=== PATIENT | male | born 1960 | race Caucasian/White ===

== ENCOUNTER 2024-09-15 10:42 | Outpatient (OUT) | payer OTHER, SELFPAY ==
--- NOTE | 2024-09-15 10:59 | US_ITS ---
The [address] [address] Patient Name: MALCOM COTTO MRN: [id number] date: 1960 Sex: M Assigned Patient Location: [place] Current Patient Location: [place] Accession/Order Number: [id number] Exam Date: 09/15/2024 11:00 Report Date: 09/15/2024 14:06 At the request of: QAMAR LOCKHART Procedure: US scrotum EXAMINATION: US scrotum HISTORY: Testicular Pain N50.819 COMPARISON: No relevant comparison available. TECHNIQUE: High-resolution sonographic imaging of the scrotum and contents was performed. FINDINGS: The right testicle is normal in size, contour and echotexture measuring 3.9 x 2.4 x 3.1 cm. Normal color and Doppler flow The right epididymis is normal No right hydrocele or varicocele The left testicle is normal in size, contour and echotexture measuring 4.5 x 2.0 x 2.7 cm. Normal color and Doppler flow The left epididymis is normal in size. The region of patient's palpable abnormality 0.7 cm area of anechoic echogenicity is noted likely an epididymal cyst No left hydrocele or varicocele US/US scrotum IMPRESSION: 7 mm left epididymal cyst corresponding to the patient's palpable abnormality Electronically authenticated by: KAY JOSEPH Date: 09/15/2024 14:06
== END 2024-09-15 10:43 | disposition home or self-care (01) ==
PROVIDERS: Visit Provider Nurse Practitioner Family
DX: N50.819 Testicular pain, unspecified (principal); N50.3 Cyst of epididymis
CPT/HCPCS: 76870

== ENCOUNTER 2025-03-04 11:57 | Observation (INO) | payer MEDICARE, SELFPAY ==
[2025-03-04] VITALS (13 sets, daily range): BP systolic 123–169; BP diastolic 71–94; PULSE 63–83; TEMP 36.4–36.8; O2SAT 91–99; BMI 31.6; BMI 31.7
--- NOTE | 2025-03-04 12:41 | ECG_ITS ---
[facility] Test Date: 2025-03-04 Pat Name: MALCOM COTTO Department: Room: - Gender: Male Resident Hall Director: : 1960 Requested By: [id number] Order Number: [id number] Reading MD: ULI RIZO M.D. Measurements Intervals [place] Rate: 69 P: 54 NC: 182 QRS: -56 QRSD: 96 T: 42 QT: 378 QTc: 398 Interpretive Statements 1100 Sinus rhythm 7200 Abnormal left axis deviation 8003 Consistent with pulmonary disease 9150 abnormal ECG Compared to ECG 06/11/2022 06:34:16 No significant changes Electronically Signed On 03-05-2025 15:12:20 EDT by ULI RIZO M.D.
[2025-03-04 12:45] LABS: Basophils Percent Auto 0.4 % (0.2-2.0); Eosinophils Percent Auto 3.3 % (0.9-7.0); Hematocrit 47.2 % (42.0-54.0); Hemoglobin 15.7 g/dL (14.0-18.0); Immature Granulocytes Pct Auto 0.2 % (0.0-0.5); Lymphocytes Percent Auto 21.1 % (20.5-60.0); Mean Corpuscular HGB Conc 33.3 g/dL (29.9-35.2); Mean Corpuscular Hemoglobin 30.2 pg (25.9-34.0); Mean Corpuscular Volume 90.8 fL (80.0-94.0); Mean Platelet Volume 10.2 fL (9.5-13.5); Platelet Count 249 10^3/uL (150-450); Red Cell Distribution Width 13.1 % (11.0-15.0); White Blood Count 8.5 10^3/uL (4.0-11.0)
[2025-03-04 12:46] LABS: Eosinophils Absolute Auto 0.3 10^3/uL (0.0-0.7); Immature Granulocytes Abs Auto 0.02 10^3/uL (0.00-0.03); Lymphocytes Absolute Auto 1.8 10^3/uL (1.2-3.8); Monocytes Absolute Auto 0.9 10^3/uL (0.3-0.8); Neutrophils Absolute Auto 5.5 10^3/uL (1.4-6.5)
[2025-03-04 12:56] LABS: INR 1.07; Prothrombin Time 11.3 sec (9.0-11.6)
[2025-03-04 12:58] LABS: Alanine Aminotransferase 29 U/L (16-63); Albumin Globulin Ratio 1.1; Alkaline Phosphatase 80 U/L (46-116); Anion Gap 13.9; Aspartate Amino Transferase 13 U/L (15-37); BUN Creatinine Ratio 18.6; Bilirubin Total 0.4 mg/dL (0.2-1.0); Calcium 8.7 mg/dL (8.5-10.1); Carbon Dioxide 25.1 mmol/L (21.0-32.0); Chloride 103 mmol/L (98-107); Estimated GFR (African America >60 (>=60 mL/min/1.73m^2); Estimated GFR (Non-African Ame >60 (>=60 mL/min/1.73m^2); Globulin 3.5 g/dL; Glucose 156 mg/dL (74-106); Sodium 138 mmol/L (136-145); Total Protein 7.5 g/dL (6.4-8.2); Troponin I High Sensitivity 4.4 pg/mL (4.0-76.1)
--- NOTE | 2025-03-04 13:55 | ED.GENADUL1 ---
HPI HPI - General Adult General Chief complaint: Neuro Symptoms/Deficit Stated complaint: upper extremity pain, light headed Time Seen by Provider: 03/04/25 12:39 Source: patient Mode of arrival: walk-in Limitations: no limitations History of Present Illness HPI narrative: The patient is a 64 years old male with history of hypertension on losartan 50 mg daily, as well as a recent history of TIA almost 3-month ago was coming to the ER with a left-sided facial numbness in addition to left hand pain and weakness that he noticed at 2 AM this morning The patient presented to us more than 9 hours after his last known well The patient has been weakness he walked in here with no difficulty he also denies any difficulty speaking or any blurry vision he also denies any headache The patient mentioned that he woke up with the pain in the left hand and went to see his urologist and that why he is coming back he continued to have pain and apparently also continued to have some dizziness with it Related Data Home Medications ?Medication ?Instructions ?Recorded ?Confirmed amlodipine 10 mg tablet 10 mg PO DAILY 03/04/25 03/04/25 aspirin 81 mg tablet,delayed 81 mg PO DAILY 03/04/25 03/04/25 release (Adult Aspirin Regimen) cholecalciferol (vitamin D3) 50 50 mcg PO DAILY 03/04/25 03/04/25 mcg (2,000 unit) disintegrating tablet empagliflozin 25 mg tablet 25 mg PO DAILY 03/04/25 03/04/25 ezetimibe 10 mg tablet 10 mg PO DAILY 03/04/25 03/04/25 finasteride 5 mg tablet 5 mg PO DAILY 03/04/25 03/04/25 insulin glargine 100 unit/mL (3 16 unit subcut DAILY 03/04/25 03/04/25 mL) subcutaneous pen losartan 50 mg tablet 50 mg PO DAILY 03/04/25 03/04/25 multivitamin (Daily Multi-Vitamin 1 tab PO DAILY 03/04/25 03/04/25 tablet) pioglitazone 30 mg tablet 30 mg PO DAILY 03/04/25 03/04/25 tadalafil 5 mg tablet (Cialis) 5 mg PO DAILY 03/04/25 03/04/25 Allergies Allergy/AdvReac Type Severity Reaction Status Date / Time No Known Drug Allergies Allergy Verified 03/04/25 14:05 Opioid HPI Opioid Management Most Recent Opioid Data: No Data to Display Review of Systems ROS Status of ROS 10 or more systems reviewed and unremarkable except as noted in history and below [facility] Medical History (Updated 03/04/25 @ 14:24 by Khushi Medrano RN) TIA (transient ischemic attack) ?G45.9 - Transient cerebral ischemic attack, unspecified (ICD-10) Hypertension ?I10 - Essential (primary) hypertension (ICD-10) Diabetes ?E11.9 - Type 2 diabetes mellitus without complications (ICD-10) Surgical History (Updated 03/04/25 @ 14:15 by Khushi Medrano RN) History of cholecystectomy ?Z90.49 - Acquired absence of other specified parts of digestive tract (ICD-10) Hx of appendectomy ?Z90.49 - Acquired absence of other specified parts of digestive tract (ICD-10) Social History Little interest or pleasure in doing things: not at all Feeling down, depressed, or hopeless: not at all Exam Narrative Exam Narrative: Nurses notes and vital signs reviewed and patient is not hypoxic. General: Well-appearing and in no apparent distress. Skin: Warm, dry, no pallor noted. No rash. Head: Normocephalic, atraumatic. Neck: Supple, non-tender. Eye: Pupils are equal, round and EOMI. No scleral icterus. Ears, Nose, Mouth, and Throat: TM are clear, no nasal mucosal hypertrophy. Oral mucosa is moist, no posterior oropharynx erythema, uvula is mid-line Cardiovascular: Regular Rate and Rhythm without murmur, gallop or rub. Respiratory: No accessory muscle use or respiratory distress. Lungs are clear to auscultation, no wheezing, rales or rhonchi Chest Wall: no tenderness Back: No midline thoracic or lumbar vertebral tenderness. No CVA tenderness Musculoskeletal: normal ROM, no calf or popliteal tenderness, no lower extremity edema/swelling the patient have tenderness on palpation of the left wrist as well as the left hand there is normal capillary refill, the patient have a good radial pulse bilaterally and GI: Abdomen is soft, non-distended. Normal bowel sounds. No masses appreciated. No tenderness to palpation. No rebound, guarding, or rigidity noted. Neurological: A&O x4. No cranial nerve dysfunction observed. No truncal ataxia. Moves all extremities. Sensation intact. Only the left hand java software is weak due to pain and the patient also mentioned that having numbness and tingling in the left side of the face at the forehead as well as the left cheek and below the eye compared to the right side. No mouth deviation Psychiatric: Cooperative and interactive. Normal mood and affect. Constitutional Vital Signs, click to edit/add: Last Vital Signs Temp 98.3 F 03/04/25 12:17 Pulse 68 03/04/25 13:30 Resp 28 H 03/04/25 14:00 BP 143/85 H 03/04/25 14:00 Pulse Ox 98 03/04/25 12:57 O2 Del Method Room Air 03/04/25 12:17 Course Vital Signs Vital signs: Vital Signs Temperature 98.3 F 03/04/25 12:17 Pulse Rate 81 03/04/25 12:17 Respiratory Rate 18 03/04/25 12:17 Blood Pressure 169/93 H 03/04/25 12:17 Pulse Oximetry 99 03/04/25 12:17 Oxygen Delivery Method Room Air 03/04/25 12:17 Temperature 98.3 F 03/04/25 12:17 Pulse Rate 68 03/04/25 13:30 Respiratory Rate 28 H 03/04/25 14:00 Blood Pressure 143/85 H 03/04/25 14:00 Pulse Oximetry 98 03/04/25 12:57 Oxygen Delivery Method Room Air 03/04/25 12:17 Medical Decision Making [facility] Narrative Medical decision making narrative: The patient EKG in the ER showing heart rate of [address] elevation or depression The patient CT of the head showed no acute pathology His blood pressure was 120 and 130 systolic on arrival The patient CBC and chemistry showed no acute pathology The patient case discussed with teleneurology stroke team and right now the patient is not a candidate for tPA and he will just need to be admitted for further evaluation, his Plavix was stopped 2 weeks after he had a TIA and right now he will be provided with aspirin The patient case discussed with and he agrees with above-mentioned plan Lab Data Labs: Lab Results 03/04/25 Range/Units 12:23 WBC 8.5 (4.0-11.0) 10^3/uL RBC 5.20 (4.70-6.10) 10^6/uL Hgb 15.7 (14.0-18.0) g/dL Hct 47.2 (42.0-54.0) % MCV 90.8 (80.0-94.0) fL MCH 30.2 (25.9-34.0) pg MCHC 33.3 (29.9-35.2) g/dL RDW 13.1 (11.0-15.0) % Plt Count 249 (150-450) 10^3/uL MPV 10.2 (9.5-13.5) fL Neut % (Auto) 65.0 (43.0-75.0) % Lymph % (Auto) 21.1 (20.5-60.0) % Divide % (Auto) 10.0 (1.7-12.0) % Eos % (Auto) 3.3 (0.9-7.0) % Baso % (Auto) 0.4 (0.2-2.0) % Neut # (Auto) 5.5 (1.4-6.5) 10^3/uL Lymph # (Auto) 1.8 (1.2-3.8) 10^3/uL Divide # (Auto) 0.9 H (0.3-0.8) 10^3/uL Eos # (Auto) 0.3 (0.0-0.7) 10^3/uL Baso # (Auto) 0.0 (0.0-0.1) 10^3/uL Abs Immat Gran (auto) 0.02 (0.00-0.03) 10^3/uL Imm/Tot Granulo (auto) 0.2 (0.0-0.5) % PT 11.3 (9.0-11.6) sec INR 1.07 Sodium 138 (136-145) mmol/L Potassium 4.0 (3.5-5.1) mmol/L Chloride 103 (98-107) mmol/L Carbon Dioxide 25.1 (21.0-32.0) mmol/L Anion Gap 13.9 BUN 19.0 H (7.0-18.0) mg/dL Creatinine 1.02 (0.70-1.30) mg/dL Est GFR ( Amer) >60 (>=60 mL/min/1.73m^2) Est GFR (Non-Af Amer) >60 (>=60 mL/min/1.73m^2) BUN/Creatinine Ratio 18.6 Glucose 156 H (74-106) mg/dL Calcium 8.7 (8.5-10.1) mg/dL Total Bilirubin 0.4 (0.2-1.0) mg/dL AST 13 L (15-37) U/L ALT 29 (16-63) U/L Alkaline Phosphatase 80 (46-116) U/L Troponin I High Sens 4.4 (4.0-76.1) pg/mL Total Protein 7.5 (6.4-8.2) g/dL Albumin 4.0 (3.4-5.0) g/dL Globulin 3.5 g/dL Albumin/Globulin Ratio 1.1 Discharge Plan Discharge Chief Complaint: Neuro Symptoms/Deficit Clinical Impression: Left hand weakness, Left facial numbness Patient Disposition: Admitted as Observation Time of Disposition Decision: 14:09
--- NOTE | 2025-03-04 13:58 | PC.NURSE ---
Dr. Harrison speaks with teleneurology via telephone. No stroke cart needed per Dr. Stone.
[2025-03-04] MEDS: KETOROLAC TROMETHAMINE 30 MG/ML VIAL 15 MG IVP (14:01)
--- OUTSIDE RECORDS SUMMARY | 2025-03-04 15:27 | XMS_ITS ---
Author Organization [facility] Care Team Providers Care Intern Retail Name Role Phone TANYA SY Attending Unav CARMINE Pozo Admitting Unavailable CHARLES, NASIMA A Primary Care Unavailable LORENA BRIGGS Attending Unavailable LORENA BRIGGS Referring Unavailable CHARLES, NASIMA A Primary Care Unavailable LORENA BRIGGS Attending Unavailable LORENA BRIGGS Referring Unavailable CHARLES, NASIMA A Primary Care Unavailable CHARLES, NASIMA A Primary Care Unavailable Lue, Mary M. Referring Unavailable Lue, Mary M. Admitting Unavailable Lue, Mary M. Attending Unavailable Lue, Mary M. Attending Unavailable Lue, Mary M. Referring Unavailable Alan DUFF Attending Unavailable Grace Robles Attending Unavailable Lue, Mary M. Referring Unavailable Lue, Mary M. Attending Unavailable Lue, Mary M. Referring Unavailable Antonella Delgadillo Attending Unavailable Antonella Delgadillo Attending Unavailable Lue, Mary M. Referring Unavailable Lue, Mary M. Admitting Unavailable Lue, Mary M. Attending Unavailable Purpose PROBLEMS DATE TYPE CONDITION / CODE ATTENDING STATUS [facility] 03/04/2025 Unknown possible stroke from [facility] / UNK(Unknown) NA Active [facility] 12/10/2024 Unknown Transient cerebr al ischemic attack, unspecified / G45.9(ICD-10) TANYA SY Active [facility] 12/10/2024 Unknown Chest pain, unspecified / R07.9(ICD-10) TANYA SY Active [facility] 12/09/2024 Unknown Chest Pain / FREETEXT(AOF) TANYA SY [facility] 12/09/2024 Unknown Dizziness / FREETEXT(AOF) TANYA SY [facility] PROCEDURES No Procedure Records Found VITAL SIGNS No Vital Signs Records Found RESULTS PATIENT EDUCATION Observed: 03/04/2025 11:19 AM Status: F Source: [facility] REPOSITORY Patient Education Urology Benign Prostatic Hyperplasia Benign prostatic hyperplasia (BPH) is an enlarged prostate gland that is caused by the normal aging process. The prostate may get bigger as a man gets older. The condition is not caused by cancer. The prostate is a walnut-sized gland that is involved in the production of semen. It is located in front of the rectum and below the bladder. The bladder stores urine. The urethra carries stored urine out of the body. An enlarged prostate can press on the urethra. This can make it harder to pass urine. The buildup of urine in the bladder can cause infection. Back pressure and infection may progress to bladder damage and kidney (renal) failure. What are the causes? This condition is part of the normal aging process. However, not all men develop problems from this condition. If the prostate enlarges away from the urethra, urine flow will not be blocked. If it enlarges toward the urethra and compresses it, there will be problems passing urine. What increases the risk? This condition is more likely to develop in men older than 50 years. What are the signs or symptoms? Symptoms of this condition include: ??? Getting up often during the night to urinate. ??? Needing to urinate frequently during the day. ??? Difficulty starting urine flow. ??? Decrease in size and strength of your urine stream. ??? Leaking (dribbling) after urinating. ??? Inability to pass urine. This needs immediate treatment. ??? Inability to completely empty your bladder. ??? Pain when you pass urine. This is more common if there is also an infection. ??? Urinary tract infection (UTI). How is this diagnosed? This condition is diagnosed based on your medical history, a physical exam, and your symptoms. Tests will also be done, such as: ??? A post-void bladder scan. This measures any amount of urine that may remain in your bladder after you finish urinating. ??? A digital rectal exam. In a rectal exam, your health care provider checks your prostate by putting a lubricated, gloved finger into your rectum to feel the back of your prostate gland. This exam detects the size of your gland and any abnormal lumps or growths. ??? An exam of your urine (urinalysis). ??? A prostate specific antigen (PSA) screening. This is a blood test used to screen for prostate cancer. ??? An ultrasound. This test uses sound waves to electronically produce a picture of your prostate gland. Your health care provider may refer you to a specialist in kidney and prostate diseases (urologist). How is this treated? Once symptoms begin, your health care provider will monitor your condition (active surveillance or watchful waiting). Treatment for this condition will depend on the severity of your condition. Treatment may include: ??? Observation and yearly exams. This may be the only treatment needed if your condition and symptoms are mild. ??? Medicines to relieve your symptoms, including: ? Medicines to shrink the prostate. ? Medicines to relax the muscle of the prostate. ??? Surgery in severe cases. Surgery may include: ? Prostatectomy. In this procedure, the prostate tissue is removed completely through an open incision or with a laparoscope or robotics. ? Transurethral resection of the prostate (TURP). In this procedure, a tool is inserted through the opening at the tip of the penis (urethra). It is used to cut away tissue of the inner core of the prostate. The pieces are removed through the same opening of the penis. This removes the blockage. ? Transurethral incision (TUIP). In this procedure, small cuts are made in the prostate. This lessens the prostate's pressure on the urethra. ? Transurethral microwave thermotherapy (TUMT). This procedure uses microwaves to create heat. The heat destroys and removes a small amount of prostate tissue. ? Transurethral needle ablation (TUNA). This procedure uses radio frequencies to destroy and remove a small amount of prostate tissue. ? Interstitial laser coagulation (ILC). This procedure uses a laser to destroy and remove a small amount of prostate tissue. ? Transurethral electrovaporization (TUVP). This procedure uses electrodes to destroy and remove a small amount of prostate tissue. ? Prostatic urethral lift. This procedure inserts an implant to push the lobes of the prostate away from the urethra. Follow these instructions at home: ??? Take baji-fgm-gkrohec and prescription medicines only as told by your health care provider. ??? Monitor your symptoms for any changes. Contact your health care provider with any changes. ??? Avoid drinking large amounts of liquid before going to bed or out in public. ??? Avoid or reduce how much caffeine or alcohol you drink. ??? Give yourself time when you urinate. ??? Keep all follow-up visits. This is important. Contact a health care provider if: ??? You have unexplained back pain. ??? Your symptoms do not get better with treatment. ??? You develop side effects from the medicine you are taking. ??? Your urine becomes very dark or has a bad smell. ??? Your lower abdomen becomes distended and you have trouble passing urine. Get help right away if: ??? You have a fever or chills. ??? You suddenly cannot urinate. ??? You feel light-headed or very dizzy, or you faint. ??? There are large amounts of blood or clots in your urine. ??? Your urinary problems become hard to manage. ??? You develop moderate to severe low back or flank pain. The flank is the side of your body between the ribs and the hip. These symptoms may be an emergency. Get help right away. Call 911. ??? Do not wait to see if the symptoms will go away. ??? Do not drive yourself to the hospital. Summary ??? Benign prostatic hyperplasia (BPH) is an enlarged prostate that is caused by the normal aging process. It is not caused by cancer. ??? An enlarged prostate can press on the urethra. This can make it hard to pass urine. ??? This condition is more likely to develop in men older than 50 years. ??? Get help right away if you suddenly cannot urinate. This information is not intended to replace advice given to you by your health care provider. Make sure you discuss any questions you have with your health care provider. Document Revised: 06/06/2022 Document Reviewed: 06/06/2022 [employer] Patient Education ? 2023 [employer]. UROLOGY OFFICE/CLINIC NOTE Observed: 01/2025 9:59 AM Status: F Source: [facility] REPOSITORY Urology Office/Clinic Note Chief Complaint follow up to urolift HPI Staff 64 yr old male here for 1 mth f/u PO Urolift w/ PVR Previous Dx:OAB, bph with luts, elevated psa, incomplete bladder emptying, ED Continues Cialis 5mg qd, Finasteride 5mg qd PVR today 119ml PSA: 05/23/21 - 5.4 09/22/24 - 8.02 patient denies any dysuria or gross hematuria. States that he has noticed improvement in frequency and urgency since UroLift. History of Present Illness Tests reviewed: reviewed UA, PVR I have reviewed the previous health record information and history for this patient from Dr. Curran I have reviewed and verified the staff HPI to be accurate for this encounter. There have been no associated fever, chills, flank pain, or blood in the urine. Denies any urinary infections since last encounter. Review of Systems PHQ Score Initial Depression Screen Score: 0 SCORE ROS - Provider Constitutional: denies weight loss, denies hot flashes. Eyes: denies eye problems. Gastrointestinal: denies nausea, denies vomiting. Cardiovascular: denies chest pain or angina. Integumentary: no dryness Musculoskeletal: denies musculoskeletal symptoms. ENMT: denies otolaryngeal symptoms. Respiratory: no shortness of breath. Heme/Lymph: denies easy bleeding tendency, denies easy bruising tendency. Psychiatric: no confusion, no anxiety. Genitourinary: See HPI. Physical Exam Vitals & Measurements HR: 80(Peripheral) RR: 16 BP: 139/83 HT: 70 in HT: 178 cm WT: 218.257 lb WT: 99 kg BMI: 31.25 General Appearance: alert, no distress, well nourished, well developed male. Assessment/Plan 64 [facility]u to UroLift. Hx of uncontrolled DM, A1c 7- 8s 1. BPH with urinary obstruction (N40.1: Benign prostatic hyperplasia with lower urinary tract symptoms) Prostate volume 86 g from outside MRI. S/p Cysto 10/26/24 - Obstructed, severe bilobar prostatomegaly, kissing lateral lobes, elevated bladder neck. Mild intravesical protrusion without median lobe sulcus. S/p 10 implant UroLift 01/25/25. 18 Fr Coude bronson catheter was placed due to hematuria, 20 cc in balloon. Saw Antonella 01/27/25 due to catheter issues. Bronson removed 02/01/25. IPSS 10 (31) Pt has noticed improvement in frequency and urgency since UroLift. Pleased with procedure. Still taking Cialis and Finasteride. Advised pt to d/c Cialis and to continue Finasteride. -Stop Cialis, cont Finasteride given large prostate volume. Can restart cialis if urination worsens -DM control, timed voids Follow up in 6 mos or sooner if needed. 2. OAB (overactive bladder) (N32.81: Overactive bladder) See #1. 3. Incomplete bladder emptying (R39.14: Feeling of incomplete bladder emptying) PVR (cc) 09/08/24 - 257 11/18/24 - 219 (voided prior to appt today) 03/04/25 - 119 mL PVR reflective of his prostate obstruction and uncontrolled DM. No recurrent UTIs, prostate infections. 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 Also shares he has burning with urination at times but no pain/pressure in perineum, for years. Now s/p UroLift. Overall has improved since UroLift. -Timed voids, see #1 4. Elevated PSA (R97.20: Elevated prostate specific antigen [PSA]) PSA 05/23/21 - 5.4 06/08/22 - 6.53 12/11/22 - 7.70 03/05/24 - 7.86 04/2024 - 8.3 09/22/24 - 8.02 No known fam hx of pros CA. Mother passed from ovarian CA, also had breast and brain CA. Father had renal CA. S/p TRUS/bx 03/2023 [facility] -negative S/p MRI Fusion TP bx 07/2024 [facility] - negative (PIRADS 3- Left apex posterior peripheral zone). 86 g. Pt previously declined repeat saturation biopsy. -Cont to monitor, PSAFT in 6 months, [facility] 5. ED (erectile dysfunction) (N52.9: Male erectile dysfunction, unspecified) JADON 0 (0) Not sexually active at this time. ED due to DM pt states. -Will address further after UroLift - declines desire for treatment at this time, no improvement with daily cialis Follow-up With When Contact Information Magdy WATSON, Mary Guerra, URL, URO Additional Instructions: 6 mos w/ PSAFT Patient Education Benign Prostatic Hyperplasia I, Arabella Spain, personally scribed for Dr. Curran on 03/04/2025 11:20:00. . Documentation recorded by the scribe, Arabella Spain, accurately reflects the services(s) I performed and decisions made by me. Authenticated by Dr. Curran on 03/04/2025 12:18:36. Problem List/Past Medical History Ongoing Alcohol dependence Benign prostatic hyperplasia without outflow obstruction BPH with urinary obstruction Coronary arteriosclerosis Diabetes mellitus ED (erectile dysfunction) Elevated PSA Elevated PSA measurement Bronson catheter problem Gross hematuria HTN (hypertension) Hyperglycemia due to type 2 diabetes mellitus Hyperlipidemia Incomplete bladder emptying OAB (overactive bladder) Osteoarthritis Prostate specific antigen above reference range Retention of urine Sensorineural hearing loss Straining on urination due to benign prostatic hypertrophy Testicular pain Vitamin D deficiency Historical No qualifying data Procedure/Surgical History Biopsy, prostate; needle or punch, single or multiple, any approach (07/28/2024), Cholecystectomy (04/30/2020), Appendectomy, Colonoscopy. Medications Alive Men's 50+ Complete Multivitamin, 1 tab(s), Oral, Daily amLODIPine 10 mg Tab, 10 mg= 1 tab(s), Oral, Daily aspirin 81 mg Oral EC Tab, 81 mg= 1 tab(s), Oral, Daily cholecalciferol 50 mcg (2000 intl units) oral tablet, disintegrating, 50 mcg= 1 tab(s), Oral, Daily Cialis 5 mg oral tablet, 5 mg= 1 tab(s), Oral, Daily, 3 refills empagliflozin 25 mg oral tablet, 25 mg= 1 tab(s), Oral, qAM ezetimibe 10 mg Tab, 10 mg= 1 tab(s), Oral, Daily finasteride 5 mg Tab, 5 mg= 1 tab(s), Oral, Daily insulin glargine 100 units/mL SubQ Sherrie 10 mL, 16 unit(s), SubCutaneous, Daily losartan 50 mg Tab, 50 mg= 1 tab(s), Oral, Daily pioglitazone 30 mg Tab, 30 mg= 1 tab(s), Oral, Daily traMADOL 50 mg Tab, 50 mg= 1 tab(s), Oral, q8hr, PRN traMADOL 50 mg Tab, 50 mg= 1 tab(s), Oral, q8hr Allergies metFORMIN (Upset stomach) Social History Alcohol Current. Beer. 1-2 times per month., 11/15/2024 Substance Abuse - Denies Substance Abuse, 05/04/2020 Never., 11/15/2024 Tobacco Former smoker, quit more than 30 days ago, quit 2017 Tobacco Use:. Never Smokeless Tobacco Use:. Cigarettes, 03/04/2025 Family History Heart disease: Father. High cholesterol: Father. Hypertension: Father. Primary malignant neoplasm of brain: Mother. Immunizations Vaccine Date Status Comments SARS-CoV-2 (COVID-19) mRNA-1273 vaccine 03/22/2021 Recorded SARS-CoV-2 (COVID-19) mRNA-1273 vaccine 03/02/2021 Recorded 2024-09-08: TPV60 SARS-CoV-2 (COVID-19) mRNA-1273 vaccine 02/02/2021 Recorded 2024-09-08: TPV60 Result Comment: Electronical ly Signed By: Mary Curran MD\.br\Date and Time Signed: 03/04/25 12:18 EDT\.br\Electronically Co-Signed By: Arabella Spain\.br\Date and Time Co-Signed: 03/04/25 11:20 EDT\.br\Electronically Co-Signed By: Arabella Spain\.br\Date and Time Co-Signed: 03/04/25 11:21 EDT AMBULATORY VISIT SUMMARY Observed: 03/04 9:59 AM Status: F Source: [facility] REPOSITORY Ambulatory Visit Summary MALCOM COTTO :1960 Visit Date:03/04/2025 Ambulatory Visit Instructions Your Diagnosis BPH with urinary obstruction OAB (overactive bladder) Incomplete bladder emptying Elevated PSA ED (erectile dysfunction) Your Care Team Attending Physician - Mary Curran MD Primary Care Physician - NASIMA SOTO CNP Referring Physician - Mary Curran MD This Is Your Medications List Contact prescribing physician if questions or concerns amlodipine (amLODIPine 10 mg Tab) aspirin (aspirin 81 mg Oral EC Tab) cholecalciferol (cholecalciferol 50 mcg (2000 intl units) oral tablet, disintegrating) empagliflozin (empagliflozin 25 mg oral tablet) ezetimibe (ezetimibe 10 mg Tab) finasteride (finasteride 5 mg Tab) insulin glargine (insulin glargine 100 units/mL SubQ Sherrie 10 mL) losartan (losartan 50 mg Tab) multivitamin with minerals (Alive Men's 50+ Complete Multivitamin) pioglitazone (pioglitazone 30 mg Tab) tadalafil (Cialis 5 mg oral tablet) tramadol (traMADOL 50 mg Tab) tramadol (traMADOL 50 mg Tab) Procedures Performed Biopsy, prostate; needle or punch, single or multiple, any approach (07/28/2024), Cholecystectomy (04/30/2020), Appendectomy, Colonoscopy. Discharge Vitals Heart Rate (Peripheral) 80 Respiratory Rate 16 Blood Pressure 139/83 Height 178 cm Height 70 in Weight 99 kg Weight 218.257 lb BMI 31.25 What to do next Scheduled Follow-Up Appointments 2024 11:00 AM EDT With: Mary Curran MD Where: [facility] [address], [address] [place] [address]- You Need to Schedule the Following Appointments Follow Up with Mary Curran MD, URL, URO When: Where: Medications What How Much When Why Instructions Unchanged amlodipine (amLODIPine 10 mg Tab) 1 Tablets By Mouth Every day Contact prescribing physician if questions or concerns Unchanged aspirin (aspirin 81 mg Oral EC Tab) 1 Tablets By Mouth Every day Contact prescribing physician if questions or concerns Unchanged cholecalciferol (cholecalciferol 50 mcg (2000 intl units) oral tablet, disintegrating) 1 Tablets By Mouth Every day Contact prescribing physician if questions or concerns Unchanged empagliflozin (empagliflozin 25 mg oral tablet) 1 Tablets By Mouth Once a day (in the morning) Contact prescribing physician if questions or concerns Unchanged ezetimibe (ezetimibe 10 mg Tab) 1 Tablets By Mouth Every day Contact prescribing physician if questions or concerns Unchanged finasteride (finasteride 5 mg Tab) 1 Tablets By Mouth Every day Contact prescribing physician if questions or concerns Unchanged insulin glargine (insulin glargine 100 units/ mL SubQ Sherrie 10 mL) 16 Units Subcutaneous Every day Contact prescribing physician if questions or concerns Unchanged losartan (losartan 50 mg Tab) 1 Tablets By Mouth Every day Contact prescribing physician if questions or concerns Unchanged multivitamin with minerals (Alive Men's 50+ Complete Multivitamin) 1 Tablets By Mouth Every day Contact prescribing physician if questions or concerns Unchanged pioglitazone (pioglitazone 30 mg Tab) 1 Tablets By Mouth Every day Contact prescribing physician if questions or concerns Unchanged tadalafil (Cialis 5 mg oral tablet) 1 Tablets By Mouth Every day BPH with urinary obstruction for BPH Contact prescribing physician if questions or concerns Unchanged tramadol (traMADOL 50 mg Tab) 1 Tablets By Mouth Every 8 hours as needed for as needed for pain Take 1 tablet every 8 hours as needed for severe pain Contact prescribing physician if questions or concerns Unchanged tramadol (traMADOL 50 mg Tab) 1 Tablets By Mouth Every 8 hours Take 1 tablet every 8 hours as needed for severe pain Contact prescribing physician if questions or concerns Allergies metFORMIN (Upset stomach) Problems Ongoing - Any problem that you are currently receiving treatment for. Alcohol dependence Benign prostatic hyperplasia without outflow obstruction BPH with urinary obstruction Coronary arteriosclerosis Diabetes mellitus ED (erectile dysfunction) Elevated PSA Elevated PSA measurement Bronson catheter problem Gross hematuria HTN (hypertension) Hyperglycemia due to type 2 diabetes mellitus Hyperlipidemia Incomplete bladder emptying OAB (overactive bladder) Osteoarthritis Prostate specific antigen above reference range Retention of urine Sensorineural hearing loss Straining on urination due to benign prostatic hypertrophy Testicular pain Vitamin D deficiency Patient Survey You may receive a survey via text or e-mail asking about your office visit. Please share your experience with us by completing your survey. We appreciate your feedback and thank you for choosing us for your care. UROLOGY OFFICE/CLINIC NOTE Observed: 3:48 PM Status: F Source: [facility] REPOSITORY Urology Office/Clinic Note Chief Complaint catheter pain HPI Staff 64yr old pt here for Bronson issues. Had UroLift done Saturday. Noticed urine has gotten much darker and cloudier since having catheter inserted. Pt had small amount of pain initially but it was not really bothersome. Pt began having severe pain today. Pain is better when standing or leaning, but walking and sitting is most painful. Also reports having bright red blood around insertion site when trying to have a BM. History of Present Illness I have reviewed and verified the staff HPI to be accurate for this encounter. Review of Systems PHQ Score Initial Depression Screen Score: 0 SCORE Physical Exam Vitals & Measurements HR: 100(Peripheral) RR: 18 BP: 160/106 HT: 70 in HT: 178 cm WT: 99 kg WT: 218.257 lb BMI: 31.25 General: Well developed, well nourished, in no acute distress. Genitourinary: normal scrotum, normal testes, normal urethra, normal epididymis, normal vas deferens/spermatic cord. Flank Pain: none. Bladder: nonpalpable. Penis: normal shaft, normal glans. Bronson present, dried blood noted around catheter near insertion site Prostate: normal prostate, no hard nodule observed. Assessment/Plan Patient presents today with his for bronson catheter issues 1. Bronson catheter problem (T83.9XXA: Unspecified complication of genitourinary prosthetic device, implant and graft, initial encounter) Patient s/p UroLift done 01/25/25 w/ KML. 10 implants attempted, 10 seated. 18 Fr Coude bronson catheter was placed due to hematuria, 20 cc in balloon. Post-op recommendations were to follow up in 2-3 days once urine is clear for bronson removal/voiding trial. Today, patient presents for bronson catheter complaints. States he initially had pain from Bronson that was not bothersome, but today, pain got much more severe. Pain is worse when walking and sitting, better with standing or leaning. He has been taking Tramadol with little to no relief. States he has been leaking both urine and bright red blood around bronson catheter. Also states urine has become more dark in color. Upon PE, dried blood noted around urethral opening and bronson catheter. Urinary catheter not properly secured and significant catheter tension noted. Bronson bag with dark con-colored urine, draining properly. Bag disconnected from catheter, bladder irrigated with ~300 cc saline until urine clear/very light pink. No clots noted. Bronson bag replaced. Cath secured w/ stat lock. Pt tolerated well. Pain improved. Recommend pt keep bronson in place until hematuria resolves. Patient agreeable. All questions answered. -See above -Avoid tension/tugging of cath. Keep bag below bladder level -Will send refill of Tramadol 50 mg q8h PRN for severe pain and oxybutynin 5 mg PRN for bladder spasms -Nurse visit scheduled 2/3 for bronson removal/voiding trial, as long as urine is clear -Follow up in 1 month with PVR w/ KML 2. Gross hematuria (R31.0: Gross hematuria) -See #1 Orders: oxybutynin, 5 mg = 1 tab(s), Oral, q12hr, PRN for urinary discomfort, Take 1 tab every 12 hours as needed for bladder spasms while catheter in is place, # 8 tab(s), Refills(s) 0, Pharmacy: [id number], 178, cm, 01/27/25 12:08:00 EST, Height/Length Dosing,... tramadol, 50 mg = 1 tab(s), Oral, q8hr, PRN as needed for pain, Take 1 tablet every 8 hours as needed for severe pain, # 5 tab(s), Refills(s) 0, Pharmacy: [id number], 178, cm, 01/27/25 12:08:00 EST, Height/Length Dosing, 99, kg, 01/27/25 12:08:00 EST, W... Follow-up With When Contact Information kml Additional Instructions: Nurse visit for bronson removal on 02/01 F/U as scheduled with KML w/ PVR Patient Education Hematuria, Adult Problem List/Past Medical History Ongoing Alcohol dependence Benign prostatic hyperplasia without outflow obstruction BPH with urinary obstruction Coronary arteriosclerosis Diabetes mellitus ED (erectile dysfunction) Elevated PSA measurement Bronson catheter problem Gross hematuria HTN (hypertension) Hyperglycemia due to type 2 diabetes mellitus Hyperlipidemia Incomplete bladder emptying OAB (overactive bladder) Osteoarthritis Prostate specific antigen above reference range Retention of urine Sensorineural hearing loss Straining on urination due to benign prostatic hypertrophy Testicular pain Vitamin D deficiency Historical No qualifying data Procedure/Surgical History Biopsy, prostate; needle or punch, single or multiple, any approach (07/28/2024), Cholecystectomy (04/30/2020), Appendectomy, Colonoscopy. Medications Alive Men's 50+ Complete Multivitamin, 1 tab(s), Oral, Daily amLODIPine 10 mg Tab, 10 mg= 1 tab(s), Oral, Daily aspirin 81 mg Oral EC Tab, 81 mg= 1 tab(s), Oral, Daily cholecalciferol 50 mcg (2000 intl units) oral tablet, disintegrating, 50 mcg= 1 tab(s), Oral, Daily Cialis 5 mg oral tablet, 5 mg= 1 tab(s), Oral, Daily, 3 refills empagliflozin 25 mg oral tablet, 25 mg= 1 tab(s), Oral, qAM ezetimibe 10 mg Tab, 10 mg= 1 tab(s), Oral, Daily finasteride 5 mg Tab, 5 mg= 1 tab(s), Oral, Daily insulin glargine 100 units/mL SubQ Sherrie 10 mL, 16 unit(s), SubCutaneous, Daily losartan 50 mg Tab, 50 mg= 1 tab(s), Oral, Daily oxybutynin 5 mg Tab, 5 mg= 1 tab(s), Oral, q12hr, PRN pioglitazone 30 mg Tab, 30 mg= 1 tab(s), Oral, Daily traMADOL 50 mg Tab, 50 mg= 1 tab(s), Oral, q8hr, PRN traMADOL 50 mg Tab, 50 mg= 1 tab(s), Oral, q8hr Valium 10 mg Tab, 10 mg= 1 tab(s), Oral, Once Allergies metFORMIN (Upset stomach) Social History Alcohol Current. Beer. 1-2 times per month., 11/15/2024 Substance Abuse - Denies Substance Abuse, 05/04/2020 Never., 11/15/2024 Tobacco Former smoker, quit more than 30 days ago, quit 2017 Tobacco Use:. Never Smokeless Tobacco Use:., 01/27/2025 Family History Heart disease: Father. High cholesterol: Father. Hypertension: Father. Primary malignant neoplasm of brain: Mother. Immunizations Vaccine Date Status Comments SARS-CoV-2 (COVID-19) mRNA-1273 vaccine 03/22/2021 Recorded SARS-CoV-2 (COVID-19) mRNA-1273 vaccine 03/02/2021 Recorded 2024-09-08: TPV60 SARS-CoV-2 (COVID-19) mRNA-1273 vaccine 02/02/2021 Recorded 2024-09-08: TPV60 Result Comment: Electronical ly Signed By: Leona SETH, Antonella\.mamadou\Date and Time Signed: 01/27/25 15:50 EST PATIENT EDUCATION Observed: 01/27/2025 3:46 PM Status: F Source: [facility] REPOSITORY Patient Education Urology Hematuria, Adult Hematuria is blood in the urine. Blood may be visible in the urine, or it may be identified with a test. This condition can be caused by infections of the bladder, urethra, kidney, or prostate. Other possible causes include: ??? Kidney stones. ??? Cancer of the urinary tract. ??? Too much calcium in the urine. ??? Conditions that are passed from parent to child (inherited conditions). ??? Exercise that requires a lot of energy. Infections can usually be treated with medicine, and a kidney stone usually will pass through your urine. If neither of these is the cause of your hematuria, more tests may be needed to identify the cause of your symptoms. It is very important to tell your health care provider about any blood in your urine, even if it is painless or the blood stops without treatment. Blood in the urine, when it happens and then stops and then happens again, can be a symptom of a very serious condition, including cancer. There is no pain in the initial stages of many urinary cancers. Follow these instructions at home: Medicines ??? Take qewy-rdd-rpcepbl and prescription medicines only as told by your health care provider. ??? If you were prescribed an antibiotic medicine, take it as told by your health care provider. Do not stop taking the antibiotic even if you start to feel better. Eating and drinking ??? Drink enough fluid to keep your urine pale yellow. It is recommended that you drink 3?4 quarts (2.8?3.8 L) a day. If you have been diagnosed with an infection, drinking cranberry juice in addition to large amounts of water is recommended. ??? Avoid caffeine, tea, and carbonated beverages. These tend to irritate the bladder. ??? Avoid alcohol because it may irritate the prostate (in males). General instructions ??? If you have been diagnosed with a kidney stone, follow your health care provider's instructions about straining your urine to catch the stone. ??? Empty your bladder often. Avoid holding urine for long periods of time. ??? If you are female: ? After a bowel movement, wipe from front to back and use each piece of toilet paper only once. ? Empty your bladder before and after sex. ??? Pay attention to any changes in your symptoms. Tell your health care provider about any changes or any new symptoms. ??? It is up to you to get the results of any tests. Ask your health care provider, or the department that is doing the test, when your results will be ready. ??? Keep all follow-up visits. This is important. Contact a health care provider if: ??? You develop back pain. ??? You have a fever or chills. ??? You have nausea or vomiting. ??? Your symptoms do not improve after 3 days. ??? Your symptoms get worse. Get help right away if: ??? You develop severe vomiting and are unable to take medicine without vomiting. ??? You develop severe pain in your back or abdomen even though you are taking medicine. ??? You pass a large amount of blood in your urine. ??? You pass blood clots in your urine. ??? You feel very weak or like you might faint. ??? You faint. Summary ??? Hematuria is blood in the urine. It has many possible causes. ??? It is very important that you tell your health care provider about any blood in your urine, even if it is painless or the blood stops without treatment. ??? Take fmhc-nly-uxitqjn and prescription medicines only as told by your health care provider. ??? Drink enough fluid to keep your urine pale yellow. This information is not intended to replace advice given to you by your health care provider. Make sure you discuss any questions you have with your health care provider. Document Revised: 07/19/2021 Document Reviewed: 07/19/2021 [employer] Patient Education ? 2023 [employer] OPERATIVE REPORT Observed: 01/25/2025 10:48 AM Status: F Source: [facility] REPOSITORY Operative Report Patient: MALCOM COTTO Age: 64 years Sex: Male : 1960 Associated Diagnoses: None Author: Mary Curran MD Procedure Operative Information Details: Date/ Time: 01/25/2025 10:48:00. Pre-Op Dx: BPH w/ LUTS - N40.1. Post-Op Dx: Same. Anesthesia Type: Local. Procedure: Cystoscopy with UroLift Prostatic Urethral Lift. Complications: None. Risks/Benefits/Informed Consent: Surgical risks, benefits, details of the procedure have been explained to the patient, Full informed consent has been obtained. Intraoperative Information INDICATIONS: 64-year-old male with benign prostatic hyperplasia and bothersome voiding symptoms including obstruction. Specifically, the patient has an IPSS of 31, post-void residual volume (PVR) of 220 ml, and serum PSA level of 8 ng/ml s/p negative MRI fusion prostate biopsy. MRI confirms an 86 gram prostate volume. Office cystoscopy demonstrates severe bilateral lateral lobe obstruction with elevated bladder neck. His symptoms have failed to improve on medical therapy. After discussion of surgical treatment options, the patient elected a prostatic urethral lift procedure in which permanent transprostatic implants are installed to create a wider channel by which to void. Other surgical alternatives were rejected due to known adverse side effects and anesthesia. PROCEDURE: Patient received local anesthesia: 10 mg diazepam 45 min prior, 33 cc 2% lidocaine gel to urethra; penile clamp installed for 30 min dwell prior to procedure. Additional 11ml lidocaine gel inserted per urethra after clamp removed and patient prepped/draped in the usual sterile fashion. A 20F cystoscope was inserted into the bladder. The cystoscopy bridge was replaced with a UroLift UL-2 delivery device. The first treatment site was the patient's left side approximately 1.5 cm distal to the bladder neck. The distal tip of the delivery device was then angled anterior laterally approximately 10 degrees at this position to compress the lateral lobe. The trigger was pulled, thereby deploying a needle containing the implant through the prostate. The implant was additionally compressed for total 20 degrees, trigger pulled and needle was then retracted, allowing one end of the implant to be delivered to the capsular surface of the prostate. The implant was then tensioned to assure capsular seating and removal of slack monofilament. The device was then angled back toward midline and slowly advanced proximally (typically 3 to 4 mm) until cystoscopic verification of the monofilament being centered in the delivery bay. The urethral end piece was then affixed to the monofilament thereby tailoring the size of the implant. Excess filament was then severed. The delivery device was then re-advanced into the bladder. The same procedure was then repeated on the right side, and two additional implants were delivered just proximal to the verumontanum, again one on right and one on left side of the prostate, following a similar technique. Cystoscopy then revealed a persistent area of obstruction, and 6 more implants were delivered in the proximal and mid prostate. A final cystoscopy was conducted first to inspect the location and state of each implant and second, to confirm the presence of a continuous anterior channel was present through the prostatic urethra with irrigation flow turned off. All instruments were removed. An 18Fr coude bronson catheter was inserted due to hematuria, 20 cc in balloon. The bladder was irrigated until clear. The patient tolerated the procedure well without complication. 10 implants attempted, 10 seated. . Postoperative Information Discharge: The patient tolerated the procedure well and was subsequently discharged home, Follow up in 2-3 days once urine is clear for bronson removal, voiding trial. Follow up in 1 month with P[facility]. Of note, pt had TIA 12/09/24 and was on Plavix x 21 days. Stress test was neg for ischemia. Echo wnl. He was told to wait 6-8 weeks for prostate surgery. Discussed elevated risk of complications including stroke and cardiac events if anesthesia was needed for post op issues. Pt stated his understanding and agreed to proceed. Pt was advised to start ASA 81 mg tomorrow and f/u with PCP regarding neurology and cardiology care.. Result Comment: Electronical ly Signed By: Magdy WATSON, Mary Guerra\.mamadou\Date and Time Signed: 01/25/25 10:53 EST PATIENT EDUCATION Observed: 01/25/2025 10:47 AM Status: C Source: [facility] REPOSITORY Patient Education [facility] [place], [place] Post-Operative Instructions for UroLift After your procedure it is normal to have: Gross Hematuria (blood in the urine) You may even notice blood clots in your urine. A small amount of blood may apppear to be a lot of blood in your urine as it is diluted. Restarting your blood thinner, increased activity and heavy lifting could increase the amount of bleeding. The bleeding may be sporadic (off and on) over the next 2-3 weeks. Ensure you are hydrating to assist in flushing the blood to prevent voiding complications. In the event you are unable to void, please reach out to our office. If the office is closed, you will need to report to the local emergency room. Blood in your semen and stool may be present. The blood in your semen is not harmful to you or your partner. This will resolve with time. Frequency/urgency/burning with urination is very common. This is due to irritation from your procedure. These symptoms do not indicate that your procedure was unsuccessful or that there is an infection. Ensure you are hydrating! You may try AZO over the counter as needed for urinary discomfort. Pain/discomfort are normal as well. There has been a non-narcotic prescription sent to your pharmacy. You may alternate this prescription with over the counter Ibuprofen. Your pain and discomfort should improve within a few days. When do I need to call the office? We ask that you reach out to the office if you experience a temperature of 100.4 ??? F or higher, excessive urinary bleeding, symptoms of infection, inability to urinate or uncontrolled pain. If the office is closed, you may need to present to the local emergency department. Bronson catheter If you have a catheter and will remove it at home, you may do so the next day if urine is clear and no longer red/pink in color. If urine is red, wait until clear to remove the catheter. See attached instructions for removal. Postop UroLift Instructions ??? Complete your antibiotic as instructed. ??? Remain on all your urinary medication until follow up. ??? Take your pain madications and AZO as needed. ??? Resume any blood thinners 48 hour post procedure. ??? Continue to hydrate! ??? Minimize your activity for 72-96 hours post procedure. ??? If you are prescribed Oxybutynin for bladder spasms, you may take this medication every 8 hours as needed. This medication may cause dry mouth/eyes and constipation. Taking an over the counter stool softener and drinking plenty of water will help with side effects. Bronson Catheter Removal Your healthcare provider has instructed you to remove your Bronson catheter. This is a thin, flexible tube that allows urine to drain out of your bladder and into a bag. It is important to properly remove your catheter to prevent infection and other complications. If you have any questions about removing the Bronson catheter, ask your healthcare provider before trying to remove it. Otherwise, follow the instructions on this sheet. Bronson Catheter The Bronson catheter is held in place by a small balloon that is filled with water. To remove the catheter, you must first drain the water from the balloon. This is done using a syringe and the balloon port. This is the opening in the catheter that is not attached to the bag. It allows you to get to the balloon. Instructions for Removing the Catheter Follow the directions closely. Note: If the catheter does not come out with gentle pulling, stop and call your healthcare provider right away. ??? Empty the bag of urine if needed. ??? Wash your hands with soap and warm water. Dry them well. ??? Gather your supplies. This includes a syringe that was given to you by your healthcare provider, a wastebasket, and a towel. ??? Put the syringe into the balloon port on the catheter. The syringe fits tightly into the port with a firm push and twist motion. ??? Wait as the water from the balloon empties into the syringe. Depending on how large the balloon is, you may need to repeat this process several times until all of the water is out of the balloon. ??? Once the balloon is emptied, gently pull out the catheter. ??? Put the used catheter in the wastebasket. Throw away the syringe. ??? Use the towel to wipe up any spilled water or urine if needed. ??? Wash your hands again. When to Call Your Healthcare Provider Call the healthcare provider right away if: ??? You have a fever of 100.4 ???F (38???C) or higher, or as directed by your healthcare provider. ??? You have questions about removing the catheter. ??? The catheter does not come out with gentle pulling. ??? You cannot urinate within 8 hours of removing the catheter. ??? Your belly (abdomen) is painful or bloated ??? You have burning pain with urination that lasts for 24 hours. ??? You see a lot of blood in your urine. Light bleeding for 24 hours is normal. ??? It feels like the bladder is not emptying. OUTPATIENT SURGERY DISCHARGE INSTRUCTION Observed: 01/25/2025 10:47 AM Status: C Source: [facility] REPOSITORY Outpatient Surgery Discharge Instruction [address] [address] Patient Discharge Instructions PERSON INFORMATION Name: MALCOM COTTO Date of : 1960 Current Date: 01/25/2025 10:47:32 PHYSICIANS Admitting Physician: Mary Curran MD Comment: Discharge Diagnosis: BPH with urinary obstruction; Other obstructive and reflux uropathy MALCOM COTTO has been given the following list of follow-up instructions, prescriptions, and patient education materials: IF UNABLE TO CONTACT YOUR PHYSICIAN AND YOU FEEL IT IS AN EMERGENCY, GO TO THE NEAREST EMERGENCY ROOM OR CALL 911 Follow up: With: Address: When: Follow up with PCP regarding referrals for neurology and cardiology per [facility] instructions With: Address: When: Mary Curran [address] [place] [address] [phone] Business (1) Comments: Office to schedule follow up: nursing visit in 2-3 days once urine is clear for bronson removal voiding trial. Follow up with Dr. Curran in 1 month for [facility] Comment: PATIENT EDUCATION INFORMATION Instructions: [facility] [place], [place] Post-Operative Instructions for UroLift After your procedure it is normal to have: Gross Hematuria (blood in the urine) You may even notice blood clots in your urine. A small amount of blood may apppear to be a lot of blood in your urine as it is diluted. Restarting your blood thinner, increased activity and heavy lifting could increase the amount of bleeding. The bleeding may be sporadic (off and on) over the next 2-3 weeks. Ensure you are hydrating to assist in flushing the blood to prevent voiding complications. In the event you are unable to void, please reach out to our office. If the office is closed, you will need to report to the local emergency room. Blood in your semen and stool may be present. The blood in your semen is not harmful to you or your partner. This will resolve with time. Frequency/urgency/burning with urination is very common. This is due to irritation from your procedure. These symptoms do not indicate that your procedure was unsuccessful or that there is an infection. Ensure you are hydrating! You may try AZO over the counter as needed for urinary discomfort. Pain/discomfort are normal as well. There has been a non-narcotic prescription sent to your pharmacy. You may alternate this prescription with over the counter Ibuprofen. Your pain and discomfort should improve within a few days. When do I need to call the office? We ask that you reach out to the office if you experience a temperature of 100.4 ??? F or higher, excessive urinary bleeding, symptoms of infection, inability to urinate or uncontrolled pain. If the office is closed, you may need to present to the local emergency department. Bronson catheter If you have a catheter and will remove it at home, you may do so the next day if urine is clear and no longer red/pink in color. If urine is red, wait until clear to remove the catheter. See attached instructions for removal. Postop UroLift Instructions ??? Complete your antibiotic as instructed. ??? Remain on all your urinary medication until follow up. ??? Take your pain madications and AZO as needed. ??? Resume any blood thinners 48 hour post procedure. ??? Continue to hydrate! ??? Minimize your activity for 72-96 hours post procedure. ??? If you are prescribed Oxybutynin for bladder spasms, you may take this medication every 8 hours as needed. This medication may cause dry mouth/eyes and constipation. Taking an over the counter stool softener and drinking plenty of water will help with side effects. Bronson Catheter Removal Your healthcare provider has instructed you to remove your Bronson catheter. This is a thin, flexible tube that allows urine to drain out of your bladder and into a bag. It is important to properly remove your catheter to prevent infection and other complications. If you have any questions about removing the Bronson catheter, ask your healthcare provider before trying to remove it. Otherwise, follow the instructions on this sheet. Bronson Catheter The Bronson catheter is held in place by a small balloon that is filled with water. To remove the catheter, you must first drain the water from the balloon. This is done using a syringe and the balloon port. This is the opening in the catheter that is not attached to the bag. It allows you to get to the balloon. Instructions for Removing the Catheter Follow the directions closely. Note: If the catheter does not come out with gentle pulling, stop and call your healthcare provider right away. ??? Empty the bag of urine if needed. ??? Wash your hands with soap and warm water. Dry them well. ??? Gather your supplies. This includes a syringe that was given to you by your healthcare provider, a wastebasket, and a towel. ??? Put the syringe into the balloon port on the catheter. The syringe fits tightly into the port with a firm push and twist motion. ??? Wait as the water from the balloon empties into the syringe. Depending on how large the balloon is, you may need to repeat this process several times until all of the water is out of the balloon. ??? Once the balloon is emptied, gently pull out the catheter. ??? Put the used catheter in the wastebasket. Throw away the syringe. ??? Use the towel to wipe up any spilled water or urine if needed. ??? Wash your hands again. When to Call Your Healthcare Provider Call the healthcare provider right away if: ??? You have a fever of 100.4 ???F (38???C) or higher, or as directed by your healthcare provider. ??? You have questions about removing the catheter. ??? The catheter does not come out with gentle pulling. ??? You cannot urinate within 8 hours of removing the catheter. ??? Your belly (abdomen) is painful or bloated ??? You have burning pain with urination that lasts for 24 hours. ??? You see a lot of blood in your urine. Light bleeding for 24 hours is normal. ??? It feels like the bladder is not emptying. IYADIEL ARTHUR F, have received the attached patient education materials/instructions and have verbalized understanding: May we do a follow up call? Yes No I was present when discharge instructions were given Patient Signature Date Clinican/Nurse Signature Date You may receive a survey from Ryan Sanchez asking you to rate your care experience. Your feedback is important and will help us understand what we do well and how we can improve the quality of care we provide to you, your loved ones and our community. It???s an honor to serve you. Thank you for choosing [facility] INPATIENT PATIENT SUMMARY Observed: 01/03 10:47 AM Status: C Source: [facility] REPOSITORY Inpatient Patient Summary [place] [id number] Clinical Summary Person Information Name: MALCOM COTTO Age: 64 Years : 1960 Sex: Male PCP: NASIMA SOTO CNP Marital Status: Race: White Ethnicity: Non- or Language: Citizen Of [place] Visit Id: Visit Reason: BPH WITH URINARY OBSTRUCTION Speciality: Acuity: Enc Type: Outpatient Med Service: Surgery Arrival: 01/25/2025 08:44:02 Discharge: Dispo Type: Address: [address] [place] [phone] Provider Notes: Diagnosis: BPH with urinary obstruction; Other obstructive and reflux uropathy Problems Active Incomplete bladder emptying ED (erectile dysfunction) OAB (overactive bladder) Testicular pain Elevated PSA measurement BPH with urinary obstruction Alcohol dependence Benign prostatic hyperplasia without outflow obstruction Coronary arteriosclerosis Hyperglycemia due to type 2 diabetes mellitus Hyperlipidemia Osteoarthritis Prostate specific antigen above reference range Sensorineural hearing loss Retention of urine Straining on urination due to benign prostatic hypertrophy Vitamin D deficiency Diabetes mellitus HTN (hypertension) Smoking Status: Functional Status: Sensory Deficits: History of Falls: Mobility Assistance Prior to Admission: ADLs: Current Level of Assistance for Self-Care/Mobility: Cognitive Status: Allergies metFORMIN (Upset stomach) Laboratory or Other Results This Visit (last charted value for your 01/25/2025 visit) No Laboratory or Other Results This Visit Measurements: Height: Weight: Blood Pressure: Not Valued / Not Valued BMI: Procedures No Procedures Documented Immunizations No Immunizations Documented This Visit Final Med List: amlodipine (amLODIPine 10 mg Tab) 1 Tablets By Mouth every day. aspirin (aspirin 81 mg Oral EC Tab) 1 Tablets By Mouth every day. cholecalciferol (cholecalciferol 50 mcg (2000 intl units) oral tablet, disintegrating) 1 Tablets By Mouth every day. diazepam (Valium 10 mg Tab) 1 Tablets By Mouth Once. take 30 minutes prior to procedure. Refills: 0. empagliflozin (empagliflozin 25 mg oral tablet) 1 Tablets By Mouth once a day (in the morning). ezetimibe (ezetimibe 10 mg Tab) 1 Tablets By Mouth every day. finasteride (finasteride 5 mg Tab) 1 Tablets By Mouth every day. insulin glargine (insulin glargine 100 units/mL SubQ Sherrie 10 mL) 16 Units Subcutaneous every day. losartan (losartan 50 mg Tab) 1 Tablets By Mouth every day. multivitamin with minerals (Alive Men's 50+ Complete Multivitamin) 1 Tablets By Mouth every day. pioglitazone (pioglitazone 30 mg Tab) 1 Tablets By Mouth every day. tadalafil (Cialis 5 mg oral tablet) 1 Tablets By Mouth every day. for BPH. Refills: 3. tramadol (traMADOL 50 mg Tab) 1 Tablets By Mouth every 8 hours. Take 1 tablet every 8 hours as needed for severe pain. Refills: 0. Care Team Members: Attending Physician: Mary Curran MD Consulting Physician: Referring Physician: Mary Curran MD Follow up: With: Address: When: Follow up with PCP regarding referrals for neurology and cardiology per [facility] instructions With: Address: When: Mary Curran [address] [place], [place] [phone] Business (1) Comments: Office to schedule follow up: nursing visit in 2-3 days once urine is clear for bronson removal voiding trial. Follow up with Dr. Curran in 1 month for PVR Patient Education Information: Lue - Urolift Post-Op Instructions (CUSTOM) MAIN OR INTRAOPERATIVE RECORD Observed: 01/25/2025 10:23 AM Status: F Source: [facility] REPOSITORY Main OR Intraoperative Recor d IntraOp Document Type FTURO Summary Primary Physician: Mary Curran MD Finalized Date/Time: 01/25/25 10:48:08 Pt. Name: YADIEL MALCOM F /Sex: 1960 Male Med Rec #: [id number] Physician: Mary Curran MD Financial #: [id number] Pt. Type: O Room/Bed: / Admit/Disch: 01/25/25 08:44:02 - Institution: Case Times FTURO Entry 1 Patient Times In Room 01/25/25 10:04:00 Out Room 01/25/25 10:48:00 Procedure Times Start 01/25/25 10:23:00 Stop 01/25/25 10:42:00 Anesthesia Times Last Modified By: Neymar Martinez Ii 01/25/25 10:48:05 Case Attendance FTURO Entry 1 Entry 2 Entry 3 Case Attendee Magdy WATSON, Christine Gardner Alfons Ii F Role Performed Surgeon - Primary Scrub - Primary Journeyman Welder - Primary Time In 01/25/25 10:04:00 01/25/25 10:04:00 01/25/25 10:04:00 Time Out 01/25/25 10:48:00 01/25/25 10:48:00 01/25/25 10:48:00 Procedure CYSTOSCOPY LOCAL CYSTOSCOPY LOCAL CYSTOSCOPY LOCAL UROLIFT(.) UROLIFT(.) UROLIFT(.) Comments Last Modified By: Neymar Martinez Ii, Alfons Ii F Letrondo, Alfons Ii F 01/25/25 10:48:06 01/25/25 10:48:06 01/25/25 10:48:06 Surgical Procedures FTURO Entry 1 Procedure Description Procedure CYSTOSCOPY LOCAL UROLIFT Modifiers . Surgeon Description CYSTO UROLIFT Primary Procedure Yes Primary Surgeon Mary Curran MD Start 01/25/25 10:23:00 Stop 01/25/25 10:42:00 Anesthesia Type Local Surgical Service Urology Wound Class 2 - Clean-Contaminated Last Modified By: Neymar Martinez Ii 01/25/25 10:42:15 General Case Data FTURO Pre-Care Text: Classifies surgical wound, implements aseptic technique, initiates traffic control Entry 1 Case Information OR URO 1 FT Case Level None Wound Class 2 - Clean-Contaminated Specialty Urology Preop Diagnosis BPH WITH URINARY Postop Same As Preop Yes OBSTRUCTION Postop Diagnosis BPH WITH URINARY Outcomes Met? Yes OBSTRUCTION Last Modified By: Neymar Martinez Ii 01/25/25 10:10:52 Post-Care Text: The patient is free from signs and symptoms of infection EU IntraOp - FTURO Pre-Care Text: Implements protective measures prior to operative or invasive procedure, confirms identity before the operative or invasive procedure, verifies operative procedure, surgical site, and laterality Entry 1 EU Perioperative Protocols Procedure(s) CYSTOSCOPY LOCAL Patient Identity Birthday, ID Band UROLIFT(.) Verified (select at Check, Patient least 2): Participation Consents / H and P H&P, Surgery/Procedure Operative Site N/A Verified Consent Marking Verified Surgical Site Yes Laterality Verified n/a Verified Procedure Verified Yes Correct Patient Yes Position Verified Availability Equipment, Implant, Time Out Mary Curran MD, Verified (If Medication Participants Christine Palmer, Applicable) Neymar Martinez Ii Time Out Complete 01/25/25 10:11:00 Allergies Reviewed? Yes Allergies Reviewed Self/Patient With Body Position Low Lithotomy Prep Area PENIS Prep Agents Betasept Skin. Condition Intact, [place], Warm, & Description UNCHANGED Dry Additional None Specimens Collected Vitals - EU Blood Pressure 155/79 Pulse 76 bpm Respirations 18 br/min SPO2 I&O - EU Outcomes Met? Yes Last Modified By: Neymar Martinez Ii 01/25/25 10:27:01 Post-Care Text: The patient is free from signs and symptoms of injury caused by extraneous objects Sign Out FTURO Entry 1 Before Patient Leaves OR Nurse verbally Yes Nurse verbally Yes confirms with the confirms with the team the name of team that the procedure(s) instrument, sponge, recorded and needle counts are correct (or N/A) Nurse verbally n/a Nurse verbally Yes confirms with the confirms with the team how the team whether there specimen is labeled are any equipment (including patient problems to be name), if applicable addressed Sign Out Complete 01/25/25 10:41:00 Last Modified By: Neymar Martinez Ii 01/25/25 10:41:49 Case Comments <None> Finalized By: Neymar Martinez Ii Document Signatures Signed By: Neymar Martinez Ii 01/25/25 10:48 MAIN OR PREOPERATIVE RECORD Observed: 9:30 AM Status: C Source: [facility] REPOSITORY Main OR Preoperative Record Holding Area Document Type FTURO Summary Primary Physician: Mary Curran MD Finalized Date/Time: 01/25/25 10:09:44 Pt. Name: MALCOM COTTO Desi KhalilB./Sex: 1960 Male Med Rec #: [id number] Physician: Mary Curran MD Financial #: [id number] Pt. Type: O Room/Bed: / Admit/Disch: 01/25/25 08:44:02 - Institution: Case Times Holding FTURO Pre-Care Text: Verifies consent for planned procedure, identifies individual values and wishes concerning care, includes family members in perioperative teaching Secures patient's records' belongings, and valuables, maintains patient's dignity and privacy, and maintains patient confidentiality Entry 1 In Holding 01/25/25 09:03:00 Outcomes Met? Yes Last Modified By: Ameena Graff LPN 01/25/25 09:03:50 Post-Care Text: The patient participates in decisions affecting his or her perioperative plan of care The patient's right to privacy is maintained Surgery Checklist FTURO Entry 1 Patient Birthday, ID Band Procedure History and Physical, Identification: Check, Patient Verification: Surgical Consent, With Participation Patient NPO after Midnight: n/a Personal Items: Glasses Limitations: up ad jorge Complaints of Pain: No Skin Integrity Intact, [place], Warm, & Dry Vitals - EU Blood Pressure 155/79 Pulse 76 bpm Respirations 18 br/min SPO2 95 % Additional None RN Reviewed Yes Specimens Collected Last Modified By: Neymar Martinez Ii 01/25/25 10:09:42 Finalized By: Neymar Martinez Ii Document Signatures Signed By: Ameena Graff LPN 01/25/25 09:07 Neymar Martinez Ii 01/25/25 10:09 BEDSIDE GLUCOSE LAB Collected: 12/10/2024 7:13 AM Status: COMPLETED Source: [facility] REPOSITORY TYPE CODE TESTS RESULT OUT OF RANGE REFERENCE UNITS LAB BEDG(LOINC) BEDSIDE GLUCOSE LAB 136 High 65-99 mg/dL CBC AND AUTO DIFF Collected: 12/10/2024 6:16 AM Status: COMPLETED Source: [facility] REPOSITORY TYPE CODE TESTS RESULT OUT OF RANGE REFERENCE UNITS LAB WBC(LOINC) WBC COUNT 7.4 4.0-11.0 X10E9/L LAB RBC(LOINC) RBC COUNT 4.78 4.10-5.70 X10E12/L LAB HGB(LOINC) HEMOGLOBIN 14.6 13.0-17.0 g/dL LAB HCT(LOINC) HEMATOCRIT 43.0 39-49 % LAB MCV(LOINC) MCV 90 80-100 fL LAB MCH(LOINC) MCH 30.5 27-34 pg LAB MCHC(LOINC) MCHC 33.9 32-36 g/dL LAB RDW(LOINC) RDW 14.1 11.5-15.0 % LAB PLTC(LOINC) PLATELET COUNT 243 150-450 X10E9 /L LAB MPV(LOINC) MPV 8.2 7-12 fL LAB NEUT(LOINC) % NEUTROPHILS 67.4 % LAB LYMP(LOINC) % LYMPHOCYTES 16.9 % LAB MONO(LOINC) % MONOCYTES 10.8 % LAB EOS(LOINC) % EOSINOPHILS 4.5 % LAB BASO(LOINC) % BASOPHILS 0.4 % LAB ANEUT(LOINC) ABSOLUTE NEUTROPHIL 5.0 1.5-6.6 X10E9/L LAB ALYMP(LOINC) ABSOLUTE LYMPHOCYTE 1.3 1.0-3.5 X10E9/L LAB AMONO(LOINC) ABSOLUTE MONOCYTE 0.8 0-0.9 X10E9/L LAB AEOS(LOINC) ABSOLUTE EOSINOPHIL 0.3 0.0-0.4 X10E9/L LAB ABASO(LOINC) ABSOLUTE BASOPHIL 0.0 0.0-0.2 X10E9/L Performed By: #### CIRO FELTON , 61798-6 #### [facility] ([id number]) [address] [place] [address] COMPREHENSIVE METABOLIC PANEL Collected: 2024 6:16 AM Status: COMPLETED Source: [facility] REPOSITORY TYPE CODE TESTS RESULT OUT OF RANGE REFERENCE UNITS LAB NA(LOINC) SODIUM 135 134-146 mmol/L LAB K(LOINC) POTASSIUM 3.8 3.5-5.0 mmol/L LAB CL(LOINC) CHLORIDE 104 98-109 mmol/L LAB CO2(LOINC) CARBON DIOXIDE 24 22-32 mmol/L LAB AGAP(LOINC) ANION GAP 7 5-15 mmol/L LAB BUN(LOINC) BLOOD UREA NITROGEN 20 5-27 mg/dL LAB CRET(LOINC) CREATININE 0.89 0.70-1.20 mg/dL Result Comment: METHOD TRACE ABLE TO IDMS STANDARD LAB GLU(LOINC) GLUCOSE 139 High 65-99 mg/dL LAB CA(LOINC) CALCIUM 8.4 Low 8.5-10.5 mg/dL LAB TP(LOINC) TOTAL PROTEIN 6.6 6.0-8.0 g/dL LAB ALB(LOINC) ALBUMIN 4.1 3.2-5.3 g/dL LAB ALK(LOINC) ALKALINE PHOSPHATASE 50 39-130 U/L LAB AST(LOINC) AST 20 0-41 U/L LAB ALT1(LOINC) ALT 29 0-40 U/L LAB TBIL(LOINC) BILIRUBIN,TOTAL 0.8 0.3-1.2 mg/d L LAB EGFR(LOINC) eGFR (CKD-EPI) NON-RACE DEPENDENT >90 >59 ml/min/1 .73sq.m Result Comment: Reported eGFR is based on the CKD-EPI 2020 equation that does not use a race coefficient. Performed By: #### CIRO FELTON , 89762-0 #### [facility] ([id number]) [address] [place] [address] MAGNESIUM Collected: 12/10/2024 6:16 AM S tatus: COMPLETED Source: [facility] REPOSITORY TYPE CODE TESTS RESULT OUT OF RANGE REFERENCE UNITS LAB MG(LOINC) MAGNESIUM 2.1 1.8-2.6 mg/dL Performed By: #### CBCA, CMP , 26456-6 #### [facility] ([id number]) [address] [place] [address] BEDSIDE GLUCOSE LAB Collected: 12/09/2024 8:24 PM Status: COMPLETED Source: [facility] TYPE CODE TESTS RESULT OUT OF RANGE REFERENCE UNITS LAB BEDG(LOINC) BEDSIDE GLUCOSE LAB 130 High 65-99 mg/dL MR BRAIN WO CONT Observed: 12/09/2024 3:13 PM Status: COMPLETED Source: [facility] REPOSITORY MR BRAIN WO CONT History: Neuro deficit, acute, stroke suspected Exam/Technique: Multiplanar multisequence images of the brain obtained without IV dye. Comparison: 12/09/[address] Findings: The ventricular system and cortical sulci are appropriate for patient's age group. There is adequate avila-white matter differentiation. There are few subtle areas of increased FLAIR signal at the deep and periventricular white matter possibly due to small vessel disease. There is no localized area of restricted diffusion to support acute or subacute ischemic insult. There is no gross intracranial hemorrhage or gross mass lesion. Corpus callosum, cerebellopontine angle and basal cisterns are grossly unremarkable. IMPRESSION: Unremarkable exam with few scattered white matter signal changes in favor of small vessel disease. Finalized by Clarita Dye MD on 12/09/2024 3:[address] CTA CAROTID Observed: 12/09/2024 10:21 AM Status: COMPLETED Source: [employer] CT CTA CAROTID CLINICAL INFORMATION: Syncope/presyncope, cerebrovascular cause suspected TECHNIQUE: CT angiogram performed following intravenous administration of nonionic intravenous contrast. Coronal and sagittal and 3-D volume rendered maximum intensity projection images generated and reviewed under concurrent physician supervision. Automated exposure control utilized. The [place] Symptomatic Carotid Endarterectomy Trial (NASCET) method for calculating the degree of stenosis was utilized for stenosis measurements. All CT scans at this facility use dose modulation, iterative reconstruction, and/or weight based dosing when appropriate to reduce radiation dose to as low as reasonably achievable. COMPARISON: No relevant prior studies available. FINDINGS: The great vessels are patent at their origins, common carotid arteries are patent throughout their course in the neck, carotid bulbs are patent bilaterally, the internal carotid arteries are patent throughout their course in the neck. The origin of the vertebral arteries are patent bilaterally, the vertebral arteries are patent throughout their course in the neck. No major arterial flow limiting stenosis or occlusion. Lung apices are clear, partially visualized thyroid is within normal limits. Multilevel degenerative changes of the cervical spine. IMPRESSION: * No flow-limiting major arterial stenosis or occlusion within the neck. Finalized by Gabrielle Dumont MD on 12/09/2024 10:[address] CTA HEAD Observed: 12/09/2024 10:21 AM Status: COMPLETED Source: [employer] CT CTA HEAD CT angiogram of the head, 12/09/2024 Clinical History: Syncope Comparison: None Contrast: 100 mL Omnipaque 350 Technique: Multidetector CT angiogram performed through the [place] of [place] using 3D reconstructions and source images displayed on a PACS workstation and reviewed by the radiologist. Automatic exposure control (AEC) was utilized. Arterial blood flow was measured to assist the stroke clinical team in the diagnosis of large vessel occlusion in patients undergoing screening for acute ischemic stroke using Rapid AI software when clinically indicated. Findings: Mild narrowing of the horizontal segment of the right internal carotid artery. Otherwise the internal carotid arteries are patent with no aneurysm, dissection or significant stenosis. There is mild atherosclerotic disease involving the cavernous segments of both internal carotid arteries. The bilateral vertebral arteries and basilar artery are patent with no aneurysm, dissection or significant stenosis. The bilateral anterior cerebral, middle cerebral and posterior cerebral arteries are patent with no aneurysm or significant stenosis. No vascular malformation. Patent dural venous sinuses. IMPRESSION: 1. No acute vascular abnormality. All CT scans at this facility use dose modulation, iterative reconstruction, and/or weight based dosing when appropriate to reduce radiation dose to as low as reasonably achievable. Finalized by Jonah Silva MD on 12/09/2024 10:[address] BRAIN WO CONT Observed: 12/09/2024 10:20 AM Status: COMPLETED Source: [employer] CT BRAIN WO CONT Exam: CT brain without contrast. CLINICAL HISTORY: Headache. Dizziness. TECHNIQUE: CT brain without intravenous contrast. All CT scans at this facility use dose modulation, iterative reconstruction, and/or weight based dosing when appropriate to reduce radiation dose to as low as reasonably achievable COMPARISON: None FINDINGS: No evidence of hemorrhage. No mass or mass effect. No CT evidence of acute ischemia/infarct. The midline structures are intact, no midline shift. The ventricles and basal cisterns are unremarkable. The brainstem and cerebellum are unremarkable. The paranasal sinuses and mastoid air cells are well aerated. No acute osseous abnormality. IMPRESSION: No acute intracranial pathology by CT. Finalized by Miles Toscano MD on 12/09/2024 10:47 AM 1 HOUR TROP I, HIGH SENSITIVITY Collected: 07/2025 9:05 AM Status: COMPLETED Source: [employer] TYPE CODE TESTS RESULT OUT OF RANGE REFERENCE UNITS LAB TNIHS1(LOINC) 1 HOUR TROP I, HIGH SENSITIVITY 4 <21 ng/L Performed By: #### [id number] # ### [facility] ([id number]) [address] [place] [address] XR CHEST 2 VWS Observed: 12/09/2024 8:13 AM Status: COMPLETED Source: [employer] XR CHEST 2 VWS Clinical history:Chest pain. PA and lateral chest:12/09/2024 Comparison:None Findings: 2 views of the chest were obtained. There is no focal pulmonary consolidation. No pneumothorax or pleural effusion is present. Mediastinal contours are within normal limits. IMPRESSION: No acute infiltrate. Finalized by Josh Ewing MD on 12/09/2024 8:19 AM CBC AND AUTO DIFF Collected: 12/09/2024 7:57 AM Status: COMPLETED Source: [facility] REPOSITORY TYPE CODE TESTS RESULT OUT OF RANGE REFERENCE UNITS LAB WBC(LOINC) WBC COUNT 7.7 4.0-11.0 X10E9/L LAB RBC(LOINC) RBC COUNT 4.94 4.10-5.70 X10E12/L LAB HGB(LOINC) HEMOGLOBIN 15.5 13.0-17.0 g/dL LAB HCT(LOINC) HEMATOCRIT 45.2 39-49 % LAB MCV(LOINC) MCV 91 80-100 fL LAB MCH(LOINC) MCH 31.4 27-34 pg LAB MCHC(LOINC) MCHC 34.3 32-36 g/dL LAB RDW(LOINC) RDW 13.8 11.5-15.0 % LAB PLTC(LOINC) PLATELET COUNT 249 150-450 X10E9 /L LAB MPV(LOINC) MPV 7.9 7-12 fL LAB NEUT(LOINC) % NEUTROPHILS 63.6 % LAB LYMP(LOINC) % LYMPHOCYTES 21.9 % LAB MONO(LOINC) % MONOCYTES 9.6 % LAB EOS(LOINC) % EOSINOPHILS 4.5 % LAB BASO(LOINC) % BASOPHILS 0.4 % LAB ANEUT(LOINC) ABSOLUTE NEUTROPHIL 4.9 1.5-6.6 X10E9/L LAB ALYMP(LOINC) ABSOLUTE LYMPHOCYTE 1.7 1.0-3.5 X10E9/L LAB AMONO(LOINC) ABSOLUTE MONOCYTE 0.7 0-0.9 X10E9/L LAB AEOS(LOINC) ABSOLUTE EOSINOPHIL 0.3 0.0-0.4 X10E9/L LAB ABASO(LOINC) ABSOLUTE BASOPHIL 0.0 0.0-0.2 X10E9/L Performed By: #### CBCA, CMP , 63363-2, 91356-1, THYR #### [facility] ([id number]) [address] [place] [address] #### HA1C #### [facility] ([id number]) [address] [place] [address], [address] [place] [address] COMPREHENSIVE METABOLIC PANEL Collected: 2024 7:57 AM Status: COMPLETED Source: [facility] REPOSITORY TYPE CODE TESTS RESULT OUT OF RANGE REFERENCE UNITS LAB NA(LOINC) SODIUM 135 134-146 mmol/L LAB K(LOINC) POTASSIUM 4.2 3.5-5.0 mmol/L LAB CL(LOINC) CHLORIDE 104 98-109 mmol/L LAB CO2(LOINC) CARBON DIOXIDE 24 22-32 mmol/L LAB AGAP(LOINC) ANION GAP 7 5-15 mmol/L LAB BUN(LOINC) BLOOD UREA NITROGEN 23 5-27 mg/dL LAB CRET(LOINC) CREATININE 0.92 0.70-1.20 mg/dL Result Comment: METHOD TRACE ABLE TO IDMS STANDARD LAB GLU(LOINC) GLUCOSE 230 High 65-99 mg/dL LAB CA(LOINC) CALCIUM 9.0 8.5-10.5 mg/dL LAB TP(LOINC) TOTAL PROTEIN 7.2 6.0-8.0 g/dL LAB ALB(LOINC) ALBUMIN 4.3 3.2-5.3 g/dL LAB ALK(LOINC) ALKALINE PHOSPHATASE 71 39-130 U/L LAB AST(LOINC) AST 24 0-41 U/L LAB ALT1(LOINC) ALT 27 0-40 U/L LAB TBIL(LOINC) BILIRUBIN,TOTAL 0.5 0.3-1.2 mg/d L LAB EGFR(LOINC) eGFR (CKD-EPI) NON-RACE DEPENDENT >90 >59 ml/min/1 .73sq.m Result Comment: Reported eGFR is based on the CKD-EPI 2020 equation that does not use a race coefficient. Performed By: #### [facility] , 68452-0, 61846-7, THYR #### [facility] ([id number]) [address] [place] [address] #### HA1C #### [facility] ([id number]) [address] [place] [address], [address] [address] MAGNESIUM Collected: 12/09/2024 7:57 AM S tatus: COMPLETED Source: [facility] REPOSITORY TYPE CODE TESTS RESULT OUT OF RANGE REFERENCE UNITS LAB MG(LOINC) MAGNESIUM 2.1 1.8-2.6 mg/dL Performed By: #### CBCA, CMP , 78917-3, 96284-2, THYR #### [facility] ([id number]) [address] [place] [address] #### HA1C #### [facility] ([id number]) [address] [place] [address], [address] [address] TROPONIN I, HIGH SENSITIVITY Collected: 7:57 AM Status: COMPLETED Source: [facility] REPOSITORY TYPE CODE TESTS RESULT OUT OF RANGE REFERENCE UNITS LAB TNIHS(LOINC) TROPONIN I, HIGH SENSITIVITY 4 <21 ng/L Performed By: #### CBCA, CMP , 99759-6, 45175-5, THYR #### [facility] ([id number]) [address] [place] [address] #### HA1C #### [facility] ([id number]) [address] [place] [address], [address] [place] [address] THYROID PROFILE Collected: 12/09/2024 7:57 AM Status: COMPLETED Source: [facility] REPOSITORY TYPE CODE TESTS RESULT OUT OF RANGE REFERENCE UNITS LAB TSH(LOINC) TSH 2.44 0.49-4.67 uIU/mL LAB FT4(LOINC) FREE T4 0.86 0.61-1.60 ng/dL Performed By: #### CBCA, CMP , 65110-9, 69118-2, THYR #### [facility] ([id number]) [address] [place] [address] #### HA1C #### [facility] ([id number]) [address] [place] [address], [address] [place] [address] HGB A1C (GLYCO-HGB) Collected: 12/09/2024 7:57 AM Status: COMPLETED Source: [facility] REPOSITORY TYPE CODE TESTS RESULT OUT OF RANGE REFERENCE UNITS LAB HBA1C(LOINC) HEMOGLOBIN A1C 8.9 High 4.4-5.6 % Result Comment: NOTE ADA Guidelines Result HgbA1c Normal : less than 5.7 % Prediabetes : 5.7 % to 6.4 % Diabetes : > 6.4 % Use with caution in patients with abnormal hemoglobin variants as the half-life of red blood cells and in vivo glycation rates are affected. LAB EAG(LOINC) AVERAGE GLUCOSE 209 mg/dL Performed By: #### CBCA, CMP , 95763-5, 29537-6, THYR #### [facility] ([id number]) [address] [place] [address] #### HA1C #### [facility] ([id number]) [address], [address] [place] [address] APTT Collected: 12/09/2024 7:57 AM S tatus: COMPLETED Source: [facility] REPOSITORY TYPE CODE TESTS RESULT OUT OF RANGE REFERENCE UNITS LAB PTT(LOINC) APTT 33 26-37 sec Performed By: #### 27457-1 # ### [facility] ([id number]) [address] [place] [address] #### 71356-3, 228-, 2132-08 #### [facility] ([id number]) [address], [address] [place] [address] LIPID PROFILE Collected: 12/09/2024 7:57 AM Status: COMPLETED Source: [facility] REPOSITORY TYPE CODE TESTS RESULT OUT OF RANGE REFERENCE UNITS LAB CHOL(LOINC) CHOLESTEROL 163 150-200 mg/dL LAB TRIG(LOINC) TRIGLYCERIDE 144 27-150 mg/dL LAB HDL(LOINC) HDL CHOLESTEROL 52 >39 mg/dL Result Comment: HDL <40 mg/dL - High Risk HDL > or = 40mg/dL- Desirable HDL >60 mg/dL - Negative Risk LAB VLDL(LOINC) VERY LOW LIPOPROTEIN 29 0-30 mg/dL LAB LDL(LOINC) LDL (CALC) 82 <130 mg/dL Result Comment: LDL <100 mg/dL - Desirable LDL >160 mg/dL - High Risk LAB CHDL(LOINC) CHOLESTEROL:HDL 3.1 1.0-5.0 Performed By: #### 07963-0 # ### [facility] ([id number]) [address] [place] [address] #### 74969-2, 228-8, 2132-08 #### [facility] ([id number]) [address] [place] [address], [address] [address] FOLIC ACID Collected: 12/09/2024 7:57 AM S tatus: COMPLETED Source: [facility] REPOSITORY TYPE CODE TESTS RESULT OUT OF RANGE REFERENCE UNITS LAB FOLI(LOINC) FOLIC ACID >25.0 >5.8 ng/mL Result Comment: NEW REFERENC E RANGE Performed By: #### 33635-6 # ### [facility] ([id number]) [address] [place] [address] #### 70763-9, 2284-8, 2131-9 #### [facility] ([id number]) [address] [place] [address], [address] [address] VITAMIN B12 Collected: 12/09/2024 7:57 AM S tatus: COMPLETED Source: [facility] REPOSITORY TYPE CODE TESTS RESULT OUT OF RANGE REFERENCE UNITS LAB B12(LOINC) VITAMIN B12 400 180-914 pg/mL Performed By: #### 60283-1 # ### [facility] ([id number]) [address] [place] [address] #### 87336-0, 2284-8, 2132-08 #### [facility] ([id number]) [address] [place] [address] AMBULATORY VISIT SUMMARY Observed: 11/18 12:12 PM Status: F Source: [facility] REPOSITORY Ambulatory Visit Summary MALCOM COTTO :1960 Visit Date:11/18/2024 Ambulatory Visit Instructions Your Diagnosis OAB (overactive bladder) BPH with urinary obstruction Feeling of incomplete bladder emptying Elevated PSA measurement ED (erectile dysfunction) Your Care Team Attending Physician - Mary Curran MD Primary Care Physician - NASIMA SOTO CNP Referring Physician - Mary Curran MD This Is Your Medications List ciprofloxacin (Cipro 500 mg Tab) diazepam (Valium 10 mg Tab) finasteride (finasteride 5 mg Tab) tadalafil (Cialis 5 mg oral tablet) tramadol (traMADOL 50 mg Tab) Contact prescribing physician if questions or concerns amlodipine (amLODIPine 10 mg Tab) aspirin (aspirin 81 mg Oral EC Tab) cholecalciferol (cholecalciferol 50 mcg (2000 intl units) oral tablet, disintegrating) empagliflozin (empagliflozin 25 mg oral tablet) ezetimibe (ezetimibe 10 mg Tab) insulin glargine (insulin glargine 100 units/mL SubQ Sherrie 10 mL) losartan (losartan 50 mg Tab) multivitamin with minerals (Alive Men's 50+ Complete Multivitamin) pioglitazone (pioglitazone 30 mg Tab) Procedures Performed Biopsy, prostate; needle or punch, single or multiple, any approach (07/28/2024), Cholecystectomy (04/30/2020), Appendectomy, Colonoscopy. Discharge Vitals Temperature (Oral) 37 ???C Heart Rate (Peripheral) 84 Respiratory Rate 18 Blood Pressure 143/86 Height 178 cm Height 70 in Weight 99 kg Weight 218.257 lb BMI 31.25 What to do next Scheduled Follow-Up Appointments Saturday 10:00 AM EST Where: [facility] Saturday 9:00 AM EST Where: [facility] You Need to Schedule the Following Appointments Follow Up with Magdy WATSON, STEPHANIE Arevalo, URO When: Where: [address] [place] [address]- [phone] Medications What How Much When Why Instructions New ciprofloxacin (Cipro 500 mg Tab) 1 Tablets By Mouth 2 times a day Duration: 3 Days start taking 1 day prior to procedure Pickup at [facility]/pharmacy #[id number] New diazepam (Valium 10 mg Tab) 1 Tablets By Mouth Once take 30 minutes prior to procedure Pickup at [facility]/pharmacy #[id number] New tramadol (traMADOL 50 mg Tab) 1 Tablets By Mouth Every 8 hours Take 1 tablet every 8 hours as needed for severe pain Pickup at [facility]/pharmacy #[id number] Unchanged finasteride (finasteride 5 mg Tab) 1 Tablets By Mouth Every day Unchanged tadalafil (Cialis 5 mg oral tablet) 1 Tablets By Mouth Every day BPH with urinary obstruction for BPH Unchanged amlodipine (amLODIPine 10 mg Tab) 1 Tablets By Mouth Every day Contact prescribing physician if questions or concerns Unchanged aspirin (aspirin 81 mg Oral EC Tab) 1 Tablets By Mouth Every day Contact prescribing physician if questions or concerns Unchanged cholecalciferol (cholecalciferol 50 mcg (2000 intl units) oral tablet, disintegrating) 1 Tablets By Mouth Every day Contact prescribing physician if questions or concerns Unchanged empagliflozin (empagliflozin 25 mg oral tablet) 1 Tablets By Mouth Once a day (in the morning) Contact prescribing physician if questions or concerns Unchanged ezetimibe (ezetimibe 10 mg Tab) 1 Tablets By Mouth Every day Contact prescribing physician if questions or concerns Unchanged insulin glargine (insulin glargine 100 units/ mL SubQ Sherrie 10 mL) 16 Units Subcutaneous Every day Contact prescribing physician if questions or concerns Unchanged losartan (losartan 50 mg Tab) 1 Tablets By Mouth Every day Contact prescribing physician if questions or concerns Unchanged multivitamin with minerals (Alive Men's 50+ Complete Multivitamin) 1 Tablets By Mouth Every day Contact prescribing physician if questions or concerns Unchanged pioglitazone (pioglitazone 30 mg Tab) 1 Tablets By Mouth Every day Contact prescribing physician if questions or concerns Pharmacy Information [facility]/pharmacy #[id number]: [address], [place] [phone] Allergies metFORMIN (Upset stomach) Problems Ongoing - Any problem that you are currently receiving treatment for. Alcohol dependence Benign prostatic hyperplasia without outflow obstruction BPH with urinary obstruction Coronary arteriosclerosis Diabetes mellitus ED (erectile dysfunction) Elevated PSA measurement HTN (hypertension) Hyperglycemia due to type 2 diabetes mellitus Hyperlipidemia Incomplete bladder emptying OAB (overactive bladder) Osteoarthritis Prostate specific antigen above reference range Retention of urine Sensorineural hearing loss Straining on urination due to benign prostatic hypertrophy Testicular pain Vitamin D deficiency Patient Survey You may receive a survey via text or e-mail asking about your office visit. Please share your experience with us by completing your survey. We appreciate your feedback and thank you for choosing us for your care. Education Materials Prostatic Urethral Lift, Care After The following information offers guidance on how to care for yourself after your procedure. Your health care provider may also give you more specific instructions. If you have problems or questions, contact your health care provider. What can I expect after the procedure? After the procedure, it is common to have: ??? Soreness or discomfort in your penis from having the cystoscope inserted during the procedure. ??? Discomfort or burning when urinating. ??? An increased urge to urinate. ??? More frequent urination. ??? Urine that is blood-tinged. These symptoms should go away after a few days. Follow these instructions at home: Activity ??? If you were given a sedative during the procedure, it can affect you for several hours. Do not drive or operate machinery until your health care provider says that it is safe. ??? Avoid sitting for a long time without moving. Get up to take short walks every 1???2 hours. This is important to improve blood flow and breathing. Ask for help if you feel weak or unsteady. ??? You may have to avoid lifting. Ask your health care provider how much you can safely lift. ??? Avoid intense physical activity for as long as told by your health care provider. ??? Return to your normal activities as told by your health care provider. Ask your health care provider what activities are safe for you. Ask when you can return to sexual activity. General instructions ??? Take klnq-wbw-zeysuag and prescription medicines only as told by your health care provider. ??? Ask your health care provider if the medicine prescribed to you: ? Requires you to avoid driving or using machinery. ? Can cause constipation. You may need to take these actions to prevent or treat constipation: ? Drink enough fluid to keep your urine pale yellow. ? Take gtpk-evo-ysncmrp or prescription medicines. ? Eat foods that are high in fiber, such as beans, whole grains, and fresh fruits and vegetables. ? Limit foods that are high in fat and processed sugars, such as fried or sweet foods. ??? Do not use any products that contain nicotine or tobacco. These products include cigarettes, chewing tobacco, and vaping devices, such as e-cigarettes. These can delay healing after the procedure. If you need help quitting, ask your health care provider. ??? Keep all follow-up visits. This is important. Contact a health care provider if: ??? You have chills or a fever. ??? You have pain when passing urine. ??? You have bright red blood or blood clots in your urine. ??? You have difficulty passing urine. ??? You have leaking of urine (incontinence). Get help right away if: ??? You have chest pain or shortness of breath. ??? You have leg pain or swelling. ??? You cannot pass urine. These symptoms may be an emergency. Get help right away. Call 911. ??? Do not wait to see if the symptoms will go away. ??? Do not drive yourself to the hospital. Summary ??? After the procedure, it is common to have discomfort or burning when urinating, an increased urge to urinate, more frequent urination, and urine that is blood- tinged. ??? You may have to avoid lifting. Ask your health care provider how much you can safely lift. ??? Return to your normal activities as told by your health care provider. Ask when you can return to sexual activity. This information is not intended to replace advice given to you by your health care provider. Make sure you discuss any questions you have with your health care provider. Document Revised: 06/15/2022 Document Reviewed: 06/15/2022 [employer] Patient Education ??? 2023 [employer]. Prostatic Urethral Lift Prostatic urethral lift is a surgical procedure to treat symptoms of prostate gland enlargement that occurs with age (benign prostatic hypertrophy, BPH). The urethra passes between the two lobes of the prostate. The urethra is the part of the body that drains urine from the bladder. As the prostate enlarges, it can push on the urethra and cause problems with urinating. This procedure involves placing an implant that holds the prostate away from the urethra. The procedure is done using a thin device called a cystoscope. The device is inserted through the tip of the penis and moved up the urethra to the prostate. This is less invasive than other procedures that require an incision. You may have this procedure if: ??? You have symptoms of BPH. ??? Your prostate is not severely enlarged. ??? Medicines to treat BPH are not working or not tolerated. ??? You want to avoid possible sexual side effects from medicines or other procedures that are used to treat BPH. Tell a health care provider about: ??? Any allergies you have. ??? All medicines you are taking, including vitamins, herbs, eye drops, creams, and pucv-hkb-bnqjvdx medicines. ??? Any problems you or family members have had with anesthetic medicines. ??? Any bleeding problems you have. ??? Any surgeries you have had. ??? Any medical conditions you have. What are the risks? Generally, this is a safe procedure. However, problems may occur, including: ??? Bleeding. ??? Infection. ??? Leaking of urine (incontinence). ??? Allergic reactions to medicines. ??? Return of BPH symptoms after 2 years, requiring more treatment. What happens before the procedure? When to stop eating and drinking Follow instructions from your health care provider about what you may eat and drink before your procedure. These may include: ??? 8 hours before your procedure ? Stop eating most foods. Do not eat meat, fried foods, or fatty foods. ? Eat only light foods, such as toast or crackers. ? All liquids are okay except energy drinks and alcohol. ??? 6 hours before your procedure ? Stop eating. ? Drink only clear liquids, such as water, clear fruit juice, black coffee, plain tea, and sports drinks. ? Do not drink energy drinks or alcohol. ??? 2 hours before your procedure ? Stop drinking all liquids. ? You may be allowed to take medicines with small sips of water. If you do not follow your health care provider's instructions, your procedure may be delayed or canceled. Medicines Ask your health care provider about: ??? Changing or stopping your regular medicines. This is especially important if you are taking diabetes medicines or blood thinners. ??? Taking medicines such as aspirin and ibuprofen. These medicines can thin your blood. Do not take these medicines unless your health care provider tells you to take them. ??? Taking quza-frc-usjllqh medicines, vitamins, herbs, and supplements. Surgery safety Ask your health care provider what steps will be taken to help prevent infection. These steps may include: ??? Removing hair at the surgery site. ??? Washing skin with a germ-killing soap. ??? Taking antibiotic medicine. General instructions ??? Do not use any products that contain nicotine or tobacco for at least 4 weeks before the procedure. These products include cigarettes, chewing tobacco, and vaping devices, such as e-cigarettes. If you need help quitting, ask your health care provider. ??? If you will be going home right after the procedure, plan to have a responsible adult: ? Take you home from the hospital or clinic. You will not be allowed to drive. ? Care for you for the time you are told. What happens during the procedure? An IV may be inserted into one of your veins. ??? You will be given one or more of the following: ? A medicine to help you relax (sedative). ? A medicine that is injected into your urethra to numb the area (local anesthetic). ? A medicine to make you fall asleep (general anesthetic). ??? A cystoscope will be inserted into your penis and moved through your urethra to your prostate. ??? A device will be inserted through the cystoscope and used to press the lobes of your prostate away from your urethra. ??? Implants will be inserted through the device to hold the lobes of your prostate in the widened position. ??? The device and cystoscope will be removed. The procedure may vary among health care providers and hospitals. What happens after the procedure? Your blood pressure, heart rate, breathing rate, and blood oxygen level be monitored until you leave the hospital or clinic. ??? If you were given a sedative during the procedure, it can affect you for several hours. Do not drive or operate machinery until your health care provider says that it is safe. Summary ??? Prostatic urethral lift is a surgical procedure to relieve symptoms of prostate gland enlargement that occurs with age (benign prostatic hypertrophy, BPH). ??? The procedure is performed with a thin device called a cystoscope. This device is inserted through the tip of the penis and moved up the urethra to reach the prostate. This is less invasive than other procedures that require an incision. ??? If you will be going home right after the procedure, plan to have a responsible adult take you home from the hospital or clinic. You will not be allowed to drive. This information is not intended to replace advice given to you by your health care provider. Make sure you discuss any questions you have with your health care provider. Document Revised: 06/15/2022 Document Reviewed: 06/15/2022 [employer] Patient Education ??? 2023 [employer]. UROLOGY OFFICE/CLINIC NOTE Observed: 8:47 AM Status: F Source: [facility] REPOSITORY Urology Office/Clinic Note Chief Complaint 2-3wk f/u HPI Staff 64yr old male pt here for 2-3wk f/u. S/p cysto 10/26/24. IPSS score 26. Pt unable to give urine sample at this time. States he might be able to before leaving office. Records from [place] in pt's chart. Previous Dx: BPH with urinary obstruction, incomplete bladder emptying, elevated PSA, testicular pain *tadalafil 5mg qd, finasteride 5mg, tamsulosin 0.4mg qd PVR 09/08/24 - 257mL 11/18/24 (did not void prior) - 219mL PSA: 05/23/21 - 5.4 09/22/24 - 8.02 Dysuria: states not lately, states since he started new med that was prescribed Incomplete bladder emptying: yes - nothing has changed Frequency: easily 8-9x per day Nocturia: 4-5x per night Stream: if he holds his urine too long, has a difficult time starting stream, usually has a weak stream Post void dripping: sometimes Abdominal pain: he has always had lower abdominal pain, no improvement History of Present Illness Tests reviewed: reviewed operative report, PVR, external PSA I have reviewed the previous health record information and history for this patient from Dr. Curran and Grace Robles NP. I have reviewed and verified the staff HPI to be accurate for this encounter. Review of Systems PHQ Score Initial Depression Screen Score: 0 SCORE ROS - Provider Constitutional: denies weight loss, denies hot flashes. Eyes: denies eye problems. Gastrointestinal: denies nausea, denies vomiting. Cardiovascular: denies chest pain or angina. Integumentary: no dryness Musculoskeletal: denies musculoskeletal symptoms. ENMT: denies otolaryngeal symptoms. Respiratory: no shortness of breath. Heme/Lymph: denies easy bleeding tendency, denies easy bruising tendency. Psychiatric: no confusion, no anxiety. Genitourinary: See HPI. Physical Exam Vitals & Measurements T: 37 ???C(Oral) HR: 84(Peripheral) RR: 18 BP: 143/86 HT: 70 in HT: 178 cm WT: 99 kg WT: 218.257 lb BMI: 31.25 General Appearance: alert, no distress, well nourished, well developed male. Assessment/Plan 64 yo male pt prior [facility] here for f/u to cysto to further discuss HENAO options. Hx of uncontrolled DM, A1c 7-8s 1. OAB (overactive bladder) (N32.81: Overactive bladder) Most bothersome sx. Previously discussed how unable to start medications for this due to elevated PVR and BPH with obstruction. Had no changes with urination status while on maximal medication therapy for BPH per below. Diabetes is worsening the sxs and how these may persist despite outlet procedure. -Address outlet per #2 -Tight diabetes control, timed voids, avoid bladder irritants 2. BPH with urinary obstruction (N40.1: Benign prostatic hyperplasia with lower urinary tract symptoms) IPSS 26 (31). Urinary sxs ongoing x3 yrs. Taking Cialis 5mg qd and Finasteride 5mg qd (within the last year). States [facility] stopped Tamsulosin 0.8mg qd. Has not noticed any sx improvement with any of these medications. Prostate volume 86 g from outside MRI. S/p Cysto 10/26/24 - Obstructed, severe bilobar prostatomegaly, kissing lateral lobes, elevated bladder neck. Mild intravesical protrusion without median lobe sulcus. Again discussed risks/benefits/procedural details of UroLift, Rezum, TURP or referral to tertiary center for aqua ablation. Previosuly said he would like to avoid worsening SEs of ED although he is not currently sexually active. Now he states this is not a priority. Pt wishes to proceed with UroLift. -Cont Finasteride and Cialis -Will schedule Urolift. The procedural risks, benefits, details, and treatment alternatives have been discussed with the patient. These include bleeding, infection, continued problems urinating, increased frequency with urgency during the healing process, painful urination, need for indwelling catheter after the procedure, and the need for additional procedures in the future, among others. The risk of penile erection problems and urinary leakage is less after this procedure than some others, but could still occur. Full informed consent has been obtained. Will order Local anesthesia. 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 Abx and tramadol sent 3. Incomplete bladder emptying (R33.9: Retention of urine, unspecified) PVR (cc): 09/08/24 - 257 11/18/24 - 219 (voided prior to appt today) PVR reflective of his prostate obstruction and uncontrolled DM. No recurrent UTIs, prostate infections. 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 Also shares he has burning with urination at times but no pain/pressure in perineum, for years. Discussed bladder pathophysiology, incomplete emptying and reasoning for cramping. Pt could CIC to assist with emptying better -Timed voids, see #2 4. Elevated PSA measurement (R97.20: Elevated prostate specific antigen [PSA]) PSA 05/23/21 - 5.4 06/08/22 - 6.53 12/11/22 - 7.70 03/05/24 - 7.86 04/2024 - 8.3 09/22/24 - 8.02 No known fam hx of pros ca. Mother passed from ovarian ca, also had breast and brain ca. Father had renal ca. TRUS Biopsy 03/2023 -negative MRI Fusion TP bx 07/2024 - negative (PIRADS 3- Left apex posterior peripheral zone). 86 g He was just unaware of his history. Elevated PSA likely due to BPH with LUTS. Again reviewed results of MRI, PSA trend and previous biopsies with pt. Offered to do a repeat saturation biopsy given pt was concerned about PSA. However after further discussion of stability of PSA level and negative biopsies, pt does not feel this is necessary at this time. -Cont to monitor 5. ED (erectile dysfunction) (N52.9: Male erectile dysfunction, unspecified) JADON 0. Not sexually active at this time. ED due to DM pt states -Will address further after UroLift I spent 40 minutes today with the patient: reviewing tests in preparation to see and discuss them with the patient, obtaining and reviewing external separately obtained history, documenting clinical information in the electronic health records, and care coordination. Time was spent performing a medical exam and evaluation, counseling and educating the patient, and ordering medications, tests, and procedures in caring for the patient. Follow-up With When Contact Information Magdy WATSON, Mary Guerra, URL, [facility] [address], [place] [phone] Additional Instructions: sched Urolift Patient Education Prostatic Urethral Lift, Care After Prostatic Urethral Lift Violette Uriarte, personally scribed for Dr. Curran on 11/18/2024 08:47:56. . Documentation recorded by the scribeViolette, accurately reflects the services(s) I performed and decisions made by me. Authenticated by Dr. Curran on 11/18/2024 09:00:03. Problem List/Past Medical History Ongoing Alcohol dependence Benign prostatic hyperplasia without outflow obstruction BPH with urinary obstruction Coronary arteriosclerosis Diabetes mellitus ED (erectile dysfunction) Elevated PSA measurement HTN (hypertension) Hyperglycemia due to type 2 diabetes mellitus Hyperlipidemia Incomplete bladder emptying OAB (overactive bladder) Osteoarthritis Prostate specific antigen above reference range Retention of urine Sensorineural hearing loss Straining on urination due to benign prostatic hypertrophy Testicular pain Vitamin D deficiency Historical No qualifying data Procedure/Surgical History Biopsy, prostate; needle or punch, single or multiple, any approach (07/28/2024), Cholecystectomy (04/30/2020), Appendectomy, Colonoscopy. Medications Alive Men's 50+ Complete Multivitamin, 1 tab(s), Oral, Daily amLODIPine 10 mg Tab, 10 mg= 1 tab(s), Oral, Daily aspirin 81 mg Oral EC Tab, 81 mg= 1 tab(s), Oral, Daily cholecalciferol 50 mcg (2000 intl units) oral tablet, disintegrating, 50 mcg= 1 tab(s), Oral, Daily Cialis 5 mg oral tablet, 5 mg= 1 tab(s), Oral, Daily, 3 refills empagliflozin 25 mg oral tablet, 25 mg= 1 tab(s), Oral, qAM ezetimibe 10 mg Tab, 10 mg= 1 tab(s), Oral, Daily finasteride 5 mg Tab, 5 mg= 1 tab(s), Oral, Daily insulin glargine 100 units/mL SubQ Sherrie 10 mL, 16 unit(s), SubCutaneous, Daily losartan 50 mg Tab, 50 mg= 1 tab(s), Oral, Daily pioglitazone 30 mg Tab, 30 mg= 1 tab(s), Oral, Daily Allergies metFORMIN (Upset stomach) Social History Alcohol Current. Beer. 1-2 times per month., 11/15/2024 Substance Abuse - Denies Substance Abuse, 05/04/2020 Never., 11/15/2024 Tobacco Former smoker, quit more than 30 days ago, quit 2017 Tobacco Use:. Never Smokeless Tobacco Use:., 11/18/2024 Family History Heart disease: Father. High cholesterol: Father. Hypertension: Father. Primary malignant neoplasm of brain: Mother. Immunizations Vaccine Date Status Comments SARS-CoV-2 (COVID-19) mRNA-1273 vaccine 03/22/2021 Recorded SARS-CoV-2 (COVID-19) mRNA-1273 vaccine 03/02/2021 Recorded 2024-09-08: [id number] SARS-CoV-2 (COVID-19) mRNA-1273 vaccine 02/02/2021 Recorded 2024-09-08: TPV60 Result Comment: Electronical ly Signed By: Mary Curran MD\.br\Date and Time Signed: 11/18/24 09:00 EST\.br\Electronically Co-Signed By: Violette Dawkins\.br\Date and Time Co-Signed: 11/18/24 08:48 EST PATIENT EDUCATION Observed: 11/18/2024 8:46 AM Status: C Source: [facility] REPOSITORY Patient Education Urology Prostatic Urethral Lift, Care After The following information offers guidance on how to care for yourself after your procedure. Your health care provider may also give you more specific instructions. If you have problems or questions, contact your health care provider. What can I expect after the procedure? After the procedure, it is common to have: ??? Soreness or discomfort in your penis from having the cystoscope inserted during the procedure. ??? Discomfort or burning when urinating. ??? An increased urge to urinate. ??? More frequent urination. ??? Urine that is blood-tinged. These symptoms should go away after a few days. Follow these instructions at home: Activity ??? If you were given a sedative during the procedure, it can affect you for several hours. Do not drive or operate machinery until your health care provider says that it is safe. ??? Avoid sitting for a long time without moving. Get up to take short walks every 1?2 hours. This is important to improve blood flow and breathing. Ask for help if you feel weak or unsteady. ??? You may have to avoid lifting. Ask your health care provider how much you can safely lift. ??? Avoid intense physical activity for as long as told by your health care provider. ??? Return to your normal activities as told by your health care provider. Ask your health care provider what activities are safe for you. Ask when you can return to sexual activity. General instructions ??? Take gibu-age-pdemqjz and prescription medicines only as told by your health care provider. ??? Ask your health care provider if the medicine prescribed to you: ? Requires you to avoid driving or using machinery. ? Can cause constipation. You may need to take these actions to prevent or treat constipation: ? Drink enough fluid to keep your urine pale yellow. ? Take dzaw-bec-rdbveof or prescription medicines. ? Eat foods that are high in fiber, such as beans, whole grains, and fresh fruits and vegetables. ? Limit foods that are high in fat and processed sugars, such as fried or sweet foods. ??? Do not use any products that contain nicotine or tobacco. These products include cigarettes, chewing tobacco, and vaping devices, such as e-cigarettes. These can delay healing after the procedure. If you need help quitting, ask your health care provider. ??? Keep all follow-up visits. This is important. Contact a health care provider if: ??? You have chills or a fever. ??? You have pain when passing urine. ??? You have bright red blood or blood clots in your urine. ??? You have difficulty passing urine. ??? You have leaking of urine (incontinence). Get help right away if: ??? You have chest pain or shortness of breath. ??? You have leg pain or swelling. ??? You cannot pass urine. These symptoms may be an emergency. Get help right away. Call 911. ??? Do not wait to see if the symptoms will go away. ??? Do not drive yourself to the hospital. Summary ??? After the procedure, it is common to have discomfort or burning when urinating, an increased urge to urinate, more frequent urination, and urine that is blood-tinged. ??? You may have to avoid lifting. Ask your health care provider how much you can safely lift. ??? Return to your normal activities as told by your health care provider. Ask when you can return to sexual activity. This information is not intended to replace advice given to you by your health care provider. Make sure you discuss any questions you have with your health care provider. Document Revised: 06/15/2022 Document Reviewed: 06/15/2022 [employer] Patient Education ? 2023 [employer].Prostatic Urethral Lift Prostatic urethral lift is a surgical procedure to treat symptoms of prostate gland enlargement that occurs with age (benign prostatic hypertrophy, BPH). The urethra passes between the two lobes of the prostate. The urethra is the part of the body that drains urine from the bladder. As the prostate enlarges, it can push on the urethra and cause problems with urinating. This procedure involves placing an implant that holds the prostate away from the urethra. The procedure is done using a thin device called a cystoscope. The device is inserted through the tip of the penis and moved up the urethra to the prostate. This is less invasive than other procedures that require an incision. You may have this procedure if: ??? You have symptoms of BPH. ??? Your prostate is not severely enlarged. ??? Medicines to treat BPH are not working or not tolerated. ??? You want to avoid possible sexual side effects from medicines or other procedures that are used to treat BPH. Tell a health care provider about: ??? Any allergies you have. ??? All medicines you are taking, including vitamins, herbs, eye drops, creams, and fivg-fpu-vqwbkvv medicines. ??? Any problems you or family members have had with anesthetic medicines. ??? Any bleeding problems you have. ??? Any surgeries you have had. ??? Any medical conditions you have. What are the risks? Generally, this is a safe procedure. However, problems may occur, including: ??? Bleeding. ??? Infection. ??? Leaking of urine (incontinence). ??? Allergic reactions to medicines. ??? Return of BPH symptoms after 2 years, requiring more treatment. What happens before the procedure? When to stop eating and drinking Follow instructions from your health care provider about what you may eat and drink before your procedure. These may include: ??? 8 hours before your procedure ? Stop eating most foods. Do not eat meat, fried foods, or fatty foods. ? Eat only light foods, such as toast or crackers. ? All liquids are okay except energy drinks and alcohol. ??? 6 hours before your procedure ? Stop eating. ? Drink only clear liquids, such as water, clear fruit juice, black coffee, plain tea, and sports drinks. ? Do not drink energy drinks or alcohol. ??? 2 hours before your procedure ? Stop drinking all liquids. ? You may be allowed to take medicines with small sips of water. If you do not follow your health care provider's instructions, your procedure may be delayed or canceled. Medicines Ask your health care provider about: ??? Changing or stopping your regular medicines. This is especially important if you are taking diabetes medicines or blood thinners. ??? Taking medicines such as aspirin and ibuprofen. These medicines can thin your blood. Do not take these medicines unless your health care provider tells you to take them. ??? Taking bdod-pag-wbnmvvk medicines, vitamins, herbs, and supplements. Surgery safety Ask your health care provider what steps will be taken to help prevent infection. These steps may include: ??? Removing hair at the surgery site. ??? Washing skin with a germ-killing soap. ??? Taking antibiotic medicine. General instructions ??? Do not use any products that contain nicotine or tobacco for at least 4 weeks before the procedure. These products include cigarettes, chewing tobacco, and vaping devices, such as e-cigarettes. If you need help quitting, ask your health care provider. ??? If you will be going home right after the procedure, plan to have a responsible adult: ? Take you home from the hospital or clinic. You will not be allowed to drive. ? Care for you for the time you are told. What happens during the procedure? An IV may be inserted into one of your veins. ??? You will be given one or more of the following: ? A medicine to help you relax (sedative). ? A medicine that is injected into your urethra to numb the area (local anesthetic). ? A medicine to make you fall asleep (general anesthetic). ??? A cystoscope will be inserted into your penis and moved through your urethra to your prostate. ??? A device will be inserted through the cystoscope and used to press the lobes of your prostate away from your urethra. ??? Implants will be inserted through the device to hold the lobes of your prostate in the widened position. ??? The device and cystoscope will be removed. The procedure may vary among health care providers and hospitals. What happens after the procedure? Your blood pressure, heart rate, breathing rate, and blood oxygen level be monitored until you leave the hospital or clinic. ??? If you were given a sedative during the procedure, it can affect you for several hours. Do not drive or operate machinery until your health care provider says that it is safe. Summary ??? Prostatic urethral lift is a surgical procedure to relieve symptoms of prostate gland enlargement that occurs with age (benign prostatic hypertrophy, BPH). ??? The procedure is performed with a thin device called a cystoscope. This device is inserted through the tip of the penis and moved up the urethra to reach the prostate. This is less invasive than other procedures that require an incision. ??? If you will be going home right after the procedure, plan to have a responsible adult take you home from the hospital or clinic. You will not be allowed to drive. This information is not intended to replace advice given to you by your health care provider. Make sure you discuss any questions you have with your health care provider. Document Revised: 06/15/2022 Document Reviewed: 06/15/2022 [employer] Patient Education ? 2023 [employer]. PROGRESS NOTE-PHYSICIAN Observed: 2023 12:10 PM Status: F Source: [facility] REPOSITORY Progress Note-Physician Patient: MALCOM COTTO Age: 64 years Sex: Male : 1960 Associated Diagnoses: None Author: Magdy WATSON, Mary Guerra Health Status Allergies: Allergic Reactions (Selected) Severity Not Documented MetFORMIN- Upset stomach., Allergies (1) Active Severity Reaction metFORMIN Upset stomach Current medications: (Selected) Prescriptions Prescribed Cialis 5 mg oral tablet: 5 mg = 1 tab(s), Oral, Daily, for BPH, # 30 tab(s), Refills(s) 3, Pharmacy: [facility], 178, cm, 09/08/24 13:54:00 EDT, Height/Length Dosing, 99, kg, 09/08/24 13:54:00 EDT, Weight Dosing Documented Medications Documented Alive Men's 50+ Complete Multivitamin: 1 tab(s), Oral, Daily amLODIPine 10 mg Tab: 10 mg = 1 tab(s), Oral, Daily aspirin 81 mg Oral EC Tab: 81 mg = 1 tab(s), Oral, Daily cholecalciferol 50 mcg (2000 intl units) oral tablet, disintegratin mcg = 1 tab(s), Oral, Daily empagliflozin 25 mg oral tablet: 25 mg = 1 tab(s), Oral, qAM ezetimibe 10 mg Tab: 10 mg = 1 tab(s), Oral, Daily finasteride 5 mg Tab: 5 mg = 1 tab(s), Oral, Daily insulin glargine 100 units/mL SubQ Sherrie 10 mL: 16 unit(s), SubCutaneous, Daily losartan 50 mg Tab: 50 mg = 1 tab(s), Oral, Daily pioglitazone 30 mg Tab: 30 mg = 1 tab(s), Oral, Daily Impression and Plan 64-year-old male with a history of BPH with LUTS and elevated PSA seen by [facility] who presents for transfer of care. Patient states they were not listening to him and desired further intervention for his symptoms. A1c 7-8s. 1. OAB Most bothersome symptom to patient. Discussed how unable to start medications for this due to elevated PVR and BPH with obstruction. Denies any changes with urination status while on maximal medication therapy for BPH per below. Discussed bladder pathophysiology and management options. Discussed how diabetes is worsening the symptoms and how these may persist despite outlet procedure. -Address outlet per #2 -Tight diabetes control, timed voids, avoid bladder irritants 2. BPH with urinary obstruction IPSS 31, severe symptoms of BPH. Patient is currently unhappy with his urinary symptoms at this time. Patient states that urinary symptoms have been ongoing for approximately 3 years. Start on Cialis last visit. Remains on tamsulosin 0.8 mg daily and finasteride 5 mg daily. Patient denies any changes in symptoms or improvement. Cysto today-severe bilobar prostatomegaly with kissing lobes. No intravesical median lobe. Prostate volume 86 g from outside MRI Thoroughly discussed risk and benefits of surgical options including UroLift, Rezum, TURP or referral to tertiary center for aqua ablation. Patient although with erectile dysfunction does not want worsening side effects. Patient leaning towards less invasive procedure however will review options and follow-up to discuss further. -Follow-up within a month to discuss bladder outlet procedure 3. Elevated PSA measurement (R97.20: Elevated prostate specific antigen [PSA] Denies any family history of prostate CA. Review of outside [place] records: PSA 06/2022???6.5 12/2022???7.7 03/2024???7.9 04/2024 - 8.3 TRUS Biopsy 03/2023 -negative MRI Fusion TP bx 07/2024 - negative (PIRADS 3- Left apex posterior peripheral zone). 86 g Elevated PSA likely due to BPH with LUTS -Cont to monitor 4. Incomplete bladder emptying (R33.9: Retention of urine, unspecified) PVR today 257 mL Discussed PVR with patient, how this is reflective of his prostate obstruction and uncontrolled DM. He denies any recurrent UTIs, prostate infections. -Timed voids, see #2 I spent 35 minutes today with the patient: reviewing tests in preparation to see and discuss them with the patient, obtaining and reviewing external separately obtained history, documenting clinical information in the electronic health records, and care coordination. Time was spent performing a medical exam and evaluation, counseling and educating the patient, and discussing and procedures in caring for the patient. Result Comment: Electronical ly Signed By: Magdy WATSON, Mary Guerra\.br\Date and Time Signed: 10/26/24 14:03 EST OPERATIVE REPORT Observed: 10/26/2024 12:07 PM Status: F Source: [facility] REPOSITORY Operative Report Patient: MALCOM COTTO Age: 64 years Sex: Male : 1960 Associated Diagnoses: None Author: Mary Curran MD Procedure Operative Information Details: Date/ Time: 10/26/2024 12:08:00. Pre-Op Dx: BPH w/ LUTS - N40.1. Post-Op Dx: Same. Anesthesia Type: Local. Procedure: Local Cystoscopy. Complications: None. Risks/Benefits/Informed Consent: Surgical risks, benefits, details of the procedure have been explained to the patient, Full informed consent has been obtained. Intraoperative Information Prepped: Patient is brought back to the endoscopy suite, Patient is placed in supine position, Patient prepped in the usual fashion with Betadine solution (Hibiclens), 2% Xylocaine Jelly is placed per Urethra, After waiting several minutes the Cystoscope is introduced. The Urethra is: Normal. The Prostatic Urethra is: Obstructed, Severe bilobar prostatomegaly, kissing lateral lobes, elevated bladder neck. Mild intravesical protrusion without median lobe sulcus. The Bladder is: Normal, Trabeculated Minimal trabeculations, No bladder tumors, lesions, stones or foreign bodies.. The ureteral orifices: Show efflux of clear urine. Devices Implanted: None. Removal: Cystoscope is removed, The patient tolerated it well. Postoperative Information Discharge: Follow up arranged, Candidate for Urolift, Rezum or TURP (86g volume). See separate clinic note regarding full discussion and [facility]. -Pt to think about options, follow up within a month to review treatment plan. -Cont meds, DM control . Result Comment: Electronical ly Signed By: Magdy WATSON, Mary Borrero.br\Date and Time Signed: 10/26/24 12:10 EST PATIENT EDUCATION Observed: 10/26/2024 11:47 AM Status: F Source: [facility] REPOSITORY Patient Education Cystoscopy ??? Voiding after the procedure: there may be some pain, burning, urgency, frequency and blood tinged urine following the procedure. These symptoms usually resolve within 2-5 days. Drink the amount of fluid it takes to keep the urine pink to yellow or clear in color. Drinking enough water and fluids will help to ease any discomfort after your procedure. ??? If you are having problems that seem out of the ordinary, please call. ??? If unable to contact your physician and you feel it is an emergency, go to the nearest emergency room or call 911 ??? Diet ??? you may resume your normal diet. ??? Activity ??? you may resume your normal activities ??? Call if you have a fever over 100 degrees. INPATIENT PATIENT SUMMARY Observed: 10/03 11:47 AM Status: F Source: [facility] REPOSITORY Inpatient Patient Summary [place] [id number] Clinical Summary Person Information Name: MALCOM COTTO Age: 64 Years : 1960 Sex: Male PCP: NASIMA SOTO CNP Marital Status: Race: White Ethnicity: Non- or Language: Citizen Of [place] Visit Id: Visit Reason: BPH WITH URINARY OBSTRUCTION Speciality: Acuity: Enc Type: Outpatient Med Service: Surgery Arrival: 10/26/2024 09:41:52 Discharge: Dispo Type: Address: [address] [place] [id number] Provider Notes: Diagnosis: BPH with urinary obstruction; Other obstructive and reflux uropathy Problems Active Incomplete bladder emptying Testicular pain Elevated PSA measurement BPH with urinary obstruction Alcohol dependence Benign prostatic hyperplasia without outflow obstruction Coronary arteriosclerosis Hyperglycemia due to type 2 diabetes mellitus Hyperlipidemia Osteoarthritis Prostate specific antigen above reference range Sensorineural hearing loss Retention of urine Straining on urination due to benign prostatic hypertrophy Vitamin D deficiency Diabetes mellitus HTN (hypertension) Smoking Status: Functional Status: Sensory Deficits: History of Falls: Mobility Assistance Prior to Admission: ADLs: Current Level of Assistance for Self-Care/Mobility: Cognitive Status: Allergies metFORMIN (Upset stomach) Laboratory or Other Results This Visit (last charted value for your 10/26/2024 visit) No Laboratory or Other Results This Visit Measurements: Height: Weight: Blood Pressure: Not Valued / Not Valued BMI: Procedures No Procedures Documented Immunizations No Immunizations Documented This Visit Final Med List: amlodipine (amLODIPine 10 mg Tab) 1 Tablets By Mouth every day. aspirin (aspirin 81 mg Oral EC Tab) 1 Tablets By Mouth every day. cholecalciferol (cholecalciferol 50 mcg (2000 intl units) oral tablet, disintegrating) 1 Tablets By Mouth every day. empagliflozin (empagliflozin 25 mg oral tablet) 1 Tablets By Mouth once a day (in the morning). ezetimibe (ezetimibe 10 mg Tab) 1 Tablets By Mouth every day. finasteride (finasteride 5 mg Tab) 1 Tablets By Mouth every day. insulin glargine (insulin glargine 100 units/mL SubQ Sherrie 10 mL) 16 Units Subcutaneous every day. losartan (losartan 50 mg Tab) 1 Tablets By Mouth every day. multivitamin with minerals (Alive Men's 50+ Complete Multivitamin) 1 Tablets By Mouth every day. pioglitazone (pioglitazone 30 mg Tab) 1 Tablets By Mouth every day. tadalafil (Cialis 5 mg oral tablet) 1 Tablets By Mouth every day. for BPH. Refills: 3. Care Team Members: Attending Physician: Mary Curran MD Consulting Physician: Referring Physician: Mary Curran MD Follow up: With: Address: When: [facility], [place] [address], [place] [id number] [phone] Business (1) Comments: Office to schedule follow up within 1 month to review treatment plan Patient Education Information: EU - Cystoscopy Discharge Instructions (CUSTOM) OUTPATIENT SURGERY DISCHARGE INSTRUCTION Observed: 10/26/2024 11:47 AM Status: F Source: [facility] REPOSITORY Outpatient Surgery Discharge Instruction [place] [id number] Patient Discharge Instructions PERSON INFORMATION Name: MALCOM COTTO Date of : 1960 Current Date: 10/26/2024 11:47:48 PHYSICIANS Admitting Physician: Mary Curran MD Comment: Discharge Diagnosis: BPH with urinary obstruction; Other obstructive and reflux uropathy MALCOM COTTO has been given the following list of follow-up instructions, prescriptions, and patient education materials: IF UNABLE TO CONTACT YOUR PHYSICIAN AND YOU FEEL IT IS AN EMERGENCY, GO TO THE NEAREST EMERGENCY ROOM OR CALL 911 Follow up: With: Address: When: Mary Curran [address] [place], [place] [phone] [facility] (1) Comments: Office to schedule follow up within 1 month to review treatment plan Comment: PATIENT EDUCATION INFORMATION Instructions: Cystoscopy ??? Voiding after the procedure: there may be some pain, burning, urgency, frequency and blood tinged urine following the procedure. These symptoms usually resolve within 2-5 days. Drink the amount of fluid it takes to keep the urine pink to yellow or clear in color. Drinking enough water and fluids will help to ease any discomfort after your procedure. ??? If you are having problems that seem out of the ordinary, please call. ??? If unable to contact your physician and you feel it is an emergency, go to the nearest emergency room or call 911 ??? Diet ??? you may resume your normal diet. ??? Activity ??? you may resume your normal activities ??? Call if you have a fever over 100 degrees. I MALCOM COTTO, have received the attached patient education materials/instructions and have verbalized understanding: May we do a follow up call? Yes No I was present when discharge instructions were given Patient Signature Date Clinican/Nurse Signature Date You may receive a survey from [employer] asking you to rate your care experience. Your feedback is important and will help us understand what we do well and how we can improve the quality of care we provide to you, your loved ones and our community. It???s an honor to serve you. Thank you for choosing [facility] MAIN OR INTRAOPERATIVE RECORD Observed: 10/26/2024 11:33 AM Status: C Source: [facility] REPOSITORY Main OR Intraoperative Recor d IntraOp Document Type FTURO Summary Primary Physician: Mary Curran MD Finalized Date/Time: 10/26/24 11:41:00 Pt. Name: YADIELMALCOM D.O.B./Sex: 1960 Male Med Rec #: [id number] Physician: Mary Curran MD Financial #: [id number] Pt. Type: O Room/Bed: / Admit/Disch: 10/26/24 09:41:52 - Institution: Case Times FTURO Entry 1 Patient Times In Room 10/26/24 11:21:00 Out Room 10/26/24 11:40:00 Procedure Times Start 10/26/24 11:33:00 Stop 10/26/24 11:35:00 Anesthesia Times Last Modified By: Laly Jean 10/26/24 11:40:49 Case Attendance FTURO Entry 1 Entry 2 Entry 3 Case Attendee Magdy WATSON, Mary Moreno CST, Laly Vazquez Role Performed Surgeon - Primary Scrub - Primary Journeyman Welder - Primary Time In 10/26/24 11:21:00 10/26/24 11:21:00 10/26/24 11:21:00 Time Out 10/26/24 11:40:00 10/26/24 11:40:00 10/26/24 11:40:00 Procedure CYSTOSCOPY LOCAL(.) CYSTOSCOPY LOCAL(.) CYSTOSCOPY LOCAL(.) Comments Last Modified By: Laly Jean Kelsie E Burgderfer, Kelsie E 10/26/24 11:40:50 10/26/24 11:40:50 10/26/24 11:40:50 Surgical Procedures FTURO Entry 1 Procedure Description Procedure CYSTOSCOPY LOCAL Modifiers . Surgeon Description CYSTO LOCAL Primary Procedure Yes Primary Surgeon Magdy WATSON, Mary Guerra Start 10/26/24 11:33:00 Stop 10/26/24 11:35:00 Anesthesia Type Local Surgical Service Urology Wound Class 2 - Clean-Contaminated Last Modified By: Laly Jean 10/26/24 11:35:36 General Case Data FTURO Pre-Care Text: Classifies surgical wound, implements aseptic technique, initiates traffic control Entry 1 Case Information OR URO 1 FT Case Level None Wound Class 2 - Clean-Contaminated Specialty Urology Preop Diagnosis BPH WITH URINARY Postop Same As Preop Yes OBSTRUCTION Postop Diagnosis BPH WITH URINARY Outcomes Met? Yes OBSTRUCTION Last Modified By: Laly Jean 10/26/24 11:21:20 Post-Care Text: The patient is free from signs and symptoms of infection EU IntraOp - FTURO Pre-Care Text: Implements protective measures prior to operative or invasive procedure, confirms identity before the operative or invasive procedure, verifies operative procedure, surgical site, and laterality Entry 1 EU Perioperative Protocols Procedure(s) CYSTOSCOPY LOCAL(.) Patient Identity Birthday, ID Band Verified (select at Check, Patient least 2): Participation Consents / H and P H&P, Surgery/Procedure Operative Site N/A Verified Consent Marking Verified Surgical Site Yes Laterality Verified n/a Verified Procedure Verified Yes Correct Patient Yes Position Verified Availability Equipment, Medication Time Out Mary Curran MD, Verified (If Participants iTffanie PARTS CLEANER, Nancy Applicable) Miranda Mcdonough Kelsie E Time Out Complete 10/26/24 11:29:00 Allergies Reviewed? Yes Allergies Reviewed Self/Patient With Body Position Supine Prep Area PENIS Prep Agents Betasept Skin. Condition Unable to Visualize Description N/A Additional None Specimens Comment N/A Specimens Collected Vitals - EU Blood Pressure 156/77 Pulse 68 bpm Respirations 16 br/min SPO2 96 % EBL 0 I&O - EU Total Intake 0 mL Total Output 0 mL Outcomes Met? Yes Last Modified By: Laly Jean 10/26/24 11:29:48 Post-Care Text: The patient is free from signs and symptoms of injury caused by extraneous objects Sign Out FTURO Entry 1 Before Patient Leaves OR Nurse verbally Yes Nurse verbally n/a confirms with the confirms with the team the name of team that the procedure(s) instrument, sponge, recorded and needle counts are correct (or N/A) Nurse verbally n/a Nurse verbally Yes confirms with the confirms with the team how the team whether there specimen is labeled are any equipment (including patient problems to be name), if applicable addressed Sign Out Complete 10/26/24 11:35:00 Last Modified By: Laly Jean 10/26/24 11:35:31 Case Comments <None> Finalized By: Laly Jean Document Signatures Signed By: Laly Jean 10/26/24 11:40 Laly Jean 10/26/24 11:40 Laly Jean 10/26/24 11:41 MAIN OR PREOPERATIVE RECORD Observed: 10:15 AM Status: C Source: [facility] REPOSITORY Main OR Preoperative Record Holding Area Document Type FTURO Summary Primary Physician: Mary Curran MD Finalized Date/Time: 10/26/24 11:22:04 Pt. Name: MALCOM COTTO /Sex: 1960 Male Med Rec #: [id number] Physician: Mary Curran MD Financial #: [id number] Pt. Type: O Room/Bed: / Admit/Disch: 10/26/24 09:41:52 - Institution: Case Times Holding FTURO Pre-Care Text: Verifies consent for planned procedure, identifies individual values and wishes concerning care, includes family members in perioperative teaching Secures patient's records' belongings, and valuables, maintains patient's dignity and privacy, and maintains patient confidentiality Entry 1 In Holding 10/26/24 09:57:00 Outcomes Met? Yes Last Modified By: Britta Bianchi RN 10/26/24 09:57:22 Post-Care Text: The patient participates in decisions affecting his or her perioperative plan of care The patient's right to privacy is maintained Surgery Checklist FTURO Entry 1 Patient Birthday, ID Band Procedure Surgical Consent, With Identification: Check, Patient Verification: Patient Participation NPO after Midnight: n/a Personal Items: Glasses, Jewelry Personal Items watch Complaints of Pain: No Comment: Skin Integrity Intact, [place], Warm, & Dry Vitals - EU Blood Pressure 156/77 Pulse 68 bpm Respirations 16 br/min SPO2 96 % RN Reviewed Yes Last Modified By: Laly Jean 10/26/24 11:18:01 Finalized By: Laly Jean Document Signatures Signed By: Britta Bianchi RN 10/26/24 09:59 Laly Jean 10/26/24 11:18 Laly Jean 10/26/24 11:22Laly Jean 10/26/24 11:18 Laly Jean 10/26/24 11:22 UROLOGY OFFICE/CLINIC NOTE Observed: 07/2024 2:57 PM Status: F Source: [facility] REPOSITORY Urology Office/Clinic Note Chief Complaint New patient difficulty urinating HPI Staff 63 year old male new patient presents today with problems urinating. Never seen in our office before (verified on [employer]). Urinary issues have been going on for three years. MRIs and cat scans from [place], [place] stated pt had 2 lesions on prostate not cancerous Will need to get the record from there. IPSS: 31 PVR: 316, voided before he came here. PVR: 257 ml after voiding Dysuria: yes pain and burning Incomplete bladder emptying: yes Hematuria: denies visible blood Frequency: at least once every hour Urgency: yes Nocturia: 3 x a night Stream: has hesitancy, weak stream, has stop and go Leaking: sometimes Post void dripping: yes Wearing pads/ Depends: denies Urge incontinence: denies Stress incontinence: denies Incontinence without Sensory Awareness: denies Abdominal pain: constant lower abdominal Flank pain: _ Sexual complaints: _ History of Present Illness I have reviewed and verified the staff HPI to be accurate for this encounter. Portions of this record may have been created with voice recognition artificial intelligence software, specifically [employer], [employer] and or [employer]. Substitutions may have occurred due to the inherent limitations of voice recognition and artificial intelligence software. Review of Systems PHQ Score Initial Depression Screen Score: 0 SCORE Physical Exam Vitals & Measurements HR: 94(Peripheral) RR: 16 BP: 124/68 HT: 70 in HT: 178 cm WT: 99 kg WT: 217.8 lb BMI: 31.25 General: Well developed, well nourished, in no acute distress. Genitourinary: normal scrotum, normal testes, normal urethra, normal epididymis, normal vas deferens/spermatic cord. No perineal pain to palpation. Flank Pain: none. Bladder: nonpalpable. Penis: normal shaft, normal glans. Assessment/Plan 1. BPH with urinary obstruction (N40.1: Benign prostatic hyperplasia with lower urinary tract symptoms) IPSS 31, severe symptoms of BPH. Patient is currently unhappy with his urinary symptoms at this time. Patient states that urinary symptoms have been ongoing for approximately 3 years. UA today without signs of blood or infection. He is taking tamsulosin 0.8 mg daily. Tolerates it well. States that he believes he has been on this for about 2 years. Did not notice any significant improvement in his urinary symptoms upon starting medication. Additionally, he is taking finasteride 5 mg daily. He believes he has been on this for about 6 months without any improvement of his urinary symptoms. He is tolerating it without side effects. We discussed male urologic anatomy including the prostate and how this is likely contributing to his urinary symptoms. We discussed how potential prostate obstruction affects long-term bladder health and compliance. We discussed alpha-nagi medications to help with urinary symptoms, possible side effects as well as those of prostate shrinking medications. I did advise patient that these medications do not protect the bladder while alleviating some urinary symptoms. In order to assess degree of bladder outlet obstruction and bladder health, discussed further evaluation with cystoscopy. The risks and benefits for cystoscopy have been discussed. The risks include bleeding, infection, and irritation of the bladder and urinary channel, among others. The patient, after being informed of procedural details and after questions have been answered, wishes to proceed. Will order Local anesthesia. We did briefly discuss bladder outlet procedures including Rezum, UroLift, TURP. I advised patient that candidacy for these potential procedures is dependent on his anatomy as well as prostate size. He does note that he believes that his prostate size was around 120 g per his recent MRI. I advised patient that if this was accurate, it would be likely that he would be best suited for a TURP. He does note that previous urologist suggested TURP, but gave patient no explanation as to why this was the optimal procedure for him. We did discuss trial of Cialis 5 mg daily in the meantime to see if this could help him with some of his urinary symptoms. We discussed possible side effects. Patient states he would be willing to try this, but is unsure how to go about getting medication [facility] I will trial sending Cialis through [place]. -Obtain records from [place], MRI for prostate sizing -Schedule Cysto -Trial Cialis daily Ordered: tadalafil, 5 mg = 1 tab(s), Oral, Daily, for BPH, # 30 tab(s), Refills(s) 3, Pharmacy: [facility], 178, cm, 09/08/24 13:54:00 EDT, Height/Length Dosing, 99, kg, 09/08/24 13:54:00 EDT, Weight Dosing 2. Incomplete bladder emptying (R33.9: Retention of urine, unspecified) PVR today 257 mL Discussed PVR with patient, how this is reflective of his prostate obstruction. He denies any recurrent UTIs, prostate infections. -Continue to monitor closely 3. Elevated PSA measurement (R97.20: Elevated prostate specific antigen [PSA]) Patient reports that he is always have an elevated PSA reading. Sounds like he recently had an MRI fusion biopsy for 2 targeted lesions, shares that the path results were negative. He denies any family history of prostate CA. -Records release signed for [place] u[facility] today. 4. Testicular pain (N50.819: Testicular pain, unspecified) Intermittent and ongoing for a long period of time per patient. It is bilateral. He does state that he sometimes feels a very small lump in the left testicle that is not painful. Exam overall within normal limits today. He does note generalized discomfort on exam. No significant abnormality noted. -Obtain scrotal ultrasound, call patient with results and neck step. Ordered: US Scrotum (Contents) Follow-up With When Contact Information Magdy WATSON, Mary Guerra, URL, URO Additional Instructions: cysto Patient Education Benign Prostatic Hyperplasia Problem List/Past Medical History Ongoing Alcohol dependence Benign prostatic hyperplasia without outflow obstruction BPH with urinary obstruction Coronary arteriosclerosis Diabetes mellitus Elevated PSA measurement HTN (hypertension) Hyperglycemia due to type 2 diabetes mellitus Hyperlipidemia Incomplete bladder emptying Osteoarthritis Prostate specific antigen above reference range Retention of urine Sensorineural hearing loss Straining on urination due to benign prostatic hypertrophy Testicular pain Vitamin D deficiency Historical No qualifying data Procedure/Surgical History Biopsy, prostate; needle or punch, single or multiple, any approach (07/28/2024), Cholecystectomy (04/30/2020), Appendectomy, Colonoscopy. Medications Alive Men's 50+ Complete Multivitamin, 1 tab(s), Oral, Daily amLODIPine 10 mg Tab, 10 mg= 1 tab(s), Oral, Daily amLODIPine 10 mg Tab, 10 mg= 1 tab(s), Oral, Daily aspirin 81 mg Oral EC Tab, 81 mg= 1 tab(s), Oral, Daily cholecalciferol 50 mcg (2000 intl units) oral tablet, disintegrating, 50 mcg= 1 tab(s), Oral, Daily Cialis 5 mg oral tablet, 5 mg= 1 tab(s), Oral, Daily, 3 refills empagliflozin 25 mg oral tablet, 25 mg= 1 tab(s), Oral, qAM ezetimibe 10 mg Tab, 10 mg= 1 tab(s), Oral, Daily finasteride 5 mg Tab, 5 mg= 1 tab(s), Oral, Daily insulin glargine 100 units/mL SubQ Sherrie 10 mL, 16 unit(s), SubCutaneous, Daily losartan 50 mg Tab, 50 mg= 1 tab(s), Oral, Daily pioglitazone 30 mg Tab, 30 mg= 1 tab(s), Oral, Daily tamsulosin 0.4 mg Cap, 0.4 mg= 1 cap(s), Oral, Daily Allergies No Known Allergies No Known Medication Allergies Social History Alcohol Current, Beer, 1-2 times per month, 09/08/2024 Substance Abuse - Denies Substance Abuse, 05/04/2020 Tobacco Former smoker, quit more than 30 days ago, quit 2016 Tobacco Use:. Never Smokeless Tobacco Use:. Cigarettes, 09/08/2024 Family History Heart disease: Father. High cholesterol: Father. Hypertension: Father. Primary malignant neoplasm of brain: Mother. Immunizations Vaccine Date Status Comments SARS-CoV-2 (COVID-19) mRNA-1273 vaccine 03/22/2021 Recorded SARS-CoV-2 (COVID-19) mRNA-1273 vaccine 03/02/2021 Recorded 2024-09-08: TPV60 SARS-CoV-2 (COVID-19) mRNA-1273 vaccine 02/02/2021 Recorded 2024-09-08: TPV60 Result Comment: Electronical ly Signed By: OLINDA Robles APRN, [place] X\.mamadou\Date and Time Signed: 09/08/24 14:57 EDT PATIENT EDUCATION Observed: 09/08/2024 2:57 PM Status: F Source: [facility] REPOSITORY Patient Education Urology Benign Prostatic Hyperplasia Benign prostatic hyperplasia (BPH) is an enlarged prostate gland that is caused by the normal aging process. The prostate may get bigger as a man gets older. The condition is not caused by cancer. The prostate is a walnut-sized gland that is involved in the production of semen. It is located in front of the rectum and below the bladder. The bladder stores urine. The urethra carries stored urine out of the body. An enlarged prostate can press on the urethra. This can make it harder to pass urine. The buildup of urine in the bladder can cause infection. Back pressure and infection may progress to bladder damage and kidney (renal) failure. What are the causes? This condition is part of the normal aging process. However, not all men develop problems from this condition. If the prostate enlarges away from the urethra, urine flow will not be blocked. If it enlarges toward the urethra and compresses it, there will be problems passing urine. What increases the risk? This condition is more likely to develop in men older than 50 years. What are the signs or symptoms? Symptoms of this condition include: ? Getting up often during the night to urinate. ? Needing to urinate frequently during the day. ? Difficulty starting urine flow. ? Decrease in size and strength of your urine stream. ? Leaking (dribbling) after urinating. ? Inability to pass urine. This needs immediate treatment. ? Inability to completely empty your bladder. ? Pain when you pass urine. This is more common if there is also an infection. ? Urinary tract infection (UTI). How is this diagnosed? This condition is diagnosed based on your medical history, a physical exam, and your symptoms. Tests will also be done, such as: ? A post-void bladder scan. This measures any amount of urine that may remain in your bladder after you finish urinating. ? A digital rectal exam. In a rectal exam, your health care provider checks your prostate by putting a lubricated, gloved finger into your rectum to feel the back of your prostate gland. This exam detects the size of your gland and any abnormal lumps or growths. ? An exam of your urine (urinalysis). ? A prostate specific antigen (PSA) screening. This is a blood test used to screen for prostate cancer. ? An ultrasound. This test uses sound waves to electronically produce a picture of your prostate gland. Your health care provider may refer you to a specialist in kidney and prostate diseases (urologist). How is this treated? Once symptoms begin, your health care provider will monitor your condition (active surveillance or watchful waiting). Treatment for this condition will depend on the severity of your condition. Treatment may include: ? Observation and yearly exams. This may be the only treatment needed if your condition and symptoms are mild. ? Medicines to relieve your symptoms, including: ? Medicines to shrink the prostate. ? Medicines to relax the muscle of the prostate. ? Surgery in severe cases. Surgery may include: ? Prostatectomy. In this procedure, the prostate tissue is removed completely through an open incision or with a laparoscope or robotics. ? Transurethral resection of the prostate (TURP). In this procedure, a tool is inserted through the opening at the tip of the penis (urethra). It is used to cut away tissue of the inner core of the prostate. The pieces are removed through the same opening of the penis. This removes the blockage. ? Transurethral incision (TUIP). In this procedure, small cuts are made in the prostate. This lessens the prostate's pressure on the urethra. ? Transurethral microwave thermotherapy (TUMT). This procedure uses microwaves to create heat. The heat destroys and removes a small amount of prostate tissue. ? Transurethral needle ablation (TUNA). This procedure uses radio frequencies to destroy and remove a small amount of prostate tissue. ? Interstitial laser coagulation (ILC). This procedure uses a laser to destroy and remove a small amount of prostate tissue. ? Transurethral electrovaporization (TUVP). This procedure uses electrodes to destroy and remove a small amount of prostate tissue. ? Prostatic urethral lift. This procedure inserts an implant to push the lobes of the prostate away from the urethra. Follow these instructions at home: ? Take xfwz-mbt-syxnhle and prescription medicines only as told by your health care provider. ? Monitor your symptoms for any changes. Contact your health care provider with any changes. ? Avoid drinking large amounts of liquid before going to bed or out in public. ? Avoid or reduce how much caffeine or alcohol you drink. ? Give yourself time when you urinate. ? Keep all follow-up visits. This is important. Contact a health care provider if: ? You have unexplained back pain. ? Your symptoms do not get better with treatment. ? You develop side effects from the medicine you are taking. ? Your urine becomes very dark or has a bad smell. ? Your lower abdomen becomes distended and you have trouble passing urine. Get help right away if: ? You have a fever or chills. ? You suddenly cannot urinate. ? You feel light-headed or very dizzy, or you faint. ? There are large amounts of blood or clots in your urine. ? Your urinary problems become hard to manage. ? You develop moderate to severe low back or flank pain. The flank is the side of your body between the ribs and the hip. These symptoms may be an emergency. Get help right away. Call 911. ? Do not wait to see if the symptoms will go away. ? Do not drive yourself to the hospital. Summary ? Benign prostatic hyperplasia (BPH) is an enlarged prostate that is caused by the normal aging process. It is not caused by cancer. ? An enlarged prostate can press on the urethra. This can make it hard to pass urine. ? This condition is more likely to develop in men older than 50 years. ? Get help right away if you suddenly cannot urinate. This information is not intended to replace advice given to you by your health care provider. Make sure you discuss any questions you have with your health care provider. Document Revised: 06/06/2022 Document Reviewed: 06/06/2022 [employer] Patient Education ? 2023 [employer] REGISTRATION Observed: 04/10/2024 2:29 PM Status: F Source: [facility] REPOSITORY [id number]#1.00TIFF ALLERGIES DATE TYPE / CODE NAME / CODE REACTION SEVERITY SOURCE 04/02/2024 DRUG INGREDI~NON- CBORD/533127 003(SNOMED CT) ATORVASTATIN Itching Med [facility] 06/22/2021 DRUG INGREDI~NON- CBORD/686196 003(SNOMED CT) GABAPENTIN Facial Swelling Med [facility] 12/28/2020 DRUG INGREDI~NON- CBORD/747804 003(SNOMED CT) LISINOPRIL Cough Low [facility] 05/25/2020 DRUG INGREDI~NON- CBORD/764256 003(SNOMED CT) METFORMIN Abdominal Pain [facility] DR/[id number] (SNOMED CT) No Known Allergies [facility] /[id number] (SNOMED CT) metFORMIN [id number] [facility] /[id number] (SNOMED CT) No Known Medication Allergies [facility] ENCOUNTERS ADMIT/DISCHARGE ACCOUNT NUMBER ADMITTING ENCOUNTER CLASS LOCATION SOURCE 03/04/2025 [id number] Emergency Buildin 231R oom: TELESTROKEBed: TELESTROKE BED [facility] 03/04/2025 [id number] Ambulatory [place] :[place]: Exam 4 [facility] 02/01/2025/ 025 [id number] Ambulatory EU [place]: Exam 4 [facility] 01/27/2025/ 025 [id number] Ambulatory EU [place]:EU [place]: CD:[id number] [facility] 01/25/2025/ 025 [id number] Mary Curran Ambulatory FTBuilding:FT .URO [facility] 12/11/2024/ 025 [id number] [facility] 12/11/2024/ 025 [id number] Ambulatory Building:[facility] 12/09/2024/ 025 [id number] CARMINE DESAI [facility] Room: 258Bed: [address] [place] [address] 11/18/2024/ 024 [id number] Ambulatory EU [place]:EU [place]: Exam 1 [facility] 10/26/2024/ 024 [id number] Mary Curran Ambulatory FTBuilding:FT .URO [facility] 10/19/2024 [id number] Ambulatory EU [place]Build[place] g:EU O[place] [facility] 09/08/2024/ 024 [id number] Ambulatory EU [place]:EU [place]: Exam 2 [facility] 04/10/2024/ 024 [id number] Ambulatory [facility] Health and WellnessBuildin g:Occupational Health and Wellness [facility] FUNCTIONAL STATUS No Functional Status Records Found EQUIPMENT No Equipment Records Found PAYERS ENCOUNTER GUARANTOR PAYER SUBSCRIBER SOURCE 03/04/2025 MALCOM COTTO IVDOB: [id number] [address]Yzb: () Primary Insurance:[employer] MEDICARE - [place] RESIDENTPolicy Number: [id number] Date:2024-09-01 MALCOM COTTO IVDOB: [id number] [place] [address]Vfa: (WP) [facility] 03/04/2025 Secondary Insura nce:[facility] OPTUMPolicy Number: [id number] Date:2024-12-09 MALCOM COTTO IVDOB: [id number] [address] [address]Tkm: (WP) [facility] 03/04/2025 MALCOM HERNÁNDEZ: [place] [address]Tel: ~ ~(4 1 (HP) Primary Insurance:HUMANAPolicy Number: [id number] Date:5632-16-27US [address] [address]YY: MALCOM MANCERA [facility] 03/04/2025 [facility]: [id number] [id number] Date: [address] [address]RZ: MALCOMGEORGES MANCERA [facility] 02/01/2025 MALCOM HERNÁNDEZ: [place] [address]Tel: ~ ~(4 1 (HP) Primary Insurance:HUMANAPolicy Number: [id number] Date:4794-28-12ES [address] [place] [address]PB: MALCOM MANCERA [facility] 02/01/2025 Secondary Insurance:[facility] Number: [id number] tive Date: [address] [address]ZB: MALCOM MANCERA [facility] 01/27/2025 MALCOM CLEMENTSB: [facility] 302Tel: ~ ~(4 1 (HP) Primary Insurance:HUMANAPolicy Number: [id number] Date:6380-41-41JJ [address] [address]CJ: MALCOM MANCERA [facility] 01/27/2025 Secondary [facility] AffairsPolicy Number: [id number] tive Date: [address] [address]LB: MALCOM MANCERA [facility] 01/25/2025 MALCOM CLEMENTSB: [facility] 302Tel: ~ ~(4 1 (HP) Primary Insurance:HUMANAPolicy Number: [id number] Date:5942-93-32PQ [address] [address]HA: MALCOM MANCERA [facility] 01/25/2025 Secondary Insurance:[facility] AffairsPolicy Number: [id number] tive Date: [address] [address]BW: MALCOM MANCERA [facility] 12/11/2024 MALCOM COTTO IVDOB: [address] [address]Xoc: (HP) Primary Insurance:[employer] MEDICARE - [place] RESIDENTPolicy Number: [id number] Date:2024-09-01 MALCOM COTTO IVDOB: [id number] [address] [address]Pom: (WP) [facility] 12/11/2024 MALCOM COTTO IVDOB: [place] [id number]: (HP) Primary Insurance:[facility] OPTUMPolicy Number: [id number] Date:2024-12-09 MALCOM COTTO IVDOB: [id number] [place] [id number]: (WP) [facility] 12/11/2024 Secondary Insurance:[employer] MEDICARE [facility] RESIDENTPolicy Number: [id number] Date:2024-09-01 MALCOM COTTO IVDOB: [id number] [place] [address] [address]Tka: (WP) [facility] 12/09/2024 MALCOM COTTO IVDOB: [address] [address]Caz: (HP) Primary Insurance:[facility] OPTUMPolicy Number: [id number] Date:2024-12-09 AMLCOM COTTO IVDOB: [id number] [place] [id number]: (WP) [facility] 12/09/2024 Secondary Insurance:[employer] MEDICARE - [place] RESIDENTPolicy Number: [id number] Date:2024-09-01 MALCOM COTTO IVDOB: [id number] [place] [address] [address]Cxd: (WP) [facility] 11/18/2024 MALCOM CLEMENTSB: [place] [address]Tel: ~ ~(4 1 (HP) Primary Insurance:HUMANAPolicy Number: [id number] Date:6345-87-81XU [address] [place] [address]QZ: MALCOM MANCERA [facility] 11/18/2024 Secondary Insurance:[facility] AffairsPolicy Number: [id number] tive Date: [address] [address]PB: MALCOM MANCERA [facility] 10/26/2024 MALCOM CLEMENTSB: [facility] 302Tel: ~ ~(4 1 (HP) Primary Insurance:HUMANAPolicy Number: [id number] Date:1379-56-64EQ [address] [address]QG: MALCOM MANCERA [facility] 10/26/2024 Secondary Insurance:[facility] AffairsPolicy Number: [id number] tive Date: [address] [address]ST: MALCOM MANCERA [facility] 09/08/2024 MALCOM CLEMENTSB: [facility] 302Tel: ~ ~(4 1 (HP) Primary Insurance:HUMANAPolicy Number: [id number] Date:1389-97-22PZ [address] [address]RK: MALCOM MANCERA [facility] 09/08/2024 Secondary Insurance:Veterans AffairsPolicy Number: [id number] tive Date: [address] [address]PD: MALCOM MANCERA [facility] 04/10/2024 MALCOM CLEMENTSB: [facility] 302Tel: ~ ~(4 1 (HP) Primary Insurance:Veterans AffairsPolicy Number: [id number] Date: [address] [address]OK: MALCOM Weeks [facility] 04/10/2024 Secondary Insurance:TricarePolic y Number: Effective Date:2020-06-28 MALCOM Weeks [facility] SOCIAL HISTORY No Social History Records Found FAMILY HISTORY No Family History Records Found No Status Records Found ADVANCE DIRECTIVES No Advanced Directives Records Found INFORMATION SOURCE DATE CREATED AUTHOR AUTHOR'S RAE DOSS 03/04/2025 [place]
[2025-03-04 20:36] LABS: Glucometer 229 mg/dL (74-106)
[2025-03-04] MEDS: INSULIN ASPART 300 UNIT/3 ML PEN SUBQ (22:25)
[2025-03-05] VITALS (7 sets, daily range): BP systolic 135–161; BP diastolic 77–88; PULSE 71–81; TEMP 36.6–36.8; O2SAT 93–94
[2025-03-05] MEDS: ACETAMINOPHEN 500 MG TABLET 1000 MG PO (02:25)
--- NOTE | 2025-03-05 02:32 | PC.NURSE ---
Patient complains of intense pain in left hand 5/10 with slight numbness. Able to raise arm above shoulder. Grasp strength weak. No other deficits noted.
--- OUTSIDE RECORDS SUMMARY | 2025-03-05 06:21 | XMS_ITS ---
Author Organization [facility] Care Team Providers Care Global Cto Name Role Phone TANYA SY Attending Unav CARMINE Pozo Admitting Unavailable CHARLES, NASIMA A Primary Care Unavailable LORENA BRIGGS Attending Unavailable LORENA BRIGGS Referring Unavailable CHARLES, NASIMA A Primary Care Unavailable LORENA BRIGGS Attending Unavailable LORENA BRIGGS Referring Unavailable CHARLES, NASIMA A Primary Care Unavailable CHARLES, NASIMA A Primary Care Unavailable Mary Curran Attending Unavailable Karlae, Mary MEdd Referring Unavailable Alan DUFF Attending Unavailable Karlae, Mary MEdd Referring Unavailable Antonella Delgadillo Attending Unavailable Karlae, Mary MEdd Referring Unavailable Lue, Mary MEdd Attending Unavailable Grace Robles Attending Unavailable Antonella Delgadillo Attending Unavailable Karlae, Mary M. Referring Unavailable Lue, Mary M. Admitting Unavailable Lue, Mary M. Attending Unavailable Lue, Mary M. Referring Unavailable Lue, Mary M. Admitting Unavailable Lue, Mary M. Attending Unavailable Purpose PROBLEMS DATE TYPE CONDITION / CODE ATTENDING STATUS [facility] 03/04/2025 Unknown possible stroke from [facility] / UNK(Unknown) NA Active [facility] 12/10/2024 Unknown Transient cerebr al ischemic attack, unspecified / G45.9(ICD-10) TANYA SY Active [facility] 12/10/2024 Unknown Chest pain, unspecified / R07.9(ICD-10) TANYA SY Active [facility] 12/09/2024 Unknown Chest Pain / FREETEXT(AOF) TANYA SY [facility] 12/09/2024 Unknown Dizziness / FREETEXT(AOF) TANYA SY [facility] PROCEDURES No Procedure Records Found VITAL SIGNS No Vital Signs Records Found RESULTS PATIENT EDUCATION Observed: 03/04/2025 11:19 AM Status: F Source: [facility] REPOSITORY Patient Education Urology Benign Prostatic [...] Follow these instructions at home: ??? Take oaua-xki-uyjbueh and prescription medicines only as told by [...] provider. Document Revised: 06/06/2022 Document Reviewed: 06/06/2022 [employer] Patient Education ? 2023 [employer]. 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 tramadol, 50 mg = 1 tab(s), Oral, q8hr, PRN as needed for pain, Take 1 tablet every 8 hours as needed for severe pain, # 5 tab(s), Refills(s) 0, Pharmacy: [facility]/pharmacy #[id number], 178, cm, 01/27/25 12:08:00 EST, Height/Length [...] Observed: 01/27/2025 3:46 PM Status: F Source: [facility] REPOSITORY Patient Education Urology Hematuria, Adult [...] these instructions at home: Medicines ??? Take ynky-wnq-lhikfeh and prescription medicines only as told by [...] the blood stops without treatment. ??? Take onmu-wfj-fjhqzkn and prescription medicines only as told by your health care provider. ??? Drink enough fluid to keep your urine pale yellow. This information is not intended to replace advice given to you by your health care provider. Make sure you discuss any questions you have with your health care provider. Document Revised: 07/19/2021 Document Reviewed: 07/19/2021 [employer]ock Knock Patient Education ? 2023 [employer] OPERATIVE REPORT Observed: 01/25/2025 10:48 AM Status: F Source: [facility] REPOSITORY Operative Report Patient: MALCOM COTTO [...] Observed: 01/25/2025 10:47 AM Status: C Source: [facility] REPOSITORY Patient Education [facility] [place], [place] Post-Operative Instructions for UroLift After your [...] Observed: 01/25/2025 10:47 AM Status: C Source: [facility] REPOSITORY Outpatient Surgery Discharge Instruction [address] [address] Patient Discharge Instructions PERSON INFORMATION Name: MALCOM [...] [facility] instructions With: Address: When: Mary Curran [address] [place] [address] [phone] Business (1) Comments: Office to schedule follow up: nursing visit in 2-3 days once urine is clear for bronson removal voiding trial. Follow up with Dr. Curran in 1 month for PVR Comment: PATIENT EDUCATION INFORMATION Instructions: [facility] [place], [place] Post-Operative Instructions for UroLift After your [...] to serve you. Thank you for choosing [facility] INPATIENT PATIENT SUMMARY Observed: 01/03 10:47 AM Status: C Source: [facility] REPOSITORY Inpatient Patient Summary [place] [address] Clinical Summary Person Information Name: MALCOM COTTO Age: 64 Years : 1960 Sex: Male PCP: NASIMA SOTO CNP Marital Status: Race: White Ethnicity: Non- or Language: Lebanese Visit Id: Visit Reason: BPH WITH URINARY OBSTRUCTION Speciality: Acuity: Enc Type: Outpatient Med Service: Surgery Arrival: 01/25/2025 08:44:02 Discharge: Dispo Type: Address: [address] [place] [phone] Provider Notes: Diagnosis: BPH with urinary obstruction; [...] instructions With: Address: When: Mary Curran [address] [facility] [address] [place], [place] [id number] [phone] Business (1) Comments: Office to schedule follow up: nursing visit in 2-3 days once urine is clear for bronson removal voiding trial. Follow up with Dr. Curran in 1 month for PVR Patient Education Information: Lue - Urolift Post-Op Instructions (CUSTOM) MAIN OR INTRAOPERATIVE RECORD Observed: 01/25/2025 10:23 AM Status: F Source: [facility] REPOSITORY Main OR Intraoperative Recor d IntraOp Document Type FTURO Summary Primary Physician: Mary Curran MD Finalized Date/Time: 01/25/25 10:48:08 Pt. Name: YADIEL MALCOM F /Sex: 1960 Male Med Rec #: [id number] Physician: Mary Curran MD Financial #: [id number] Pt. Type: O Room/Bed: / Admit/Disch: 01/25/25 [...] Performed Surgeon - Primary Scrub - Primary Fiberline Supervisor - Primary Time In 01/25/25 10:04:00 01/25/25 [...] Met? Yes OBSTRUCTION Last Modified By: Neymar aMrtinez Ii 01/25/25 10:10:52 Post-Care Text: The patient [...] PENIS Prep Agents Betasept Skin. Condition Intact, [place], Warm, & Description UNCHANGED Dry Additional None [...] RECORD Observed: 9:30 AM Status: C Source: [facility] REPOSITORY Main OR Preoperative Record Holding Area Document Type FTURO Summary Primary Physician: Mary Curran MD Finalized Date/Time: 01/25/25 10:09:44 Pt. Name: MALCOM COTTO Desi KhalilB./Sex: 1960 Male Med Rec #: [id number] Physician: Mary Curran MD Financial #: [id number] Pt. Type: O Room/Bed: / Admit/Disch: 01/25/25 [...] Complaints of Pain: No Skin Integrity Intact, [place], Warm, & Dry Vitals - EU Blood [...] X10E9/L Performed By: #### CIRO FELTON , 65984-6 #### [facility] ([id number]) [address] [place] [address] COMPREHENSIVE METABOLIC PANEL Collected: 2024 6:16 AM [...] coefficient. Performed By: #### CIRO FELTON , 10117-2 #### [facility] ([id number]) [address] [place] [address] MAGNESIUM Collected: 12/10/2024 6:16 AM S tatus: COMPLETED Source: [facility] REPOSITORY TYPE CODE TESTS RESULT OUT OF RANGE REFERENCE UNITS LAB MG(LOINC) MAGNESIUM 2.1 1.8-2.6 mg/dL Performed By: #### CBCA, CMP , 58626-8 #### [facility] ([id number]) [address] [place] [address] BEDSIDE GLUCOSE LAB Collected: 12/09/2024 8:24 PM Status: COMPLETED Source: [employer] TYPE CODE TESTS RESULT OUT OF RANGE REFERENCE UNITS LAB BEDG(LOINC) BEDSIDE GLUCOSE LAB 130 High 65-99 mg/dL MR BRAIN WO CONT Observed: 12/09/2024 3:13 PM Status: COMPLETED Source: [employer] [employer] REPOSITORY MR BRAIN WO CONT History: Neuro [...] Observed: 12/09/2024 10:21 AM Status: COMPLETED Source: [employer] CT CTA CAROTID CLINICAL INFORMATION: Syncope/presyncope, cerebrovascular cause suspected TECHNIQUE: CT angiogram performed following intravenous administration of nonionic intravenous contrast. Coronal and sagittal and 3-D volume rendered maximum intensity projection images generated and reviewed under concurrent physician supervision. Automated exposure control utilized. The [place] Symptomatic Carotid Endarterectomy Trial (NASCET) method for [...] Observed: 12/09/2024 10:21 AM Status: COMPLETED Source: [employer] CT CTA HEAD CT angiogram of the head, 12/09/2024 Clinical History: Syncope Comparison: None Contrast: 100 mL Omnipaque 350 Technique: Multidetector CT angiogram performed through the [place] of [place] using 3D reconstructions and source [...] Observed: 12/09/2024 10:20 AM Status: COMPLETED Source: [employer] CT BRAIN WO CONT Exam: CT brain [...] acute intracranial pathology by CT. Finalized by iMles Toscano MD on 12/09/2024 10:47 AM 1 HOUR TROP I, HIGH SENSITIVITY Collected: 07/2025 9:05 AM Status: COMPLETED Source: [employer] TYPE CODE TESTS RESULT OUT OF RANGE REFERENCE UNITS LAB TNIHS1(LOINC) 1 HOUR TROP I, HIGH SENSITIVITY 4 <21 ng/L Performed By: #### 38968-4 # ### [facility] ([id number]) [address] [place] [address] XR CHEST 2 VWS Observed: 12/09/2024 8:13 AM Status: COMPLETED Source: [employer] XR CHEST 2 VWS Clinical history:Chest pain. PA and lateral chest:12/09/2024 Comparison:None Findings: 2 views of the chest were obtained. There is no focal pulmonary consolidation. No pneumothorax or pleural effusion is present. Mediastinal contours are within normal limits. IMPRESSION: No acute infiltrate. Finalized by Josh Ewing MD on 12/09/2024 8:19 AM CBC AND AUTO DIFF Collected: 12/09/2024 7:57 AM Status: COMPLETED Source: [employer] REPOSITORY TYPE CODE TESTS RESULT OUT OF [...] X10E9/L Performed By: #### CBCA, CMP , 02528-7, 50478-7, THYR #### [facility] ([id number]) [address] [place] [address] #### HA1C #### [facility] ([id number]) [address] [place] [address], [address] [place] [address] COMPREHENSIVE METABOLIC PANEL Collected: 2024 7:57 AM Status: COMPLETED Source: [employer] REPOSITORY TYPE CODE TESTS RESULT OUT OF [...] a race coefficient. Performed By: #### [facility] , 01421-7, 93554-5, THYR #### [facility] ([id number]) [address] [place] [address] #### HA1C #### [facility] ([id number]) [address] [place] [address], [address] [address] MAGNESIUM Collected: 12/09/2024 7:57 AM S tatus: COMPLETED Source: [facility] REPOSITORY TYPE CODE TESTS RESULT OUT OF RANGE REFERENCE UNITS LAB MG(LOINC) MAGNESIUM 2.1 1.8-2.6 mg/dL Performed By: #### CBCA, CMP , 21674-7, 21768-5, THYR #### [facility] ([id number]) [address] [place] [address] #### HA1C #### [facility] ([id number]) [address] [place] [address], [address] [address] TROPONIN I, HIGH SENSITIVITY Collected: 7:57 AM Status: COMPLETED Source: [facility] REPOSITORY TYPE CODE TESTS RESULT OUT OF RANGE REFERENCE UNITS LAB TNIHS(LOINC) TROPONIN I, HIGH SENSITIVITY 4 <21 ng/L Performed By: #### CBCA, CMP , 82248-6, 35025-2, THYR #### [facility] ([id number]) [address] [place] [address] #### HA1C #### [facility] ([id number]) [address] [place] [address], [address] [place] [address] THYROID PROFILE Collected: 12/09/2024 7:57 AM Status: COMPLETED Source: [facility] REPOSITORY TYPE CODE TESTS RESULT OUT OF RANGE REFERENCE UNITS LAB TSH(LOINC) TSH 2.44 0.49-4.67 uIU/mL LAB FT4(LOINC) FREE T4 0.86 0.61-1.60 ng/dL Performed By: #### CBCA, CMP , 16927-9, 56985-4, THYR #### [facility] ([id number]) [address] [place] [address] #### HA1C #### [facility] ([id number]) [address] [place] [address], [address] [place] [address] HGB A1C (GLYCO-HGB) Collected: 12/09/2024 7:57 AM Status: COMPLETED Source: [employer] REPOSITORY TYPE CODE TESTS RESULT OUT OF [...] mg/dL Performed By: #### CBCA, CMP , 43166-0, 92774-7, THYR #### [facility] ([id number]) [address] [place] [address] #### HA1C #### [facility] ([id number]) [address] [address], [address] [place] [address] APTT Collected: 12/09/2024 7:57 AM S tatus: COMPLETED Source: [facility] REPOSITORY TYPE CODE TESTS RESULT OUT OF RANGE REFERENCE UNITS LAB PTT(LOINC) APTT 33 26-37 sec Performed By: #### 17278-2 # ### [facility] ([id number]) [address] [place] [address] #### 13285-2, 228-, 2132-08 #### [facility] ([id number]) [address], [address] [place] [address] LIPID PROFILE Collected: 12/09/2024 7:57 AM Status: [...] CHDL(LOINC) CHOLESTEROL:HDL 3.1 1.0-5.0 Performed By: #### 80590-0 # ### [facility] ([id number]) [address] [place] [address] #### 04391-2, 228-8, 2132-08 #### [facility] ([id number]) [address] [place] [address], [address] [address] FOLIC ACID Collected: 12/09/2024 7:57 AM S tatus: COMPLETED Source: [facility] REPOSITORY TYPE CODE TESTS RESULT OUT OF RANGE REFERENCE UNITS LAB FOLI(LOINC) FOLIC ACID >25.0 >5.8 ng/mL Result Comment: NEW REFERENC E RANGE Performed By: #### 77100-3 # ### [facility] ([id number]) [address] [place] [address] #### 63269-0, 2284-8, 2131-9 #### [facility] ([id number]) [address] [place] [address], [address] [address] VITAMIN B12 Collected: 12/09/2024 7:57 AM S tatus: COMPLETED Source: [facility] REPOSITORY TYPE CODE TESTS RESULT OUT OF RANGE REFERENCE UNITS LAB B12(LOINC) VITAMIN B12 400 180-914 pg/mL Performed By: #### 43965-8 # ### [facility] ([id number]) [address] [place] [address] #### 86709-0, 2284-8, 2132-08 #### [facility] ([id number]) [address] [place] [address] AMBULATORY VISIT SUMMARY Observed: 11/18 12:12 PM Status: F Source: [facility] REPOSITORY Ambulatory Visit Summary MALCOM COTTO [...] [place]val[place], [facility] When: Where: [address] [place] [phone] Medications What How Much When Why Instructions New ciprofloxacin (Cipro 500 mg Tab) 1 Tablets By Mouth 2 times a day Duration: 3 Days start taking 1 day prior to procedure Pickup at [facility]/pharmacy #[id number] New diazepam (Valium 10 mg Tab) 1 Tablets By Mouth Once take 30 minutes prior to procedure Pickup at [facility]/pharmacy #[id number] New tramadol (traMADOL 50 mg Tab) 1 Tablets By Mouth Every 8 hours Take 1 tablet every 8 hours as needed for severe pain Pickup at [facility]/pharmacy #6177 Unchanged finasteride (finasteride 5 mg Tab) [...] physician if questions or concerns Pharmacy Information [facility]/pharmacy #[id number]: [address], [place] [phone] Allergies metFORMIN (Upset stomach) Problems Ongoing - [...] to sexual activity. General instructions ??? Take psjj-qet-xiwouhb and prescription medicines only as told by your health care provider. ??? Ask your health care provider if the medicine prescribed to you: ? Requires you to avoid driving or using machinery. ? Can cause constipation. You may need to take these actions to prevent or treat constipation: ? Drink enough fluid to keep your urine pale yellow. ? Take zbcd-sqb-lxwojnh or prescription medicines. ? Eat foods that [...] provider. Document Revised: 06/15/2022 Document Reviewed: 06/15/2022 [employer] Patient Education ??? 2023 Miira. Prostatic Urethral Lift Prostatic urethral lift is [...] including vitamins, herbs, eye drops, creams, and nrcj-iqa-bsagyeo medicines. ??? Any problems you or family [...] tells you to take them. ??? Taking gywj-aet-weebkns medicines, vitamins, herbs, and supplements. Surgery safety [...] provider. Document Revised: 06/15/2022 Document Reviewed: 06/15/2022 [employer] Patient Education ??? 2023 Miira. UROLOGY OFFICE/CLINIC NOTE Observed: 8:47 AM Status: F Source: [facility] REPOSITORY Urology Office/Clinic Note Chief Complaint 2-3wk f/u HPI Staff 64yr old male pt here for 2-3wk f/u. S/p cysto 10/26/24. IPSS score 26. Pt unable to give urine sample at this time. States he might be able to before leaving office. Records from [place] in pt's chart. Previous Dx: BPH with [...] obtained. Will order Local anesthesia. -Will need residential driver for Valium, risks/benefits of medications discussed. 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 General instructions ??? Take ppqt-rmk-szhrzyy and prescription medicines only as told by your health care provider. ??? Ask your health care provider if the medicine prescribed to you: ? Requires you to avoid driving or using machinery. ? Can cause constipation. You may need to take these actions to prevent or treat constipation: ? Drink enough fluid to keep your urine pale yellow. ? Take bikj-ciw-nyebjya or prescription medicines. ? Eat foods that [...] provider. Document Revised: 06/15/2022 Document Reviewed: 06/15/2022 [employer] Patient Education ? 2023 Miira.Prostatic Urethral Lift Prostatic urethral lift is a [...] including vitamins, herbs, eye drops, creams, and prhe-bdt-zdfiumj medicines. ??? Any problems you or family [...] tells you to take them. ??? Taking jepd-lnm-fllfvzf medicines, vitamins, herbs, and supplements. Surgery safety [...] provider. Document Revised: 06/15/2022 Document Reviewed: 06/15/2022 ElseKnock Knock Patient Education ? 2023 Miira. PROGRESS NOTE-PHYSICIAN Observed: 2023 12:10 PM Status: F Source: [facility] REPOSITORY Progress Note-Physician Patient: MALCOM COTTO [...] BPH, # 30 tab(s), Refills(s) 3, Pharmacy: [facility], 178, cm, 09/08/24 13:54:00 EDT, [...] with LUTS and elevated PSA seen by [facility] who presents for transfer of care. Patient [...] history of prostate CA. Review of outside [place] records: PSA 06/2022???6.5 12/2022???7.7 03/2024???7.9 04/2024 - [...] Observed: 10/26/2024 12:07 PM Status: F Source: [facility] REPOSITORY Operative Report Patient: MALCOM OCTTO Age: 64 years Sex: Male : 1960 [...] Observed: 10/26/2024 11:47 AM Status: F Source: [facility] REPOSITORY Patient Education Cystoscopy ??? Voiding [...] Observed: 10/03 11:47 AM Status: F Source: [facility] REPOSITORY Inpatient Patient Summary [place] [address] Clinical Summary Person Information Name: MALCOM COTTO Age: 64 Years : 1960 Sex: Male PCP: NASIMA SOTO CNP Marital Status: Race: White Ethnicity: Non- or Language: Lebanese Visit Id: Visit Reason: BPH WITH URINARY OBSTRUCTION Speciality: Acuity: Enc Type: Outpatient Med Service: Surgery Arrival: 10/26/2024 09:41:52 Discharge: Dispo Type: Address: [address] [place] [phone] Provider Notes: Diagnosis: BPH with urinary obstruction; [...] Follow up: With: Address: When: [facility], [place] [address], [place] [phone] Business (1) Comments: Office to schedule follow up within 1 month to review treatment plan Patient Education Information: EU - Cystoscopy Discharge Instructions (CUSTOM) OUTPATIENT SURGERY DISCHARGE INSTRUCTION Observed: 10/26/2024 11:47 AM Status: F Source: [facility] REPOSITORY Outpatient Surgery Discharge Instruction [place] [phone] Patient Discharge Instructions PERSON INFORMATION Name: MALCOM [...] Follow up: With: Address: When: Mary Curran [address] [place], [place] [phone] [facility] (1) Comments: Office to schedule follow up [...] Date You may receive a survey from [employer] asking you to rate your care experience. Your feedback is important and will help us understand what we do well and how we can improve the quality of care we provide to you, your loved ones and our community. It???s an honor to serve you. Thank you for choosing [facility] MAIN OR INTRAOPERATIVE RECORD Observed: 10/26/2024 11:33 AM Status: C Source: [facility] REPOSITORY Main OR Intraoperative Recor d IntraOp Document Type FTURO Summary Primary Physician: Mary Curran MD Finalized Date/Time: 10/26/24 11:41:00 Pt. Name: YADIELMALCOM D.O.B./Sex: 1960 Male Med Rec #: [id number] Physician: Mary Curran MD Financial #: [id number] Pt. Type: O Room/Bed: / Admit/Disch: 10/26/24 [...] Performed Surgeon - Primary Scrub - Primary Fiberline Supervisor - Primary Time In 10/26/24 11:21:00 10/26/24 [...] Out Mary Curran MD, Verified (If Participants Tiffanie GENERAL ASSISTANT, Nancy Applicable) Miranda Mcdonough Kelsie E Time [...] RECORD Observed: 10:15 AM Status: C Source: [facility] REPOSITORY Main OR Preoperative Record Holding Area Document Type FTURO Summary Primary Physician: Mary Curran MD Finalized Date/Time: 10/26/24 11:22:04 Pt. Name: MALCOM COTTO /Sex: 1960 Male Med Rec #: [id number] Physician: Mary Curran MD Financial #: [id number] Pt. Type: O Room/Bed: / Admit/Disch: 10/26/24 [...] of Pain: No Comment: Skin Integrity Intact, [place], Warm, & Dry Vitals - EU Blood [...] Observed: 07/2024 2:57 PM Status: F Source: [facility] REPOSITORY Urology Office/Clinic Note Chief Complaint New patient difficulty urinating HPI Staff 63 year old male new patient presents today with problems urinating. Never seen in our office before (verified on [employer]). Urinary issues have been going on for three years. MRIs and cat scans from [place], [place] stated pt had 2 lesions on [...] with voice recognition artificial intelligence software, specifically [employer], [employer] 19[employer] and or [employer]. Substitutions may have occurred due to the [...] [facility]. I will trial sending Cialis through [place] pharmacy. -Obtain records from [place], MRI for prostate sizing -Schedule Cysto -Trial Cialis daily Ordered: tadalafil, 5 mg = 1 tab(s), Oral, Daily, for BPH, # 30 tab(s), Refills(s) 3, Pharmacy: [facility], 178, cm, 09/08/24 13:54:00 EDT, [...] of prostate CA. -Records release signed for [place] [facility]rology today. 4. Testicular pain (N50.819: Testicular [...] Observed: 09/08/2024 2:57 PM Status: F Source: [facility] REPOSITORY Patient Education Urology Benign Prostatic [...] Follow these instructions at home: ? Take kwdi-qyu-iyxlvut and prescription medicines only as told by [...] provider. Document Revised: 06/06/2022 Document Reviewed: 06/06/2022 [employer] Knock Patient Education ? 2023 [employer] REGISTRATION Observed: 04/10/2024 2:29 PM Status: F Source: [facility] REPOSITORY [id number]#1.00TIFF ALLERGIES DATE TYPE / CODE NAME / CODE REACTION SEVERITY SOURCE 04/02/2024 DRUG INGREDI~NON- CBORD/758328 003(SNOMED CT) ATORVASTATIN Itching Med [facility] 06/22/2021 DRUG INGREDI~NON- CBORD/768041 003(SNOMED CT) GABAPENTIN Facial Swelling Med [facility] 12/28/2020 DRUG INGREDI~NON- CBORD/639519 003(SNOMED CT) LISINOPRIL Cough Low [facility] 05/25/2020 DRUG INGREDI~NON- CBORD/070184 003(SNOMED CT) METFORMIN Abdominal Pain [facility] DR/[id number] (SNOMED CT) No Known Allergies [facility] /[id number] (SNOMED CT) metFORMIN 764898 [facility] /133153880 (SNOMED CT) No Known Medication Allergies [facility] ENCOUNTERS ADMIT/DISCHARGE ACCOUNT NUMBER ADMITTING ENCOUNTER CLASS LOCATION SOURCE 03/04/2025 [id number] Emergency Buildin 231R oom: TELESTROKEBed: TELESTROKE BED [facility] Ambulatory [facility] 03/04/2025/ 025 [id number] Ambulatory [place] :[place]: Exam 4 [facility] 02/01/2025/ 025 [id number] Ambulatory [place]: Ex[place] 4 [facility] 01/27/2025/ 025 [id number] Ambulatory EU [place]: CD:[id number] [facility] 01/25/2025/ 025 [id number] Mary Curran Ambulatory FTBuilding:FT .URO [facility] 12/11/2024/ 025 [id number] [facility] 12/11/2024/ 025 [id number] Ambulatory Building[facility] 12/09/2024/ 025 [id number] CARMINE DESAI [facility] Room: 258Bed: [address] [place] [address] 11/18/2024/ 024 [id number] Ambulatory EU [place]: Exam 1 [facility] 10/26/2024/ 024 [id number] Mary Curran Ambulatory FTBuilding:FT .URO [facility] 10/19/2024 [id number] Ambulatory EU [place]:EU O[place] [facility] 09/08/2024/ 024 [id number] Ambulatory EU [place]:EU [place]: Exam 2 [facility] 04/10/2024/ 024 [id number] Ambulatory [facility] WellnessBuildin g:Occupational Health and Wellness [facility] FUNCTIONAL STATUS No Functional Status Records Found EQUIPMENT No Equipment Records Found PAYERS ENCOUNTER GUARANTOR PAYER SUBSCRIBER SOURCE 03/04/2025 MALCOM COTTO IVDOB: [id number] [address] [address]Knq: (HP) Primary Insurance:[employer] [place] - [place] RESIDENTPolicy Number: [id number] Date:2024-09-01 MALCOM LAUREN: [id number] [place] [address]Fzq: (WP) [facility] 03/04/2025 MALCOM HERNÁNDEZ: [facility] [address] 302Tel: ~ ~(4 1 (HP) Primary Insurance:HUMANAPolicy Number: [id number] Date:8583-15-35[address] [place] [address]HX: MALCOM MANCERA [facility] 03/04/2025 Secondary Insurance:[facility] CenterPolicy Number: [id number] tive Date: [address] [address]JV: MALCOM MANCERA [facility] 02/01/2025 MALCOM HERNÁNDEZ: [facility] 302Tel: ~ ~(4 1 (HP) Primary Insurance:HUMANAPolicy Number: [id number] Date:0665-60-39FS [address] [place] [address]AV: MALCOM MANCERA [facility] 02/01/2025 Secondary Insurance:[facility] Health CenterPolicy Number: [id number] tive Date: [address] [address]WH: MALCOM MANCERA [facility] 01/27/2025 MALCOM HERNÁNDEZ: [facility] 302Tel: ~ ~(4 1 (HP) Primary Insurance:HUMANAPolicy Number: [id number] Date:3540-98-46YG [address] [place] [address]DS: MALCOM MANCERA [facility] 01/27/2025 Secondary Insurance:[facility] Health CenterPolicy Number: [id number] tive Date: [address] [address]DV: MALCOM MANCERA [facility] 01/25/2025 MALCOM CLEMENTSB: [place] [address]Tel: ~ ~(4 1 (HP) [facility] Insurance:[facility] Number: [id number] Date:[id number] [address]ZP: MALCOM MANCERA [facility] 01/25/2025 Secondary Insurance:[facility] Health CenterPolicy Number: [id number] tive Date: [address] [address]QP: MALCOM MANCERA [facility] 12/11/2024 MALCOM COTTO IVDOB: [address] [address]Djx: (HP) Primary Insurance:[employer] - [place] RES[place]Policy Number: [id number] Date:2024-09-01 MALCOM COTTO IVDOB: [id number] [address] [address]Eyy: (WP) [facility] 12/11/2024 MALCOM COTTO IVDOB: [address] [address]Ktr: (HP) Primary Insurance:[facility] OPTUMPolicy Number: [id number] Date:2024-12-09 MALCOM COTTO IVDOB: [id number] [address] [address]Kxz: (WP) [facility] 12/11/2024 Secondary Insurance:[employer] [facility] RESIDENTPolicy Number: [id number] Date:2024-09-01 MALCOM COTTO IVDOB: [id number] [place] [address]Mkw: (WP) [facility] 12/09/2024 MALCOM COTTO IVDOB: [address] [place] [address]Zgh: (HP) Primary Insurance:[facility] OPTUMPolicy Number: [id number] Date:2024-12-09 MALCOM COTTO IVDOB: [id number] [address]Qke: (WP) [facility] 12/09/2024 Secondary Insurance:[employer] [place] - [place] RESIDENTPolicy Number: [id number] Date:2024-09-01 MALCOM COTTO IVDOB: [id number] [address] [address]Qka: (WP) [facility] 11/18/2024 MALCOM HERNÁNDEZ: [place] [address]Tel: ~ ~(4 1 (HP) Primary Insurance:HUMANAPolicy Number: [id number] Date:[id number] [address]VU: MALCOM MANCERA [facility] 11/18/2024 Secondary Insurance:[facility] AffairsPolicy Number: [id number] tive Date: [address] [address]OQ: MALCOM MANCERA [facility] 10/26/2024 MALCOM HERNÁNDEZ: [facility] 302Tel: ~ ~(4 1 (HP) Primary Insurance:HUMANAPolicy Number: [id number] Date:8202-05-17RK [address] [address]NM: MALCOM MANCERA [facility] 10/26/2024 Secondary Insurance:[facility] AffairsPolicy Number: [id number] tive Date: [address] [address]YZ: MALCOM MANCERA [facility] 09/08/2024 MALCOM HERNÁNDEZ: [facility] 302Tel: ~ ~(4 1 (HP) Primary Insurance:HUMANAPolicy Number: [id number] Date:4052-70-94ZO [address] [address]BJ: MALCOM MANCERA [facility] 09/08/2024 Secondary Insurance:[facility]eterans AffairsPolicy Number: [id number] tive Date: [address] [address]SK: MALCOM MANCERA [facility] 04/10/2024 MALCOM HERNÁNDEZ: [facility] 302Tel: ~ ~(4 1 (HP) Primary Insurance:[facility] AffairsPolicy Number: [id number] Date: [address] [address]BL: MALCOM MANCERA [facility] 04/10/2024 Secondary Insurance:TricarePolic y Number: Effective Date:2020-06-[address] [facility] SOCIAL HISTORY No Social History Records Found FAMILY HISTORY No Family History Records Found No Status Records Found ADVANCE DIRECTIVES No Advanced Directives Records Found INFORMATION SOURCE DATE CREATED AUTHOR AUTHOR'S RAE ATION 03/05/2025 OHIP
[2025-03-05] MEDS: DIAZEPAM 5 MG TABLET PO (06:46)
[2025-03-05 08:01] LABS: Glucometer 141 mg/dL (74-106)
[2025-03-05 08:43] LABS: Basophils Percent Auto 0.2 % (0.2-2.0); Eosinophils Absolute Auto 0.3 10^3/uL (0.0-0.7); Hematocrit 46.8 % (42.0-54.0); Hemoglobin 15.8 g/dL (14.0-18.0); Immature Granulocytes Abs Auto 0.02 10^3/uL (0.00-0.03); Immature Granulocytes Pct Auto 0.2 % (0.0-0.5); Lymphocytes Absolute Auto 1.2 10^3/uL (1.2-3.8); Mean Corpuscular HGB Conc 33.8 g/dL (29.9-35.2); Mean Corpuscular Hemoglobin 30.6 pg (25.9-34.0); Mean Corpuscular Volume 90.7 fL (80.0-94.0); Mean Platelet Volume 9.7 fL (9.5-13.5); Monocytes Absolute Auto 0.9 10^3/uL (0.3-0.8); Monocytes Percent Auto 9.4 % (1.7-12.0); Neutrophils Absolute Auto 6.7 10^3/uL (1.4-6.5); Neutrophils Percent Auto 74.2 % (43.0-75.0); Platelet Count 252 10^3/uL (150-450); Red Blood Count 5.16 10^6/uL (4.70-6.10); Red Cell Distribution Width 12.9 % (11.0-15.0); White Blood Count 9.1 10^3/uL (4.0-11.0)
[2025-03-05 08:58] LABS: Anion Gap 14.3; BUN Creatinine Ratio 23.4; Calcium 8.8 mg/dL (8.5-10.1); Chloride 105 mmol/L (98-107); Chol HDL Ratio 3.1; Cholesterol 154 mg/dL (<=200); Estimated GFR (African America >60 (>=60 mL/min/1.73m^2); Estimated GFR (Non-African Ame >60 (>=60 mL/min/1.73m^2); Glucose 159 mg/dL (74-106); HDL Cholesterol 49 mg/dL (40-60); LDL Cholesterol Calculated 80.2 mg/dL; Potassium 4.3 mmol/L (3.5-5.1); Sodium 141 mmol/L (136-145); Triglycerides 124 mg/dL (<=150); VLDL CHOLESTEROL 24.8 mg/dL
[2025-03-05] MEDS: EZETIMIBE 10 MG TABLET PO (09:51)
[2025-03-05] MEDS: ASPIRIN 81 MG TABLET.DR PO (09:51)
[2025-03-05] MEDS: CHOLECALCIFEROL (VITAMIN D3) 25 MCG/1,000 UNITS TABLET 50 MCG PO (09:51)
[2025-03-05] MEDS: CANAGLIFLOZIN 100 MG TABLET 300 MG PO (09:51)
[2025-03-05] MEDS: FINASTERIDE 5 MG TABLET PO (09:52)
[2025-03-05] MEDS: MULTIVITAMIN TABLET 1 TAB PO (09:52)
[2025-03-05] MEDS: LOSARTAN POTASSIUM 50 MG TABLET PO (09:52)
[2025-03-05] MEDS: AMLODIPINE BESYLATE 5 MG TABLET 10 MG PO (09:53)
[2025-03-05] MEDS: INSULIN GLARGINE 300 UNIT/3 ML INSULN.PEN 16 UNIT SQ (09:54)
[2025-03-05] MEDS: PIOGLITAZONE 15 MG TABLET 30 MG PO (10:01)
[2025-03-05] MEDS: METHYLPREDNISOLONE SOD SUCC PF 125 MG/2 ML VIAL IVP (10:31)
--- NOTE | 2025-03-05 10:40 | CM.NOTE ---
Rounds made with Dr. Azar. Plan for discharge today. Dr. Azar reviewed medication adjustments/additions with Mr. Veras. Follow up with Neurology and PCP.
[2025-03-05 11:06] LABS: Glucometer 206 mg/dL (74-106)
--- NOTE | 2025-03-05 11:27 | PM.HP ---
HPI H&P: HPI History of Present Illness Chief complaint: upper extremity pain, light headed, FACE NUMBNESS Narrative: 64 y/o male to ER with left arm pain, numbness, and weakness. Woke up around 2 am with pain in left arm. Pain from shoulder shooting down arm. Noticed weakness and numbness in left hand. No weakness in legs and normal gait. Later in day developed numbness in left cheek and to ER. Reports TIA in December and was kept overnight in hospital. At the time had MRI stroke work up including echo which was normal. Neurology told him he had TIA and took plavix for about 3 weeks. Now on aspirin 81 mg daily. In ER CT head negative. Discussed with tele-stroke who recommended admission and stroke work up. Continues to have pain in left arm and weakness in hand. Not having numbness in face. Opioid HPI Opioid Management Most Recent Pain and Opioid Data: Last Pain Scale 3 03/05/25 11:10 03/05/25 Last Pain Assessment 03/05/25 11:10 Last MAR Pain Assessment 03/05/25 02:25 Last ORT Total Score 0 03/04/25 15:30 03/04/25 Last ORT Risk Category Low Risk 03/04/25 15:30 03/04/25 Review of Systems ROS Constitutional Denies: fever, chills or fatigue Cardiovascular Denies: chest pain, palpitations or edema Respiratory Denies: shortness of breath, cough or wheezing Gastrointestinal Denies: abdominal pain, nausea, vomiting or diarrhea Genitourinary Denies: painful urination Neurological Reports: numbness in extremities and weakness in extremities PFSH [facility] Medical History (Updated 03/05/25 @ 10:44 by Arvind Azar MD) TIA (transient ischemic attack) ?G45.9 - Transient cerebral ischemic attack, unspecified (ICD-10) Diabetes ?E11.9 - Type 2 diabetes mellitus without complications (ICD-10) Surgical History (Updated 03/04/25 @ 14:15 by Khushi Medrano RN) History of cholecystectomy ?Z90.49 - Acquired absence of other specified parts of digestive tract (ICD-10) Hx of appendectomy ?Z90.49 - Acquired absence of other specified parts of digestive tract (ICD-10) Family History (Updated 03/04/25 @ 15:32 by Nivia Rodriguez RN) Father Family history of stroke Family history of myocardial infarction Family history of hypertension Family history of cancer Family history of CHF (congestive heart failure) Mother Family history of cancer Social History (Updated 03/04/25 @ 15:33 by Nivia Rodriguez RN) Within the past year, how often did you have a drink containing alcohol: 4 or more times a week Smoking status: Former smoker Non-prescribed substance use: denies use Highest level of school completed/degree received: high school graduate Little interest or pleasure in doing things: not at all Feeling down, depressed, or hopeless: not at all Meds Home Medications and Allergies Home Medications ?Medication ?Instructions ?Recorded ?Confirmed ?Type amlodipine 10 mg tablet 10 mg PO DAILY 03/04/25 03/04/25 History cholecalciferol (vitamin D3) 50 50 mcg PO DAILY 03/04/25 03/04/25 History mcg (2,000 unit) disintegrating tablet empagliflozin 25 mg tablet 25 mg PO DAILY 03/04/25 03/04/25 History ezetimibe 10 mg tablet 10 mg PO DAILY 03/04/25 03/04/25 History finasteride 5 mg tablet 5 mg PO DAILY 03/04/25 03/04/25 History insulin glargine 100 unit/mL (3 16 unit subcut DAILY 03/04/25 03/04/25 History mL) subcutaneous pen losartan 50 mg tablet 50 mg PO DAILY 03/04/25 03/04/25 History multivitamin (Daily Multi-Vitamin 1 tab PO DAILY 03/04/25 03/04/25 History tablet) pioglitazone 30 mg tablet 30 mg PO DAILY 03/04/25 03/04/25 History tadalafil 5 mg tablet (Cialis) 5 mg PO DAILY 03/04/25 03/04/25 History clopidogrel 75 mg tablet 75 mg PO DAILY #30 tabs 03/05/25 Rx prednisone 50 mg tablet 50 mg PO DAILY 5 days #5 tabs 03/05/25 Rx Allergies Allergy/AdvReac Type Severity Reaction Status Date / Time No Known Drug Allergies Allergy Verified 03/04/25 14:05 Exam Constitutional Vital Signs, click to edit/add: Last Vital Signs Temp 97.8 F 03/05/25 08:39 Pulse 81 03/05/25 08:39 Resp 18 03/05/25 08:39 BP 161/88 H 03/05/25 08:39 Pulse Ox 94 L 03/05/25 08:39 O2 Del Method Room Air 03/05/25 08:39 Documenting provider has reviewed patient's vital signs: yes Common normals: no apparent distress, oriented x3 and alert HENMT Common normals: normocephalic Eye Common normals: PERRL and EOMs intact bilaterally Respiratory Common normals: normal respiratory effort and clear to auscultation bilaterally Cardio Common normals: regular rate, regular rhythm, no gallops, no murmurs and no rub GI Common normals: Normal to inspection, nondistended, normoactive bowel sounds present and non-tender Extremity Common normals: no pedal edema Neuro Common normals: CN's II-XII intact bilaterally and moves all extremities Speech: speech normal Gait (neuro): normal gait Motor exam: strength abnormal (Strength LUE 3/5, RUE 5/5, BUE 5/5) Results Labs Labs: Short CBC 03/04/25 03/05/25 Range/Units 12:23 08:25 WBC 8.5 9.1 (4.0-11.0) 10^3/uL Hgb 15.7 15.8 (14.0-18.0) g/dL Hct 47.2 46.8 (42.0-54.0) % Plt Count 249 252 (150-450) 10^3/uL BMP 03/04/25 03/05/25 12:23 08:25 Sodium 138 141 Potassium 4.0 4.3 Chloride 103 105 Carbon Dioxide 25.1 26.0 BUN 19.0 H 25.0 H Creatinine 1.02 1.07 Glucose 156 H 159 H Calcium 8.7 8.8 Liver Function 03/04/25 Range/Units 12:23 Total Bilirubin 0.4 (0.2-1.0) mg/dL AST 13 L (15-37) U/L ALT 29 (16-63) U/L Alkaline Phosphatase 80 (46-116) U/L Albumin 4.0 (3.4-5.0) g/dL Assessment and Plan Assessment and Plan (1) Left facial numbness: (2) Paresthesia of left arm: (3) Left hand weakness: (4) Pain, arm, left: (5) History of TIA (transient ischemic attack): (6) Type 2 diabetes mellitus with hyperglycemia: (7) Hypertension: Plan Initially developed pain, numbness, and weakness in left arm and hand then facial numbness. Normal MRI/MRI brain. Normal Carotid US. Echo completed in December. Symptoms likely related to pinched nerve either in cervical spine or periphery. Give dose solu-medrol. Facial numbness not consistent with pinched nerve. Discharge home. Will stop aspirin and start plavix. Start prednisone. Follow up with PCP and neurology. Currently not on statin but thinks prior myalgia and adverse reaction.
[2025-03-05 14:36] LABS: Estimated Average Glucose 220 mg/dL; Glycohemoglobin A1C 9.3 % (4.5-6.2)
--- NOTE | 2025-03-09 14:52 | CM.DCFOLLOWU ---
Person spoke with:patient How are you feeling?well How is your pain?none Did you understand your discharge instructions?yes Do you have any questions about your discharge instructions?no Were you given any prescriptions at discharge? yes Were you able to get your prescriptions filled?yes Do you understand how to take your medications as ordered? yes Do you have any questions about your follow up appointment and do you plan to keep your follow up appointment? no questions, follow ups reviewed Is there anything else that you would like to discuss?no Questions/Comments/Concerns/Other:none
== END 2025-03-05 11:37 | disposition home or self-care (01) ==
LOC: ER 14:09 → MS 15:30
PROVIDERS: Admitting Provider Family Medicine; Emergency Provider Emergency Medicine; Visit Provider Family Medicine
DX: R20.0 Anesthesia of skin (principal); R53.1 Weakness; R20.2 Paresthesia of skin; Z86.73 Personal history of transient ischemic attack (TIA), and cerebral infarction without residual deficits; I10 Essential (primary) hypertension; Z79.899 Other long term (current) drug therapy; Z90.49 Acquired absence of other specified parts of digestive tract; R42 Dizziness and giddiness; Z79.82 Long term (current) use of aspirin; M79.602 Pain in left arm; Z87.891 Personal history of nicotine dependence; E11.65 Type 2 diabetes mellitus with hyperglycemia; Z79.4 Long term (current) use of insulin; Z79.84 Long term (current) use of oral hypoglycemic drugs
CPT/HCPCS: 36415; 70450; 70544; 70551; 71045; 80048; 80053; 80061; 82948; 83036; 84484; 85025; 85610; 93005; 93880; 96374; 96375; 99285; G0378; J1885; J2919

== ENCOUNTER 2025-05-08 08:47 | Emergency (ER) | payer MEDICARE, SELFPAY ==
--- OUTSIDE RECORDS SUMMARY | 2024-06-10 11:30 | XMS_ITS | Encounter Summary ---
Author Name [facility] [place] [facility] [place] Organization [facility] [place] Address [address] [place] [address] Care Team Providers Care Cow Puncher Name Role Phone NASIMA SOTO Primary Care Provider Unavailabl e Insurance Providers: All historical and current Section Date Range: From patient's date of to the date document was created. This section includes the names of all active insurance providers for the patient. Insurance Provider Type of Coverage Plan Name Start of Policy Coverage End of Policy Coverage Group Number Member ID Insurance Provider's Telephone Number Policy Casas's Name Patient's Relationship to Policy Casas [employer] MCR (WNR) MEDICARE ADVANTAGE MCR (WNR) Sep 01, 2024 [id number] YADIELLALIT DOMINICK PATIENT Selected Encounter This section includes the information on record at [place] for the Encounter. Date/Time Encounter Type Encounter Description Reason Pro vider Source Jun 10, 2024 03:30 PM Outpatient Encounter DERMATOLOGY IHE Encounter Template Text not used by [place] Plan of Treatment: Future Appointments (+ 6 months) and Future Tests (+/- 45 days) The Plan of Treatment section includes future care activities for the patient from all [place] treatmentfacilities. This section includes future appointments and future orders which are active, pending or scheduled. Future Appointments This section includes appointments that were scheduled to occur 6 months from the date of the Encounter, up to a maximum of 20 appointments. The data comes from all [place] treatment facilities. Appointment Date/Time Appointment Type Appointme nt Facility Name Jul 14, 2024 11:30 AM [facility]ULATORY - [facility] Jul 24, 2024 04:30 PM AMBULATORY - NONE [facility] Jul 28, 2024 06:00 AM AMBULATORY - NONE [facility] Aug 04, 2024 10:00 AM AMBULATORY - SURGERY [facility] Sep 22, 2024 08:00 AM AMBULATORY - NONE [facility] Sep 22, 2024 09:15 AM [facility]BULATORY - NONE [facility] Oct 06, 2024 08:00 AM AM[facility]UL[facility]ORY - NONE [facility] Dec 11, 2024 10:45 AM AMBULATORY - NONE [facility] Encounter Notes: All associated encounter notes This section contains the clinical notes associated to the Encounter. Date/Time Encounter Note(s) Provider Source Jun 10, 2024 03:45 PM NO SHOW NOTE: LOCAL TITLE: NO SHOW (T)// NO SHOW/CANCELLATION NOTE STANDARD TITLE: NO SHOW NOTE DATE OF NOTE: JUN 10, 2024@15:45 ENTRY DATE: JUN 10, 2024@15:45:41 AUTHOR: BITA BURKS EXP COSIGNER: URGENCY: STATUS: COMPLETED Patient cancelled this derm appointment. /torri/ BITA BURKS NURSE PRACTITIONER Signed: 06/10/2024 15:45 BITA BURKS [facility]
--- OUTSIDE RECORDS SUMMARY | 2024-07-28 10:12 | XMS_ITS | Encounter Summary ---
Author Name [facility] [place] Organization [facility] [place] Address [address] [place] [id number] Care Team Providers Care Phone Specialist Name Role Phone NASIMA CHAMBERS Primary Care Provider Unavailabl e Insurance Providers: [...] Name Patient's Relationship to Policy Casas HUMANA [facility] (WNR) MEDICARE ADVANTAGE [facility] (WNR) Sep 01, 2024 [id number] YADIELLALIT LUISGEORGES PATIENT Selected Encounter This section includes the information on record at [place] for the Encounter. Date/Time Encounter Type Encounter Description Reason Pro vider Source Jul 28, 2024 02:12 PM Outpatient Encounter PATIENT CARE IN OR [place] Encounter Template Text not used by [place] Plan of Treatment: Future Appointments (+ 6 months) and Future Tests (+/- 45 days) The Plan of Treatment section includes future care activities for the patient from all [place] treatmentfacilities. This section includes future appointments and future orders which are active, pending or scheduled. Future Appointments This section includes appointments that were scheduled to occur 6 months from the date of the Encounter, up to a maximum of 20 appointments. The data comes from all [place] treatment facilities. Appointment Date/Time Appointment Type Appointme nt Facility Name Aug 04, 2024 10:00 AM AM[facility]UL[facility]ORY [facility] Sep 22, 2024 08:00 AM AMBULATORY - NONE [facility] Sep 22, 2024 09:15 AM AMBULATORY - NONE [facility] Oct 06, 2024 08:00 AM AMBULATORY - NONE [facility] Dec 11, 2024 10:45 AM AMBULATORY - NONE [facility] Jan 11, 2025 10:00 AM AMBULATORY - NONE [facility] Active, Pending, and Scheduled Orders This section includes a listing of several types of active, pending, and scheduled orders, including clinic medications orders, diagnostic test orders, procedure orders and consult orders; where the start date of the order is 45 days before the date of the Encounter or 45 days after the date of theEncounter. The data comes from all [place] treatment facilities. Test Date/Time Test Type Test Details Facility Name Aug 07, 2024 12:00 AM Laboratory - Chemi stry Order VITAMIN D (TOTAL) GOLD TOP SERUM SP ONCE [facility] Lab Results: +/- 30 days of the encounter This section includes the Chemistry and Hematology Lab Results on record with [place] for the patient. Radiology Reports and Pathology Reports are provided separately, in subsequent sections. Lab Results This section contains the Chemistry/Hematology Results that were resulted 30 days before or 30 daysafter the date of the Encounter. Date/Time Source Result Type Result - Unit Interpretation Reference Range Specimen Type Comment Jul 28, 2024 09:26 AM [facility] POC GLUCOSE BLOOD Specimen Type: BLOOD No comment entered. Ordering Provider: MARY SANTOS Report Released Date/Time: Jul 28, 2024 09:33 AM Reporting Lab: [facility] [address] [facility] [address] Performing Lab: [facility] [address] [facility] [address] POC GLUCOSE 176 mg/dL H 74-106 Vital Signs: All taken on the encounter date This section contains inpatient and outpatient Vital Signs collected on the date of the Encounter. Date/Time Temperature Pulse Blood Pressure Respiratory Rate SP02 Pain Height Weight Body Mass Index Source Jul 28, 2024 02:49 PM 97.3 54 128/75 16 0 [facility] Jul 28, 2024 02:25 PM 97.6 55 137/76 16 0 [facility] Jul 28, 2024 09:39 AM 97.6 62 149/77 16 0 [facility] Social History: Smoking Status (Most current) and Tobacco Use (All prior to encounter date) This section includes the most current, and the historical, smoking and tobacco- related health factors from the [place] facility where the Encounter took place. Current Smoking Status This section includes the most current smoking, or tobacco-related health factor, from the [place] facility where the Encounter took place. Date/Time Current Smoking Status Comment Arnulfo dacosta Jul 28, 2024 06:00 AM TOBACCO FORMER USER MORE 12 [facility] Radiology Reports: +/- 30 days of the encounter Radiology Reports For cases when an order for radiology services may have been completed prior to the date of the Encounter, the report list includes the Radiology Reports that were completed up to 30 days before dateof the Encounter. For cases when an order for radiology services may have been completed after the date of the Encounter, the report list also includes the Radiology Reports that were completed up to30 days after date of the Encounter. The data comes from all [place] treatment facilities. Date/Time Radiology Report Provider Source Jul 24, 2024 03:[address] ABDOMEN & PELVI S W/O CONTRAST: MALCOM COTTO IV [id number] -1960 M Exm Date: JUL 24, 2024@15:23 Req Phys: VANESSA ARRIETA Pat Loc: [facility] CVT ANES PRE-OP NP7 SS (Re Img Loc: W CT SCAN Service: [place] [address] (Case [id number] COMPLETE)CT ABDOMEN & PELVIS W/O CONTRAST (CT Detailed) CPT:61993 Reason for Study: scrotal, abdominal and back pain Clinical History: [address] [place], [place] [address] Report Status: Verified Date Reported: JUL 27, 2024 Date Verified: JUL 27, 2024 Distributed Energy Systems Consultant E-Sig:/ES/PAULY LO Report: EXAMINATION: CT scan abdomen and pelvis with contrast: 07/24/2024. INDICATION: Scrotal, abdominal, and back pain COMPARISON: MRI prostate dated 04/16/2024. TECHNIQUE: CT scan of the abdomen and pelvis was performed without intravenous contrast. FINDINGS: Evaluation of the solid organs is limited without IV contrast. Within the limitations, the unenhanced liver, spleen, pancreas, and bilateral adrenal glands are unremarkable. The gallbladder is surgically absent. The unenhanced bilateral kidneys are symmetrical in size. Likely cyst off of the posterior inferior right kidney. No suspicious renal masses are seen. There is no evidence of nephrolithiasis. Within the pelvis, the urinary bladder is unremarkable. The prostate is moderately enlarged, with mass effect on the urinary bladder. The stomach is unremarkable. The bowel is nondistended, and there is no evidence of wall thickening or obstruction. There is sigmoid and left colonic diverticulosis, without evidence of diverticulitis. There is no evidence of mesenteric or retroperitoneal lymphadenopathy. There is no evidence of abdominal or pelvic free fluid. There is fat stranding surrounding the mid right external iliac artery. This is nonspecific, and was visualized on MRI prostate dated 04/16/2024, and is of doubtful clinical significance. The abdominal wall is unremarkable. Evaluation of the vasculature is limited without IV contrast. Within the limitations, the aortoiliac vasculature is normal in caliber, with mild scattered calcific disease. No suspicious osseous lesions are seen. There are degenerative changes throughout the lumbar spine. Moderate degenerative changes within the bilateral hips. Visualized lung bases shows minimal bibasilar atelectasis and scarring, without focal mass lesion. There are mild to moderate calcifications of the LAD. Impression: 1. Moderate prostatomegaly, with mass effect on the urinary bladder. 2. Sigmoid and left colonic diverticulosis, without diverticulitis. 3. Moderate degenerative changes throughout the lower thoracic spine and the thoracolumbar spine, with bulky anterior osteophytes at multiple levels. 4. Moderate degenerative changes of the bilateral hips. 5. Mild/moderate calcifications of the LAD. Finalized by Pauly Lo MD On 07/27/2024 9:29 AM Primary Diagnostic Code: Primary Interpreting Staff: PAULY LO, RADIOLOGIST (Distributed Energy Systems Consultant) /PAULY ROCHA [facility] Pathology Reports: +/- 30 days of the encounter Pathology Reports For cases when an order for pathology services may have been completed prior to the date of the Encounter, the report list includes the Pathology Reports that were completed up to 30 days before dateof the Encounter. For cases when an order for pathology services may have been completed after the date of the Encounter, the report list also includes the Pathology Reports that were completed up to30 days after date of the Encounter. The data comes from all [place] treatment facilities. Date/Time Pathology Report Provider Source Jul 30, 2024 10:39 AM LR SURGICAL PATHOL OGY REPORT: LOCAL TITLE: LR SURGICAL PATHOLOGY REPORT STANDARD TITLE: PATHOLOGY REPORT DATE OF NOTE: JUL 30, 2024@10:39:09 ENTRY DATE: JUL 30, 2024@10:39:09 AUTHOR: ANNA BOWLING EXP COSIGNER: URGENCY: STATUS: COMPLETED $APHDR - - - - - - - - - - - - - - - - - - - - - - - - - - - - - - - - - - - - - - - - MEDICAL RECORD SURGICAL PATHOLOGY - - - - - - - - - - - - - - - - - - - - - - - - - - - - - - - - - - - - - - - - PATHOLOGY REPORT Accession No. [id number] - - - - - - - - - - - - - - - - - - - - - - - - - - - - - - - - - - - - - - - - $TEXT Submitted by: MYESHA JO Date obtained: Jul 28, 2024 - - - - - - - - - - - - - - - - - - - - - - - - - - - - - - - - - - - - - - - - Specimen (Received Jul 29, 2024 09:08): A-LEFT PROSTATE LOBE BIOPSY B-RIGHT PROSTATE LOBE BIOPSY C-LEFT APEX PERIPHERAL ZONE PROSTATE BIOSY - - - - - - - - - - - - - - - - - - - - - - - - - - - - - - - - - - - - - - - - BRIEF CLINICAL HISTORY: - - - - - - - - - - - - - - - - - - - - - - - - - - - - - - - - - - - - - - - - PREOPERATIVE DIAGNOSIS: ELEVATED PROSTATE SPECIFIC ANGTIGEN - - - - - - - - - - - - - - - - - - - - - - - - - - - - - - - - - - - - - - - - OPERATIVE FINDINGS: - - - - - - - - - - - - - - - - - - - - - - - - - - - - - - - - - - - - - - - - POSTOPERATIVE DIAGNOSIS: ELEVATED PROSTATE SPECIFIC ANGTIGEN Surgeon/physician: MYESHA JO Current Surgeon: Nancy Llamas Attending Surgeon: Myesha Jo =-=-=-=-=-=-=-=-=-=-=-=-=-=-=-=-=-= -=-=-=-=-=-=-=-=-=-=-=-=-=-=-=-=-=- =-=-=-=-= - - - - - - - - - - - - - - - - - - - - - - - - - - - - - - - - - - - - - - - - PATHOLOGY REPORT Accession No. [id number] - - - - - - - - - - - - - - - - - - - - - - - - - - - - - - - - - - - - - - - - Diagnosis A. LEFT PROSTATE LOBE BIOPSY: - BENIGN PROSTATIC TISSUE. B. RIGHT PROSTATE LOBE BIOPSY: - BENIGN PROSTATIC TISSUE. C. LEFT APEX, PERIPHERAL ZONE, PROSTATE BIOPSY: - BENIGN PROSTATE AND SEMINAL VESICLE TISSUE. CPT: 72637 x 3 GROSS DESCRIPTION A. Specimen is received in formalin, labeled with the patient's name, medical record number and left prostate lobe biopsy . It consists of two pale-earl, cylindrical soft tissue fragments, each measuring 0.1 cm in diameter and ranging from 0.7 to 1.5 cm in length. The specimen is entirely submitted in one cassette. B. Specimen is received in formalin, labeled with the patient's name, medical record number and right prostate lobe biopsy . It consists of eight pale-earl, cylindrical soft tissue fragments, each measuring 0.1 cm in diameter and ranging from 1.0 to 2.5 cm in length. The specimen is entirely submitted in two cassettes. C. Specimen is received in formalin, labeled with the patient's name, medical record number and left apex peripheral zone prostate biopsy . It consists of six pale-earl, cylindrical soft tissue fragments, each measuring 0.1 cm in diameter and ranging from 1.0 to 1.3 cm in length. The specimen is entirely submitted in one cassette. KO /torri/ ANNA BOWLING PATHOLOGIST Signed Jul 30, 2024@10:39 Performing Laboratory: Surgical Pathology Report Performed By: [facility] [CLIA# [id number]] [address] [place] [address] $FTR - - - - - - - - - - - - - - - - - - - - - - - - - - - - - - - - - - - - - - - - (End of report) ANNA BOWLING MD rr Date Jul 30, 2024 - - - - - - - - - - - - - - - - - - - - - - - - - - - - - - - - - - - - - - - - MALCOM COTTO IV STANDARD FORM 515 ID:[id number] SEX:M :1960 AGE: 63 LOC:[facility] PCP: Nasima Chambers /torri/ ANNA BOWLING PATHOLOGIST Signed: 07/30/2024 10:39 ANNA BOWLING [facility] Encounter Notes: All associated encounter notes This section contains the clinical notes associated to the Encounter. Date/Time Encounter Note(s) Provider Source Jul 28, 2024 02:12 PM FLOWSHEET: LOCAL TITLE: CLINICAL FLOWSHEET STANDARD TITLE: FLOWSHEET DATE OF NOTE: JUL 28, 2024@14:12 ENTRY DATE: JUL 28, 2024@14:12:26 AUTHOR: JAN QUINTANILLA EXP COSIGNER: URGENCY: STATUS: COMPLETED See linked PDF file /torri/ JAN QUINTANILLA Signed: 07/28/2024 14:12 JAN QUINTANILLA [facility]
--- OUTSIDE RECORDS SUMMARY | 2024-07-28 10:15 | XMS_ITS | Encounter Summary ---
Author Name [facility] [place] Organization [place] Address [address] [place] [address] Care Team Providers Care Motion Picture Set Up Worker Name Role Phone NASIMA CHAMBERS Primary Care [...] Member ID Insurance Provider's Telephone Number Policy Cassa's Name Patient's Relationship to Policy Casas HUMANA [facility] (WNR) MEDICARE ADVANTAGE [facility] (WNR) Sep 01, 2024 [id number] YADIELLALIT DOMINICK PATIENT Selected Encounter This section includes the information on record at [place] for the Encounter. Date/Time Encounter Type Encounter Description Reason Pro vider Source Jul 28, 2024 02:15 PM Outpatient Encounter PATIENT CARE IN OR IHE Encounter Template Text not used by [place] Plan of Treatment: Future Appointments (+ 6 months) and Future Tests (+/- 45 days) The Plan of Treatment section includes future care activities for the patient from all [place] treatmentfacilities. This section includes future appointments and future orders which are active, pending or scheduled. Future Appointments This section includes appointments that were scheduled to occur 6 months from the date of the Encounter, up to a maximum of 20 appointments. The data comes from all [place] treatment facilities. Appointment Date/Time Appointment Type Appointme nt Facility Name Aug 04, 2024 10:00 AM AMBULATORY - SUR[facility]ERY [facility] Sep 22, 2024 08:00 AM AMBULATORY - NONE [facility] Sep 22, 2024 09:15 AM AMBULATORY - NONE [facility] Oct 06, 2024 08:00 AM AMBULATORY - NONE [facility] Dec 11, 2024 10:45 AM AMBULATORY - NONE [facility] Jan 11, 2025 10:00 AM AMBULATORY - [...] of theEncounter. The data comes from all [place] treatment facilities. Test Date/Time Test Type Test Details Facility Name Aug 07, 2024 12:00 AM Laboratory - Chemi stry Order VITAMIN D (TOTAL) GOLD TOP SERUM SP ONCE [facility] Lab Results: +/- 30 days of the encounter This section includes the Chemistry and Hematology Lab Results on record with [place] for the patient. Radiology Reports and Pathology Reports are provided separately, in subsequent sections. Lab Results This section contains the Chemistry/Hematology Results that were resulted 30 days before or 30 daysafter the date of the Encounter. Date/Time Source Result Type Result - Unit Interpretation Reference Range Specimen Type Comment Jul 28, 2024 09:26 AM [facility] POC GLUCOSE BLOOD Specimen Type: BLOOD No comment entered. Ordering Provider: MARY SANTOS Report Released Date/Time: Jul 28, 2024 09:33 AM Reporting Lab: [facility] [address] [facility] [address] Performing Lab: [facility] [address] [facility] [address] POC GLUCOSE 176 mg/dL H 74-106 Vital Signs: All taken on the encounter date This section contains inpatient and outpatient Vital Signs collected on the date of the Encounter. Date/Time Temperature Pulse Blood Pressure Respiratory Rate SP02 Pain Height Weight Body Mass Index Source Jul 28, 2024 02:49 PM 97.3 54 128/75 16 0 [facility] Jul 28, 2024 02:25 PM 97.6 55 137/76 16 0 [facility] Jul 28, 2024 09:39 AM 97.6 62 149/77 16 0 [facility] Social History: Smoking Status (Most current) and Tobacco Use (All prior to encounter date) This section includes the most current, and the historical, smoking and tobacco- related health factors from the [place] facility where the Encounter took place. Current Smoking Status This section includes the most current smoking, or tobacco-related health factor, from the [place] facility where the Encounter took place. Date/Time Current Smoking Status Comment Arnulfo dacosta Jul 28, 2024 06:00 AM TOBACCO FORMER USER MORE 12 [facility] Radiology Reports: +/- 30 days of [...] the Encounter. The data comes from all [place] treatment facilities. Date/Time Radiology Report Provider Source Jul 24, 2024 03:[address] ABDOMEN & PELVI S W/O CONTRAST: MALCOM COTTO IV [id number] -1960 M Exm Date: JUL 24, 2024@15:23 Req Phys: VANESSA ARRIETA Pat Loc: [facility] ANES PRE-OP NP7 SS (Re Img Loc: W CT SCAN Service: [place] [address] (Case [id number] COMPLETE)CT ABDOMEN & PELVIS W/O CONTRAST (CT Detailed) CPT:28191 Reason for Study: scrotal, abdominal and back pain Clinical History: [address] [place], [place] [address] Report Status: Verified Date Reported: JUL 27, 2024 Date Verified: JUL 27, 2024 Bar Machine Operator E-Sig:/ES/PAULY LO Report: EXAMINATION: CT scan abdomen [...] Code: Primary Interpreting Staff: PAULY LO, RADIOLOGIST (Bar Machine Operator) /PAULY ROCHA [facility] Pathology Reports: +/- 30 days of the [...] the Encounter. The data comes from all [place] treatment facilities. Date/Time Pathology Report Provider Source Jul 30, 2024 10:39 AM LR SURGICAL PATHOL OGY REPORT: LOCAL TITLE: LR SURGICAL PATHOLOGY REPORT STANDARD TITLE: PATHOLOGY REPORT DATE OF NOTE: JUL 30, 2024@10:39:09 ENTRY DATE: JUL 30, 2024@10:39:09 AUTHOR: ANNA BOLWING EXP COSIGNER: URGENCY: STATUS: COMPLETED $APHDR - [...] BENIGN PROSTATE AND SEMINAL VESICLE TISSUE. CPT: 19776 x 3 GROSS DESCRIPTION A. Specimen is [...] Surgical Pathology Report Performed By: [facility] [CLIA# [id number]] [address] [place] [address] $FTR - - - - - - - - - - - - - - - - - - - - - - - - - - - - - - - - - - - - - - - - (End of report) ANNA BOWLING MD Date Jul 30, 2024 - - - - - - - - - - - - - - - - - - - - - - - - - - - - - - - - - - - - - - - - MALCOM COTTO IV STANDARD FORM 515 ID:[id number] SEX:M :1960 AGE: 63 [facility] PCP: Nasima Chambers /torri/ ANNA BOWLING PATHOLOGIST Signed: 07/30/2024 10:39 ANNA BOWLING [facility] Encounter Notes: All associated encounter notes This section contains the clinical notes associated to the Encounter. Date/Time Encounter Note(s) Provider Source Jul 28, 2024 02:15 PM NURSING FLOWSHEET: LOCAL TITLE: PICIS PACU CLINICAL FLOWSHEET STANDARD TITLE: NURSING FLOWSHEET DATE OF NOTE: JUL 28, 2024@14:15 ENTRY DATE: JUL 28, 2024@14:12:38 AUTHOR: JAN QUINTANILLA EXP COSIGNER: URGENCY: STATUS: COMPLETED See linked PDF file /es/ JAN QUINTANILLA Signed: 07/28/2024 14:12 JAN QUINTANILLA [facility]
--- OUTSIDE RECORDS SUMMARY | 2024-09-22 04:00 | XMS_ITS | Encounter Summary ---
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 Date/Time Encounter Type Encounter Description Reason Provider Source Sep 22, 2024 08:00 AM OFFICE O/P EST HI 40 MIN PRIMARY CARE/MEDICINE ICD-10-CM I10 Essential (primary) hypertension ELMER CHAMBERS IHE Encounter Template Text not used by [place] Assessments - Encounter Diagnoses This section includes the primary and secondary diagnoses documented for the Encounter. Date/Time Primary/Secondary Diagnosis Diagnosis Name Provider Source Sep 23, 2024 11:46 AM PRIMARY Essential (primary) hypertension NASIMA CHAMBERS [facility] Sep 23, 2024 11:46 AM SECONDARY Benign prostatic hyperplasia with lower urinary tract symp NASIMA CHAMBERS [facility] Sep 23, 2024 11:46 AM SECONDARY Elevated prostate specific antigen [PSA] NASIMA CHAMBERS [facility] Sep 23, 2024 11:46 AM SECONDARY Hyperlipidemia, unspecified NASIMA CHAMBERS [facility] Sep 23, 2024 11:46 AM SECONDARY Type 2 diabetes mellitus with hyperglycemia NASIMA CHAMBERS [facility] Plan of Treatment: Future Appointments (+ 6 months) and Future Tests (+/- 45 days) The Plan of Treatment section includes future care activities for the patient from all [place] [facility]. This section includes future appointments and future orders which are active, pending or scheduled. Future Appointments This section includes appointments that were scheduled to occur 6 months from the date of the Encounter, up to a maximum of 20 appointments. The data comes from all [facility] facilities. Appointment Date/Time Appointment Type Appointme nt Facility Name Oct 06, 2024 08:00 AM AMBULATORY - NONE [facility] Dec 11, 2024 10:45 AM AMBULATORY - NONE [facility] Jan 11, 2025 10:00 AM AMBULATORY - NONE [facility] Feb 21, 2025 01:00 PM AMBULATORY - NONE [facility] Mar 16, 2025 01:45 PM AMBULATORY - NONE [facility] Mar 16, 2025 02:00 PM AMBULATORY - NONE [facility] Mar 22, 2025 08:30 AM AMBULATORY NONE [facility] Active, Pending, and Scheduled Orders This section includes a listing of several types of active, pending, and scheduled orders, including clinic medications orders, diagnostic test orders, procedure orders and consult orders; where the start date of the order is 45 days before the date of the Encounter or 45 days after the date of theEncounter. The data comes from all [facility]. Test Date/Time Test Type Test Details Facility Name Sep 22, 2024 12:00 AM Laboratory - Chemi stry Order OCCULT BLOOD FIT X1 SCREEN VIAL (FOBT) FECES SP [facility] Lab Results: +/- 30 days of [...] Unit Interpretation Reference Range Specimen Type Comment Sep 22, 2024 08:[address] [facility] IRON GROUP SERUM Specimen Type: SERUM No comment entered. Ordering Provider: NASIMA CHAMBERS Report Released Date/Time: Sep 22, 2024 08:12 AM Reporting Lab: [address] [phone] Performing Lab: [address] [phone] TIBC 283 ug/dL 265-400 IRON 103 ug/dL 50-170 TIBC% 36.4 Sep 22, 2024 08:[address] [facility] PROSTATE SPECIFIC ANTIGEN SERUM Speci men Type: SERUM No comment entered. Ordering Provider: NASIMA CHAMBERS Report Released Date/Time: Sep 21, 2024 04:23 PM Reporting Lab: [address] [phone] Performing Lab: [address] [phone] PROSTATE SPECIFIC ANTIGEN 8.02 ng/mL H <4. 00 Sep 22, 2024 08:[address] [facility] HEMOGLOBIN A1C BLOOD Specimen Type: B LOOD Comment: Values obtained from A1C measurements can vary. For typical A1C assays, a reported value of 7.0 could actually be between 6.72 and 7.28 if measured by a reference method. A reported value of 9.0 could actually be between 8.73 and 9.27. Ref: http://www.ngsp.org/CAPdata.asp Ordering Provider: NASIMA CHAMBERS Report Released Date/Time: Sep 21, 2024 04:23 PM Reporting Lab: [address] [phone] Performing Lab: [address] [phone] HEMOGLOBIN A1C 7.8 H 3.6-5.7 Sep 22, 2024 08:[address] [facility] TSH PLASMA Specimen Type: PLASMA Comment: DLDLREF RANGE: NEAR OR ABOVE OPTIMAL: 100-129 mg/dL BORDERLINE DLDLHIGH: 130-159 mg/dL HIGH: 160-189 mg/dL VERY HIGH: >=190 TRIG REF RANGE: BORDERLINE HIGH: 150-199 mg/dL HIGH: 200-499 mg/dL TRIG VERY HIGH: >=500 mg/dL CREA eGFR was calculated using the CKD-EPI 2020 equation. CHOL REF RANGE: BORDERLINE HIGH: 200-239 mg/dL HIGH: >=240 mg/dL Ordering Provider: NASIMA CHAMBERS Report Released Date/Time: Sep 21, 2024 04:23 PM Reporting Lab: [place] [phone] Performing Lab: [place] [phone] TSH 3.048 u[IU]/mL 0.360-4.500 Sep 22, 2024 08:[address] [facility] MICROALBUMIN/CREATININE RATIO PANEL URINE Specimen Type: URINE No comment entered. Ordering Provider: NASIMA CHAMBERS Report Released Date/Time: Sep 21, 2024 04:23 PM Reporting Lab: [place] [phone] Performing Lab: [place] [phone] MICROALBUMIN, URINE RANDOM 1 mg/dL <10 CREATININE, URINE RANDOM 27.11 mg/dL MICROALB/CREAT RATIO 36.90 mg/g H <19.9 Sep 22, 2024 08:[address] [facility] COMPREHENSIVE METABOLIC PANEL PLASMA S pecimen Type: PLASMA Comment: Values obtained from A1C measurements can vary. For typical A1C assays, a reported value of 7.0 could actually be between 6.72 and 7.28 if measured by a reference method. A reported value of 9.0 could actually be between 8.73 and 9.27. Ref: http://www.ngsp.org/CAPdata.asp Ordering Provider: NASIMA CHAMBERS Report Released Date/Time: Sep 21, 2024 04:23 PM Reporting Lab: [address] [phone] Performing Lab: [place] [phone] ALBUMIN 4.4 g/dL 3.2-4.6 ALKALINE PHOSPHATASE 77 U/L 40-150 ALT/SGPT 20 U/L <55 AST/SGOT 20 U/L 5-34 BUN 25 mg/dL 8.4-25.7 CALCIUM 9.3 mg/dL 8.8-10.0 CREATININE 1.2 mg/dL 0.72-1.25 CO2 23 mmol/L 23-31 GLUCOSE 222 mg/dL H 82-115 PROTEIN, TOTAL 6.7 g/dL 6.4-8.3 SODIUM 140 mmol/L 136-145 CHLORIDE 108 mmol/L H 98-107 BILIRUBIN, TOTAL 0.5 mg/dL 0.2-1.2 POTASSIUM 4.6 mmol/L 3.5-5.1 ANION GAP 13.6 mmol/L 10-20 EGFR (CALCULATED) 68.0 mL/min Sep 22, 2024 08:[address] [facility] CBC BLOOD Specimen Type: BLOOD No comment entered. Ordering Provider: NASIMA CHAMBERS Report Released Date/Time: Sep 21, 2024 04:23 PM Reporting Lab: [address] [phone] Performing Lab: [address] [phone] WBC COUNT 6.5 10*3/uL 3.6-11.0 RBC COUNT 5.04 10*6/uL 4.47-5.83 HGB 15.1 g/dL 13.6-17.4 HCT 46.2 40.0-51.0 MCV 91.8 fL 80.0-96.0 MCH 30.0 pg 27.0-31.0 MCHC 32.7 g/dL 31.5-36.5 PLT 278 10*3/uL 150-400 LYMPHS % 22.0 21.0-51.0 MONOCYTES % 8.0 4.0-8.0 NUCLEATED RBC/100WBC 0.1 /100{WBCs} RDW 13.8 11.2-15.8 NEUTROPHIL % 65.5 54.0-78.0 EOSINOPHIL % 3.6 H 0.0-3.0 BASOPHIL % 0.9 0.0-3.0 ABSOLUTE LYMPHOCYTE COUNT 1.4 10*3/uL 0. 8-5.0 ABSOLUTE NEUTROPHIL COUNT 4.3 10*3/uL 1. 9-8.6 ABSOLUTE BASOPHIL COUNT 0.1 10*3/uL 0.0- 0.3 ABSOLUTE MONOCYTE COUNT 0.5 10*3/uL 0.1- 0.9 ABSOLUTE EOSINOPHIL COUNT 0.2 10*3/uL 0. 0-0.3 MPV 9.0 fL 7.4-11.4 Sep 22, 2024 08:[address] [facility] LIPID PROFILE PLASMA Specimen Type: Abby MINA Comment: Values obtained from A1C measurements can vary. For typical A1C assays, a reported value of 7.0 could actually be between 6.72 and 7.28 if measured by a reference method. A reported value of 9.0 could actually be between 8.73 and 9.27. Ref: http://www.ngsp.org/CAPdata.asp Ordering Provider: NASIMA CHAMBERS Report Released Date/Time: Sep 21, 2024 04:23 PM Reporting Lab: [facility] [id number] [facility] [phone] Performing Lab: [facility] [id number] [place] [phone] CHOLESTEROL 127 mg/dL <199 LDL CHOLESTEROL 59 mg/dL <99 HDL CHOLESTEROL 49 mg/dL L >60 TRIGLYCERIDE 137 mg/dL <149 Social History: Smoking Status (Most current) and [...] place. Date/Time Current Smoking Status Comment Arnulfo ity Sep 22, 2024 08:00 AM VA-TOBACCO QUIT 5 TO < 15 YRS [facility] Tobacco Use History This section includes a history of the smoking, or tobacco-related health factors, that were collected on or before the date of the Encounter. The data comes from the [place] facility where the Encounter took place. Date/Time Smoking Status/Tobacco Use Comment F acility Sep 22, 2024 08:00 AM VA-TOBACCO QUIT 5 TO < 15 YRS [facility] Jun 12, 2023 01:30 PM VA-TOBACCO FORMER USER [facility] Jun 12, 2023 01:30 PM VA-TOBACCO QUIT 5 TO < 15 YRS [facility] Jun 20, 2022 08:30 AM VA-TOBACCO FORMER USER [facility] Jun 20, 2022 08:30 AM VA-TOBACCO QUIT 5 TO < 15 YRS [facility] Aug 05, 2020 08:00 AM VA-TOBACCO FORMER USER [facility] Aug 05, 2020 08:00 AM VA-TOBACCO QUIT 1 TO < 5 YRS [facility] May 04, 2016 09:41 AM CURRENT TOBACCO USER [facility] May 24, 2015 09:21 AM CURRENT TOBACCO USER [facility] April 20, 2014 01:36 PM QUIT TOBACCO >12 MO & <7 YRS AGO [facility] April 20, 2014 01:36 PM QUIT TOBACCO IN THE LAST 12 SONJA HS [facility] April 10, 2013 02:16 PM CURRENT TOBACCO USER [facility] Jan 14, 2012 12:50 PM CURRENT TOBACCO USER [facility] Encounter Notes: All associated encounter notes This section contains the clinical notes associated to the Encounter. Date/Time Encounter Note(s) Provider Source Sep 23, 2024 11:47 AM PRIMARY CARE [facility] RS: [facility] TITLE: PATIENT RESULTS LETTER (T) STANDARD TITLE: PRIMARY CARE LETTERS DATE OF NOTE: SEP 23, 2024@11:47 ENTRY DATE: SEP 23, 2024@11:47:09 AUTHOR: NASIMA CHAMBERS COSIGNER: URGENCY: STATUS: COMPLETED [facility] [id number] [place] [id number] MALCOM COTTO Sep [address] [address] Dear MALCOM COTTO, I have reviewed your results listed below and I would like to discuss them with you. --------- CHOLESTEROL AND TRIGLYCERIDES - YOUR RESULTS WERE: Collection DT Specimen Test Name Result Units Ref Range 09/22/2024 08:20 PLASMA CHOLESTEROL 127 mg/dL Ref: <= 199 09/22/2024 08:20 PLASMA LDL CHOLESTEROL 59 mg/dL Ref: <= 99 09/22/2024 08:20 PLASMA HDL CHOLESTEROL 49 L mg/dL Ref: >= 60 09/22/2024 08:20 PLASMA TRIGLYCERIDE 137 mg/dL Ref: <= 149 Comment: DLDLREF RANGE: NEAR OR ABOVE OPTIMAL: 100-129 mg/dL BORDERLINE Comment: DLDLHIGH: 130-159 mg/dL HIGH: 160-189 mg/dL VERY HIGH: >=190 Comment: TRIG REF RANGE: BORDERLINE HIGH: 150-199 mg/dL HIGH: 200-499 mg/dL Comment: TRIG VERY HIGH: >=500 mg/dL Comment: CREA eGFR was calculated using the CKD-EPI 2020 equation. Comment: CHOL REF RANGE: BORDERLINE HIGH: 200-239 mg/dL HIGH: >=240 mg/dL --------- HEMOGLOBIN A1C - YOUR RESULTS WERE: Collection DT Specimen Test Name Result Units Ref Range 09/22/2024 08:20 BLOOD HEMOGLOBIN A1C 7.8 H % 3.6 - 5.7 Comment: Values obtained from A1C measurements can vary. For typical A1C Comment: assays, a reported value of 7.0 could actually be between 6.72 and Comment: 7.28 if measured by a reference method. A reported value of 9.0 Comment: could actually be between 8.73 and 9.27. Ref: Comment: http://www.ngsp.org/CAPdata.asp 03/05/2024 08:00 BLOOD HEMOGLOBIN A1C 7.8 H % 3.6 - 5.7 Comment: Values obtained from A1C measurements can vary. For typical A1C Comment: assays, a reported value of 7.0 could actually be between 6.72 and Comment: 7.28 if measured by a reference method. A reported value of 9.0 Comment: could actually be between 8.73 and 9.27. Ref: Comment: http://www.ngsp.org/CAPdata.asp GOAL IS LESS THAN 7 - 7.5% Your A1C is still a little high, hasn't gotten any higher. --------- GLUCOSE - YOUR RESULTS WERE: Collection DT Specimen Test Name Result Units Ref Range 09/22/2024 08:20 PLASMA GLUCOSE 222 H mg/dL 82 - 115 Comment: DLDLREF RANGE: NEAR OR ABOVE OPTIMAL: 100-129 mg/dL BORDERLINE Comment: DLDLHIGH: 130-159 mg/dL HIGH: 160-189 mg/dL VERY HIGH: >=190 Comment: TRIG REF RANGE: BORDERLINE HIGH: 150-199 mg/dL HIGH: 200-499 mg/dL Comment: TRIG VERY HIGH: >=500 mg/dL Comment: CREA eGFR was calculated using the CKD-EPI 2020 equation. Comment: CHOL REF RANGE: BORDERLINE HIGH: 200-239 mg/dL HIGH: >=240 mg/dL --------- LIVER FUNCTION - YOUR RESULTS WERE: Collection DT Specimen Test Name Result Units Ref Range 09/22/2024 08:20 PLASMA ALBUMIN 4.4 g/dL 3.2 - 4.6 09/22/2024 08:20 PLASMA ALKALINE PHOSPHAT 77 U/L 40 - 150 09/22/2024 08:20 PLASMA ALT/SGPT 20 U/L Ref: <= 55 09/22/2024 08:20 PLASMA AST/SGOT 20 U/L 5 - 34 09/22/2024 08:20 PLASMA PROTEIN, TOTAL 6.7 g/dL 6.4 - 8.3 09/22/2024 08:20 PLASMA BILIRUBIN, TOTAL 0.5 mg/dL 0.2 - 1.2 Comment: DLDLREF RANGE: NEAR OR ABOVE OPTIMAL: 100-129 mg/dL BORDERLINE Comment: DLDLHIGH: 130-159 mg/dL HIGH: 160-189 mg/dL VERY HIGH: >=190 Comment: TRIG REF RANGE: BORDERLINE HIGH: 150-199 mg/dL HIGH: 200-499 mg/dL Comment: TRIG VERY HIGH: >=500 mg/dL Comment: CREA eGFR was calculated using the CKD-EPI 1 equation. Comment: CHOL REF RANGE: BORDERLINE HIGH: 200-239 mg/dL HIGH: >=240 mg/dL --------- BLOOD COUNT - YOUR RESULTS WERE: SLT - CBC --------- Collection DT Specimen Test Name Result Units Ref Range 09/22/2024 08:20 BLOOD WBC COUNT 6.5 K/cmm 3.6 - 11.0 09/22/2024 08:20 BLOOD RBC COUNT 5.04 M/cmm 4.47 - 5.83 09/22/2024 08:20 BLOOD HGB 15.1 g/dL 13.6 - 17.4 09/22/2024 08:20 BLOOD HCT 46.2 % 40.0 - 51.0 09/22/2024 08:20 BLOOD MCV 91.8 fL 80.0 - 96.0 09/22/2024 08:20 BLOOD MCH 30.0 pg 27.0 - 31.0 09/22/2024 08:20 BLOOD MCHC 32.7 g/dL 31.5 - 36.5 09/22/2024 08:20 BLOOD PLT 278 K/cmm 150 - 400 09/22/2024 08:20 BLOOD MPV 9.0 fL 7.4 - 11.4 09/22/2024 08:20 BLOOD RDW 13.8 % 11.2 - 15.8 09/22/2024 08:20 BLOOD LYMPHS % 22.0 % 21.0 - 51.0 09/22/2024 08:20 BLOOD BASOPHIL % 0.9 % 0.0 - 3.0 09/22/2024 08:20 BLOOD NEUTROPHIL % 65.5 % 54.0 - 78.0 09/22/2024 08:20 BLOOD EOSINOPHIL % 3.6 H % 0.0 - 3.0 Comment: Values obtained from A1C measurements can vary. For typical A1C Comment: assays, a reported value of 7.0 could actually be between 6.72 and Comment: 7.28 if measured by a reference method. A reported value of 9.0 Comment: could actually be between 8.73 and 9.27. Ref: Comment: http://www.ngsp.org/CAPdata.asp --------- KIDNEY FUNCTION - YOUR RESULTS WERE Collection DT Specimen Test Name Result Units Ref Range 09/22/2024 08:20 PLASMA ALBUMIN 4.4 g/dL 3.2 - 4.6 09/22/2024 08:20 PLASMA BUN 25 mg/dL 8.4 - 25.7 09/22/2024 08:20 PLASMA CALCIUM 9.3 mg/dL 8.8 - 10.0 09/22/2024 08:20 PLASMA CREATININE 1.2 mg/dL 0.72 - 1.25 09/22/2024 08:20 PLASMA CO2 23 mmol/L 23 - 31 09/22/2024 08:20 PLASMA GLUCOSE 222 H mg/dL 82 - 115 09/22/2024 08:20 PLASMA SODIUM 140 mmol/L 136 - 145 09/22/2024 08:20 PLASMA CHLORIDE 108 H mmol/L 98 - 107 09/22/2024 08:20 PLASMA POTASSIUM 4.6 mmol/L 3.5 - 5.1 09/22/2024 08:20 PLASMA ANION GAP 13.6 mmol/L 10 - 20 09/22/2024 08:20 PLASMA EGFR (CALCULATED) 68.0 mL/min Comment: DLDLREF RANGE: NEAR OR ABOVE OPTIMAL: 100-129 mg/dL BORDERLINE Comment: DLDLHIGH: 130-159 mg/dL HIGH: 160-189 mg/dL VERY HIGH: >=190 Comment: TRIG REF RANGE: BORDERLINE HIGH: 150-199 mg/dL HIGH: 200-499 mg/dL Comment: TRIG VERY HIGH: >=500 mg/dL Comment: CREA eGFR was calculated using the CKD-EPI 2020 equation. Comment: CHOL REF RANGE: BORDERLINE HIGH: 200-239 mg/dL HIGH: >=240 mg/dL --------- THYROID FUNCTION - YOUR RESULTS WERE: Collection DT Specimen Test Name Result Units Ref Range 09/22/2024 08:20 PLASMA TSH 3.048 uIU/mL 0.360 - 4.500 Comment: DLDLREF RANGE: NEAR OR ABOVE OPTIMAL: 100-129 mg/dL BORDERLINE Comment: DLDLHIGH: 130-159 mg/dL HIGH: 160-189 mg/dL VERY HIGH: >=190 Comment: TRIG REF RANGE: BORDERLINE HIGH: 150-199 mg/dL HIGH: 200-499 mg/dL Comment: TRIG VERY HIGH: >=500 mg/dL Comment: CREA eGFR was calculated using the CKD-EPI 2020 equation. Comment: CHOL REF RANGE: BORDERLINE HIGH: 200-239 mg/dL HIGH: >=240 mg/dL --------- PROSTATE FUNCTION - YOUR RESULTS WERE: Collection DT Specimen Test Name Result Units Ref Range 05/23/2021 08:32 PLASMA PSA (D'ronald 7.12.2 5.4 H ng/mL Ref: <= 4.4 09/22/2024 08:20 SERUM PSA 8.02 H ng/mL Ref: <= 4.00 --------- VITAMIN D (TOTAL) - YOUR RESULTS WERE: Collection DT Specimen Test Name Result Units Ref Range 05/06/2024 13:35 SERUM VITAMIN D (TOTAL) 26.00 L ng/mL 30 - 75 Please contact us at the [facility] - [phone] ext. , if you have questions or concerns. NASIMA CHAMBERS [facility] Sep 22, 2024 08:03 AM INTERNAL MEDICINE OUTPATIENT NOTE: LOCAL TITLE: PRIMARY CARE OUTPATIENT NOTE (T) STANDARD TITLE: INTERNAL MEDICINE OUTPATIENT NOTE DATE OF NOTE: SEP 22, 2024@08:03 ENTRY DATE: SEP 22, 2024@08:03:24 AUTHOR: NAISMA CHAMBERS EXP COSIGNER: URGENCY: STATUS: COMPLETED In-person Note 63yo [place] Reason for Visit: Here for follow up visit. Has no complaints at this time. 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 07/11/2022 NATHANAEL MACK diabetes mellitus Coronary arteriosclerosis 06/08/2016 SHARRON,CAROLINA CATH 04/17/16 NSTEMI>non-obst CAD Hyperlipidemia 05/04/2016 BRIGID KATZ Shoulder pain 10/11/2015 LAZARA GOINS Polyp of colon 04/28/2020 BRIGID KATZ Next colonoscopy due Sep 2020 Alcohol dependence 10/11/2015 LAZARA GOINS Patient noncompliance - general 05/24/2015 BRIGID KATZ Spinal stenosis in cervical region 10/11/2015 LAZARA GOINS Cervical radiculopathy 08/28/2022 NASIMA CHAMBERS Smoker 08/28/2022 NASIMA CHAMBERS DM - Diabetes mellitus (SNOMED CT 16178083) 10/11/2015 LAZARA GOINS Vitamin D deficiency 08/28/2022 NASIMA CHAMBERS Osteoarthritis 08/28/2022 NASIMA CHAMBERS Hearing loss 08/28/2022 NASIMA CHAMBERS Benign essential hypertension (SNOMED CT 05/04/2016 BRIGID KATZ [id number]) REVIEW OF SYSTEMS: (denies the following unless indicated otherwise): mood concerns headache fatigue/weight loss dysphagia/hoarseness chest pain dyspnea abdominal pain difficult or bloody elimination PATIENT ALLERGIES DETAILED ALLERGIES/ADVERSE REACTIONS Type: DRUG Date/Time Reactant Severity Reaction 04/02/2024 10:55 ATORVASTATIN MODERATE PRURITUS 06/22/2021 08:46 GABAPENTIN MODERATE FACIAL SWELLING, EDEMA OF FACE 12/28/2020 13:53 LISINOPRIL MILD COUGH 05/25/2020 10:04 METFORMIN ABDOMINAL PAIN AMRS - MEDS (REC SUCCINCT) Active and Recently Inpatient, Outpatient and Clinic Medications (including Supplies): Active Outpatient Medications Status ========= 1) AMLODIPINE BESYLATE 10MG TAB TAKE ONE TABLET BY MOUTH ACTIVE EVERY DAY 2) EMPAGLIFLOZIN 25MG TAB TAKE ONE TABLET BY MOUTH EVERY ACTIVE DAY 3) EZETIMIBE 10MG TAB TAKE ONE TABLET BY MOUTH EVERY DAY ACTIVE FOR HIGH CHOLESTEROL 4) FERROUS SULFATE 325MG TAB TAKE ONE TABLET BY MOUTH ACTIVE EVERY DAY (AN HOUR BEFORE OR TWO HOURS AFTER A MEAL; TAKE WITH FOOD IF THIS UPSETS YOUR STOMACH) 5) FINASTERIDE 5MG TAB TAKE ONE TABLET BY MOUTH EVERY ACTIVE DAY FOR BENIGN PROSTATIC HYPERPLASIA (DO NOT CRUSH) 6) INSULIN,GLARGINE-YFGN 100UNIT/ML PEN 3ML INJECT 16 ACTIVE UNITS SUBCUTANEOUSLY AT BEDTIME FOR DIABETES (DISCARD PEN 28 DAYS AFTER FIRST USE) 7) LOSARTAN 50MG TAB TAKE ONE TABLET BY MOUTH EVERY DAY ACTIVE FOR HIGH BLOOD PRESSURE 8) PIOGLITAZONE HCL 30MG TAB TAKE ONE TABLET BY MOUTH ACTIVE EVERY DAY 9) TADALAFIL 5MG TAB (ONCE DAILY) TAKE ONE TABLET BY ACTIVE MOUTH EVERY DAY FOR BENIGN PROSTATIC HYPERPLASIA (BPH) *THIS REPLACES TAMSULOSIN* 10) TRIAMCINOLONE ACETONIDE 0.1% OINT APPLY A SMALL ACTIVE AMOUNT EXTERNALLY TWICE A DAY APPLY TO THE BODY TWICE A DAY FOR 2 WEEKS THEN STOP FOR 7 DAYS. MAY REPEAT CYCLE OR DECREASE USE TO ONCE DAILY AREAS IMPROVE. DO NOT USE ON FACE, GROIN, ARMPITS Inactive Outpatient Medications Status ========= 1) ACETAMINOPHEN 325MG TAB TAKE TWO TABLETS BY MOUTH EVERY 6 HOURS NEEDED FOR PAIN : NOT TO EXCEED 12 TABLETS PER DAY 2) CHOLECALCIF 50MCG (D3-2,000UNIT) TAB TAKE ONE TABLET BY MOUTH EVERY DAY FOR VITAMIN D DEFICIENCY 3) IBUPROFEN 600MG TAB TAKE ONE TABLET BY MOUTH FOUR TIMES A DAY NEEDED FOR PAIN 4) NEEDLE,PEN 31G,8MM USE NEEDLE SUPPLY ITEM DIRECTED FOR INJECTION Active Non-VA Medications Status ========= 1) Non-VA MULTIVITAMINS AND MINERALS (CENTRUM) TAB ACTIVE MOUTH EVERY DAY 15 Total Medications PHYSICAL EXAM: Vital Signs: T: 97.8 F [36.6 C] (09/22/2024 07:54) P: 74 (09/22/2024 07:54) R: 16 (09/22/2024 07:54) BP: 138/74 (09/22/2024 07:54) Pain: 0 (09/22/2024 07:54) Height: 70 in [177.8 cm] (08/05/2020 07:59) Weight: 223 lb [101.15 kg] (09/22/2024 07:54) Pulse Ox: 95% (09/22/2024 07:54) General: appears well Head, Ears, Eyes, Nose, and Throat: Neck: Chest/Lungs: CTA Cardiovascular: RRR Gastrointestinal: Extremities: no edema ASSESSMENT/PLAN: labs drawn today HTN- BP at goal elelvated PSA- follows with urology and also for luts DM/HLD- labs pending, continue meds as currently dose, he has been unable to conintue tolerate statin- takes exzimbe HEALTH MAINTENANCE/CLINICAL REMINDERS: lung scan repeat in January 2025 Clinical Reminders Activity Assess Statin Use - Lipids (CVD/DM): The patient declines to be treated with a statin. Comment: unable to tolerate, takes eztimbe Follow-up Pos Alcohol : Patient's AUDIT-C score was greater than or equal to 5; brief alcohol intervention is indicated. Shared concern that the patient may be drinking at unhealthy levels known to increase his/her risk of alcohol related health problems. Specifically the following were reviewed: High blood pressure, heart disease, liver disease, stroke The patient was advised/informed to drink within safe limits, which are no more than 2 drinks per day on average and no more than 4 drinks on any one day AND no more than 14 drinks per week. Will discuss again at next visit. MEDICATION RECONCILIATION Medication Reconciliation report reviewed and discussed with patient/caregiver. VA prescription medications, non-VA prescription medications, OTC and herbal medications reviewed: Patient/caregiver verifies that the list is complete and accurate and voices understanding. Patient/caregiver in possession of printed medication list. FOLLOW-UP: 6 months I am the Staff Provider. TOTAL TIME SPENT: Spent 30 minutes in care of this patient today including review of records, exam, and placing orders. /torri/ NASIMA CHAMBERS NURSE PRACTITIONER Signed: 09/23/2024 11:46 [facility] CHAMBERS [facility] Sep 22, 2024 07:47 AM PRIMARY CARE NURSI KARINA NOTE: LOCAL TITLE: OUTPATIENT NURSING INTAKE NOTE (T) STANDARD TITLE: PRIMARY CARE NURSING NOTE DATE OF NOTE: SEP 22, 2024@07:47 ENTRY DATE: SEP 22, 2024@07:47:17 AUTHOR: RICKEY SAMSON COSIGNER: URGENCY: STATUS: COMPLETED Hemoglobin A1C Results: Collection DT Specimen Test Name Result Units Ref Range 03/05/2024 08:00 BLOOD HEMOGLOBIN A1C 7.8 H % 3.6 - 5.7 Comment: Values obtained from A1C measurements can vary. For typical A1C Comment: assays, a reported value of 7.0 could actually be between 6.72 and Comment: 7.28 if measured by a reference method. A reported value of 9.0 Comment: could actually be between 8.73 and 9.27. Ref: Comment: [email or web address] 09/02/2023 07:50 BLOOD HEMOGLOBIN A1C 7.9 H % 3.6 - 5.7 Comment: Values obtained from A1C measurements can vary. For typical A1C Comment: assays, a reported value of 7.0 could actually be between 6.72 and Comment: 7.28 if measured by a reference method. A reported value of 9.0 Comment: could actually be between 8.73 and 9.27. Ref: Comment: [email or web address] 06/05/2023 08:17 BLOOD HEMOGLOBIN A1C 8.2 H % 3.6 - 5.7 Comment: Values obtained from A1C measurements can vary. For typical A1C Comment: assays, a reported value of 7.0 could actually be between 6.72 and Comment: 7.28 if measured by a reference method. A reported value of 9.0 Comment: could actually be between 8.73 and 9.27. Ref: Comment: http://www.ngsp.org/CAPdata.asp Review Allergies Allergies reviewed and updated per protocol. ALLERGIES/ADVERSE REACTIONS Type: DRUG Date/Time Reactant Severity Reaction 04/02/2024 10:55 ATORVASTATIN MODERATE PRURITUS 06/22/2021 08:46 GABAPENTIN MODERATE FACIAL SWELLING, EDEMA OF FACE 12/28/2020 13:53 LISINOPRIL MILD COUGH 05/25/2020 10:04 METFORMIN ABDOMINAL PAIN MEDICATION LIST REVIEW REPORT Patient states no change in documented OTC/Herbals at this visit. 1. Has the patient been feeling sad or distressed? No 2. Has the patient been having personal or family problems? No 3. Has the patient been experiencing worry and/or stress? No 4. Has the patient been having problems with drugs and/or alcohol? No 5. [place] [facility] pocket card was provided to patient. No/patient declined [facility] not documented this visit. Clinical Reminders Activity Advance Directive Education Screen: Patient received information regarding Advance Directives: No - Patient declined information at this time. Alcohol Use Screen (AUDIT-C): Alcohol Screen: SCREEN FOR ALCOHOL (AUDIT-C) An alcohol screening test (AUDIT-C) was positive (score=5). 1. How often did you have a drink containing alcohol in the past year? Consider a drink to be a 12 ounce can or bottle of regular beer, 8 ounces of malt liquor, a 5 ounce glass of table wine, or a 1.5 ounce shot of liquor (like scotch, gin, or vodka). Four or more times a week 2. How many drinks containing alcohol did you have on a typical day when you were drinking in the past year? Three or four drinks 3. How often did you have six or more drinks on one occasion in the past year? Never Licensed Independent Provider notified of positive screen and need for follow-up. Name of provider notified: Lucy Chambers BMI Screening: At this visit, the health risks of obesity were reviewed and discussed with the patient, and the benefits of a weight management treatment program, such as [facility] was discussed and offered to the patient. Patient declines referral. After discussing the health risks of obesity and offering a referral to [facility] or another [facility] program outside [facility], the patient DECLINES REFERRAL to [facility] or other weight loss program at this time. Foot Exam: PAVE: The foot check was not completed. : Pt declines PAVE, no concerns Influenza Immunization: Deferral / Refusal The patient declines to receive the recommended dose of seasonal influenza vaccine. Immunization: INFLUENZA, UNSPECIFIED FORMULATION Refusal Reason: PATIENT DECISION Patient refuses all immunization(s) in the FLU group Date Documented: 09/22/24 08:00 Patient Education Documentation: LEARNING NEEDS ASSESSMENT: The patient/family/significant other reports no changes in learning needs. Pneumococcal Conjugate Vaccine (PCV15/PCV20): Refuses PCV vaccine Immunization: PNEUMOCOCCAL CONJUGATE, UNSPECIFIED FORMULATION Refusal Reason: PATIENT DECISION Patient refuses all immunization(s) in the PneumoPCV group Date Documented: 09/22/24 07:59 Suicide Screen: C-SSRS Screening [place] Suicide Severity Rating Scale (C-SSRS) screener 1. Over the past month, have you wished you were or wished you could go to sleep and not wake up? No 2. Over the past month, have you had any actual thoughts of killing yourself? No 3. Over the past month, have you been thinking about how you might do this? Response not required due to responses to other questions. 4. Over the past month, have you had these thoughts and had some intention of acting on them? Response not required due to responses to other questions. 5. Over the past month, have you started to work out or worked out the details of how to kill yourself? Response not required due to responses to other questions. 6. If yes, at any time in the past month did you intend to carry out this plan? Response not required due to responses to other questions. 7. In your lifetime, have you ever done anything, started to do anything, or prepared to do anything to end your life (for example, collected pills, obtained a gun, gave away valuables, went to the roof but didn't jump)? No 8. If YES, was this within the past 3 months? Response not required due to responses to other questions. Td / Tdap Immunization: The patient declines to receive the recommended dose of Td/Tdap vaccine. Immunization: TD(ADULT) UNSPECIFIED FORMULATION Refusal Reason: PATIENT DECISION Patient refuses all immunization(s) in the Td group Date Documented: 09/22/24 08:00 Tobacco Use Screening: The patient is a former tobacco user. The patient quit five to less than fifteen years ago. Depression Screening: Perform PHQ-2 A PHQ-2 screen was performed. The score was 0 which is a negative screen for depression. Over the past two weeks, how often have you been bothered by the following problems? 1. Little interest or pleasure in doing things Not at all 2. Feeling down, depressed, or hopeless Not at all /torri/ RICKEY SAMSON LICENSED PRACTICAL NURSE Signed: 09/22/2024 08:03 RICKEY SAMSON [facility]
--- OUTSIDE RECORDS SUMMARY | 2024-10-06 04:00 | XMS_ITS | Encounter Summary ---
Author Name [facility] Organization [facility] Address [address] [place] [id number] Care Team Providers Care Organizational Psychologist Name Role Phone NASIMA SOTO Primary Care [...] Name Patient's Relationship to Policy Casas [employer] [facility] (WNR) MEDICARE ADVANTAGE [facility] (WNR) Sep 01, 2024 [id number] [phone] LALIT COTTO PATIENT Selected Encounter This section includes the information on record at NH for the Encounter. Date/Time Encounter Type Encounter Description Reason Provider Source Oct 06, 2024 08:00 AM OFFICE O/P EST LOW 20 MIN PRIMARY CARE/MEDICINE ICD-10-CM R97.20 Elevated prostate specific antigen [PSA] NASIMA SOTO Gautam Encounter Template Text not used by NH Assessments - Encounter Diagnoses This section includes the primary and secondary diagnoses documented for the Encounter. Date/Time Primary/Secondary Diagnosis Diagnosis Name Provider Source Oct 06, 2024 08:29 AM PRIMARY Elevated prostate specific antigen [PSA] NASIMA SOTO [facility] Oct 06, 2024 08:29 AM SECONDARY Hyperlipidemia, unspecified NASIMA SOTO [facility] Oct 06, 2024 08:29 AM SECONDARY Type 2 diabetes mellitus with hyperglycemia NASIMA SOTO [facility] Plan of Treatment: Future Appointments (+ 6 months) and Future Tests (+/- 45 days) The Plan of Treatment section includes future care activities for the patient from all NH treatmentfacilities. This section includes future appointments and future orders which are active, pending or scheduled. Future Appointments This section includes appointments that were scheduled to occur 6 months from the date of the Encounter, up to a maximum of 20 appointments. The data comes from all NH treatment facilities. Appointment Date/Time Appointment Type Appointme nt Facility Name Dec 11, 2024 10:45 AM AMBULATORY - NONE [facility] Jan 11, 2025 10:00 AM AMBULATORY - NONE [facility] Feb 21, 2025 01:00 PM [facility] Mar 16, 2025 01:45 PM AMBULATORY - NONE [facility] Mar 16, 2025 02:00 [facility] Mar 22, 2025 08:30 AM [facility] April 05, 2025 10:00 AM AMBULATORY - NONE [facility] Active, Pending, and Scheduled Orders This section includes a listing of several types of active, pending, and scheduled orders, including clinic medications orders, diagnostic test orders, procedure orders and consult orders; where the start date of the order is 45 days before the date of the Encounter or 45 days after the date of theEncounter. The data comes from all [facility]. Test Date/Time Test Type Test Details Facility Name Sep 22, 2024 12:00 AM Laboratory - Chemi sailajay Order OCCULT BLOOD FIT X1 SCREEN VIAL (FOBT) FECES SP [facility] Lab Results: +/- 30 days of the encounter This section includes the Chemistry and Hematology Lab Results on record with NH for the patient. Radiology Reports and Pathology Reports are provided separately, in subsequent sections. Lab Results This section contains the Chemistry/Hematology Results that were resulted 30 days before or 30 daysafter the date of the Encounter. Date/Time Source Result Type Result - Unit Interpretation Reference Range Specimen Type Comment Sep 22, 2024 08:20 AM [facility] IRON GROUP SERUM Specimen Type: SERUM No comment entered. Ordering Provider: NASIMA SOTO Report Released Date/Time: Sep 22, 2024 08:12 AM Reporting Lab: [address] [phone] Performing Lab: [address] [phone] TIBC 283 ug/dL 265-400 IRON 103 ug/dL 50-170 TIBC% 36.4 Sep 22, 2024 08:20 AM [facility] PROSTATE SPECIFIC ANTIGEN SERUM Speci men Type: SERUM No comment entered. Ordering Provider: NASIMA SOTO Report Released Date/Time: Sep 21, 2024 04:23 PM Reporting Lab: [address] [phone] Performing Lab: [address] [address] PROSTATE SPECIFIC ANTIGEN 8.02 ng/mL H <4. 00 Sep 22, 2024 08:20 AM [facility] HEMOGLOBIN A1C BLOOD Specimen Type: B LOOD Comment: Values obtained from A1C measurements can vary. For typical A1C assays, a reported value of 7.0 could actually be between 6.72 and 7.28 if measured by a reference method. A reported value of 9.0 could actually be between 8.73 and 9.27. Ref: http://www.ngsp.org/CAPdata.asp Ordering Provider: NASIMA SOTO Report Released Date/Time: Sep 21, 2024 04:23 PM Reporting Lab: [address] [phone] Performing Lab: [address] [phone] HEMOGLOBIN A1C 7.8 H 3.6-5.7 Sep 22, 2024 08:20 AM [facility] TSH PLASMA Specimen Type: PLASMA Comment: DLDLREF RANGE: NEAR OR ABOVE OPTIMAL: 100-129 mg/dL BORDERLINE DLDLHIGH: 130-159 mg/dL HIGH: 160-189 mg/dL VERY HIGH: >=190 TRIG REF RANGE: BORDERLINE HIGH: 150-199 mg/dL HIGH: 200-499 mg/dL TRIG VERY HIGH: >=500 mg/dL CREA eGFR was calculated using the CKD-EPI 2020 equation. CHOL REF RANGE: BORDERLINE HIGH: 200-239 mg/dL HIGH: >=240 mg/dL Ordering Provider: NASIMA SOTO Report Released Date/Time: Sep 21, 2024 04:23 PM Reporting Lab: [address] [phone] Performing Lab: [place] [phone] TSH 3.048 u[IU]/mL 0.360-4.500 Sep 22, 2024 08:20 AM [facility] MICROALBUMIN/CREATININE RATIO PANEL URINE Specimen Type: URINE No comment entered. Ordering Provider: NASIMA SOTO Report Released Date/Time: Sep 21, 2024 04:23 PM Reporting Lab: [place] [phone] Performing Lab: [place] [phone] MICROALBUMIN, URINE RANDOM 1 mg/dL <10 CREATININE, URINE RANDOM 27.11 mg/dL MICROALB/CREAT RATIO 36.90 mg/g H <19.9 Sep 22, 2024 08:20 AM [facility] COMPREHENSIVE METABOLIC PANEL PLASMA S pecimen Type: PLASMA Comment: Values obtained from A1C measurements can vary. For typical A1C assays, a reported value of 7.0 could actually be between 6.72 and 7.28 if measured by a reference method. A reported value of 9.0 could actually be between 8.73 and 9.27. Ref: http://www.ngsp.org/CAPdata.asp Ordering Provider: NASIMA SOTO Report Released Date/Time: Sep 21, 2024 04:23 PM Reporting Lab: [address] [address] Performing Lab: [place] [phone] ALBUMIN 4.4 g/dL 3.2-4.6 ALKALINE PHOSPHATASE 77 [...] 68.0 mL/min Sep 22, 2024 08:20 AM [facility] CBC BLOOD Specimen Type: BLOOD No comment entered. Ordering Provider: NASIMA SOTO Report Released Date/Time: Sep 21, 2024 04:23 PM Reporting Lab: [address] [phone] Performing Lab: [address] [phone] WBC COUNT 6.5 10*3/uL 3.6-11.0 RBC COUNT [...] fL 7.4-11.4 Sep 22, 2024 08:20 AM [facility] LIPID PROFILE PLASMA Specimen Type: P LASMA Comment: Values obtained from A1C measurements can vary. For typical A1C assays, a reported value of 7.0 could actually be between 6.72 and 7.28 if measured by a reference method. A reported value of 9.0 could actually be between 8.73 and 9.27. Ref: http://www.ngsp.org/CAPdata.asp Ordering Provider: NASIMA SOTO Report Released Date/Time: Sep 21, 2024 04:23 PM Reporting Lab: [facility] [id number] [facility] [phone] Performing Lab: [facility] [address] [facility] [phone] CHOLESTEROL 127 mg/dL <199 LDL CHOLESTEROL 59 mg/dL <99 HDL CHOLESTEROL 49 mg/dL L >60 TRIGLYCERIDE 137 mg/dL <149 Social History: Smoking Status (Most current) and Tobacco Use (All prior to encounter date) This section includes the most current, and the historical, smoking and tobacco- related health factors from the NH facility where the Encounter took place. Current Smoking Status This section includes the most current smoking, or tobacco-related health factor, from the NH facility where the Encounter took place. Date/Time Current Smoking Status Comment Facil ity Sep 22, 2024 08:00 AM VA-TOBACCO FORMER USER [facility] Tobacco Use History This section includes a history of the smoking, or tobacco-related health factors, that were collected on or before the date of the Encounter. The data comes from the NH facility where the Encounter took place. Date/Time [...] the Encounter. Date/Time Encounter Note(s) Provider Source Oct 06, 2024 07:56 AM INTERNAL MEDICINE OUTPATIENT NOTE: LOCAL TITLE: PRIMARY CARE OUTPATIENT NOTE (T) STANDARD TITLE: INTERNAL MEDICINE OUTPATIENT NOTE DATE OF NOTE: OCT 06, 2024@07:56 ENTRY DATE: OCT 06, 2024@07:56:23 AUTHOR: NASIMA SOTO EXP COSIGNER: URGENCY: STATUS: COMPLETED In-person Note 64yo Reason for Visit: Here for follow up visit of recent labs. He is following with civilian urology for elevaed PSA. 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 07/11/2022 NATHANAEL MACK diabetes mellitus Coronary arteriosclerosis 06/08/2016 CAROLINA MCDERMOTT 04/17/16 NSTEMI>non-obst CAD Hyperlipidemia 05/04/2016 BRIGID KATZ Shoulder pain 10/11/2015 LAZARA GOINS Polyp of colon 04/28/2020 BRIGID KATZ Next colonoscopy due Sep 2020 Alcohol dependence 10/11/2015 LAZARA GOINS Patient noncompliance - general 05/24/2015 BRIGID KATZ Spinal stenosis in cervical region 10/11/2015 LAZARA GOINS Cervical radiculopathy 08/28/2022 NASIMA SOTO Smoker 08/28/2022 NASIMA SOTO DM - Diabetes mellitus (SNOMED CT [id number]) 10/11/2015 LAZARA GOINS Vitamin D deficiency 08/28/2022 NASIMA SOTO Osteoarthritis 08/28/2022 NASIMA SOTO Hearing loss 08/28/2022 NASIMA SOTO Benign essential hypertension (SNOMED CT 05/04/2016 GIANNABRIGID [id number]) REVIEW OF SYSTEMS: (denies the following unless [...] TAB TAKE ONE TABLET BY MOUTH ACTIVE (S) EVERY DAY 2) EMPAGLIFLOZIN 25MG TAB TAKE ONE TABLET BY MOUTH EVERY ACTIVE (S) DAY 3) EZETIMIBE 10MG TAB TAKE ONE [...] DAY ACTIVE FOR HIGH BLOOD PRESSURE 8) NEEDLE,PEN 31G,8MM USE NEEDLE SUPPLY ITEM DIRECTED ACTIVE FOR INJECTION 9) PIOGLITAZONE HCL 30MG TAB TAKE ONE TABLET BY MOUTH ACTIVE (S) EVERY DAY 10) TADALAFIL 5MG TAB (ONCE DAILY) TAKE ONE TABLET BY ACTIVE (S) MOUTH EVERY DAY FOR BENIGN PROSTATIC HYPERPLASIA (BPH) *THIS REPLACES TAMSULOSIN* 11) TRIAMCINOLONE ACETONIDE 0.1% OINT APPLY A SMALL [...] FOUR TIMES A DAY NEEDED FOR PAIN Active Non-VA Medications Status ========= 1) Non-VA MULTIVITAMINS AND MINERALS (CENTRUM) TAB ACTIVE MOUTH EVERY DAY 15 Total Medications Report Released Date/Time: Sep 22, 2024@19:25 Provider: NASIMA SOTO Specimen: SERUM. [facility] [id number] Specimen Collection Date: Sep 22, 2024@08:20 Test name Result units Ref. range Site Code IRON 103 ug/dL 50 - 170 [541] TIBC 283 ug/dL 265 - 400 [541] TIBC% 36.4 % [541] Report Released Date/Time: Sep 22, 2024@21:31 Provider: NASIMA SOTO Specimen: URINE. [place] [id number] Specimen Collection Date: Sep 22, 2024@08:20 Test name Result units Ref. range Site Code MICROALBUMIN, URINE RANDOM 1 mg/dL Ref: <=10 [541] CREATININE, URINE RANDOM 27.11 mg/dL [541] MICROALB/CREAT RATIO 36.90 H mg/g Ref: <=19.9 [541] Report Released Date/Time: Sep 22, 2024@20:11 Provider: NASIMA SOTO Specimen: SERUM. [place] [id number] Specimen Collection Date: Sep 22, 2024@08:20 Test name Result units Ref. range Site Code PROSTATE SPECIFIC ANTIGEN 8.02 H ng/mL Ref: <=4.00 [541] Report Released Date/Time: Sep 22, 2024@20:46 Provider: NASIMA SOTO Specimen: PLASMA. [place] [id number] Specimen Collection Date: Sep 22, 2024@08:20 Test name Result units Ref. range Site Code GLUCOSE 222 H mg/dL 82 - 115 [541] Eval: REFERENCE RANGE CHANGED FOR GLU ON 06.10.24 SODIUM 140 mmol/L 136 - 145 [541] Eval: REFERENCE RANGE CHANGED ON 06.10.24 POTASSIUM 4.6 mmol/L 3.5 - 5.1 [541] CHLORIDE 108 H mmol/L 98 - 107 [541] CO2 23 mmol/L 23 - 31 [541] BUN 25 mg/dL 8.4 - 25.7 [541] CREATININE 1.2 mg/dL 0.72 - 1.25 [541] Eval: REFERENCE RANGES CHANGED FOR CREAT ON 08.30.24 CALCIUM 9.3 mg/dL 8.8 - 10.0 [541] EGFR (CALCULATED) 68.0 mL/min [541] Eval: eGFR results >60 are imprecise. Many variables affect the calculated Eval: result. Interpretation of eGFR results >60 must be monitored Eval: over time. ANION GAP 13.6 mmol/L 10 - 20 [541] AST/SGOT 20 U/L 5 - 34 [541] Eval: REFERENCE RANGE CHANGED FOR AST ON 06.26.24 ALT/SGPT 20 U/L Ref: <=55 [541] Eval: REFERENCE RANGE CHANGED FOR ALT ON 06.26.24 ALKALINE PHOSPHATASE 77 U/L 40 - 150 [541] BILIRUBIN, TOTAL 0.5 mg/dL 0.2 - 1.2 [541] Eval: REFERENCE RANGE CHANGED FOR TBIL ON 06.10.24 PROTEIN, TOTAL 6.7 g/dL 6.4 - 8.3 [541] ALBUMIN 4.4 g/dL 3.2 - 4.6 [541] CHOLESTEROL 127 mg/dL Ref: <=199 [541] LDL CHOLESTEROL 59 mg/dL Ref: <=99 [541] HDL CHOLESTEROL 49 L mg/dL Ref: >=60 [541] TRIGLYCERIDE 137 mg/dL Ref: <=149 [541] TSH 3.048 uIU/mL 0.360 - 4.500 [541] Comment: DLDLREF RANGE: NEAR OR ABOVE OPTIMAL: 100-129 mg/dL BORDERLINE DLDLHIGH: 130-159 mg/dL HIGH: 160-189 mg/dL VERY HIGH: >=190 TRIG REF RANGE: BORDERLINE HIGH: 150-199 mg/dL HIGH: 200-499 mg/dL TRIG VERY HIGH: >=500 mg/dL CREA eGFR was calculated using the CKD-EPI 2020 equation. CHOL REF RANGE: BORDERLINE HIGH: 200-239 mg/dL HIGH: >=240 mg/dL Report Released Date/Time: Sep 22, 2024@18:09 Provider: NASIMA SOTO Specimen: BLOOD. [facility] [id number] Specimen Collection Date: Sep 22, 2024@08:20 Test name Result units Ref. range Site Code HEMOGLOBIN A1C 7.8 H % 3.6 - 5.7 [541] Eval: Values obtained from A1C measurements can vary. For typical A1C assays, a Eval: reported value of 7.0 could actually be between 6.72 and 7.28 if measured Eval: by a reference method. A reported value of 9.0 could actually be between Eval: 8.73 and 9.27. Ref: https://ngsp.org/CAPdata.asp WBC COUNT 6.5 K/cmm 3.6 - 11.0 [541] RBC COUNT 5.04 M/cmm 4.47 - 5.83 [541] HGB 15.1 g/dL 13.6 - 17.4 [541] HCT 46.2 % 40.0 - 51.0 [541] MCV 91.8 fL 80.0 - 96.0 [541] MCH 30.0 pg 27.0 - 31.0 [541] MCHC 32.7 g/dL 31.5 - 36.5 [541] RDW 13.8 % 11.2 - 15.8 [541] PLT 278 K/cmm 150 - 400 [541] MPV 9.0 fL 7.4 - 11.4 [541] NEUTROPHIL % 65.5 % 54.0 - 78.0 [541] LYMPHS % 22.0 % 21.0 - 51.0 [541] MONOCYTES % 8.0 % 4.0 - 8.0 [541] EOSINOPHIL % 3.6 H % 0.0 - 3.0 [541] BASOPHIL % 0.9 % 0.0 - 3.0 [541] ABSOLUTE NEUTROPHIL COUNT 4.3 K/cmm 1.9 - 8.6 [541] ABSOLUTE LYMPHOCYTE COUNT 1.4 K/cmm 0.8 - 5.0 [541] ABSOLUTE MONOCYTE COUNT 0.5 K/cmm 0.1 - 0.9 [541] ABSOLUTE EOSINOPHIL COUNT 0.2 K/cmm 0.0 - 0.3 [541] ABSOLUTE BASOPHIL COUNT 0.1 K/cmm 0.0 - 0.3 [541] NUCLEATED RBC/100WBC 0.1 /100 WBC None Established - None Established [541] Comment: Values obtained from A1C measurements can vary. For typical A1C assays, a reported value of 7.0 could actually be between 6.72 and 7.28 if measured by a reference method. A reported value of 9.0 could actually be between 8.73 and 9.27. Ref: http://www.ngsp.org/CAPdata.asp PHYSICAL EXAM: Vital Signs: T: 97.4 F [36.3 C] (10/06/2024 07:45) P: 72 (10/06/2024 07:45) R: 16 (10/06/2024 07:45) BP: 129/74 (10/06/2024 07:45) Pain: 0 (10/06/2024 07:45) Height: 70 in [177.8 cm] (08/05/2020 07:59) Weight: 224 lb [101.60 kg] (10/06/2024 07:45) Pulse Ox: 95% (10/06/2024 07:45) General: appears well Head, Ears, Eyes, Nose, and Throat: Neck: Chest/Lungs: Cardiovascular: Gastrointestinal: Extremities: no edema ASSESSMENT/PLAN: reviewed labs with , his A1C is at 7.8% which is goal- he is on insulin his HDL is a low, he states he no longer exercises due to knees and ankle pain- taking eztimbe also his PSA is high- confirms he is seeing urology for care HEALTH MAINTENANCE/CLINICAL REMINDERS: MEDICATION RECONCILIATION Medication Reconciliation report reviewed and discussed with patient/caregiver. VA prescription medications, non-VA prescription medications, OTC and herbal medications reviewed: Patient/caregiver verifies that the list is complete and accurate and voices understanding. Patient/caregiver in possession of printed medication list. FOLLOW-UP:scheduled I am the Staff Provider. TOTAL TIME SPENT: Spent 20 minutes in care of this patient today including review of records, exam, and placing orders. /torri/ NASIMA SOTO NURSE PRACTITIONER Signed: 10/06/2024 08:29 NASIMA SOTO [facility] Oct 06, 2024 07:41 AM PRIMARY CARE NURSI KARINA NOTE: LOCAL TITLE: OUTPATIENT NURSING INTAKE NOTE (T) STANDARD TITLE: PRIMARY CARE NURSING NOTE DATE OF NOTE: OCT 06, 2024@07:41 ENTRY DATE: OCT 06, 2024@07:41:35 AUTHOR: RICKEY SAMSON COSIGNER: URGENCY: STATUS: COMPLETED [...] problems with drugs and/or alcohol? No 5. [place] Crisis Line pocket card was provided to patient. No/patient declined [facility] not documented this visit. Clinical Reminders Activity COVID-19 Immunization: Refused Pfizer Monovalent COVID-19 vaccine Immunization: COVID-19 (PFIZER), MRNA, LNP-S, PF, PERRY-SUCROSE, 30 MCG/0.3 ML (AGES 12+ YEARS) Refusal Reason: PATIENT DECISION Patient refuses all immunization(s) in the COVID-19 group Date Documented: 10/06/24 07:44 Influenza Immunization: Deferral / Refusal The patient declines to receive the recommended dose of seasonal influenza vaccine. Immunization: INFLUENZA, UNSPECIFIED FORMULATION Refusal Reason: PATIENT DECISION Patient refuses all immunization(s) in the FLU group Date Documented: 10/06/24 07:44 Patient Education Documentation: LEARNING NEEDS ASSESSMENT: The patient/family/significant other reports no changes in learning needs. /torri/ RICKEY SAMSON LICENSED PRACTICAL NURSE Signed: 10/06/2024 07:47 RICKEY SAMSON [facility]
--- OUTSIDE RECORDS SUMMARY | 2025-02-24 05:56 | XMS_ITS | Encounter Summary ---
Author Name [facility] Organization [facility] Address [address] [place] [id number] Care Team Providers Care Atmospheric Technician Name Role Phone NASIMA SOTO Primary Care [...] MEDICARE ADVANTAGE MCR (WNR) Sep 01, 2024 [id number] [phone] LALIT COTTO PATIENT Selected Encounter This section includes the information on record at [place] for the Encounter. Date/Time Encounter Type Encounter Description Reason Pro vider Source Feb 24, 2025 09:56 AM Outpatient Encounter ONCOLOGY/TUMOR IHE Encounter Template Text not used by [place] Plan of Treatment: Future Appointments (+ 6 months) and Future Tests (+/- 45 days) The Plan of Treatment section includes future care activities for the patient from all [place] treatmentfacilities. This section includes future appointments and future orders which are active, pending or scheduled. Future Appointments This section includes appointments that were scheduled to occur 6 months from the date of the Encounter, up to a maximum of 20 appointments. The data comes from all [place] treatment facilities. Appointment Date/Time Appointment Type Appointme nt Facility Name Mar 16, 2025 01:45 PM AMBULATORY - NONE [facility] Mar 16, 2025 02:00 PM [facility]UL[facility] - NONE [facility] Mar 22, 2025 08:30 AM [facility] April 05, 2025 10:00 AM AMBULATORY - NONE [facility] April 21, 2025 09:00 AM AMBULATORY - NONE [facility] May 11, 2025 09:00 AM AMBULATORY - SURGERY [facility] May 27, 2025 02:30 PM AMBULATORY - NONE [facility] Jun 02, 2025 03:00 PM [facility] NONE [facility] Active, Pending, and Scheduled Orders This section includes a listing of several types of active, pending, and scheduled orders, including clinic medications orders, diagnostic test orders, procedure orders and consult orders; where thestart date of the order is 45 days before the date of the Encounter or 45 days after the date of the Encounter. The data comes from all [place] treatment facilities. Test Date/Time Test Type Test Details Facility Name Mar 16, 2025 02:25 PM Consult Order COMMUNITY CARE-NEUROLOGY Cons [facility] Mar 21, 2025 12:00 AM Laboratory - Chemi stry Order URINALYSIS URINE SP ONCE [facility] Mar 21, 2025 12:00 AM Laboratory - Chemi stry Order MICROALBUMIN/CREATININE RATIO PANEL URINE, RANDOM SP ONCE [facility] Lab Results: +/- 30 days of the encounter This section includes the Chemistry and Hematology Lab Results on record with [facility] for the patient. Radiology Reports and Pathology Reports are provided separately, in subsequent sections. Lab Results This section contains the Chemistry/Hematology Results that were resulted 30 days before or 30 daysafter the date of the Encounter. Date/Time Source Result Type Result - Unit Interpretation Reference Range Specimen Type Comment Mar 16, 2025 01:44 PM [facility] HEMOGLOBIN A1C BLOOD Specimen Type: BLOOD Comment: Values obtained from A1C measurements can vary. For typical A1C assays, a reported value of 7.0 could actually be between 6.72 and 7.28 if measured by a reference method. A reported value of 9.0 could actually be between 8.73 and 9.27. Ref: http://www.ngsp. org/CAPdata.asp Ordering Provider: NASIMA SOTO Report Released Date/Time: Jan 21, 2025 08:15 AM Reporting Lab: [address] [address] Performing Lab: [address] [address] HEMOGLOBIN A1C 9.9 H 3.6-5.7 Mar 16, 2025 01:44 PM [facility] TSH PLASMA Specimen Type: PLASMA Comment: GLUCOSE The ADA recommends a fasting glucose of 99 mg/dL as the GLUCOSE upper limit of normal. TP Per package insert reference range for recumbent is 6.0 to 7.8 TP g/dL. Plasma samples will generally have higher values (about TP 0.2 to 0.4 g/dL higher) due to presence of fibrinogen. TRIG REFERENCE RANGE: BORDERLINE HIGH: 150-199 mg/dL HIGH: 200-499 TRIG mg/dL VERY HIGH: >=500 mg/dL CHOL REF RANGE: BORDERLINE HIGH: 200-239 mg/dL HIGH: >=240 mg/dL HDLC Values >60 are a negative risk factor for heart disease. DLDL REF RANGE: NEAR OR ABOVE OPTIMAL: 100-129 mg/dL BORDERLINE DLDL HIGH: 130-159 mg/dL HIGH: 160-189 mg/dL VERY HIGH: >=190 Ordering Provider: NASIMA SOTO Report Released Date/Time: Jan 21, 2025 08:15 AM Reporting Lab: [address] [address] Performing Lab: [place] [id number] TSH 1.383 u[IU]/mL 0.350-4.940 Mar 16, 2025 01:44 PM [facility] PROSTATE SPECIFIC ANTIGEN SERUM Speci men Type: SERUM Comment: TPSA Testing males >= 70 y/o is not recommended if there is a TPSA history of previously normal PSA testing. Assay performed [facility] using CMIA methodology. Patient results TPSA determined by assays using different manufacturers or methods TPSA may not be comparable. Ordering Provider: NASIMA SOTO Report Released Date/Time: Jan 21, 2025 08:15 AM Reporting Lab: [address] [address] Performing Lab: [address] [address] PROSTATE SPECIFIC ANTIGEN 4.232 ng/mL 0. 000-4.500 Mar 16, 2025 01:44 PM [facility] LIPID PROFILE PLASMA Specimen Type: PLASMA Comment: GLUCOSE The ADA recommends a fasting glucose of 99 mg/dL as the GLUCOSE upper limit of normal. TP Per package insert reference range for recumbent is 6.0 to 7.8 TP g/dL. Plasma samples will generally have higher values (about TP 0.2 to 0.4 g/dL higher) due to presence of fibrinogen. TRIG REFERENCE RANGE: BORDERLINE HIGH: 150-199 mg/dL HIGH: 200-499 TRIG mg/dL VERY HIGH: >=500 mg/dL CHOL REF RANGE: BORDERLINE HIGH: 200-239 mg/dL HIGH: >=240 mg/dL HDLC Values >60 are a negative risk factor for heart disease. DLDL REF RANGE: NEAR OR ABOVE OPTIMAL: 100-129 mg/dL BORDERLINE DLDL HIGH: 130-159 mg/dL HIGH: 160-189 mg/dL VERY HIGH: >=190 Ordering Provider: NASIMA SOTO Report Released Date/Time: Jan 21, 2025 08:15 AM Reporting Lab: [address] [address] Performing Lab: [address] [address] CHOLESTEROL 156 mg/dL 0-199 LDL CHOLESTEROL 92 mg/dL 0-99 HDL CHOLESTEROL 45 mg/dL >40 TRIGLYCERIDE 209 mg/dL H 0-149 Mar 16, 2025 01:44 PM [facility] FREE T4 PLASMA Specimen Type: PLASMA Comment: GLUCOSE The ADA recommends a fasting glucose of 99 mg/dL as the GLUCOSE upper limit of normal. TP Per package insert reference range for recumbent is 6.0 to 7.8 TP g/dL. Plasma samples will generally have higher values (about TP 0.2 to 0.4 g/dL higher) due to presence of fibrinogen. TRIG REFERENCE RANGE: BORDERLINE HIGH: 150-199 mg/dL HIGH: 200-499 TRIG mg/dL VERY HIGH: >=500 mg/dL CHOL REF RANGE: BORDERLINE HIGH: 200-239 mg/dL HIGH: >=240 mg/dL HDLC Values >60 are a negative risk factor for heart disease. DLDL REF RANGE: NEAR OR ABOVE OPTIMAL: 100-129 mg/dL BORDERLINE DLDL HIGH: 130-159 mg/dL HIGH: 160-189 mg/dL VERY HIGH: >=190 Ordering Provider: NASIMA SOTO Report Released Date/Time: Jan 21, 2025 08:15 AM Reporting Lab: [address] [address] Performing Lab: [place] [id number] FREE T4 1.02 ng/dL 0.70-1.48 Mar 16, 2025 01:44 PM [facility] COMPREHENSIVE METABOLIC PANEL PLASMA S pecimen Type: PLASMA Comment: GLUCOSE The ADA recommends a fasting glucose of 99 mg/dL as the GLUCOSE upper limit of normal. TP Per package insert reference range for recumbent is 6.0 to 7.8 TP g/dL. Plasma samples will generally have higher values (about TP 0.2 to 0.4 g/dL higher) due to presence of fibrinogen. TRIG REFERENCE RANGE: BORDERLINE HIGH: 150-199 mg/dL HIGH: 200-499 TRIG mg/dL VERY HIGH: >=500 mg/dL CHOL REF RANGE: BORDERLINE HIGH: 200-239 mg/dL HIGH: >=240 mg/dL HDLC Values >60 are a negative risk factor for heart disease. DLDL REF RANGE: NEAR OR ABOVE OPTIMAL: 100-129 mg/dL BORDERLINE DLDL HIGH: 130-159 mg/dL HIGH: 160-189 mg/dL VERY HIGH: >=190 Ordering Provider: NASIMA SOTO Report Released Date/Time: Jan 21, 2025 08:15 AM Reporting Lab: [address] [address] Performing Lab: [address] [address] ALBUMIN 4.2 g/dL 3.5-4.8 ALKALINE PHOSPHATASE 87 U/L 40-150 ALT/SGPT 22 U/L 0-55 AST/SGOT 22 U/L 10-40 BUN 17.5 mg/dL 8.4-25.7 CALCIUM 9.2 mg/dL 8.6-10.3 CREATININE 1.4 mg/dL H 0.7-1.3 CO2 22 mmol/L 22-30 GLUCOSE 398 mg/dL H 74-99 PROTEIN, TOTAL 7.0 g/dL 6.4-8.3 SODIUM 137 mmol/L 134-144 CHLORIDE 104 mmol/L 99-112 BILIRUBIN, TOTAL 0.3 mg/dL 0.2-1.2 POTASSIUM 4.4 mmol/L 3.5-5.1 ANION GAP 15 mmol/L 10-20 EGFR (CALCULATED) 56 Mar 16, 2025 01:44 PM [facility] CBC BLOOD Specimen Type: BLOOD No comment entered. Ordering Provider: NASIMA SOTO Report Released Date/Time: Jan 21, 2025 08:15 AM Reporting Lab: [address] [phone] Performing Lab: [address] [address] WBC COUNT 7.8 10*3/uL 3.6-11.0 RBC COUNT 5.01 10*6/uL 4.47-5.83 HGB 15.6 g/dL 13.6-17.4 HCT 45.9 40.0-51.0 MCV 91.7 fL 80.0-96.0 MCH 31.0 pg 27.0-31.0 MCHC 33.9 g/dL 31.5-36.5 PLT 295 10*3/uL 150-400 LYMPHS % 17.9 L 21.0-51.0 MONOCYTES % 9.7 H 4.0-8.0 NUCLEATED RBC/100WBC 0.0 /100{WBCs} RDW 13.9 11.2-15.8 NEUTROPHIL % 69.5 54.0-78.0 EOSINOPHIL % 2.5 0.0-3.0 BASOPHIL % 0.4 0.0-3.0 ABSOLUTE LYMPHOCYTE COUNT 1.4 10*3/uL 0. 8-5.0 ABSOLUTE NEUTROPHIL COUNT 5.4 10*3/uL 1. 9-8.6 ABSOLUTE BASOPHIL COUNT 0.0 10*3/uL 0.0- 0.3 ABSOLUTE MONOCYTE COUNT 0.8 10*3/uL 0.1- 0.9 ABSOLUTE EOSINOPHIL COUNT 0.2 10*3/uL 0. 0-0.3 MPV 8.3 fL 7.4-11.4 Social History: Smoking Status (Most current) and Tobacco Use (All prior to encounter date) This section includes the most current, and the historical, smoking and tobacco- related health factors from the [place] facility where the Encounter took place. Current Smoking Status This section includes the most current smoking, or tobacco-related health factor, from the [place] facility where the Encounter took place. Date/Time Current Smoking Status Comment Arnulfo dacosta Jul 28, 2024 06:00 AM TOBACCO FORMER USER MORE 12 [facility] Radiology Reports: +/- 30 days of [...] the Encounter. The data comes from all [place] treatment facilities. Date/Time Radiology Report Provider Source Feb 21, 2025 12:35 PM LDCT LUNG CANCER S CREENING: MALCOM COTTO IV [id number] M Exm Date: FEB 21, 2025@12:35 Req Phys: TANYA GU Loc: [facility] E-CONSULT LUNG SCREENING ( Img Loc: CONTRACT READ CT Service: [place] [address] (Case [id number] COMPLETE) LDCT LUNG CANCER SCREENING (CT Detailed) CPT:24318 CPT Modifiers : TC TECHNICAL COMPONENT Reason for Study: annual lung cancer screen/40 year smoker x 2PPD, quit 2015 Clinical History: [address] [place], [place] [address] Report Status: Verified Date Reported: FEB 24, 2025 Date Verified: FEB 24, 2025 Bulb Grader E-Sig:/ES/YAW VÁZQUEZ Report: EXAMINATION: CT THORAX LUNG CANCER SCR C- HISTORY: annual lung cancer screen/40 year smoker x 2PPD, quit 2015 COMPARISON: CT lung cancer screening 02/21/2024 TECHNIQUE: Axial, Coronal, and Sagittal images were created without the administration of IV contrast material. Dose reduction techniques were achieved by using automated exposure control and/or adjustment of mA and/or kV according to patient size and/or use of iterative reconstruction technique. FINDINGS: LUNGS: No visible pulmonary disease. PLEURA: No mass, effusion, or pneumothorax. VASCULATURE: No abnormality. GRACIELA: No mass or pathologic adenopathy. MEDIASTINUM: No mass or pathologic adenopathy. CARDIAC: No enlargement, pericardial thickening, or pericardial effusion. Coronary Artery calcifications: Coronary calcifications are mild. AORTA: No aneurysm or dissection. CHEST WALL: No mass or axillary adenopathy BONES: No bone lesion or fracture. LIMITED ABDOMEN: No suspicious findings. Limited images of the upper abdomen. OTHER: Negative. Impression: 1. Lung-RADS Category 1 Negative. No nodules and definitely benign nodules. Continue annual screening with LDCT in 12 months. DIAGNOSIS CODE: #DC 1000: NO ALERT REQUIRED Finalized by - Yaw Vázquez Signed Date Time - 02/24/2025 00:54 Primary Diagnostic Code: NO ALERT REQUIRED Primary Interpreting Staff: YAW VÁZQUEZ, CONTRACTOR (Bulb Grader) /YAW HAYES [facility] Encounter Notes: All associated encounter notes This section contains the clinical notes associated to the Encounter. Date/Time Encounter Note(s) Provider Source Feb 24, 2025 09:58 AM LETTERS: LOCAL TITLE: LUNG CANCER SCREENING LETTER STANDARD TITLE: LETTERS DATE OF NOTE: FEB 24, 2025@09:58 ENTRY DATE: FEB 24, 2025@09:58:18 AUTHOR: MALINI CHAKRABORTYIGNER: URGENCY: STATUS: COMPLETED [facility] [address] [place] [address] Jan MALCOM COTTO [address] [place], [place] [address] Dear [place]: Your recent lung cancer screening CT scan showed NO abnormal findings that are concerning for lung cancer. This result is reassuring news. If there are additional findings, we will alert your primary care team. Your next lung cancer screening CT scan is due in 12 months. If you are experiencing an upper respiratory illness like a cold or the flu, please get your scan 4 weeks after your symptoms have gone away. Lung cancer screening can detect lung cancer, but it does not prevent it. Rarely, a CT scan can miss a small lung cancer. Contact your primary care provider if you develop new symptoms like worsening shortness of breath, change in a cough, or coughing up blood. If you still smoke cigarettes, we can help you quit. We understand that quitting cigarette smoking is difficult, but it is the best way to improve your health. When you want help, let your primary care provider know. You can also call 2-956-KQAT-VET ( ) or visit veterans.smokefree.gov. Please contact Virgen Chakraborty at [phone] with questions or concerns about lung cancer screening. Sincerely, The Lung Cancer Screening Program MALINI CHAKRABORTY [facility] Feb 24, 2025 09:56 AM HEMATOLOGY AND ONC OLOGY NOTE: LOCAL TITLE: LUNG CANCER SCREENING DOCUMENTATION STANDARD TITLE: HEMATOLOGY AND ONCOLOGY NOTE DATE OF NOTE: FEB 24, 2025@09:56 ENTRY DATE: FEB 24, 2025@09:56:40 AUTHOR: MALINI CHAKRABORTY EXP COSIGNER: URGENCY: STATUS: COMPLETED NO LUNG NODULES or TRACKING OF NODULE NOT INDICATED per guidelines (e.g., clearly benign/some small nodules). Date of image: Date: February 21, 2025 LDCT Scan Results: Most recent LDCT Scan negative for lung nodules Lung RADS Score: 1 Incidental Findings: No incidental findings were noted. Plan: Continue routine annual lung cancer screening. Patient Notification of results: Results letter sent to patient. FINDINGS: LUNGS: No visible pulmonary disease. PLEURA: No mass, effusion, or pneumothorax. VASCULATURE: No abnormality. GRACIELA: No mass or pathologic adenopathy. MEDIASTINUM: No mass or pathologic adenopathy. CARDIAC: No enlargement, pericardial thickening, or pericardial effusion. Coronary Artery calcifications: Coronary calcifications are mild. AORTA: No aneurysm or dissection. CHEST WALL: No mass or axillary adenopathy BONES: No bone lesion or fracture. LIMITED ABDOMEN: No suspicious findings. Limited images of the upper abdomen. OTHER: Negative. Impression: 1. Lung-RADS Category 1 Negative. No nodules and definitely benign nodules. Continue annual screening with LDCT in 12 months. DIAGNOSIS CODE: #DC 1000: NO ALERT REQUIRED /torri/ MALINI CHAKRABORTY REGISTERED NURSE Signed: 02/24/2025 09:58 Receipt Acknowledged By: 02/24/2025 13:05 /torri/ NASIMA SOTO NURSE PRACTITIONER 02/24/2025 17:58 /es/ ANNA BROWN ONCOLOGIST MALINI CHAKRABORTY [facility]
--- OUTSIDE RECORDS SUMMARY | 2025-03-16 10:00 | XMS_ITS | Encounter Summary ---
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 Date/Time Encounter Type Encounter Description Reason Provider Source Mar 16, 2025 02:00 PM OFFICE O/P EST MOD 30 MIN PRIMARY CARE/MEDICINE ICD-10-CM I63.9 Cerebral infarction, unspecified NASIMA CHAMBERS Gautam Encounter Template Text not used by [place] Assessments - Encounter Diagnoses This section includes the primary and secondary diagnoses documented for the Encounter. Date/Time Primary/Secondary Diagnosis Diagnosis Name Provider Source Mar 16, 2025 02:30 PM PRIMARY Cerebral infarction, unspecified NASIMA CHAMBERS CB Mar 16, 2025 02:30 PM SECONDARY Benign prostatic hyperplasia with lower urinary tract symp NASIMA CHAMBERS CB Mar 16, 2025 02:30 PM SECONDARY Essential (primary) hypertension NASIMA CHAMBERS [facility] Mar 16, 2025 02:30 PM SECONDARY Hyperlipidemia, unspecified NASIMA CHAMBERS [facility] Mar 16, 2025 02:30 PM SECONDARY Paresthesia of skin NASIMA CHAMBERS [facility] Mar 16, 2025 02:30 PM SECONDARY Type 2 diabetes mellitus with hyperglycemia NASIMA CHAMBERSUSKY [facility] Plan of Treatment: Future Appointments (+ 6 months) and Future Tests (+/- 45 days) The Plan of Treatment section includes future care activities for the patient from [facility] [place] [facility] This section includes future appointments and future orders which are active, pending or scheduled. Future Appointments This section includes appointments that were scheduled to occur 6 months from the date of the Encounter, up to a maximum of 20 appointments. The data comes from all [facility]. Appointment Date/Time Appointment Type Appointme nt Facility Name Mar 22, 2025 08:30 AM AMBULATORY - NONE [facility] April 05, 2025 10:00 AM AM[facility]UL[facility]ORY [facility] NONE [facility] April 21, 2025 09:00 AM AMBULATORY - NONE [facility] May 11, 2025 09:00 AM AMBULATORY - SURGERY MONETU FRANCOIS [facility] May 27, 2025 02:30 PM AMBULATORY - NONE [facility] Jun 02, 2025 03:00 PM AMBULATORY - NONE [facility] Sep 08, 2025 10:15 AM AMBULATORY - NONE [facility] Sep 15, 2025 01:00 PM AMBULATORY - NONE [facility] Active, Pending, and Scheduled Orders This section includes a listing of several types of active, pending, and scheduled orders, including clinic medications orders, diagnostic test orders, procedure orders and consult orders; where the start date of the order is 45 days before the date of the Encounter or 45 days after the date of theEncounter. The data comes from all [facility] facilities. Test Date/Time Test Type Test Details Facility Name Mar 16, 2025 02:25 PM Consult Order COMMUNITY CARE-NEUROLOGY Cons Utility Clerk's Choice [facility] Mar 21, 2025 12:00 AM Laboratory - Chemi stry Order URINALYSIS URINE SP ONCE [facility] Mar 21, 2025 12:00 AM Laboratory - Chemi stry Order MICROALBUMIN/CREATININE RATIO PANEL URINE, RANDOM [facility] Lab Results: +/- 30 days of the encounter This section includes the Chemistry and Hematology Lab Results on record with [place] for the patient. Radiology Reports and Pathology Reports are provided separately, in subsequent sections. Lab Results This section contains the Chemistry/Hematology Results that were resulted 30 days before or 30 daysafter the date of the Encounter. Date/Time Source Result Type Result - Unit Interpretation Reference Range Specimen Type Comment Mar 16, 2025 01:44 PM [facility] HEMOGLOBIN A1C BLOOD Specimen Type: BLOOD Comment: Values obtained from A1C measurements can vary. For typical A1C assays, a reported value of 7.0 could actually be between 6.72 and 7.28 if measured by a reference method. A reported value of 9.0 could actually be between 8.73 and 9.27. Ref: http://www.ngsp. org/CAPdata.asp Ordering Provider: NASIMA CHAMBERS Report Released Date/Time: Jan 21, 2025 08:15 AM Reporting Lab: [address] [address] Performing Lab: [address] [address] HEMOGLOBIN A1C 9.9 H 3.6-5.7 Mar 16, 2025 01:44 PM [facility] LIPID PROFILE PLASMA Specimen Type: PLASMA Comment: [...] mg/dL VERY HIGH: >=190 Ordering Provider: NASIMA CHAMBERS Report Released Date/Time: Jan 21, 2025 08:15 AM Reporting Lab: [address] [address] Performing Lab: [address] [address] CHOLESTEROL 156 mg/dL 0-199 LDL CHOLESTEROL 92 mg/dL 0-99 HDL CHOLESTEROL 45 mg/dL >40 TRIGLYCERIDE 209 mg/dL H 0-149 Mar 16, 2025 01:44 PM [facility] TSH PLASMA Specimen Type: PLASMA Comment: GLUCOSE [...] mg/dL VERY HIGH: >=190 Ordering Provider: NASIMA CHAMBERS Report Released Date/Time: Jan 21, 2025 08:15 AM Reporting Lab: [address] [address] Performing Lab: [address] [address] TSH 1.383 u[IU]/mL 0.350-4.940 Mar 16, 2025 01:44 PM [facility] COMPREHENSIVE METABOLIC PANEL PLASMA S pecimen Type: [...] mg/dL VERY HIGH: >=190 Ordering Provider: NASIMA CHAMBERS Report Released Date/Time: Jan 21, 2025 08:15 AM Reporting Lab: [address] [address] Performing Lab: [place] [phone] ALBUMIN 4.2 g/dL 3.5-4.8 ALKALINE PHOSPHATASE 87 [...] 56 Mar 16, 2025 01:44 PM [facility] PROSTATE SPECIFIC ANTIGEN SERUM Speci men Type: SERUM Comment: TPSA Testing males >= 70 y/o is not recommended if there is a TPSA history of previously normal PSA testing. Assay performed on TPSA [employer] using CMIA methodology. Patient results TPSA determined by assays using different manufacturers or methods TPSA may not be comparable. Ordering Provider: NASIMA CHAMBERS Report Released Date/Time: Jan 21, 2025 08:15 AM Reporting Lab: [address] [address] Performing Lab: [address] [address] PROSTATE SPECIFIC ANTIGEN 4.232 ng/mL 0. 000-4.500 Mar 16, 2025 01:44 PM [facility] FREE T4 PLASMA Specimen Type: PLASMA [...] mg/dL VERY HIGH: >=190 Ordering Provider: NASIMA CHAMBERS Report Released Date/Time: Jan 21, 2025 08:15 AM Reporting Lab: [place] [id number] Performing Lab: [place] [phone] FREE T4 1.02 ng/dL 0.70-1.48 Mar 16, 2025 01:44 PM [facility] CBC BLOOD Specimen Type: BLOOD No comment entered. Ordering Provider: NASIMA CHAMBERS Report Released Date/Time: Jan 21, 2025 08:15 AM Reporting Lab: [address] [phone] Performing Lab: [place] [phone] WBC COUNT 7.8 10*3/uL 3.6-11.0 RBC COUNT [...] and tobacco- related health factors from the [place] facility where the Encounter took place. Current Smoking Status This section includes the most current smoking, or tobacco-related health factor, from the [place] facility where the Encounter took place. Date/Time Current Smoking Status Comment Facil ity Sep 22, 2024 08:00 AM VA-TOBACCO QUIT 5 TO < 15 YRS [facility] Tobacco Use History This section includes a history of the smoking, or tobacco-related health factors, that were collected on or before the date of the Encounter. The data comes from the [place] facility where the Encounter took place. Date/Time [...] 12:50 PM CURRENT TOBACCO USER [facility] Radiology Reports: +/- 30 days of the [...] the Encounter. The data comes from all [place] treatment facilities. Date/Time Radiology Report Provider Source Feb 21, 2025 12:35 PM LDCT LUNG CANCER S CREENING: MALCOM COTTO IV [id number] -[id number] M Exm Date: FEB 21, 2025@12:35 Req Phys: TANYA GU Loc: COLTEN E-CONSULT LUNG SCREENING ( Img Loc: CONTRACT READ CT Service: [place] [address] (Case [id number] COMPLETE) LDCT LUNG CANCER SCREENING (CT Detailed) CPT:67777 CPT Modifiers : TC TECHNICAL COMPONENT Reason for Study: annual lung cancer screen/40 year smoker x 2PPD, quit 2015 Clinical History: [address] [place], [place] [address] Report Status: Verified Date Reported: FEB 24, 2025 Date Verified: FEB 24, 2025 Sciences Dean E-Sig:/ES/YAW VÁZQUEZ Report: EXAMINATION: CT THORAX LUNG [...] REQUIRED Primary Interpreting Staff: YAW VÁZQUEZ, CONTRACTOR (Sciences Dean) /YAW HAYES [facility] Encounter Notes: All associated encounter notes This section contains the clinical notes associated to the Encounter. Date/Time Encounter Note(s) Provider Source Mar 16, 2025 07:33 PM ADDENDUM: LOCAL TITLE: Addendum STANDARD TITLE: ADDENDUM DATE OF NOTE: MAR 16, 2025@19:33 ENTRY DATE: MAR 16, 2025@19:33 AUTHOR: NASIMA CHAMBERS COSIGNER: URGENCY: STATUS: COMPLETED His A1C is 9.9%, o therwise his labs look good. I put in a consult for Nasima to see him. /torri/ NASIMA CHAMBERS NURSE PRACTITIONER Signed: 03/16/2025 19:33 Receipt Acknowledged By: 03/17/2025 08:34 /torri/ ROXANE HODGES REGISTERED NURSE --- Original Document --- 03/16/25 PRIMARY CARE OUTPATIENT NOTE (T): In-person Note 64yo Reason for Visit: Here for follow up of recent hospitalization. He had numbness and tingling and went to the ER on 03/04/25. He had gone in December with numbness of face and inability to use his left arm. Head CT was negative. On 03/04 he was back in ER with similiar symptoms. MRI of his head was negative and decided he had a stroke. He also had balance issues that are slowly resolving. His left arm is weaker than the right. He is now on plavix. ALso given 5 days of prednisone he is now finished with. Also reports he had a urolift procedure and is much improved- he is to stop tadalafil when the script is complete but will continue finasteride. 20 Active Problems PROBLEM LAST MOD PROVIDER Retention of urine 03/18/2024 SHELBI,AAYUSH I Straining on urination due to benign prostatic 03/18/2024 SHELBI,AAYUSH I hypertrophy Multiple nodules of lung 02/24/2025 NASIMA CHAMBERS 1. 02/22 repeat in 1 year 2. 02/23 lung rads 1 - repeat in 1 year Prostate specific antigen [...] CHAMBERS DM - Diabetes mellitus (SNOMED CT 83145737) 10/11/2015 LAZARA GOINS Vitamin D deficiency 08/28/2022 NASIMA CHAMBERS Osteoarthritis 08/28/2022 NASIMA CHAMBERS Hearing loss 08/28/2022 NASIMA CHAMBERS Benign essential hypertension (SNOMED CT 05/04/2016 BRIGID KATZ [id number]) REVIEW OF SYSTEMS: (denies the following unless [...] BENIGN PROSTATIC HYPERPLASIA (DO NOT CRUSH) 6) INSULIN,GLARGINE 100 UNT/ML 3ML SOLOSTAR INJECT 16 ACTIVE UNITS SUBCUTANEOUSLY AT BEDTIME (DISCARD PEN 28 DAYS AFTER FIRST USE) 7) LOSARTAN 50MG TAB TAKE ONE TABLET BY MOUTH EVERY DAY ACTIVE FOR HIGH BLOOD PRESSURE 8) NEEDLE,PEN 31G,8MM USE NEEDLE SUPPLY ITEM DIRECTED ACTIVE FOR INJECTION 9) PIOGLITAZONE HCL 30MG TAB TAKE ONE TABLET BY MOUTH ACTIVE EVERY DAY 10) TADALAFIL 5MG TAB (ONCE [...] ARMPITS Inactive Outpatient Medications Status ========= 1) INSULIN,GLARGINE-YFGN 100UNIT/ML PEN 3ML INJECT 16 UNITS SUBCUTANEOUSLY AT BEDTIME FOR DIABETES (DISCARD PEN 28 DAYS AFTER FIRST USE) Active Non-VA Medications Status ========= 1) Non-VA MULTIVITAMINS AND MINERALS (CENTRUM) TAB ACTIVE MOUTH EVERY DAY 13 Total Medications PHYSICAL EXAM: Vital Signs: T: 97.4 F [...] Extremities: no edema ASSESSMENT/PLAN: labs drawn today needs neurology consult- CC placed,[facility] no longer taking ASA as ordered. HTN- BP at goal - continue with am lodipine and losartan DM- labs pending - using pioglitizone and insulin HLD- be sure to continue ezitimbe, labs pending BPH- successful surgery, he will continue finasteride, pauline will be DC'd when script completed. HEALTH MAINTENANCE/CLINICAL REMINDERS: MEDICATION RECONCILIATION Medication Reconciliation report reviewed and discussed with patient/caregiver. VA prescription medications, non-VA prescription medications, OTC and herbal medications reviewed: Patient/caregiver verifies that the list is complete and accurate and voices understanding. Patient/caregiver in possession of printed medication list. FOLLOW-UP: 6 months with labs I am the Staff Provider. TOTAL TIME SPENT: Spent 30 minutes in care of this patient today including review of records, exam, and placing orders. /torri/ NASIMA CHAMBERS NURSE PRACTITIONER Signed: 03/16/2025 14:30 [facility]AM[facility] Mar 16, 2025 07:30 PM PRIMARY CARE SANIYAE RS: LOCAL TITLE: PATIENT RESULTS LETTER (T) STANDARD TITLE: PRIMARY CARE LETTERS DATE OF NOTE: MAR 16, 2025@19:30 ENTRY DATE: MAR 16, 2025@19:30:16 AUTHOR: NASIMA CHAMBERS EXP COSIGNER: URGENCY: STATUS: COMPLETED [facility] [address] [place] [address] MALCOM COTTO Mar [address] [place], [place] [address] Dear MALCOM COTTO, I have reviewed your results listed below and I would like to discuss them with you. --------- CHOLESTEROL AND TRIGLYCERIDES - YOUR RESULTS WERE: Collection DT Specimen Test Name Result Units Ref Range 03/16/2025 13:44 PLASMA CHOLESTEROL 156 mg/dL 0 - 199 03/16/2025 13:44 PLASMA LDL CHOLESTEROL 92 mg/dL 0 - 99 03/16/2025 13:44 PLASMA HDL CHOLESTEROL 45 mg/dL Ref: >= 40 03/16/2025 13:44 PLASMA TRIGLYCERIDE 209 H mg/dL 0 - 149 Comment: GLUCOSE The ADA recommends a fasting glucose of 99 mg/dL as the Comment: GLUCOSE upper limit of normal. Comment: TP Per package insert reference range for recumbent is 6.0 to 7.8 Comment: TP g/dL. Plasma samples will generally have higher values (about Comment: TP 0.2 to 0.4 g/dL higher) due to presence of fibrinogen. Comment: TRIG REFERENCE RANGE: BORDERLINE HIGH: 150-199 mg/dL HIGH: 200-499 Comment: TRIG mg/dL VERY HIGH: >=500 mg/dL Comment: CHOL REF RANGE: BORDERLINE HIGH: 200-239 mg/dL HIGH: >=240 mg/dL Comment: HDLC Values >60 are a negative risk factor for heart disease. Comment: DLDL REF RANGE: NEAR OR ABOVE OPTIMAL: 100-129 mg/dL BORDERLINE Comment: DLDL HIGH: 130-159 mg/dL HIGH: 160-189 mg/dL VERY HIGH: >=190 --------- HEMOGLOBIN A1C - YOUR RESULTS WERE: Collection DT Specimen Test Name Result Units Ref Range 03/16/2025 13:44 BLOOD HEMOGLOBIN A1C 9.9 H % 3.6 - 5.7 Comment: Values obtained from A1C measurements can vary. For typical A1C Comment: assays, a reported value of 7.0 could actually be between 6.72 and Comment: 7.28 if measured by a reference method. A reported value of 9.0 Comment: could actually be between 8.73 and 9.27. Ref: Comment: http://www.ngsp.org/CAPdata.asp 09/22/2024 08:20 BLOOD HEMOGLOBIN A1C 7.8 H [...] LESS THAN 7 - 7.5% Your A1C has jumped up quite a bit. If your sugars continue to be high we will need to adjust your medications. --------- GLUCOSE - YOUR RESULTS WERE: Collection DT Specimen Test Name Result Units Ref Range 03/16/2025 13:44 PLASMA GLUCOSE 398 H mg/dL 74 - 99 Comment: GLUCOSE The ADA recommends a fasting glucose of 99 mg/dL as the Comment: GLUCOSE upper limit of normal. Comment: TP Per package insert reference range for recumbent is 6.0 to 7.8 Comment: TP g/dL. Plasma samples will generally have higher values (about Comment: TP 0.2 to 0.4 g/dL higher) due to presence of fibrinogen. Comment: TRIG REFERENCE RANGE: BORDERLINE HIGH: 150-199 mg/dL HIGH: 200-499 Comment: TRIG mg/dL VERY HIGH: >=500 mg/dL Comment: CHOL REF RANGE: BORDERLINE HIGH: 200-239 mg/dL HIGH: >=240 mg/dL Comment: HDLC Values >60 are a negative risk factor for heart disease. Comment: DLDL REF RANGE: NEAR OR ABOVE OPTIMAL: 100-129 mg/dL BORDERLINE Comment: DLDL HIGH: 130-159 mg/dL HIGH: 160-189 mg/dL VERY HIGH: >=190 --------- LIVER FUNCTION - YOUR RESULTS WERE: Collection DT Specimen Test Name Result Units Ref Range 03/16/2025 13:44 PLASMA ALBUMIN 4.2 g/dL 3.5 - 4.8 03/16/2025 13:44 PLASMA ALKALINE PHOSPHAT 87 U/L 40 - 150 03/16/2025 13:44 PLASMA ALT/SGPT 22 U/L 0 - 55 03/16/2025 13:44 PLASMA AST/SGOT 22 U/L 10 - 40 03/16/2025 13:44 PLASMA PROTEIN, TOTAL 7.0 g/dL 6.4 - 8.3 03/16/2025 13:44 PLASMA BILIRUBIN, TOTAL 0.3 mg/dL 0.2 - 1.2 Comment: GLUCOSE The ADA recommends a fasting glucose of 99 mg/dL as the Comment: GLUCOSE upper limit of normal. Comment: TP Per package insert reference range for recumbent is 6.0 to 7.8 Comment: TP g/dL. Plasma samples will generally have higher values (about Comment: TP 0.2 to 0.4 g/dL higher) due to presence of fibrinogen. Comment: TRIG REFERENCE RANGE: BORDERLINE HIGH: 150-199 mg/dL HIGH: 200-499 Comment: TRIG mg/dL VERY HIGH: >=500 mg/dL Comment: CHOL REF RANGE: BORDERLINE HIGH: 200-239 mg/dL HIGH: >=240 mg/dL Comment: HDLC Values >60 are a negative risk factor for heart disease. Comment: DLDL REF RANGE: NEAR OR ABOVE OPTIMAL: 100-129 mg/dL BORDERLINE Comment: DLDL HIGH: 130-159 mg/dL HIGH: 160-189 mg/dL VERY HIGH: >=190 --------- BLOOD COUNT - YOUR RESULTS WERE: SLT - CBC --------- Collection DT Specimen Test Name Result Units Ref Range 03/16/2025 13:44 BLOOD WBC COUNT 7.8 K/cmm 3.6 - 11.0 03/16/2025 13:44 BLOOD RBC COUNT 5.01 M/cmm 4.47 - 5.83 03/16/2025 13:44 BLOOD HGB 15.6 g/dL 13.6 - 17.4 03/16/2025 13:44 BLOOD HCT 45.9 % 40.0 - 51.0 03/16/2025 13:44 BLOOD MCV 91.7 fL 80.0 - 96.0 03/16/2025 13:44 BLOOD MCH 31.0 pg 27.0 - 31.0 03/16/2025 13:44 BLOOD MCHC 33.9 g/dL 31.5 - 36.5 03/16/2025 13:44 BLOOD PLT 295 K/cmm 150 - 400 03/16/2025 13:44 BLOOD MPV 8.3 fL 7.4 - 11.4 03/16/2025 13:44 BLOOD RDW 13.9 % 11.2 - 15.8 03/16/2025 13:44 BLOOD LYMPHS % 17.9 L % 21.0 - 51.0 03/16/2025 13:44 BLOOD BASOPHIL % 0.4 % 0.0 - 3.0 03/16/2025 13:44 BLOOD NEUTROPHIL % 69.5 % 54.0 - 78.0 03/16/2025 13:44 BLOOD EOSINOPHIL % 2.5 % 0.0 - 3.0 Comment: Values obtained [...] Specimen Test Name Result Units Ref Range 03/16/2025 13:44 PLASMA ALBUMIN 4.2 g/dL 3.5 - 4.8 03/16/2025 13:44 PLASMA BUN 17.5 mg/dL 8.4 - 25.7 03/16/2025 13:44 PLASMA CALCIUM 9.2 mg/dL 8.6 - 10.3 03/16/2025 13:44 PLASMA CREATININE 1.4 H mg/dL 0.7 - 1.3 03/16/2025 13:44 PLASMA CO2 22 mmol/L 22 - 30 03/16/2025 13:44 PLASMA GLUCOSE 398 H mg/dL 74 - 99 03/16/2025 13:44 PLASMA SODIUM 137 mmol/L 134 - 144 03/16/2025 13:44 PLASMA CHLORIDE 104 mmol/L 99 - 112 03/16/2025 13:44 PLASMA POTASSIUM 4.4 mmol/L 3.5 - 5.1 03/16/2025 13:44 PLASMA ANION GAP 15 mmol/L 10 - 20 03/16/2025 13:44 PLASMA EGFR (CALCULATED) 56 mL/min/1.73m2 BSA Comment: GLUCOSE The ADA recommends a fasting glucose of 99 mg/dL as the Comment: GLUCOSE upper limit of normal. Comment: TP Per package insert reference range for recumbent is 6.0 to 7.8 Comment: TP g/dL. Plasma samples will generally have higher values (about Comment: TP 0.2 to 0.4 g/dL higher) due to presence of fibrinogen. Comment: TRIG REFERENCE RANGE: BORDERLINE HIGH: 150-199 mg/dL HIGH: 200-499 Comment: TRIG mg/dL VERY HIGH: >=500 mg/dL Comment: CHOL REF RANGE: BORDERLINE HIGH: 200-239 mg/dL HIGH: >=240 mg/dL Comment: HDLC Values >60 are a negative risk factor for heart disease. Comment: DLDL REF RANGE: NEAR OR ABOVE OPTIMAL: 100-129 mg/dL BORDERLINE Comment: DLDL HIGH: 130-159 mg/dL HIGH: 160-189 mg/dL VERY HIGH: >=190 --------- THYROID FUNCTION - YOUR RESULTS WERE: Collection DT Specimen Test Name Result Units Ref Range 03/16/2025 13:44 PLASMA TSH 1.383 uIU/mL 0.350 - 4.940 Comment: GLUCOSE The ADA recommends a fasting glucose of 99 mg/dL as the Comment: GLUCOSE upper limit of normal. Comment: TP Per package insert reference range for recumbent is 6.0 to 7.8 Comment: TP g/dL. Plasma samples will generally have higher values (about Comment: TP 0.2 to 0.4 g/dL higher) due to presence of fibrinogen. Comment: TRIG REFERENCE RANGE: BORDERLINE HIGH: 150-199 mg/dL HIGH: 200-499 Comment: TRIG mg/dL VERY HIGH: >=500 mg/dL Comment: CHOL REF RANGE: BORDERLINE HIGH: 200-239 mg/dL HIGH: >=240 mg/dL Comment: HDLC Values >60 are a negative risk factor for heart disease. Comment: DLDL REF RANGE: NEAR OR ABOVE OPTIMAL: 100-129 mg/dL BORDERLINE Comment: DLDL HIGH: 130-159 mg/dL HIGH: 160-189 mg/dL VERY HIGH: >=190 --------- PROSTATE FUNCTION - YOUR RESULTS WERE: Collection DT Specimen Test Name Result Units Ref Range 05/23/2021 08:32 PLASMA PSA (D'ronald 7.12.2 5.4 H ng/mL Ref: <= 4.4 03/16/2025 13:44 SERUM PSA 4.232 ng/mL 0.000 - 4.500 Comment: TPSA Testing males >= 70 y/o is not recommended if there is a Comment: TPSA history of previously normal PSA testing. Assay performed on Comment: TPSA [facility] using CMIA methodology. Patient results Comment: TPSA determined by assays using different manufacturers or methods Comment: TPSA may not be comparable. Please contact us at the [facility] - [phone] ext. , if you have questions or concerns. NASIMA CHAMBERS [facility] Mar 16, 2025 02:03 PM INTERNAL MEDICINE OUTPATIENT NOTE: LOCAL TITLE: PRIMARY CARE OUTPATIENT NOTE (T) STANDARD TITLE: INTERNAL MEDICINE OUTPATIENT NOTE DATE OF NOTE: MAR 16, 2025@14:03 ENTRY DATE: MAR 16, 2025@14:03:32 AUTHOR: NASIMA CHAMBERS EXP COSIGNER: URGENCY: STATUS: COMPLETED PRIMARY CARE OUTPATIENT NOTE (T) Has ADDENDA In-person Note 64yo [place] Reason for Visit: Here for follow up of recent hospitalization. He had numbness and tingling and went to the ER on 03/04/25. He had gone in December with numbness of face and inability to use his left arm. Head CT was negative. On 03/04 he was back in ER with similiar symptoms. MRI of his head was negative and decided he had a stroke. He also had balance issues that are slowly resolving. His left arm is weaker than the right. He is now on plavix. ALso given 5 days of prednisone he is now finished with. Also reports he had a urolift procedure and is much improved- he is to stop tadalafil when the script is complete but will continue finasteride. 20 Active Problems PROBLEM LAST MOD PROVIDER Retention of urine 03/18/2024 SHELBI,AAYUSH I Straining on urination due to benign prostatic 03/18/2024 SHELBI,AAYUSH I hypertrophy Multiple nodules of lung 02/24/2025 NASIMA CHAMBERS 1. 02/22 repeat in 1 year 2. 02/23 lung rads 1 - repeat in 1 year Prostate specific antigen [...] CHAMBERS DM - Diabetes mellitus (SNOMED CT [id number]) 10/11/2015 LAZARA GOINS Vitamin D deficiency 08/28/2022 NASIMA CHAMBERS Osteoarthritis 08/28/2022 NASIMA CHAMBERS Hearing loss 08/28/2022 NASIMA CHAMBERS Benign essential hypertension (SNOMED CT 05/04/2016 BRIGID KATZ [id number]) REVIEW OF SYSTEMS: (denies the following unless [...] BENIGN PROSTATIC HYPERPLASIA (DO NOT CRUSH) 6) INSULIN,GLARGINE 100 UNT/ML 3ML SOLOSTAR INJECT 16 ACTIVE UNITS SUBCUTANEOUSLY AT BEDTIME (DISCARD PEN 28 DAYS AFTER FIRST USE) 7) LOSARTAN 50MG TAB TAKE ONE TABLET BY MOUTH EVERY DAY ACTIVE FOR HIGH BLOOD PRESSURE 8) NEEDLE,PEN 31G,8MM USE NEEDLE SUPPLY ITEM DIRECTED ACTIVE FOR INJECTION 9) PIOGLITAZONE HCL 30MG TAB TAKE ONE TABLET BY MOUTH ACTIVE EVERY DAY 10) TADALAFIL 5MG TAB (ONCE [...] ARMPITS Inactive Outpatient Medications Status ========= 1) INSULIN,GLARGINE-YFGN 100UNIT/ML PEN 3ML INJECT 16 UNITS SUBCUTANEOUSLY AT BEDTIME FOR DIABETES (DISCARD PEN 28 DAYS AFTER FIRST USE) Active Non-VA Medications Status ========= 1) Non-VA MULTIVITAMINS AND MINERALS (CENTRUM) TAB ACTIVE MOUTH EVERY DAY 13 Total Medications PHYSICAL EXAM: Vital Signs: T: 97.4 F [...] Extremities: no edema ASSESSMENT/PLAN: labs drawn today needs neurology consult- CC placed,[facility] no longer taking ASA as ordered. HTN- BP at goal - continue with am lodipine and losartan DM- labs pending - using pioglitizone and insulin HLD- be sure to continue ezitimbe, labs pending BPH- successful surgery, he will continue finasteride, cialis will be DC'd when script completed. HEALTH MAINTENANCE/CLINICAL REMINDERS: MEDICATION RECONCILIATION Medication Reconciliation report reviewed and discussed with patient/caregiver. VA prescription medications, non-VA prescription medications, OTC and herbal medications reviewed: Patient/caregiver verifies that the list is complete and accurate and voices understanding. Patient/caregiver in possession of printed medication list. FOLLOW-UP: 6 months with labs I am the Staff Provider. TOTAL TIME SPENT: Spent 30 minutes in care of this patient today including review of records, exam, and placing orders. /es/ NASIMA CHAMBERS NURSE PRACTITIONER Signed: 03/16/2025 14:30 03/16/2025 ADDENDUM STATUS: COMPLETED His A1C is 9.9%, o therwise his labs look good. I put in a consult for Nasima to see him. /es/ NASIMA CHAMBERS NURSE PRACTITIONER Signed: 03/16/2025 19:33 Receipt Acknowledged By: 03/17/2025 08:34 /es/ ROXANE HODGES REGISTERED NURSE 03/17/2025 ADDENDUM STATUS: COMPLETED This bond underwriter called [place] to inform him of A1C results, understood and is willing and agreeable to see Nasima to further discuss management of his A1C. No further questions for this bond underwriter. /es/ ROXANE HODGES REGISTERED NURSE Signed: 03/17/2025 08:36 03/22/2025 ADDENDUM STATUS: COMPLETED Mingo presents as a walk-in at the [facility] requesting a dental clearance/medical release form be filled out by Nasima Chambers due to taking Clopidogrel. Mingo is scheduled at 10:00 am today 03/22/25 at [facility] for teeth extraction of (5) teeth. This bond underwriter explained that he did not call for this paper and his provider, Nasima Chambers is not here today in clinic and the covering provider is in full clinic and the other providers do not know him as a patient to fill out the form. Explained to Mingo that admin and forms like this need to be dropped off and then picked back up and that our team does this on . Mingo stated he would cancel his appointment for today at 10:00. Data Collection Specialist informed [facility] that bond underwriter would give provider the form upon her return to clinic for review and this bond underwriter would call [facility] when the form was complete. [phone]. No further questions for this bond underwriter. /es/ ROXANE HODGES REGISTERED NURSE Signed: 03/22/2025 16:29 NASIMA CHAMBERS [facility] Mar 16, 2025 01:52 PM PRIMARY CARE NURSI KARINA NOTE: LOCAL TITLE: OUTPATIENT NURSING INTAKE NOTE (T) STANDARD TITLE: PRIMARY CARE NURSING NOTE DATE OF NOTE: MAR 16, 2025@13:52 ENTRY DATE: MAR 16, 2025@13:52:44 AUTHOR: RICKEY SAMSON COSIGNER: URGENCY: STATUS: COMPLETED [...] MILD COUGH 05/25/2020 10:04 METFORMIN ABDOMINAL PAIN Have you fallen in the last 30 days? NO MEDICATION LIST REVIEW REPORT Patient states no change in documented OTC/Herbals at this visit. 1. Has the patient been feeling sad or distressed? No 2. Has the patient been having personal or family problems? No 3. Has the patient been experiencing worry and/or stress? No 4. Has the patient been having problems with drugs and/or alcohol? No 5. Crisis Line pocket card was provided to patient. No/patient declined [facility] not documented this visit. Clinical Reminders Activity Homelessness/Food Insecurity Screen: In the past 2 months, have you been living in stable housing that you own, rent, or stay in as part of a household? Yes - Living in stable housing. Are you worried or concerned that in the next 2 months you may NOT have stable housing that you own, rent, or stay in as part of a household? No - Not worried about housing near future The [facility] reports the following: Within the past 12 months, you worried whether your food would run out before you got money to buy more. Never true Within the past 12 months, the food you bought just didn't last and you didn't have money to get more. Never true Influenza Immunization: Deferral / Refusal The patient declines to receive the recommended dose of seasonal influenza vaccine. Immunization: INFLUENZA, UNSPECIFIED FORMULATION Refusal Reason: PATIENT DECISION Patient refuses all immunization(s) in the FLU group Date Documented: 03/16/25 13:59 Patient Education Documentation: LEARNING NEEDS ASSESSMENT: The patient/family/significant other reports no changes in learning needs. Foot Exam: PAVE: The foot check was not completed. : [place] decliness PAVE COVID-19 Immunization: Refused Pfizer Monovalent COVID-19 vaccine Immunization: COVID-19 (PFIZER), MRNA, LNP-S, PF, PERRY-SUCROSE, 30 MCG/0.3 ML (AGES 12+ YEARS) Refusal Reason: PATIENT DECISION Patient refuses all immunization(s) in the COVID-19 group Date Documented: 03/16/25 13:59 Pneumococcal Conjugate Vaccine (PCV15/PCV20/PCV21): Refuses PCV vaccine Immunization: PNEUMOCOCCAL CONJUGATE, UNSPECIFIED FORMULATION Refusal Reason: PATIENT DECISION Patient refuses all immunization(s) in the PneumoPCV group Date Documented: 03/16/25 13:59 RSV Immunization: Respiratory Syncytial Virus (RSV) Vaccine: Refused PawSpot (Abrysvo, RSVpreF vaccine). Immunization: RSV, BIVALENT, PROTEIN SUBUNIT RSVPREF, DILUENT RECONSTITUTED, 0.5 ML, PF Refusal Reason: PATIENT DECISION Patient refuses all immunization(s) in the RSV group Date Documented: 03/16/25 14:00 Tdap Immunization: The patient declines to receive the recommended dose of Tdap vaccine. Immunization: TDAP Refusal Reason: PATIENT DECISION Patient refuses all immunization(s) in the TDAP group Date Documented: 03/16/25 14:00 /torri/ RICKEY SAMSON LICENSED PRACTICAL NURSE Signed: 03/16/2025 14:50 RICKEY SAMSON OC
--- OUTSIDE RECORDS SUMMARY | 2025-03-22 04:30 | XMS_ITS | Encounter Summary ---
Author Name [facility] [place] Organization [facility] [place] Address [address] [place] [id number] Care Team Providers Care Jig Fitter Name Role Phone NASIMA SOTO Primary Care [...] Name Patient's Relationship to Policy Casas [facility] [facility] (WNR) MEDICARE ADVANTAGE [facility] (WNR) Sep 01, 2024 [id number] [phone] YADIEL,LALIT DOMINICK PATIENT Selected Encounter This section includes the information on record at [place] for the Encounter. Date/Time Encounter Type Encounter Description Reason Provider Source Mar 22, 2025 08:30 AM MTMS BY PHARM RONAL 15 MIN CLINICAL PHARMACY ICD-10-CM E11.9 Type 2 diabetes mellitus without complications NASIMA RHOADES IHGautam Encounter Template Text not used by [place] Assessments - Encounter Diagnoses This section includes the primary and secondary diagnoses documented for the Encounter. Date/Time Primary/Secondary Diagnosis Diagnosis Name Provider Source Mar 22, 2025 03:31 PM PRIMARY Type 2 diabetes mellitus without complications NASIMA RHOADES Plan of Treatment: Future Appointments (+ 6 months) and Future Tests (+/- 45 days) The Plan of Treatment section includes future care activities for the patient from all [place] treatmentfacilities. This section includes future appointments and future orders which are active, pending or scheduled. Future Appointments This section includes appointments that were scheduled to occur 6 months from the date of the Encounter, up to a maximum of 20 appointments. The data comes from all [facility]. Appointment Date/Time Appointment Type Appointme nt Facility Name April 05, 2025 10:00 AM AMBULATORY - NONE [facility] April 21, 2025 09:00 AM [facility] May 11, 2025 09:00 AM AMBULATORY - SURGERY [facility] May 27, 2025 02:30 PM AMBULATORY - NONE [facility] Jun 02, 2025 03:00 PM [facility] Sep 08, 2025 10:15 AM AMBULATORY - NONE [facility] Sep 15, 2025 01:00 PM AMBULATORY - NONE [facility] Active, Pending, and Scheduled Orders This section includes a listing of several types of active, pending, and scheduled orders, including clinic medications orders, diagnostic test orders, procedure orders and consult orders; where the start date of the order is 45 days before the date of the Encounter or 45 days after the date of theEncounter. The data comes from all [facility]. Test Date/Time Test Type Test Details Facility Name Mar 16, 2025 02:25 PM Consult Order COMMUNITY [facility]ARE-NEUROLOGY Cons [facility] Mar 21, 2025 12:00 AM Laboratory - Chemi stry Order URINALYSIS URINE SP ONCE [facility] Mar 21, 2025 12:00 AM Laboratory - Chemi stry Order MICROALBUMIN/CREATININE RATIO PANEL URINE, RANDOM SP ONCE [facility] Lab Results: +/- 30 days of the encounter This section includes the Chemistry and Hematology Lab Results on record with [place] for the patient. Radiology Reports and Pathology Reports are provided separately, in subsequent sections. Lab Results This section contains the Chemistry/Hematology Results that were resulted 30 days before or 30 daysafter the date of the Encounter. Date/Time Source Result Type Result - Unit Interpretation Reference Range Specimen Type Comment Mar 16, 2025 01:44 PM [facility] HEMOGLOBIN A1C BLOOD Specimen Type: BLOOD [...] Jan 21, 2025 08:15 AM Reporting Lab: [address] [address] Performing Lab: [address] [address] HEMOGLOBIN A1C 9.9 H 3.6-5.7 Mar 16, 2025 01:44 PM [facility] PROSTATE SPECIFIC ANTIGEN SERUM Speci men Type: SERUM Comment: TPSA Testing males >= 70 y/o is not recommended if there is a TPSA history of previously normal PSA testing. Assay performed on TPSA [employer] using CMIA methodology. Patient results TPSA determined by assays using different manufacturers or methods TPSA may not be comparable. Ordering Provider: NASIMA SOTO Report Released Date/Time: Jan 21, 2025 08:15 AM Reporting Lab: [address] [address] Performing Lab: [address] [address] PROSTATE SPECIFIC ANTIGEN 4.232 ng/mL 0. 000-4.500 Mar 16, 2025 01:44 PM [facility] TSH PLASMA Specimen Type: PLASMA Comment: GLUCOSE [...] Jan 21, 2025 08:15 AM Reporting Lab: [address] [address] Performing Lab: [place] [id number] TSH 1.383 u[IU]/mL 0.350-4.940 Mar 16, 2025 01:44 PM [facility] [...] Jan 21, 2025 08:15 AM Reporting Lab: [address] [address] Performing Lab: [place] [id number] CHOLESTEROL 156 mg/dL 0-199 LDL CHOLESTEROL 92 mg/dL 0-99 HDL CHOLESTEROL 45 mg/dL >40 TRIGLYCERIDE 209 mg/dL H 0-149 Mar 16, 2025 01:44 PM [facility] [...] Jan 21, 2025 08:15 AM Reporting Lab: [address] [address] Performing Lab: [address] [address] FREE T4 1.02 ng/dL 0.70-1.48 Mar 16, 2025 01:44 PM [facility] COMPREHENSIVE METABOLIC PANEL PLASMA S pecimen Type: [...] Jan 21, 2025 08:15 AM Reporting Lab: [address] [address] Performing Lab: [address] [address] ALBUMIN 4.2 g/dL 3.5-4.8 ALKALINE PHOSPHATASE 87 [...] Jan 21, 2025 08:15 AM Reporting Lab: [facility] [address] [facility] [address] Performing Lab: [place] [id number] [facility] [address] WBC COUNT 7.8 10*3/uL 3.6-11.0 RBC COUNT [...] and tobacco- related health factors from the [place] facility where the Encounter took place. Current Smoking Status This section includes the most current smoking, or tobacco-related health factor, from the [place] facility where the Encounter took place. Date/Time Current Smoking Status Comment Facil ity Sep 22, 2024 08:00 AM VA-TOBACCO QUIT 5 TO < 15 YRS [facility] Tobacco Use History This section includes a history of the smoking, or tobacco-related health factors, that were collected on or before the date of the Encounter. The data comes from the [place] facility where the Encounter took place. Date/Time [...] the Encounter. The data comes from all [place] treatment facilities. Date/Time Radiology Report Provider Source Feb 21, 2025 12:35 PM LDCT LUNG CANCER S CREENING: MALCOM COTTO IV [id number] -[id number] M Exm Date: FEB 21, 2025@12:35 Req Phys: TANYA GU Loc: [facility] E-CONSULT LUNG SCREENING ( Img Loc: CONTRACT READ CT Service: [place] [address] (Case [id number] COMPLETE) LDCT LUNG CANCER SCREENING (CT Detailed) CPT:09521 CPT Modifiers : TC TECHNICAL COMPONENT Reason for Study: annual lung cancer screen/40 year smoker x 2PPD, quit 2015 Clinical History: [address] [place], [place] [address] Report Status: Verified Date Reported: FEB 24, 2025 Date Verified: FEB 24, 2025 Bank Compliance Officer E-Sig:/ES/YAW VÁZQUEZ Report: EXAMINATION: CT THORAX LUNG [...] REQUIRED Primary Interpreting Staff: YAW VÁZQUEZ, CONTRACTOR (Bank Compliance Officer) /YAW HAYES [facility] Encounter Notes: All associated encounter notes This section contains the clinical notes associated to the Encounter. Date/Time Encounter Note(s) Provider Source Mar 22, 2025 08:32 AM PHARMACY OUTPATIEN T NOTE: LOCAL TITLE: PACT PHARMACY NOTE (C) STANDARD TITLE: PHARMACY OUTPATIENT NOTE DATE OF NOTE: MAR 22, 2025@08:32 ENTRY DATE: MAR 22, 2025@08:36:51 AUTHOR: NASIMA RHOADES EXP COSIGNER: URGENCY: STATUS: COMPLETED SUBJECTIVE: The patient is a 64 year old MALE returning to PharmD clinic for DM -INTERIM HISTORY: New referral for DM mgmt. Recent elevated A1c of 9.9%, patient with recnt dx of stroke (not confirmed on MRI but dx with stroke based on subsequent admission for stroke like symptoms. -SOCIAL SUPPORT: Presents to clinic with . 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 insulin glargine (pen) 16 units qAM - confirms adherence to dosing, denies any lipohypertrophy but is administering in same spot daily, reinfrced ed for alternating inj site 2. empagliflozin 25 mg daily 3. pioglitazone 30 mg daily (states out of med for 3 weeks) -- denies LLE issues when taking - PCP reordered and supply in process for mail Past med trials: - metformin: abdominla pain, states sensitive stomach in general and has to take all meds w/ food; hs SA 500 mg tab once daily, last rx just , patient denies knowledge why stopped; after visit reviewed chart in more detail and was admitted to hospital in 2016 for diverticulitis - semaglutide: noted stomach upset and does not wish to retrial -HYPOGLYCEMIA: - denies s/s hypoglyemia - Reviewed s/s hypoglycemia, rule of 15s, and quick acting tx options -NUTRITION: - pt inquired about getorade, ahs cut out regular soda; reviewed only rec if exercising/working out in the head and having electrolyte lossess, if using to use G2 to avoid increased glucose; otherwise rec SF subtitutes when -ACTIVITY: - none -ALCOHOL: - drinks beer, several days a week in the evening, will have 3-5 beers - reviewed recommended daily/weekly limitations -TOBACCO: none PATIENT ALLERGIES DETAILED ALLERGIES/ADVERSE REACTIONS Type: DRUG Date/Time Reactant Severity Reaction 04/02/2024 10:55 ATORVASTATIN MODERATE PRURITUS 06/22/2021 08:46 GABAPENTIN MODERATE FACIAL SWELLING, EDEMA OF FACE 12/28/2020 13:53 LISINOPRIL MILD COUGH 05/25/2020 10:04 METFORMIN ABDOMINAL PAIN AMRS - MEDS (REC SUCCINCT) Active and Recently Inpatient, Outpatient and Clinic Medications (including Supplies): Active Outpatient Medications Status 1) AMLODIPINE BESYLATE 10MG TAB TAKE ONE TABLET BY MOUTH ACTIVE EVERY DAY 2) CLOPIDOGREL BISULFATE 75MG TAB TAKE ONE TABLET BY ACTIVE MOUTH EVERY DAY FOR SECONDARY STROKE PREVENTION DURATION INDEFINITE 3) EMPAGLIFLOZIN 25MG TAB TAKE ONE TABLET BY MOUTH EVERY ACTIVE DAY 4) EZETIMIBE 10MG TAB TAKE ONE TABLET BY MOUTH EVERY DAY ACTIVE (S) FOR HIGH CHOLESTEROL 5) FERROUS SULFATE 325MG TAB TAKE ONE TABLET BY MOUTH ACTIVE EVERY DAY (AN HOUR BEFORE OR TWO HOURS AFTER A MEAL; TAKE WITH FOOD IF THIS UPSETS YOUR STOMACH) 6) FINASTERIDE 5MG TAB TAKE ONE TABLET BY MOUTH EVERY ACTIVE DAY FOR BENIGN PROSTATIC HYPERPLASIA (DO NOT CRUSH) 7) INSULIN,GLARGINE 100 UNT/ML 3ML SOLOSTAR INJECT 16 ACTIVE (S) UNITS SUBCUTANEOUSLY AT BEDTIME (DISCARD PEN 28 DAYS AFTER FIRST USE) 8) LOSARTAN 50MG TAB TAKE ONE TABLET BY MOUTH EVERY DAY ACTIVE (S) FOR HIGH BLOOD PRESSURE 9) NEEDLE,PEN 31G,8MM USE NEEDLE SUPPLY ITEM DIRECTED ACTIVE FOR INJECTION 10) PIOGLITAZONE HCL 30MG TAB TAKE ONE TABLET BY MOUTH ACTIVE EVERY DAY 11) TADALAFIL 5MG TAB (ONCE DAILY) TAKE ONE TABLET BY ACTIVE MOUTH EVERY DAY FOR BENIGN PROSTATIC HYPERPLASIA (BPH) *THIS REPLACES TAMSULOSIN* 12) TRIAMCINOLONE ACETONIDE 0.1% OINT APPLY A SMALL ACTIVE AMOUNT EXTERNALLY TWICE A DAY APPLY TO THE BODY TWICE A DAY FOR 2 WEEKS THEN STOP FOR 7 DAYS. MAY REPEAT CYCLE OR DECREASE USE TO ONCE DAILY AREAS IMPROVE. DO NOT USE ON FACE, GROIN, ARMPITS Inactive Outpatient Medications Status 1) INSULIN,GLARGINE-YFGN 100UNIT/ML PEN 3ML INJECT 16 UNITS SUBCUTANEOUSLY AT BEDTIME FOR DIABETES (DISCARD PEN 28 DAYS AFTER FIRST USE) Active Non-VA Medications Status 1) Non-VA MULTIVITAMINS AND MINERALS (CENTRUM) TAB ACTIVE MOUTH EVERY DAY 14 Total Medications OBJECTIVE Measurement DT WEIGHT LB(KG)[BMI] 10/06/2024 07:45 224(101.60)[32*] 09/22/2024 07:54 223(101.15)[32*] 07/14/2024 11:18 214(97.07)[31*] 05/06/2024 12:58 214(97.07)[31*] 03/18/2024 12:46 214.6(97.34)[31*] 03/13/2024 15:11 215(97.52)[31*] VITALS: Measurement DT PULSE 10/06/2024 07:45 72 09/22/2024 07:54 74 07/28/2024 14:49 54 07/28/2024 14:25 55 07/28/2024 09:39 62 07/14/2024 11:18 69 BP (Date Time) 129/74 (10/06/2024 07:45) 138/74 (09/22/2024 07:54, L ARM, SITTING, ADULT CUFF, CUFF-MANUAL) 128/75 (07/28/2024 14:49) LABORATORY: Hemoglobin A1C: HGBA1C: 9.9 (03/16/25 13:44) BLOOD HGBA1C: 7.8 (09/22/24 08:20) BLOOD HGBA1C: 7.8 (03/05/24 08:00) BLOOD Lipid Panel: Collection DT Specimen Test Name Result Units Ref Range 03/16/2025 13:44 PLASMA CHOLESTEROL 156 mg/dL 0 - 199 03/16/2025 13:44 PLASMA LDL CHOLESTEROL 92 mg/dL 0 - 99 03/16/2025 13:44 PLASMA HDL CHOLESTEROL 45 mg/dL Ref: >=40 03/16/2025 13:44 PLASMA TRIGLYCERIDE 209 H mg/dL [...] mg/dL HIGH: 160-189 mg/dL VERY HIGH: >=190 Renal Panel: Collection DT Specimen Test Name Result Units [...] mg/dL HIGH: 160-189 mg/dL VERY HIGH: >=190 No Results Hepatic Function Panel: Collection DT Specimen Test Name Result Units [...] mg/dL HIGH: 160-189 mg/dL VERY HIGH: >=190 Microalbumin Ratio: Collection DT Specimen Test Name Result Units Ref Range 09/22/2024 08:20 URINE MICROALB/CREAT RA 36.90 H mg/g Ref: <=19.9 Creatinine Clearance: Est. CRCL 62.9 mL/min 03/16/25 TSH/T4: ..TSH: 3.630 (02/07/12 10:20) SERUM TSH: 1.383 (03/16/25 13:44) PLASMA FT4 1.02 (03/16/25 13:44) PLASMA URIC ACID: URIC ACID: No data available HOME MONITORING: Home BG Readings: Morning fasting - Has not BG check 287 iin clinic, had sausage egg muffin sandwhich + coffeee w/ creamer (~1.5-2 hrs) - states gets up in the AM, usually pushed, has to eat before taking pills before getting stomach upset Date Range: 09/23/2024 - 03/22/2025 bG values are displayed in mg/dL # of tests 19 Average 219 SD 34.5 Highest 287 Lowest 150 Avg tests/day 0.1 # HI 0 # LO 0 <70 0.0% 70-140 0.0% >140 100.0% Hypos(<50) 0 Date Range: 09/23/2024 - 03/22/2025 bG values are displayed in mg/dL 00:00- 05:30- 08:00- 11:00- 12:30- 17:00- 18:30- :30- 05:30 08:00 11:00 12:30 17:00 18:30 21:30 00:00 Reports mostly checking FBG before Average 178 209 236 0 0 [address] [facility] 12/05/2024 209 [place] 12/06/2024 224 [facility] 12/08/2024 233 [place] 12/10/2024 205 173 150 12/11/[address] [facility] 12/12/2024 221 [place] 12/13/2024 253 [facility] 12/14/2024 226 [facility] 12/15/2024 200 12/16/2024 267 [place] 12/17/2024 229 12/18/[address] [facility] 12/19/2024 215 [facility] 12/21/2024 217 [facility] 12/24/2024 199 [facility] 03/11/2025 287 *random glucose check while in clinic today 03/22 meter date/time off - states he has not checked BG d/t being 'too busy' -- notes usually getting up, taking meds, and having to butt out the door Clinical Reminders Activity PBM PharmD Pharmacotherapy Rem V12: PHARMACIST INTERVENTIONS: TYPE 2 DIABETES MELLITUS A1c elevated above goal >7.5% (slightly relaxed for stroke hx). Discussed CGM CFU, reviewed need for daily glucose adherence checks to request CGM, can schedule 2 week f/u to review to work in new start/education. Pt did not have phone to confirm if compatible with chris, provided handout and instructions to download chris and create accout if able, if phone not compatible, plan to order reader at f/u if patient adhernet to FBG checks. Discussed DM tx options, pt on ASCVD benefit agent of empagliflozin. Open to restarting metformin SA as preference to get off insulin if able. Given new start of metformin and restart of pioglitazone (alto FBGs >200 back in Dec when still on pioglitazone) defer increase in insulin at this time. Medication Intervention(s) Initiate new medication - start metformin SA 500 mg tabs: 1 tab daily x14 days then 2 tabs daily w/ food - resume pioglitazone 20 mg daily - continue insulin glargine 16 units daily -- check FBG, bring meter and phone to f/u, download kenneth chris and create account Medications reconciled and discussed with patient/caregiver. Patient/caregiver in possession of printed medication list. [facility] Clinical Care- PharmD created treatment plan through shared decision making with patient according prioritizing their goals and interests. [facility] Education- PharmD educated patient surrounding one of the eight components of proactive health and well being (moving the body, surroundings, personal development, food and drink, recharge, relationships, spirit and soul, power of the mind). Return for follow-up labs: TBD RTC to see Pharmacy Clinic: 2 weeks Future Appointments May@09:00 [facility] OPTOMETRY - [facility] ASHBY Sep@10:15 [facility] LAB - [facility] Sep@13:00 MIC[facility]EL PACT 5 GAEL - [facility] PACT 5 CHARLES --- Recall Reminders --- Time spent with patient = 45 minutes. /torri/ NASIMA RHOADES CLINICAL CRITICAL SYSTEMS TECHNICIAN Signed: 03/22/2025 15:31 NASIMA RHOADES CBMARI
--- OUTSIDE RECORDS SUMMARY | 2025-04-05 06:00 | XMS_ITS | Encounter Summary ---
Author Name [facility] [place] Organization [facility] [place] [place] Address [address] [place] [id number] Care Team Providers Care Press Shop Supervisor Name Role Phone NASIMA SOTO Primary Care [...] Name Patient's Relationship to Policy Casas [employer] [facility] (WNR) MEDICARE ADVANTAGE [facility] (WNR) Sep 01, 2024 [id number] [phone] YADIELLALIT DOMINICK PATIENT Selected Encounter This section includes the information on record at [place] for the Encounter. Date/Time Encounter Type Encounter Description Reason Provider Source April 05, 2025 10:00 AM MTMS BY PHARM JANESSAL 15 MIN CLINICAL PHARMACY ICD-10-CM E11.9 Type 2 diabetes mellitus without complications NASIMA RHOADES IHGautam Encounter Template Text not used by [place] Assessments - Encounter Diagnoses This section includes the primary and secondary diagnoses documented for the Encounter. Date/Time Primary/Secondary Diagnosis Diagnosis Name Provider Source April 05, 2025 04:59 PM PRIMARY Type 2 diabetes mellitus without complications NASIMA RHOADES MARI Plan of Treatment: Future Appointments (+ 6 months) and Future Tests (+/- 45 days) The Plan of Treatment section includes future care activities for the patient from all [facility]. This section includes future appointments and future orders which are active, pending or scheduled. Future Appointments This section includes appointments that were scheduled to occur 6 months from the date of the Encounter, up to a maximum of 20 appointments. The data comes from all [facility]. Appointment Date/Time Appointment Type Appointme nt Facility Name April 21, 2025 09:00 AM AMBULATORY - NONE [facility] May 11, 2025 09:00 AM AMBULATORY - SURGERY [facility] May 27, 2025 02:30 PM AMBULATORY - NONE [facility] Jun 02, 2025 03:00 PM AMBULATORY - NONE [facility] Sep 08, 2025 10:15 AM AMBULATORY - NONE [facility] Sep 15, 2025 01:00 PM AMBULATORY - NONE [facility] Active, Pending, and Scheduled Orders This section includes a listing of several types of active, pending, and scheduled orders, including clinic medications orders, diagnostic test orders, procedure orders and consult orders; where the start date of the order is 45 days before the date of the Encounter or 45 days after the date of theEncounter. The data comes from all [facility]. Test Date/Time Test Type Test Details Facility Name Mar 16, 2025 02:25 PM Consult Order COMMUNITY CARE-NEUROLOGY Cons [facility] Mar 21, 2025 12:00 AM Laboratory - Chemi stry Order URINALYSIS URINE SP ONCE [facility] Mar 21, 2025 12:00 AM Laboratory - Chemi stry Order MICROALBUMIN/CREATININE RATIO PANEL URINE, RANDOM SP ONCE [facility] Lab Results: +/- 30 days of the encounter This section includes the Chemistry and Hematology Lab Results on record with [place] for the patient. Radiology Reports and Pathology Reports are provided separately, in subsequent sections. Lab Results This section contains the Chemistry/Hematology Results that were resulted 30 days before or 30 daysafter the date of the Encounter. Date/Time Source Result Type Result - Unit Interpretation Reference Range Specimen Type Comment Mar 16, 2025 01:44 PM [facility] HEMOGLOBIN A1C BLOOD Specimen Type: BLOOD Comment: [...] Jan 21, 2025 08:15 AM Reporting Lab: [address] [phone] Performing Lab: [address] [id number] HEMOGLOBIN A1C 9.9 H 3.6-5.7 Mar 16, 2025 01:44 PM [facility] OC TSH PLASMA Specimen Type: PLASMA Comment: GLUCOSE [...] Jan 21, 2025 08:15 AM Reporting Lab: [address] [phone] Performing Lab: [address] [address] TSH 1.383 u[IU]/mL 0.350-4.940 Mar 16, 2025 01:44 PM [facility] PROSTATE SPECIFIC ANTIGEN SERUM Speci men Type: SERUM Comment: TPSA Testing males >= 70 y/o is not recommended if there is a TPSA history of previously normal PSA testing. Assay performed on TPSA [facility] [facility] using CMIA methodology. Patient results TPSA determined by assays using different manufacturers or methods TPSA may not be comparable. Ordering Provider: NASIMA SOTO Report Released Date/Time: Jan 21, 2025 08:15 AM Reporting Lab: [address] [phone] Performing Lab: [address] [address] PROSTATE SPECIFIC ANTIGEN 4.232 ng/mL 0. 000-4.500 Mar 16, 2025 01:44 PM [facility] LIPID PROFILE PLASMA Specimen Type: PLASMA Comment: [...] Jan 21, 2025 08:15 AM Reporting Lab: [address] [address] Performing Lab: [address] [address] CHOLESTEROL 156 mg/dL 0-199 LDL CHOLESTEROL 92 mg/dL 0-99 HDL CHOLESTEROL 45 mg/dL >40 TRIGLYCERIDE 209 mg/dL H 0-149 Mar 16, 2025 01:44 PM [facility] FREE T4 PLASMA Specimen Type: PLASMA Comment: [...] Jan 21, 2025 08:15 AM Reporting Lab: [address] [address] Performing Lab: [place] [id number] FREE T4 1.02 ng/dL 0.70-1.48 Mar 16, [...] Jan 21, 2025 08:15 AM Reporting Lab: [address] [phone] Performing Lab: [address] [address] ALBUMIN 4.2 g/dL 3.5-4.8 ALKALINE PHOSPHATASE 87 [...] Jan 21, 2025 08:15 AM Reporting Lab: [facility] [id number] [place] [id number] Performing Lab: [address] [phone] WBC COUNT 7.8 10*3/uL 3.6-11.0 RBC COUNT [...] and tobacco- related health factors from the [place] facility where the Encounter took place. Current Smoking Status This section includes the most current smoking, or tobacco-related health factor, from the [place] facility where the Encounter took place. Date/Time Current Smoking Status Comment Arnulfo ity Sep 22, 2024 08:00 AM VA-TOBACCO QUIT 5 TO < 15 YRS [facility] Tobacco Use History This section includes a history of the smoking, or tobacco-related health factors, that were collected on or before the date of the Encounter. The data comes from the [place] facility where the Encounter took place. Date/Time Smoking Status/Tobacco Use Comment F acginny Sep 22, 2024 08:00 AM VA-TOBACCO QUIT [...] the Encounter. Date/Time Encounter Note(s) Provider Source April 05, 2025 08:21 AM PHARMACY OUTPATIEN T NOTE: LOCAL TITLE: PACT PHARMACY NOTE (T) STANDARD TITLE: PHARMACY OUTPATIENT NOTE DATE OF NOTE: APRIL 05, 2025@08:21 ENTRY DATE: APRIL 05, 2025@08:22:04 AUTHOR: NASIMA RHOADES EXP COSIGNER: URGENCY: STATUS: COMPLETED SUBJECTIVE: The patient is a 64 year old MALE returning to PharmD clinic for DM [facility] -INTERIM HISTORY: Patient re-established with pharm clinic 03/22/25 for DM mgmt s/p elevated A1c and recent dx of stroke (not confirmed on MRI but dx based on recurrent admission for stroke symptoms). A1c elevated above goal >7.5% (slightly relaxed [...] start of metformin and restart of pioglitazone (altho FBGs >200 back in Dec when still on pioglitazone) defer increase in insulin at this time. - start metformin SA 500 mg tabs: 1 tab daily x14 days then 2 tabs daily w/ food - resume pioglitazone 30 mg daily when received in mail - continue insulin glargine 16 units daily -- check FBG, bring meter and phone to f/u, download Pushfor chris and create account ACTIVE PROBLEM Retention of urine 03/18/2024 Straining [...] DM - Diabetes mellitus (SNOMED CT 10/11/2015 [id number]) Vitamin D deficiency 08/28/2022 Osteoarthritis 08/28/2022 Hearing loss 08/28/2022 Benign essential hypertension (SNOMED 05/04/2016 CT [id number]) -MEDICATION MANAGEMENT: DIABETES: 1. insulin glargine (pen) 16 units qAM 2. empagliflozin 25 mg daily 3. pioglitazone 30 mg daily 4. metformin SA 500 mg tablet - still finsihing once daily, to step up to 1gm daily - reports tolerating once daily -- patient brought phone but did not download Pushfor chris as instructed -- confirmed NFC but additional time spent downloading hcris as patient did not know password or have biometric ID to pass through [employer] store settings Past med trials: - metformin: abdominla pain, states sensitive stomach in general and has to take all meds w/ food; hs SA 500 mg tab once daily, last rx just , patient denies knowledge why stopped; after visit reviewed chart in more detail and was admitted to hospital in 2015 for diverticulitis - semaglutide: noted stomach upset and does not wish to retrial -HYPOGLYCEMIA: - none, denies every having low sugars - reinfroced ed w/ insulin and improvement isnce start of metformin; provided ed handout -NUTRITION: - had teeth pulled last 03/31, wearing temporary dentures - has just been eating soft/liquid food, no solids - eating scrambled eggs, instant mashed potatoes, hamburger gravy, pancakes (regular syrup); some protein drinks; regular jello; apple sauce; bananas PATIENT ALLERGIES DETAILED ALLERGIES/ADVERSE REACTIONS Type: DRUG [...] MOUTH EVERY DAY ACTIVE FOR HIGH CHOLESTEROL 5) FERROUS SULFATE 325MG [...] EVERY DAY ACTIVE FOR HIGH BLOOD PRESSURE 9) METFORMIN HCL 500MG TAB TAKE ONE TABLET BY MOUTH ACTIVE EVERY DAY FOR 14 DAYS, THEN TAKE TWO TABLETS EVERY DAY FOR TYPE 2 DIABETES MELLITUS (AVOID ALCOHOL) 10) NEEDLE,PEN 31G,8MM USE NEEDLE SUPPLY ITEM DIRECTED ACTIVE FOR INJECTION 11) PIOGLITAZONE HCL 30MG TAB TAKE ONE TABLET BY MOUTH ACTIVE (S) EVERY DAY FOR TYPE 2 DIABETES MELLITUS 12) TADALAFIL 5MG TAB (ONCE DAILY) TAKE ONE TABLET BY ACTIVE MOUTH EVERY DAY FOR BENIGN PROSTATIC HYPERPLASIA (BPH) *THIS REPLACES TAMSULOSIN* Inactive Outpatient Medications Status 1) INSULIN,GLARGINE-YFGN 100UNIT/ML PEN 3ML INJECT 16 UNITS SUBCUTANEOUSLY AT BEDTIME FOR DIABETES (DISCARD PEN 28 DAYS AFTER FIRST USE) 2) TRIAMCINOLONE ACETONIDE 0.1% OINT APPLY A SMALL AMOUNT EXTERNALLY TWICE A DAY APPLY TO THE BODY TWICE A DAY FOR 2 WEEKS THEN STOP FOR 7 DAYS. MAY REPEAT CYCLE OR DECREASE USE TO ONCE DAILY AREAS IMPROVE. DO NOT USE ON FACE, GROIN, ARMPITS Active Non-VA Medications Status 1) Non-VA MULTIVITAMINS AND MINERALS (CENTRUM) TAB ACTIVE MOUTH EVERY DAY 15 Total Medications OBJECTIVE Measurement DT WEIGHT LB(KG)[BMI] 03/22/2025 15:31 219.9(99.74)[32*] 10/06/2024 07:45 224(101.60)[32*] 09/22/2024 07:54 223(101.15)[32*] 07/14/2024 11:18 214(97.07)[31*] 05/06/2024 12:58 214(97.07)[31*] VITALS: Measurement DT PULSE 10/06/2024 07:45 72 09/22/2024 07:54 74 07/28/2024 14:49 54 07/28/2024 14:25 55 07/28/2024 09:39 62 BP (Date Time) 129/74 (10/06/2024 07:45) 138/74 [...] mg/g Ref: <=19.9 Creatinine Clearance: Est. CRCL 62.3 mL/min 03/16/25 TSH/T4: ..TSH: 3.630 (02/07/12 10:20) SERUM TSH: 1.383 (03/16/25 13:44) PLASMA FT4 1.02 (03/16/25 13:44) PLASMA URIC ACID: URIC ACID: No data available HOME MONITORING: Home BG Readings: Date Range: 03/07/2025 - 04/05/2025 bG values are displayed in mg/dL # of tests 17 Average 204 SD 63.7 Highest 369 Lowest 134 Avg tests/day 0.6 # HI 0 # LO 0 <70 0.0% 70-140 5.9% >140 94.1% Hypos(<50) 0 Date Range: 03/07/2025 - 04/05/2025 bG values are displayed in mg/dL 00:00- 05:30- 08:00- 11:00- 12:30- 17:00- 18:30- :30- 05:30 08:00 11:00 12:30 17:00 18:30 21:30 00:00 Average 0 189 174 0 145 0 215 293 Sonja 03/11/2025 287 03/23/2025 311 369 03/24/2025 183 215 Sonja 03/25/2025 186 222 03/26/2025 168 03/27/2025 225 03/29/2025 185 03/30/2025 187 03/31/2025 174 -- had teeth pulled 04/02/2025 157 04/03/2025 163 145 04/04/2025 134 04/05/2025 153 Has Death by Party S23 FE - downloaded Pushfor 3 chris, pt requested password be recorded if he forgets: [email or web address] Phonitive - [employer] personal training: * [employer] [place] was set up with correct date/time and targets/alarms * Education provided on how to change settings, set alerts if needed and how to view reports on reader * Sensors refills noted, sensors are used for 14 days and reordered from pharmacy (2 sensors for 28-day supply) * The only approved site to wear the sensor is the back of the arm; avoid moles, scars, hairy areas * Sensor placed by patient/caregiver during visit; patient was able to perform steps and insert * Reviewed reader screen and alerts including when to check confirmatory BG * Patients educated that they should wear sensor consistently and keep phone/reader within 33 feet to capture 100% of CGM Data. Patient is aware that capturing at least 70% of data is required for approval. * [employer] retains data for 90 days * Reviewed symbols, arrows and alerts that may be communicated by the [employer] [place] * If appropriate, patient given instructions on setting up [employer] account and email invitation send to patient * Patient given [place] Practice ID ([facility]) in case email is not received * Counseled on using same email for all [employer] or X[employer] accounts * [employer] [place] line number: * Online sensor replacement: [email or web address] * Phone compatibility check: [email or web address] [place] points discussed with patient: * If sensor does not last 14 days or reader malfunctions, call [employer] for replacements; may need to send malfunctioning sensor back to [employer] if requested * Sensor glucose lags behind blood glucose; may be a large discrepancy between glucose values when BGs are rising or falling quickly. In these cases, use blood glucose for treatment decisions. * Always check BG if sensor glucose does not match symptoms. Confirmatory BG should also be used if suspect inaccuracy for any reason, when there is no glucose number or trend arrow, or when magnifying glass is visible with scan. * Educated patient on possibility of compression lows and confirming blood sugar with a fingerstick * Sensor is water resistant, can shower with sensor * Must be removed prior to MRI/Xray/CT * Patient is to review instructions prior to going through airport security * Sensor can be less accurate if dehydrated or taking doses of vitamin C greater than 500mg/day * Explained how to add treatment notes (insulin doses/food log) * If a logbook is desired: Instructed patient they must enter a note when reviewing blood sugar reading for it to be added to the logbook CONTINUOUS GLUCOSE MONITOR PATIENT CONTRACT * Patient agrees to training on use of CGM within one month of sensor initiation * Patient agrees to follow-up with an Endocrinology or PACT PharmD provider within three months of sensor initiation * Patients agrees to follow-up appointments at least yearly thereafter * Patient agrees to scan to keep sensor active 70% of the time * Patient agrees to continue conducting traditional fingersticks as needed * Patient agrees to using Flare Code or returning for F2F visits for reader download when appropriate * Patient understands if they are admitted to the hospital, they will have to conduct fingersticks Clinical Reminders Activity [facility] PharmD Pharmacotherapy Rem V12: PHARMACIST INTERVENTIONS: TYPE 2 DIABETES MELLITUS FBGs improving since start of metformin SA, restart of pioglitazone, and also possible diet changes d/t recent teeth extractions and dentures. Pt still having some simple sugar foods, discussed ways to help balance and limit simple added sugars. Tolerating metformin SA, pt unsure when started, rec increasing to 2 tabs daily starting tomorrow, no decrease in insulin as FBGS still all above goal 80-130 but pt to call before f/u if any low concerns. Given patient adherent to daily testing, will order kamilla sensors. Education provided today, unable to place sensor but reviewed technique and tips in chris. Provided patient with kamilla support #, patient to call company to set up additional education with [employer] if needing additional assistance. Will schedule 2 week phone f/u on kamilla, reviewed possible change to [facility] CPS coverage if staff writer out. Linked account to [place] practice. Medication Intervention(s) Adjust dose or frequency of current medication due to other reason - increase metformin SA 500 mg tabs to 2 tabs daily starting now. CONTINUE: 1. insulin glargine (pen) 16 units qAM 2. empagliflozin 25 mg daily 3. pioglitazone 30 mg daily Medications reconciled and discussed with patient/caregiver. Patient/caregiver [...] of the mind). Return for follow-up labs: Sep/ PCP RTC to see Pharmacy Clinic: 2 weeks Future Appointments April@10:00 [facility] - [facility] May@09:00 [facility] OPTOMETRY - [facility]OMET[facility] [place] May@14:30 [facility] CARE-NEUROLOGY - [facility] Sep@10:15 [facility] LAB - [facility] Sep@13:00 MICHAEL PACT 5 EMPLOYMENT INTERVIEWER - [facility] PACT 5 CHARLES --- Recall Reminders --- Time spent with patient = 45 minutes. /torri/ NASIMA RHOADES CLINICAL MARINE DIESEL TECHNICIAN Signed: 04/05/2025 16:59 NASIMA RHOADES [facility]
[2025-05-08] VITALS (16 sets, daily range): BP systolic 127–176; BP diastolic 68–94; PULSE 64–96; O2SAT 95–98; BMI 32.3
--- OUTSIDE RECORDS SUMMARY | 2025-05-08 03:58 | XMS_ITS | Continuity of Care Document ---
Author Name [facility] Organization [facility] Care Team Providers Care Loss Prevention Specialist Name Role Phone [facility] Unavailable Unavailable Problems Combined list of problems from Department of Defense and Veterans Affairs facilities. It does not include entries that were removed or entered in error. Problem Status Onset Date Problem Type Date of Resolution Comments Source Alcohol dependence Active Condition [facility] Benign essential hypertension (SNOMED CT 7579346) Active Condition [facility] Cervical radiculopathy Active Condition [facility] Colonic polyps Active Condition Sep [id number] Entered By: BRITTANY AVILES Comment: next colonoscopy due Sep 2020 [facility] Coronary arteriosclerosis Active Condition Jun 08 Entered By: [facility] RICK MCDERMOTT Comment: CATH 04/17/16 NSTEMI>non-obs t CAD [facility] DM - Diabetes mellitus (SNOMED CT 48568150) Active Condition [facility] Elevated PSA Active Condition [facility] Hearing loss Active Condition [facility] Hyperlipidemia Active Condition [facility] Lower urinary tract symptoms due to benign prostatic hypertrophy Active Condition [facility] Multiple nodules of lung Active Condition Feb 25, 2024 Entered By: NASIMA SOTO Comment: 02/22 repeat in 1 yearFeb 24, 2025 Entered By: NASIMA SOTO Comment: 02/23 lung rads 1 - repeat in 1 year [facility] Osteoarthritis Active Condition [facility] Patient noncompliance - general Active Condition [facility] Peripheral sensory neuropathy due to type 2 diabetes mellitus Active Condition [facility] Retention of urine Active Condition [facility] Shoulder pain Active Condition [facility] Smoker Active Condition [facility] Spinal stenosis in cervical region Active Condition [facility] Straining on urination due to benign prostatic hypertrophy Active Condition [facility] Vitamin D deficiency Active Condition [facility] Diagnosis: ICD-10-CM E11.9 Type 2 diabetes mellitus without complications Active Diagnosis [facility] Diagnosis: ICD-10-CM I63.9 Cerebral infarction, unspecified Active Diagnosis [facility] Diagnosis: ICD-10-CM R97.20 Elevated prostate specific antigen [PSA] Active Diagnosis [facility] Diagnosis: ICD-10-CM I10 Essential (primary) hypertension Active Diagnosis [facility] Diagnosis: ICD-10-CM N40.1 Benign prostatic hyperplasia with lower urinary tract symp Active Diagnosis [facility] Diagnosis: ICD-10-CM Z01.818 Encounter for other preprocedural examination Active Diagnosis [facility] Diagnosis: ICD-10-CM E11.65 Type 2 diabetes mellitus with hyperglycemia Active Diagnosis [facility] Diagnosis: ICD-10-CM L29.9 Pruritus, unspecified Active Diagnosis [facility] Diagnosis: ICD-10-CM N40.0 Benign prostatic hyperplasia without lower urinry tract symp Active Diagnosis [facility] Diagnosis: ICD-10-CM Z46.1 Encounter for fitting and adjustment of hearing aid Active Diagnosis [facility] Medications Combined list of outpatient medications from Department of Defense and Veterans Affairs facilities.Medications provided include 1) outpatient medications from the last 15 months, and 2) patient-reported medications. Medication Details Route Status Patient Instructions Prescription Expires Prescription Number Last Dispense Date Ordering Provider Order Date Order Qty Source ACETAMINOPH EN 325MG TAB TAKE TWO TABLETS BY MOUTH EVERY 6 HOURS NEEDED FOR PAIN : NOT TO EXCEED 12 TABLETS PER DAY ORAL 08/27/2024 [id number] NETO CARPENTER S 2023 56 [facility] [place] [facility] AMLODIPINE BESYLATE 10MG TAB TAKE ONE TABLET BY MOUTH EVERY DAY ORAL ACTIVE 03/17/2026 [id number] 5 YOLA SOTO CARLA A 2024 90 [facility] AMLODIPINE BESYLATE 10MG TAB TAKE ONE TABLET BY MOUTH EVERY DAY ORAL DISCONT INUED 09/23/2025 [id number] 4 YOLA SOTO CARLA A 2023 90 [facility] AMLODIPINE BESYLATE 10MG TAB TAKE ONE TABLET BY MOUTH EVERY DAY ORAL DISCONT INUED 03/14/2025 [id number] 4 YOLA SOTO CARLA A 2023 90 [facility] ATORVASTATI N CA 10MG TAB TAKE ONE TABLET BY MOUTH EVERY DAY FOR HIGH CHOLESTE ROL ORAL DISCONT INUED BY PROVIDE R 09/11/2024 [id number] 4 CHARLES,RE CARLA A 2022 90 [facility] BISACODYL 10MG SUPP,RTL UNWRAP AND INSERT 1 SUPPOSIT ORY IN RECTUM AT BEDTIME (UNWRAP BEFORE ADMINIST ERING) ADMINIST ER PER RECTUM THE NIGHT BEFORE PROSTATE BIOPSY RECTAL 05/17/2024 [id number] 4 SHELBI,PR RNA I 2023 1 [facility] CHOLECALCIF JOSUÉ 50MCG (2,000UNIT) TAB TAKE ONE TABLET BY MOUTH EVERY DAY FOR VITAMIN D DEFICIEN CY ORAL 08/05/2024 [id number] 4 CHARLES,RE CARLA A 2023 100 [facility] CLOPIDOGREL BISULFATE 75MG TAB TAKE ONE TABLET BY MOUTH EVERY DAY FOR SECONDAR Y STROKE PREVENTI ON DURATION INDEFINI TE ORAL ACTIVE 03/17/2026 [id number] 5 CHARLES,RE CARLA A 2024 90 [facility] EMPAGLIFLOZ IN 25MG TAB TAKE ONE TABLET BY MOUTH EVERY DAY ORAL SUSPEND ED 04/06/2026 [id number] 5 SOLANGE RHOADES CA JOANIE 2024 90 [facility] EMPAGLIFLOZ IN 25MG TAB TAKE ONE TABLET BY MOUTH EVERY DAY ORAL DISCONT INUED 09/23/2025 [id number] 5 CHARLES,RE CARLA A 2023 90 [facility] EMPAGLIFLOZ IN 25MG TAB TAKE ONE TABLET BY MOUTH EVERY DAY ORAL DISCONT INUED 03/14/2025 [id number] 4 CHARLES,RE CARLA A 2023 90 [facility] EMPAGLIFLOZ IN 25MG TAB TAKE ONE TABLET BY MOUTH EVERY DAY ORAL DISCONT INUED 02/28/2025 [id number] 4 CHARLES,RE CARLA A 2023 90 [facility] EZETIMIBE 10MG TAB TAKE ONE TABLET BY MOUTH EVERY DAY FOR HIGH CHOLESTE ROL ORAL ACTIVE 03/17/2026 [id number] 5 CHARLES,RE CARLA A 2024 90 [facility] EZETIMIBE 10MG TAB TAKE ONE TABLET BY MOUTH EVERY DAY FOR HIGH CHOLESTE ROL ORAL DISCONT INUED 09/23/2025 [id number] 5 CHARLES,RE CARLA A 2023 90 [facility] EZETIMIBE 10MG TAB TAKE ONE TABLET BY MOUTH EVERY DAY FOR HIGH CHOLESTE ROL ORAL DISCONT INUED 04/03/2025 [id number] 4 CHARLES,RE CARLA A 2023 90 [facility] FERROUS SO4 325MG TAB TAKE ONE TABLET BY MOUTH EVERY DAY (AN HOUR BEFORE OR TWO HOURS AFTER A MEAL; TAKE WITH FOOD IF THIS UPSETS YOUR STOMACH) ORAL ACTIVE 05/08/2025 [id number] 4 CHARLES,RE CARLA A 2023 100 [facility] FINASTERIDE 5MG TAB TAKE ONE TABLET BY MOUTH EVERY DAY FOR BENIGN PROSTATI C HYPERPLA RONAN (DO NOT CRUSH) ORAL ACTIVE 03/17/2026 [id number] 5 CHARLES,RE CARLA A 2024 90 [facility] FINASTERIDE 5MG TAB TAKE ONE TABLET BY MOUTH EVERY DAY FOR BENIGN PROSTATI C HYPERPLA RONAN (DO NOT CRUSH) ORAL DISCONT INUED 03/19/2025 [id number] JESUS MARIO RNA I 2023 90 [place] [facility] IBUPROFEN 600MG TAB TAKE ONE TABLET BY MOUTH FOUR TIMES A DAY NEEDED FOR PAIN ORAL 08/27/2024 [id number] 4 NETO CARPENTER RLY S 2023 40 [place] [facility] INSULIN,GLA RGINE,HUMAN 100 UNIT/ML INJ,SOLOSTA R,3ML INJECT 8 UNITS SUBCUTAN EOUSLY EVERY DAY FOR DIABETES (DISCARD PEN 28 DAYS AFTER FIRST USE) SUBCUT ANEOUS ACTIVE 04/22/2026 [id number] 5 JF,REBEC CA JOANIE 2024 5 [facility] INSULIN,GLA RGINE,HUMAN 100 UNIT/ML INJ,SOLOSTA R,3ML INJECT 16 UNITS SUBCUTAN EOUSLY AT BEDTIME (DISCARD PEN 28 DAYS AFTER FIRST USE) SUBCUT ANEOUS DISCONT INUED (EDIT) 03/17/2026 [id number] 5 CHARLES,RE CARLA A 2024 5 [facility] INSULIN,GLA RGINE,HUMAN 100 UNIT/ML INJ,SOLOSTA R,3ML INJECT 16 UNITS SUBCUTAN EOUSLY AT BEDTIME (DISCARD PEN 28 DAYS AFTER FIRST USE) SUBCUT ANEOUS DISCONT INUED 01/22/2026 [id number] 5 CHARLES,RE CARLA A 2024 5 [facility] INSULIN,GLA RGINE-YFGN 100UNIT/ML INJ PEN,3ML INJECT 16 UNITS SUBCUTAN EOUSLY AT BEDTIME FOR DIABETES (DISCARD PEN 28 DAYS AFTER FIRST USE) SUBCUT ANEOUS DISCONT INUED 10/08/2024 [id number] 4 CHARLES,RE CARLA A 2023 5 [facility] INSULIN,GLA RGINE-YFGN 100UNIT/ML INJ PEN,3ML INJECT 16 UNITS SUBCUTAN EOUSLY AT BEDTIME FOR DIABETES (DISCARD PEN 28 DAYS AFTER FIRST USE) SUBCUT ANEOUS DISCONT INUED 06/04/2024 [id number] 4 CHARLES,RE CARLA A 2023 5 [facility] INSULIN,GLA RGINE-YFGN 100UNIT/ML INJ PEN,3ML INJECT 16 UNITS SUBCUTAN EOUSLY AT BEDTIME FOR DIABETES (DISCARD PEN 28 DAYS AFTER FIRST USE) SUBCUT ANEOUS 12/14/2024 [id number] 4 CHARLES,RE CARLA A 2023 5 [facility] LOSARTAN 50MG TAB TAKE ONE TABLET BY MOUTH EVERY DAY FOR HIGH BLOOD PRESSURE ORAL ACTIVE 06/14/2025 [id number] 5 CHARLES,RE CARLA A 2024 90 [facility] LOSARTAN 50MG TAB TAKE ONE TABLET BY MOUTH EVERY DAY FOR HIGH BLOOD PRESSURE ORAL DISCONT INUED 04/21/2025 [id number] 5 CHARLES,RE CARLA A 2024 90 [facility] LOSARTAN 50MG TAB TAKE ONE TABLET BY MOUTH EVERY DAY FOR HIGH BLOOD PRESSURE ORAL DISCONT INUED 12/21/2024 [id number] 4 CHARLES,RE CARLA A 2023 90 [facility] LOSARTAN 50MG TAB TAKE ONE TABLET BY MOUTH EVERY DAY FOR HIGH BLOOD PRESSURE ORAL DISCONT INUED 10/15/2024 [id number] 4 CHARLES,RE CARLA A 2023 90 [facility] LOSARTAN 50MG TAB TAKE ONE TABLET BY MOUTH EVERY DAY FOR HIGH BLOOD PRESSURE ORAL DISCONT INUED 06/11/2024 [id number] 4 CHARLES,RE CARLA A 2023 90 [facility] METFORMIN HCL 1000MG TAB TAKE ONE TABLET BY MOUTH TWICE A DAY BEFORE MEALS FOR TYPE 2 DIABETES MELLITUS (AVOID ALCOHOL) ORAL ACTIVE 04/22/2026 [id number] 5 JF,REBEC CA JOANIE 2024 180 [facility] METFORMIN HCL 1000MG TAB TAKE ONE TABLET BY MOUTH EVERY DAY FOR TYPE 2 DIABETES MELLITUS (AVOID ALCOHOL) ORAL DISCONT INUED (EDIT) 04/06/2026 [id number] 5 JF,REBEC CA JOANIE 2024 90 [facility] METFORMIN HCL 500MG TAB TAKE ONE TABLET BY MOUTH EVERY DAY FOR 14 DAYS, THEN TAKE TWO TABLETS EVERY DAY FOR TYPE 2 DIABETES MELLITUS (AVOID ALCOHOL) ORAL DISCONT INUED (EDIT) 05/21/2025 [id number] 5 JF,REBEC CA JOANIE 2024 106 [facility] MULTIVITAMI NS AND MINERALS (CENTRUM) TAB TAKE BY MOUTH EVERY DAY ORAL ACTIVE Gregory MACK 2021 [facility] PIOGLITAZON E HCL 30MG TAB TAKE ONE TABLET BY MOUTH EVERY DAY FOR TYPE 2 DIABETES MELLITUS ORAL SUSPEND ED 03/23/2026 [id number] 5 JF,REBEC CA JOANIE 2024 90 [facility] PIOGLITAZON E HCL 30MG TAB TAKE ONE TABLET BY MOUTH EVERY DAY ORAL DISCONT INUED 03/17/2026 [id number] 5 CAHRLES,RE CARLA A 2024 90 [facility] PIOGLITAZON E HCL 30MG TAB TAKE ONE TABLET BY MOUTH EVERY DAY ORAL DISCONT INUED 09/23/2025 [id number] 4 CHARLES,RE CARLA A 2023 90 [facility] PIOGLITAZON E HCL 30MG TAB TAKE ONE TABLET BY MOUTH EVERY DAY ORAL DISCONT INUED 03/14/2025 [id number] 4 CHARLES,RE CARLA A 2023 90 [facility] TADALAFIL 5MG TAB TAKE ONE TABLET BY MOUTH EVERY DAY FOR BENIGN PROSTATI C HYPERPLA RONAN (BPH) *THIS REPLACES TAMSULOS IN* ORAL ACTIVE 09/18/2025 [id number] 5 CHARLES,RE CARLA A 2023 90 [facility] TAMSULOSIN HCL 0.4MG CAP TAKE TWO CAPSULES BY MOUTH AT BEDTIME FOR BENIGN PROSTATI C HYPERPLA RONAN (BPH) ORAL DISCONT INUED BY PROVIDE R 03/19/2025 [id number] JESUS MARIO RNA I 2023 [facility] ACETONIDE 0.1% OINT,TOP APPLY A SMALL AMOUNT EXTERNAL LY TWICE A DAY APPLY TO THE BODY TWICE A DAY FOR 2 WEEKS THEN STOP FOR 7 DAYS. MAY REPEAT CYCLE OR DECREASE USE TO ONCE DAILY AREAS IMPROVE. DO NOT USE ON FACE, GROIN, ARMPITS APPLY TO THE BODY TWICE A DAY FOR 2 WEEKS THEN STOP FOR 7 DAYS. MAY REPEAT CYCLE OR DECREASE USE TO ONCE DAILY AREAS IMPROVE. DO NOT USE ON FACE, GROIN, ARMPITS ARMANDOA Ashish 04/02/2025 [id number] 4 Sharonda BURKS [address] [facility] Allergies, Adverse Reactions, Alerts Combined list of allergies from Department of Defense and Veterans Affairs facilities. It does not include entries that were removed or entered in error. Substance Category Reaction Severity Reaction type Status Date Reported Comments Source ATORVASTATIN Propensity to adverse reactions to drug (finding) Itching MODERATE active 4 [facility] GABAPENTIN Propensity to adverse reactions to drug (finding) Facial swelling, Facial swelling MODERATE active 1 [facility] LISINOPRIL Propensity to adverse reactions to drug (finding) Cough MILD active 1 [facility] Immunizations Combined list of available immunizations from the Department of Defense and Veterans Affairs facilities. Immunization Series Date Given Administered By Site Reaction Lot Number CVX Code Drug Clinical Biochemical Geneticist Status Comments Source INFLUENZA, UNSPECIFIED FORMULATION 2023 88 complet ed HISTORICA L INFORMATI ON - FROM PATIENT'S RECALL, [facility] INFLUENZA, INJECTABLE, QUADRIVALENT, PRESERVATIVE FREE 2021 EUFEMIA SCOTT LEFT DELTO ID [id number] 150 complet ed [place], [facility] ZOSTER RECOMBINANT 2021 187 complet ed [facility] COVID-19 (MODERNA), MRNA, LNP-S, PF, 100 MCG/0.5ML DOSE OR 50 MCG/0.25ML DOSE 3 2020 207 complet ed HISTORICA L INFORMATI ON - FROM OTHER REGISTRY, [facility] COVID-19 (MODERNA), MRNA, LNP-S, PF, 100 MCG/0.5 ML DOSE [address] [facility] COVID-19 (MODERNA), MRNA, LNP-S, PF, 100 MCG/0.5 ML DOSE 1 [address] [facility] INFLUENZA, INJECTABLE, QUADRIVALENT, PRESERVATIVE FREE 2019 150 complet ed [facility] ZOSTER RECOMBINANT 2019 187 complet ed [facility] INFLUENZA, UNSPECIFIED FORMULATION 2012 88 complet ed [facility] INFLUENZA (HISTORICAL) [address] [facility] PNEUMOCOCCAL POLYSACCHARID E PPV23 [address] [facility] PNEUMOCOCCAL, UNSPECIFIED FORMULATION [address] [facility] Results Combined list of recent chemistry, hematology and other laboratory results from Department of Defense and Veterans Affairs, ranging from 15 months to all on record, depending upon the facility. Order Name Results Value Reference Range Date Interpretation Specimen Comments Source HEMOGLOBI N A1C HEMOGLOBIN A1C/HEMOGLO BIN.TOTAL IN BLOOD 9.9 3.6 - 5.7 03/16 H Specimen Type: BLOOD Comment: Values obtained from A1C measurement s can vary. For typical A1C assays, a reported value of 7.0 could actually be between 6.72 and 7.28 if measured by a reference method. A reported value of 9.0 could actually be between 8.73 and 9.27. Ref: http://[email or web address] ngsp.org/[place] Pdata.asp Ordering Provider: NELSON SOTO CCA A Report Released Date/Time: Jan 21, 2025 08:15 AM Reporting Lab: [place] [id number] Performing Lab: [place] [id number] [facility] TSH THYROTROPIN [UNITS/VOLU ME] IN SERUM OR PLASMA BY DETECTION LIMIT <= 0.005 MIU/L 1.383 u[IU]/ mL 0.350 - 4.940 03/16 Specimen Type: PLASMA Comment: GLUCOSE The ADA [...] 160-189 mg/dL VERY HIGH: >=190 Ordering Provider: NELSON SOTO CCA A Report Released Date/Time: Jan 21, 2025 08:15 AM Reporting Lab: [place] [phone] Performing Lab: [place] [phone] [facility] PROSTATE SPECIFIC ANTIGEN PROSTATE SPECIFIC AG [MASS/VOLUM E] IN SERUM OR PLASMA 4.232 ng/mL 0.000 - 4.500 03/16 Specimen Type: SERUM Comment: TPSA Testing males >= 70 y/o is not recommended if there is a TPSA history of previously normal PSA testing. Assay performed on TPSA GotaCopy using CMIA methodology . Patient results TPSA determined by assays using different manufacture rs or methods TPSA may not be comparable. Ordering Provider: NELSON SOTO CCA A Report Released Date/Time: Jan 21, 2025 08:15 AM Reporting Lab: [place] [phone] Performing Lab: [place] [phone] [facility] LIPID PROFILE CHOLESTEROL [MASS/VOLUM E] IN SERUM OR PLASMA 156 mg/dL 0 - 199 03/16 Specimen Type: PLASMA Comment: GLUCOSE The ADA [...] 160-189 mg/dL VERY HIGH: >=190 Ordering Provider: NELSON SOTO CCA A Report Released Date/Time: Jan 21, 2025 08:15 AM Reporting Lab: [address] [address] Performing Lab: [place] [phone] [facility] LIPID PROFILE CHOLESTEROL IN LDL [MASS/VOLUM E] IN SERUM OR PLASMA BY DIRECT ASSAY 92 mg/dL 0 - 99 03/16 Specimen Type: PLASMA Comment: GLUCOSE The ADA [...] 160-189 mg/dL VERY HIGH: >=190 Ordering Provider: NELSON SOTO CCA Report Released Date/Time: Jan 21, 2025 08:15 AM Reporting Lab: [address] [address] Performing Lab: [place] [phone] [facility] LIPID PROFILE CHOLESTEROL IN HDL [MASS/VOLUM E] IN SERUM OR PLASMA 45 mg/dL 40 03/16 Specimen Type: PLASMA Comment: GLUCOSE The ADA [...] 160-189 mg/dL VERY HIGH: >=190 Ordering Provider: NELSON SOTO CCA Report Released Date/Time: Jan 21, 2025 08:15 AM Reporting Lab: [address] [address] Performing Lab: [place] [phone] [facility] LIPID PROFILE TRIGLYCERID E [MASS/VOLUM E] IN SERUM OR PLASMA 209 mg/dL 0 - 149 03/16 H Specimen Type: PLASMA Comment: GLUCOSE The ADA [...] 160-189 mg/dL VERY HIGH: >=190 Ordering Provider: NELSON SOTO CCA Report Released Date/Time: Jan 21, 2025 08:15 AM Reporting Lab: [address] [address] Performing Lab: [place] [phone] [place] [address] [facility] FREE T4 THYROXINE (T4) FREE [MASS/VOLUM E] IN SERUM OR PLASMA 1.02 ng/dL 0.70 - 1.48 03/16 Specimen Type: PLASMA Comment: GLUCOSE The ADA [...] 160-189 mg/dL VERY HIGH: >=190 Ordering Provider: NELSON SOTO CCA A Report Released Date/Time: Jan 21, 2025 08:15 AM Reporting Lab: [place] [phone] Performing Lab: [place] [phone] [place] [address] COMPREHEN SIVE METABOLIC PANEL ALBUMIN [MASS/VOLUM E] IN SERUM OR PLASMA 4.2 g/dL 3.5 - 4.8 03/16 Specimen Type: PLASMA Comment: GLUCOSE The ADA [...] 160-189 mg/dL VERY HIGH: >=190 Ordering Provider: NELSON SOTO CCA A Report Released Date/Time: Jan 21, 2025 08:15 AM Reporting Lab: [place] [phone] Performing Lab: [place] [phone] [facility] COMPREHEN SIVE METABOLIC PANEL ALKALINE PHOSPHATASE [ENZYMATIC ACTIVITY/VO LUME] IN SERUM OR PLASMA 87 U/L 40 - 150 03/16 Specimen Type: PLASMA Comment: GLUCOSE The ADA [...] 160-189 mg/dL VERY HIGH: >=190 Ordering Provider: NELSON SOTO CCA A Report Released Date/Time: Jan 21, 2025 08:15 AM Reporting Lab: [address] [address] Performing Lab: [place] [phone] COMPREHEN SIVE METABOLIC PANEL ALANINE AMINOTRANSF ERASE [ENZYMATIC ACTIVITY/VO LUME] IN SERUM OR PLASMA 22 U/L 0 - 55 03/16 Specimen Type: PLASMA Comment: GLUCOSE The ADA [...] 160-189 mg/dL VERY HIGH: >=190 Ordering Provider: NELSON SOTO CCA A Report Released Date/Time: Jan 21, 2025 08:15 AM Reporting Lab: [address] [address] Performing Lab: [place] [phone] [place] [address] COMPREHEN SIVE METABOLIC PANEL ASPARTATE AMINOTRANSF ERASE [ENZYMATIC ACTIVITY/VO LUME] IN SERUM OR PLASMA 22 U/L 10 - 40 03/16 Specimen Type: PLASMA Comment: GLUCOSE The ADA [...] 160-189 mg/dL VERY HIGH: >=190 Ordering Provider: NELSON SOTO CCA Report Released Date/Time: Jan 21, 2025 08:15 AM Reporting Lab: [place] [phone] Performing Lab: [place] [phone] [facility] COMPREHEN SIVE METABOLIC PANEL UREA NITROGEN [MASS/VOLUM E] IN SERUM OR PLASMA 17.5 mg/dL 8.4 - 25.7 03/16 Specimen Type: PLASMA Comment: GLUCOSE The ADA [...] 160-189 mg/dL VERY HIGH: >=190 Ordering Provider: NELSON SOTO CCA Report Released Date/Time: Jan 21, 2025 08:15 AM Reporting Lab: [place] [phone] Performing Lab: [place] [phone] [place] [address] COMPREHEN SIVE METABOLIC PANEL CALCIUM [MASS/VOLUM E] IN SERUM OR PLASMA 9.2 mg/dL 8.6 - 10.3 03/16 Specimen Type: PLASMA Comment: GLUCOSE The ADA [...] 160-189 mg/dL VERY HIGH: >=190 Ordering Provider: NELSON SOTO CCA Report Released Date/Time: Jan 21, 2025 08:15 AM Reporting Lab: [place] [phone] Performing Lab: [place] [phone] [place] [address] COMPREHEN SIVE METABOLIC PANEL CREATININE [MASS/VOLUM E] IN SERUM OR PLASMA 1.4 mg/dL 0.7 - 1.3 03/16 H Specimen Type: PLASMA Comment: GLUCOSE The ADA [...] 160-189 mg/dL VERY HIGH: >=190 Ordering Provider: NELSON SOTO CCA A Report Released Date/Time: Jan 21, 2025 08:15 AM Reporting Lab: [address] [address] Performing Lab: [place] [phone] [facility] COMPREHEN SIVE METABOLIC PANEL CARBON DIOXIDE, TOTAL [MOLES/VOLU ME] IN SERUM OR PLASMA 22 mmol/L 22 - 30 03/16 Specimen Type: PLASMA Comment: GLUCOSE The ADA [...] 160-189 mg/dL VERY HIGH: >=190 Ordering Provider: NELSON SOTO CCA A Report Released Date/Time: Jan 21, 2025 08:15 AM Reporting Lab: [address] [phone] Performing Lab: [address] [phone] [facility] COMPREHEN SIVE METABOLIC PANEL GLUCOSE [MASS/VOLUM E] IN SERUM OR PLASMA 398 mg/dL 74 - 99 03/16 H Specimen Type: PLASMA Comment: GLUCOSE The ADA [...] 160-189 mg/dL VERY HIGH: >=190 Ordering Provider: NELSON SOTO CCA A Report Released Date/Time: Jan 21, 2025 08:15 AM Reporting Lab: [place] [phone] Performing Lab: [place] [id number] [facility] COMPREHEN SIVE METABOLIC PANEL PROTEIN [MASS/VOLUM E] IN SERUM OR PLASMA 7.0 g/dL 6.4 - 8.3 03/16 Specimen Type: PLASMA Comment: GLUCOSE The ADA [...] 160-189 mg/dL VERY HIGH: >=190 Ordering Provider: NELSON SOTO CCA A Report Released Date/Time: Jan 21, 2025 08:15 AM Reporting Lab: [place] [phone] Performing Lab: [place] [phone] [facility] COMPREHEN SIVE METABOLIC PANEL SODIUM [MOLES/VOLU ME] IN SERUM OR PLASMA 137 mmol/L 134 - 144 03/16 Specimen Type: PLASMA Comment: GLUCOSE The ADA [...] 160-189 mg/dL VERY HIGH: >=190 Ordering Provider: NELSON SOTO CCA Report Released Date/Time: Jan 21, 2025 08:15 AM Reporting Lab: [place] [phone] Performing Lab: [address] [address] [facility] COMPREHEN SIVE METABOLIC PANEL CHLORIDE [MOLES/VOLU ME] IN SERUM OR PLASMA 104 mmol/L 99 - 112 03/16 Specimen Type: PLASMA Comment: GLUCOSE The ADA [...] 160-189 mg/dL VERY HIGH: >=190 Ordering Provider: NELSON SOTO CCA Report Released Date/Time: Jan 21, 2025 08:15 AM Reporting Lab: [address] [address] Performing Lab: [place] [phone] [place] [address] COMPREHEN SIVE METABOLIC PANEL BILIRUBIN.T OTAL [MASS/VOLUM E] IN SERUM OR PLASMA 0.3 mg/dL 0.2 - 1.2 03/16 Specimen Type: PLASMA Comment: GLUCOSE The ADA [...] 160-189 mg/dL VERY HIGH: >=190 Ordering Provider: NELSON SOTO CCA Report Released Date/Time: Jan 21, 2025 08:15 AM Reporting Lab: [place] [phone] Performing Lab: [place] [phone] [place] [address] COMPREHEN SIVE METABOLIC PANEL POTASSIUM [MOLES/VOLU ME] IN SERUM OR PLASMA 4.4 mmol/L 3.5 - 5.1 03/16 Specimen Type: PLASMA Comment: GLUCOSE The ADA [...] 160-189 mg/dL VERY HIGH: >=190 Ordering Provider: NELSON SOTO CCA A Report Released Date/Time: Jan 21, 2025 08:15 AM Reporting Lab: [address] [phone] Performing Lab: [place] [phone] [facility] COMPREHEN SIVE METABOLIC PANEL ANION GAP IN SERUM OR PLASMA 15 mmol/L - 03/16 Specimen Type: PLASMA Comment: GLUCOSE The ADA [...] 160-189 mg/dL VERY HIGH: >=190 Ordering Provider: NELSON SOTO CCA A Report Released Date/Time: Jan 21, 2025 08:15 AM Reporting Lab: [address] [address] Performing Lab: [address] [address] [facility] COMPREHEN SIVE METABOLIC PANEL GLOMERULAR FILTRATION RATE/1.73 SQ M.PREDICTED [VOLUME RATE/AREA] IN SERUM, PLASMA OR BLOOD BY CREATININE- BASED FORMULA (CKD-EPI 2020) 56 03/16 Specimen Type: PLASMA Comment: GLUCOSE The ADA [...] 160-189 mg/dL VERY HIGH: >=190 Ordering Provider: NELSON SOTO CCA A Report Released Date/Time: Jan 21, 2025 08:15 AM Reporting Lab: [place] [id number] Performing Lab: [place] [id number] [facility] CBC LEUKOCYTES [#/VOLUME] IN BLOOD BY AUTOMATED COUNT 7.8 10*3/u L 3.6 - 11.0 03/16 Specimen Type: BLOOD No comment entered. Ordering Provider: NELSON SOTO CCA A Report Released Date/Time: Jan 21, 2025 08:15 AM Reporting Lab: [place] [id number] Performing Lab: [place] [id number] [facility] CBC ERYTHROCYTE S [#/VOLUME] IN BLOOD BY AUTOMATED COUNT 5.01 10*6/u L 4.47 - 5.83 03/16 Specimen Type: BLOOD No comment entered. Ordering Provider: NELSON SOTO CCA A Report Released Date/Time: Jan 21, 2025 08:15 AM Reporting Lab: [place] [phone] Performing Lab: [place] [id number] [facility] CBC HEMOGLOBIN [MASS/VOLUM E] IN BLOOD 15.6 g/dL 13.6 - 17.4 03/16 Specimen Type: BLOOD No comment entered. Ordering Provider: NELSON SOTO CCA A Report Released Date/Time: Jan 21, 2025 08:15 AM Reporting Lab: [address] [id number] Performing Lab: [place] [id number] [facility] CBC HEMATOCRIT [VOLUME FRACTION] OF BLOOD BY AUTOMATED COUNT 45.9 40.0 - 51.0 03/16 Specimen Type: BLOOD No comment entered. Ordering Provider: NELSON SOTO CCA A Report Released Date/Time: Jan 21, 2025 08:15 AM Reporting Lab: [place] [phone] Performing Lab: [place] [phone] [facility] CBC MCV [ENTITIC VOLUME] BY AUTOMATED COUNT 91.7 fL 80.0 - 96.0 03/16 Specimen Type: BLOOD No comment entered. Ordering Provider: NELSON SOTO CCA A Report Released Date/Time: Jan 21, 2025 08:15 AM Reporting Lab: [place] [phone] Performing Lab: [place] [phone] [facility] CBC MCH [ENTITIC MASS] BY AUTOMATED COUNT 31.0 pg 27.0 - 31.0 03/16 Specimen Type: BLOOD No comment entered. Ordering Provider: NELSON SOTO CCA A Report Released Date/Time: Jan 21, 2025 08:15 AM Reporting Lab: [place] [phone] Performing Lab: [place] [phone] [facility] CBC MCHC [MASS/VOLUM E] BY AUTOMATED COUNT 33.9 g/dL 31.5 - 36.5 03/16 Specimen Type: BLOOD No comment entered. Ordering Provider: NELSON SOTO CCA A Report Released Date/Time: Jan 21, 2025 08:15 AM Reporting Lab: [place] [phone] Performing Lab: [place] [phone] [facility] CBC PLATELETS [#/VOLUME] IN BLOOD BY AUTOMATED COUNT 295 10*3/u L 150 - 400 03/16 Specimen Type: BLOOD No comment entered. Ordering Provider: NELSON SOOT CCA A Report Released Date/Time: Jan 21, 2025 08:15 AM Reporting Lab: [address] [address] Performing Lab: [address] [address] [facility] CBC LYMPHOCYTES /100 LEUKOCYTES IN BLOOD BY AUTOMATED COUNT 17.9 21.0 - 51.0 03/16 L Specimen Type: BLOOD No comment entered. Ordering Provider: NELSON SOTO CCA A Report Released Date/Time: Jan 21, 2025 08:15 AM Reporting Lab: [address] [address] Performing Lab: [address] [address] [facility] CBC MONOCYTES/1 00 LEUKOCYTES IN BLOOD BY AUTOMATED COUNT 9.7 4.0 - 8.0 03/16 H Specimen Type: BLOOD No comment entered. Ordering Provider: NELSON SOTO CCA A Report Released Date/Time: Jan 21, 2025 08:15 AM Reporting Lab: [address] [address] Performing Lab: [address] [address] [facility] CBC NUCLEATED ERYTHROCYTE S/100 LEUKOCYTES [RATIO] IN BLOOD BY MANUAL COUNT 0.0 /100{W BCs} 03/16 Specimen Type: BLOOD No comment entered. Ordering Provider: NELSON SOTO CCA A Report Released Date/Time: Jan 21, 2025 08:15 AM Reporting Lab: [address] [address] Performing Lab: [address] [address] [facility] CBC ERYTHROCYTE DISTRIBUTIO N WIDTH [RATIO] BY AUTOMATED COUNT 13.9 11.2 - 15.8 03/16 Specimen Type: BLOOD No comment entered. Ordering Provider: NELSON SOTO CCA A Report Released Date/Time: Jan 21, 2025 08:15 AM Reporting Lab: [address] [address] Performing Lab: [address] [address] [facility] CBC NEUTROPHILS /100 LEUKOCYTES IN BLOOD BY AUTOMATED COUNT 69.5 54.0 - 78.0 03/16 Specimen Type: BLOOD No comment entered. Ordering Provider: NELSON SOTO CCA A Report Released Date/Time: Jan 21, 2025 08:15 AM Reporting Lab: [address] [address] Performing Lab: [place] [phone] [facility] CBC EOSINOPHILS /100 LEUKOCYTES IN BLOOD BY AUTOMATED COUNT 2.5 0.0 - 3.0 03/16 Specimen Type: BLOOD No comment entered. Ordering Provider: NELSON SOTO CCA A Report Released Date/Time: Jan 21, 2025 08:15 AM Reporting Lab: [place] [phone] Performing Lab: [place] [phone] [facility] CBC BASOPHILS/1 00 LEUKOCYTES IN BLOOD BY AUTOMATED COUNT 0.4 0.0 - 3.0 03/16 Specimen Type: BLOOD No comment entered. Ordering Provider: NELSON SOTO CCA A Report Released Date/Time: Jan 21, 2025 08:15 AM Reporting Lab: [place] [phone] Performing Lab: [place] [phone] [facility] CBC LYMPHOCYTES [#/VOLUME] IN BLOOD BY AUTOMATED COUNT 1.4 10*3/u L 0.8 - 5.0 03/16 Specimen Type: BLOOD No comment entered. Ordering Provider: NELSON SOTO CCA A Report Released Date/Time: Jan 21, 2025 08:15 AM Reporting Lab: [address] [address] Performing Lab: [place] [phone] [facility] CBC NEUTROPHILS [#/VOLUME] IN BLOOD 5.4 10*3/u L 1.9 - 8.6 03/16 Specimen Type: BLOOD No comment entered. Ordering Provider: NELSON SOTO CCA A Report Released Date/Time: Jan 21, 2025 08:15 AM Reporting Lab: [address] [address] Performing Lab: [address] [address] [facility] CBC BASOPHILS [#/VOLUME] IN BLOOD BY AUTOMATED COUNT 0.0 10*3/u L 0.0 - 0.3 03/16 Specimen Type: BLOOD No comment entered. Ordering Provider: NELSON SOTO CCA A Report Released Date/Time: Jan 21, 2025 08:15 AM Reporting Lab: [address] [address] Performing Lab: [place] [phone] [facility] CBC MONOCYTES [#/VOLUME] IN BLOOD BY AUTOMATED COUNT 0.8 10*3/u L 0.1 - 0.9 03/16 Specimen Type: BLOOD No comment entered. Ordering Provider: NELSON SOTO CCA A Report Released Date/Time: Jan 21, 2025 08:15 AM Reporting Lab: [place] [phone] Performing Lab: [place] [phone] [facility] CBC EOSINOPHILS [#/VOLUME] IN BLOOD BY AUTOMATED COUNT 0.2 10*3/u L 0.0 - 0.3 03/16 Specimen Type: BLOOD No comment entered. Ordering Provider: NELSON SOTO CCA A Report Released Date/Time: Jan 21, 2025 08:15 AM Reporting Lab: [address] [address] Performing Lab: [place] [phone] [facility] CBC PLATELET MEAN VOLUME [ENTITIC VOLUME] IN BLOOD BY AUTOMATED COUNT 8.3 fL 7.4 - 11.4 03/16 Specimen Type: BLOOD No comment entered. Ordering Provider: NELSON SOTO CCA A Report Released Date/Time: Jan 21, 2025 08:15 AM Reporting Lab: [address] [address] Performing Lab: [address] [address] [facility] FREE PSA AND TOTAL PSA PROSTATE SPECIFIC AG FREE [MASS/VOLUM E] IN SERUM OR PLASMA 1.25 ng/mL 01/11 Specimen Type: SERUM Comment: [employer] methodology . . According to the [place] [employer] , Serum PSA should decrease and remain at undetectabl e levels after radical prostatecto my. The AUA defines biochemical recurrence as an initial PSA value 0.2 ng/mL or greater followed by a subsequent confirmator y PSA value 0.2 ng/mL or greater. Values obtained with different assay methods or kits cannot be used interchange ably. Results cannot be interpreted as absolute evidence of the presence or absence of malignant disease. The table below lists the probability of prostate cancer for men with non-suspici ous ALIE results and total PSA between 4 and 10 ng/mL, by patient age (Rosario et al, THANG 1998, 279:1542). % Free PSA 50-64 yr 65-75 yr 0.00-10.00% 56% 55% 10.01-15.00 % 24% 35% 15.01-20.00 % 17% 23% 20.01-25.00 % 10% 20% >25.00% 5% 9% Please note: Rosario et al did not make specific recommendat ions regarding the use of percent free PSA for any other population of men. Ordering Provider: JOSUE MARIO I Report Released Date/Time: Aug 04, 2024 09:50 AM Reporting Lab: [facility] [address] [facility] [address] Performing Lab: [facility] [address] [facility] [address] [facility] FREE PSA AND TOTAL PSA PROSTATE SPECIFIC AG [MASS/VOLUM E] IN SERUM OR PLASMA 6.0 ng/mL 0.0 - 4.0 01/11 H Specimen Type: SERUM Comment: [employer] methodology . . According to the [place] [employer] , Serum PSA should decrease and remain at undetectabl e levels after radical prostatecto my. The AUA defines biochemical recurrence as an initial PSA value 0.2 ng/mL or greater followed by a subsequent confirmator y PSA value 0.2 ng/mL or greater. Values obtained with different assay methods or kits cannot be used interchange ably. Results cannot be interpreted as absolute evidence of the presence or absence of malignant disease. The table below lists the probability of prostate cancer for men with non-suspici ous ALIE results and total PSA between 4 and 10 ng/mL, by patient age (Catalona et al, THANG 1998, 279:1542). % Free PSA 50-64 yr 65-75 yr 0.00-10.00% 56% 55% 10.01-15.00 % 24% 35% 15.01-20.00 % 17% 23% 20.01-25.00 % 10% 20% >25.00% 5% 9% Please note: Rosario et al did not make specific recommendat ions regarding the use of percent free PSA for any other population of men. Ordering Provider: JOSUE MARIO I Report Released Date/Time: Aug 04, 2024 09:50 AM Reporting Lab: [facility] [id number] [place] [address] Performing Lab: [facility] [address] [facility] [address] [facility] FREE PSA AND TOTAL PSA PROSTATE SPECIFIC AG FREE/PROSTA TE SPECIFIC AG.TOTAL IN SERUM OR PLASMA 20.8 01/11 Specimen Type: SERUM Comment: [employer] methodology . . According to the [place] [employer] , Serum PSA should decrease and remain at undetectabl e levels after radical prostatecto my. The AUA defines biochemical recurrence as an initial PSA value 0.2 ng/mL or greater followed by a subsequent confirmator y PSA value 0.2 ng/mL or greater. Values obtained with different assay methods or kits cannot be used interchange ably. Results cannot be interpreted as absolute evidence of the presence or absence of malignant disease. The table below lists the probability of prostate cancer for men with non-suspici ous ALIE results and total PSA between 4 and 10 ng/mL, by patient age (Catalona et al, THANG 1998, 279:1542). % Free PSA 50-64 yr 65-75 yr 0.00-10.00% 56% 55% 10.01-15.00 % 24% 35% 15.01-20.00 % 17% 23% 20.01-25.00 % 10% 20% >25.00% 5% 9% Please note: Rosario et al did not make specific recommendat ions regarding the use of percent free PSA for any other population of men. Ordering Provider: JOSUE MARIO I Report Released Date/Time: Aug 04, 2024 09:50 AM Reporting Lab: [address] [address] Performing Lab: [facility] [address] [facility] [address] [facility] IRON GROUP IRON BINDING CAPACITY [MASS/VOLUM E] IN SERUM OR PLASMA 283 ug/dL 265 - 400 09/22 Specimen Type: SERUM No comment entered. Ordering Provider: NELSON SOTO CCA A Report Released Date/Time: Sep 22, 2024 08:12 AM Reporting Lab: [address] [address] Performing Lab: [address] [address] [facility] IRON GROUP IRON [MASS/VOLUM E] IN SERUM OR PLASMA 103 ug/dL 50 - 170 09/22 Specimen Type: SERUM No comment entered. Ordering Provider: NELSON SOTO CCA A Report Released Date/Time: Sep 22, 2024 08:12 AM Reporting Lab: [address] [address] Performing Lab: [address] [address] [facility] IRON GROUP IRON/IRON BINDING CAPACITY.TO BRIANNA [MASS RATIO] IN SERUM OR PLASMA 36.4 09/22 Specimen Type: SERUM No comment entered. Ordering Provider: NELSON SOTO CCA A Report Released Date/Time: Sep 22, 2024 08:12 AM Reporting Lab: [address] [address] Performing Lab: [address] [address] [facility] PROSTATE SPECIFIC ANTIGEN PROSTATE SPECIFIC AG [MASS/VOLUM E] IN SERUM OR PLASMA 8.02 ng/mL <4.00 - 4.00 09/22 H Specimen Type: SERUM No comment entered. Ordering Provider: NELSON SOTO CCA A Report Released Date/Time: Sep 21, 2024 04:23 PM Reporting Lab: [address] [address] Performing Lab: [address] [address] [facility] Vital Signs Combined list of inpatient and outpatient Vital Signs from Department of Defense and Veterans Affairs, ranging from 12 months to all on record, depending upon the facility. Vital Sign Value Date Comments Source WEIGHT 219.7 04/05/2025 17:00:06 [facility] BMI 32 kg/m2 04/05/2025 17:00:06 [facility] WEIGHT 219.9 03/22/2025 15:31:46 [facility] BMI 32 kg/m2 03/22/2025 15:31:46 [facility] SY[facility]OL[facility] B[facility] PRESSURE 129 10/06/2024 07:45:56 [facility] DIASTOLIC BLOOD PRESSURE 74 10/06/2024 07:45:56 [facility] PULSE OXIMETRY 95 10/06/2024 07:45:56 [facility] WEIGHT 224 10/06/2024 07:45:56 [facility] BMI 32 kg/m2 10/06/2024 07:45:56 [facility] PAIN 0 10/06/2024 07:45:56 [facility] TEMPERATURE 97.4 10/06/2024 07:45:56 [facility] PULSE 72 10/06/2024 07:45:56 [facility] RESPIRATION 16 10/06/2024 07:45:56 [facility] SYSTOLIC BLOOD PRESSURE 138 09/22/2024 07:54:07 [facility] DIASTOLIC BLOOD PRESSURE 74 09/22/2024 07:54:07 [facility] PULSE OXIMETRY 95 09/22/2024 07:54:07 [facility] WEIGHT 223 09/22/2024 07:54:07 [facility] BMI 32 kg/m2 09/22/2024 07:54:07 [facility] PAIN 0 09/22/2024 07:54:07 [facility] TEMPERATURE 97.8 09/22/2024 07:54:07 [facility] PULSE 74 09/22/2024 07:54:07 [facility] RESPIRATION 16 09/22/2024 07:54:07 [facility] SYSTOLIC BLOOD PRESSURE 149 07/28/2024 09:39:00 [facility] DIASTOLIC BLOOD PRESSURE 77 07/28/2024 09:39:00 [facility] PAIN 0 07/28/2024 09:39:00 [facility] TEMPERATURE 97.6 07/28/2024 09:39:00 [facility] PULSE 62 07/28/2024 09:39:00 [facility] RESPIRATION 16 07/28/2024 09:39:00 [facility] Encounters Combined list of: 1) Encounters from Department of Veterans Affairs facilities going backup to the last 18 months, not all [place] inpatient encounters are included; 2) Encounters from the Department of Defense facilities going backup to 280 months. Location Location Details Encounter Type Encounter Number Reason For Visit Attending Provider ADM Date DC Date Status Disposition Source [facility] HEARING AID FITTING/CH ECKING [id number] Diagnos is: ICD-10- CM Z46.1 Encount er for fitting and adjustm ent of hearing aid MORGAN HAQ S 11/26 [facility] Outpatient Encounter [id number] 12/02 [facility] Outpatient Encounter [id number] 01/03 [facility] Outpatient Encounter [id number] 01/14 [facility] Outpatient Encounter [id number] 01/27 [facility] Outpatient Encounter [id number] 02/03 [facility] Outpatient Encounter [id number] 02/20 [facility] Outpatient Encounter [id number] 02/24 [facility] Outpatient Encounter [id number] 02/27 [facility] OFFICE O/P EST MOD 30 MIN [id number] Diagnos is: ICD-10- CM N40.0 Benign prostat ic hyperpl johnny without lower urinry tract symp CHARLES,WILLY ECCA A 03/13 [facility] Outpatient Encounter [id number] 03/17 [facility] OFFICE O/P EST LOW 20 MIN [id number] Diagnos is: ICD-10- CM R97.20 Elevate d prostat e specifi c antigen [PSA] SHELBISARAH NA I 03/18 [facility] OFFICE O/P EST LOW 20 MIN [id number] Diagnos is: ICD-10- CM L29.9 Pruritu s, unspeci fied AB VITALIY IGAIL J 04/01 [facility] Outpatient Encounter [id number] 04/02 [facility] Outpatient Encounter [id number] 04/21 [facility] Outpatient Encounter [id number] 04/[address] [facility] OFFICE O/P EST MOD 30 MIN [id number] Diagnos is: ICD-10- CM N40.1 Benign prostat ic hyperpl johnny with lower urinary tract symp CHARLES,WILLY ECCA A 05/06 [facility] OFFICE O/P EST MOD 30 MIN [id number] Diagnos is: ICD-10- CM E11.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 with hypergl ycemia BERLIN MONTIEL 05/14 [place] [facility] Outpatient Encounter [id number] 06/01 [facility] Outpatient Encounter [id number] 06/10 [facility] Outpatient Encounter [id number] 07/13 [facility] OFF/OP CNSLTJ NEW/EST MOD 40 [id number] Diagnos is: ICD-10- CM Z01.818 Encount er for other preproc edural examREINALDO Singletary 07/14 [facility] FEE [id number] Diagnos is: ICD-10- CM Z01.818 Encount er for other preproc edural examJOBY Valera 07/14 [facility] Outpatient Encounter [id number] 07/16 [facility] Outpatient Encounter [id number] 07/17 [facility] Outpatient Encounter [id number] 07/28 [facility] OFFICE O/P NEW MOD 45 MIN [id number] Diagnos is: ICD-10- CM R97.20 Elevate d prostat e specifi c antigen [PSA] MALEC,CHRI S P 07/28 [facility] Outpatient Encounter [id number] 07/28 [facility] Outpatient Encounter [id number] 07/28 [facility] Outpatient Encounter [id number] MYESHA KEARNEY 07/28 [facility] BIOPSY OF PROSTATE [id number] TAQUERIA SUAREZ 07/28 [facility] Outpatient Encounter [id number] 07/28 [facility] Outpatient Encounter [id number] 07/28 [facility] Outpatient Encounter [id number] 07/28 [facility] Outpatient Encounter [id number] KRISTINE BOW[place]ING [place] 07/30 [facility] OFFICE O/P EST LOW 20 MIN [id number] Diagnos is: ICD-10- CM R97.20 Elevate d prostat e specifi c antigen [PSA] SARAH MARIO I 08/04 [facility] Outpatient Encounter [id number] 09/01 [facility] Outpatient Encounter [id number] 09/08 [facility] Outpatient Encounter [id number] 09/16 [facility] QNHP OL DIG ASSMT&MGMT 5-10 [id number] Diagnos is: ICD-10- CM N40.1 Benign prostat ic hyperpl johnny with lower urinary tract symp CHIP ZHANG 09/18 [facility] OFFICE O/P EST HI 40 MIN [id number] Diagnos is: ICD-10- CM I10 Essenti al (primar y) hyperte nsion WILLY SOTO 09/22 TRACY Ibanez [facility] Outpatient Encounter [id number] 09/30 [facility] Outpatient Encounter [id number] 10/[address] [facility] OFFICE O/P EST LOW 20 MIN [id number] Diagnos is: ICD-10- CM R97.20 Elevate d prostat e specifi c antigen [PSA] WILLY SOTO 10/06 [facility] Outpatient Encounter [id number] 12/10 [facility] Outpatient Encounter [id number] NITA GONZALEZ 12/11 [facility] Outpatient Encounter [id number] 01/20 [facility] Outpatient Encounter [id number] 02/21 [facility] Outpatient Encounter [id number] 02/24 [facility] Outpatient Encounter [id number] 03/04 [facility] Outpatient Encounter [id number] 03/05 [facility] Outpatient Encounter [id number] 03/[address] [facility] OFFICE O/P EST MOD 30 MIN [id number] Diagnos is: ICD-10- CM I63.9 Cerebra l infarct ion, unspeci WILLY Altamirano 03/16 [place] [facility] Outpatient Encounter [id number] 03/[address] [facility] MTMS BY PHARM ADDL 15 MIN [id number] Diagnos is: ICD-10- CM E11.9 Type 2 diabete s mellitu s without complic ations JF,REBECC A JOAINE 03/22 [place] [facility] MTMS BY PHARM ADDL 15 MIN [id number] Diagnos is: ICD-10- CM E11.9 Type 2 diabete s mellitu s without complic ations JF,REBECC A JOANIE 04/05 [facility] [facility] En[facility] [id number] 04/05 DAISHA CAIN [facility] MTMS BY PHARM ADDL 15 MIN [id number] Diagnos is: ICD-10- CM E11.9 Type 2 diabete s mellitu s without complic ations JF,REBECC A JOANIE 04/21 TRACY Ibanez [facility] Procedures Combined list of: 1) Procedures from Department of Veterans Affairs facilities going back up to thelast 18 months, not all [place] non-surgical procedures are included; 2) All procedures from the Department of Defense facilities. Procedure Procedure Type Code Date Perfomer Comments Sourc e TRANSPERINEAL FUSION PROSTATE BIOPSY BIOPSY OF PROSTATE 26457 4 BRISA CARPENTER [facility] Social History Combined list of available smoking, tobacco, and other social history from Department of Defense and Veterans Affairs facilities. Social History Type Response Date Comment Sourc e Tobacco smoking status NHIS VA-TOBACCO QUIT 5 TO < 15 YRS 09/22/2024 [facility] History of tobacco use VA-TOBACCO FORMER USER 09/22/2024 [facility] History of tobacco use TOBACCO FORMER US ER MORE 12 MONTHS 07/28/2024 [facility] History of tobacco use [place]-TO[place]ACCO FORMER US[place] 06/12/2023 [facility] History of tobacco use [facility]-TOBACCO FORMER USER 06/20/2022 [facility] History of tobacco use [place]-TOBACCO FORMER USER 08/05/2020 [facility] History of tobacco use CURRENT TOBACCO USER 05/04/2016 [facility] History of tobacco use CURRENT TOBACCO USER 05/24/2015 [facility] History of tobacco use QUIT TOBACCO IN T HE LAST 12 MONTHS 04/20/2014 [facility] History of tobacco use CURRENT TOBACCO USER 04/10/2013 [facility] History of tobacco use CURRENT TOBACCO USER 01/14/2012 [facility] Plan of Care List of future care activities from Department of [facility] Affairs facilities. Additional future care activities may be listed in the Assessment and Plan section. Date/Time Care Activity Care Activity Detail Facili ty 05/11/2025 AMBULATORY - SURGERY AMBULATORY - SURGERY [facility]
--- NOTE | 2025-05-08 08:57 | ECG_ITS ---
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 Measurements Intervals [place] Rate: 86 P: 56 AR: 192 QRS: -77 QRSD: 98 T: 53 QT: 374 QTc: 418 Interpretive Statements 1100 Sinus rhythm 7200 Abnormal left axis deviation 8003 Consistent with pulmonary disease 9150 abnormal ECG Compared to ECG 03/04/2025 12:22:39 No significant changes Electronically Signed On 05-08-2025 18:43:10 EDT by ULI RIZO M.D.
--- NOTE | 2025-05-08 08:58 | ED.GENADUL1 ---
HPI HPI - General Adult General Chief complaint: Neuro Symptoms/Deficit Stated complaint: Candelaria engle says stroke Time Seen by Provider: 05/08/25 08:51 History of Present Illness HPI narrative: 64-year-old male presents for dizziness and numbness on the left side of his face. His symptoms started at 5:30 in the morning today but he had dizziness 2 days ago which went away. He states his left arm and his left leg hurt. No injury and he is not complaining of headache or visual issues. Related Data Home Medications ?Medication ?Instructions ?Recorded ?Confirmed amlodipine 10 mg tablet 10 mg PO DAILY 03/04/25 03/04/25 cholecalciferol (vitamin D3) 50 50 mcg PO DAILY 03/04/25 03/04/25 mcg (2,000 unit) disintegrating tablet empagliflozin 25 mg tablet 25 mg PO DAILY 03/04/25 03/04/25 ezetimibe 10 mg tablet 10 mg PO DAILY 03/04/25 03/04/25 finasteride 5 mg tablet 5 mg PO DAILY 03/04/25 03/04/25 insulin glargine 100 unit/mL (3 16 unit subcut DAILY 03/04/25 03/04/25 mL) subcutaneous pen losartan 50 mg tablet 50 mg PO DAILY 03/04/25 03/04/25 multivitamin (Daily Multi-Vitamin 1 tab PO DAILY 03/04/25 03/04/25 tablet) pioglitazone 30 mg tablet 30 mg PO DAILY 03/04/25 03/04/25 tadalafil 5 mg tablet (Cialis) 5 mg PO DAILY 03/04/25 03/04/25 Previous Rx's ?Medication ?Instructions ?Recorded clopidogrel 75 mg tablet 75 mg PO DAILY #30 tabs 03/05/25 prednisone 50 mg tablet 50 mg PO DAILY 5 days #5 tabs 03/05/25 Allergies Allergy/AdvReac Type Severity Reaction Status Date / Time No Known Drug Allergies Allergy Verified 03/04/25 14:05 Opioid HPI Opioid Management Most Recent Opioid Data: Last Pain Scale 3 03/05/25, 11:10 Last ORT Total Score 0 03/04/25, 15:30 Last ORT Risk Category Low Risk 03/04/25, 15:30 Review of Systems ROS Narrative A ten point review of systems is negative except as noted above. [facility] Medical History (Updated 05/08/25 @ 11:33 by Marlon Richards MD) History of TIA (transient ischemic attack) ?Z86.73 - Personal history of transient ischemic attack (TIA), and cerebral infarction without residual deficits (ICD-10) Type 2 diabetes mellitus with hyperglycemia ?E11.65 - Type 2 diabetes mellitus with hyperglycemia (ICD-10) Hypertension ?I10 - Essential (primary) hypertension (ICD-10) TIA (transient ischemic attack) ?G45.9 - Transient cerebral ischemic attack, unspecified (ICD-10) Diabetes ?E11.9 - Type 2 diabetes mellitus without complications (ICD-10) Surgical History (Updated 03/04/25 @ 14:15 by Khushi Medrano RN) History of cholecystectomy ?Z90.49 - Acquired absence of other specified parts of digestive tract (ICD-10) Hx of appendectomy ?Z90.49 - Acquired absence of other specified parts of digestive tract (ICD-10) Family History (Updated 03/04/25 @ 15:32 by Nivia Rodriguez RN) Father Family history of stroke Family history of myocardial infarction Family history of hypertension Family history of cancer Family history of CHF (congestive heart failure) Mother Family history of cancer Social History (Updated 03/04/25 @ 15:33 by Nivia Rodriguez RN) Within the past year, how often did you have a drink containing alcohol: 4 or more times a week Smoking status: Former smoker Non-prescribed substance use: denies use Highest level of school completed/degree received: high school graduate Little interest or pleasure in doing things: not at all Feeling down, depressed, or hopeless: not at all Exam Narrative Exam Narrative: Nurses note and vital signs reviewed and patient is not hypoxic. General: The patient appears well and in no apparent distress. Patient is resting comfortably on cart. Skin: Warm, dry, no pallor noted. There is no rash noted. Head: Normocephalic, atraumatic Eye: Normal conjunctiva, no drainage Ears, Nose, Mouth, and Throat: oral mucosa is moist. Nares patent. Cardiovascular: Regular Rate and Rhythm Respiratory: Patient is in no distress, no accessory muscle use, lungs are clear to auscultation, no wheezing, rales or rhonchi Back: non-tender GI: Soft and nontender Musculoskeletal: The patient has no evidence of calf tenderness, no pitting edema, symmetrical pulses noted bilaterally Neurological: A&O x4, normal speech; cranial nerves II through XII are intact other than subjective numbness on the left side of his face. Upper and lower extremity strength 5 out of 5 and symmetric. Psychiatric: Cooperative Constitutional Vital Signs, click to edit/add: Last Vital Signs Pulse 64 05/08/25 10:45 Resp 15 05/08/25 10:45 BP 127/68 05/08/25 10:45 Pulse Ox 98 05/08/25 10:45 O2 Del Method Room Air 05/08/25 08:57 Course Vital Signs Vital signs: Vital Signs Pulse Rate 86 05/08/25 08:56 Respiratory Rate 12 05/08/25 08:56 Pulse Oximetry 98 05/08/25 08:56 Pulse Rate 64 05/08/25 10:45 Respiratory Rate 15 05/08/25 10:45 Blood Pressure 127/68 05/08/25 10:45 Pulse Oximetry 98 05/08/25 10:45 Oxygen Delivery Method Room Air 05/08/25 08:57 Medical Decision Making [facility] Narrative Medical decision making narrative: His symptoms have resolved and his workup here is negative including CT brain and CTA head and neck. The patient has had this happen to him at least twice previously. He was admitted here in early March and at that time had an extensive negative workup including an MRI that was negative. He had similar occurrence at another hospital in December of this year and again at that time had a negative MRI. He has a neurology appointment on May 27 and he will keep that appointment. There is no indication for further workup or admission to the hospital. Treatment diagnosis and follow-up were discussed with the patient. At this point I have no clinical suspicion of a stroke. Differential Diagnosis Differential Diagnosis: Paresthesia, intracranial hemorrhage, stroke Lab Data Lab results reviewed: Yes I reviewed the patient's lab results Labs: Lab Results 05/08/25 Range/Units 08:57 WBC 7.1 (4.0-11.0) 10^3/uL RBC 5.10 (4.70-6.10) 10^6/uL Hgb 15.6 (14.0-18.0) g/dL Hct 45.9 (42.0-54.0) % MCV 90.0 (80.0-94.0) fL MCH 30.6 (25.9-34.0) pg MCHC 34.0 (29.9-35.2) g/dL RDW 13.5 (11.0-15.0) % Plt Count 289 (150-450) 10^3/uL MPV 9.5 (9.5-13.5) fL Neut % (Auto) 59.6 (43.0-75.0) % Lymph % (Auto) 24.8 (20.5-60.0) % [place] % (Auto) 11.3 (1.7-12.0) % Eos % (Auto) 3.9 (0.9-7.0) % Baso % (Auto) 0.3 (0.2-2.0) % Neut # (Auto) 4.3 (1.4-6.5) 10^3/uL Lymph # (Auto) 1.8 (1.2-3.8) 10^3/uL [place] # (Auto) 0.8 (0.3-0.8) 10^3/uL Eos # (Auto) 0.3 (0.0-0.7) 10^3/uL Baso # (Auto) 0.0 (0.0-0.1) 10^3/uL Abs Immat Gran (auto) 0.01 (0.00-0.03) 10^3/uL Imm/Tot Granulo (auto) 0.1 (0.0-0.5) % PT 11.1 (9.0-11.6) sec INR 1.05 APTT 27.4 (22.3-36.2) sec Sodium 141 (136-145) mmol/L Potassium 4.1 (3.5-5.1) mmol/L Chloride 103 (98-107) mmol/L Carbon Dioxide 26.7 (21.0-32.0) mmol/L Anion Gap 15.4 BUN 19.0 H (7.0-18.0) mg/dL Creatinine 0.91 (0.70-1.30) mg/dL Est GFR ( Amer) >60 (>=60 mL/min/1.73m^2) Est GFR (Non-Af Amer) >60 (>=60 mL/min/1.73m^2) BUN/Creatinine Ratio 20.9 Glucose 245 H (74-106) mg/dL Calcium 8.8 (8.5-10.1) mg/dL Imaging Data CT scan - head: Radiologist's impression: CT brain: No acute intracranial process CTA head and neck: Normal CTA examination of the neck, normal CTA examination of the brain, no focal stenosis or large vessel occlusion Chest x-ray: Mild enlarged heart size, hypoinflated lungs ECG Data Attestation: I personally reviewed and interpreted this ECG as follows: (EKG on my interpretation shows normal sinus rhythm with a rate of 86 and no acute change) Discharge Plan Discharge Chief Complaint: Neuro Symptoms/Deficit Clinical Impression: Paresthesia Patient Disposition: Home, Self-Care Time of Disposition Decision: 11:32 Condition: Good Mode of Transportation: Private Vehicle Prescriptions / Home Meds: No Action insulin glargine 100 unit/mL (3 mL) insulin pen 16 unit subcut DAILY tadalafil [Cialis] 5 mg tablet 5 mg PO DAILY finasteride 5 mg tablet 5 mg PO DAILY cholecalciferol (vitamin D3) 50 mcg (2,000 unit) tablet,disintegrating 50 mcg PO DAILY empagliflozin 25 mg tablet 25 mg PO DAILY multivitamin [Daily Multi-Vitamin] Tablet 1 tab PO DAILY amlodipine 10 mg tablet 10 mg PO DAILY ezetimibe 10 mg tablet 10 mg PO DAILY pioglitazone 30 mg tablet 30 mg PO DAILY losartan 50 mg tablet 50 mg PO DAILY prednisone 50 mg tablet 50 mg PO DAILY 5 Days Qty: 5 0RF clopidogrel 75 mg tablet 75 mg PO DAILY Qty: 30 0RF Print Language: [place] Instructions: Paresthesia (ED) Additional Instructions: See your neurologist at your scheduled appointment. Referrals: NASIMA SOTO [Primary Care Provider, Unknown] - 1 week
--- OUTSIDE RECORDS SUMMARY | 2025-05-08 08:59 | XMS_ITS | CCD ---
Author Organization [facility] Care Team Providers Care Material Stress Tester Name Role Phone Spasic, Uriel Unavailable Unavailable Provider, None Unavailable Unavailable Spasic, Uriel Unavailable Unavailable ADRIANA, DR FERGUSON Primary Care Unavailable ABDIAZIZ, DR MIGUEL ANGEL Mcdonough Admitting Unavailable MYCHALEREAna M, DR MIGUEL ANGEL Mcdonough Attending Unavailable INEZ, DR BERNARDO Consulting Unavailable NADERER, DR MIGUEL ANGEL Mcdonough Consulting Unavailable DUANE CHASE Consulting Unavailable MYESHA CERVANTES Consulting Unavailable NASIMA SOTO Primary Care Physician TANYA SY Attending Unav ailCARMINE Smith Admitting Unavailable CHARLES NASIMA A Primary Care Unavailable LORENA BRIGGS Attending Unavailable LORENA BRIGGS Referring Unavailable CHARLES NASIMA A Primary Care Unavailable LORENA BRIGGS Attending Unavailable LORENA BRIGGS Referring Unavailable CHARLES NASIMA A Primary Care Unavailable KarlaeMary MEdd Attending Unavailable Lue, Mary M. Referring Unavailable Lue, Mary M. Referring Unavailable Antonella Delgadillo Attending Unavailable Karlae, Mary MEdd Attending Unavailable Lue, Mary M. Referring Unavailable Grace Robles Attending Unavailable Antonella Delgadillo Attending Unavailable Lue, Mary M. Admitting Unavailable Lue, Mary M. Attending Unavailable Lue, Mary M. Referring Unavailable Lue, Mary M. Admitting Unavailable Lue, Mary M. Attending Unavailable Lue, Mary M. Referring Unavailable Lue, Mary M. Attending Unavailable Alan DUFF Attending Unavailable CHARLES NASIMA A Primary Care Unavailable Charles ADJUNCT BUSINESS INSTRUCTOR-XAVIER Nasima A Primary Care Provider Allergies Allergy Classification Reported Allergen(s) Allergy Type Date of Onset Reaction(s) Facility (2 sources) No Known Medication Allergies; Translations: [No Known Medication Allergies] Propensity to adverse reactions to drug (disorder) [facility] Repository (9 sources) metFORMIN; Translations: [metformin] Drug Allergy 0 Upset stomach (finding), Abdominal Pain [facility] (3 sources) atorvastatin; Translations: [ATORVASTATIN] Drug Allergy 4 Itching [facility] Repository (3 sources) gabapentin; Translations: [GABAPENTIN] Drug Allergy 1 Facial Swelling [facility] Repository (3 sources) Lisinopril; Translations: [LISINOPRIL] Drug Allergy 1 Cough [facility] Repository Medications Current Medications Medication Drug Class(es) Dates Sig (Normalized) Sig (Original) acetaminophen 500 mg / diphenhydrAMINE hydrochloride 25 mg oral tablet (1 source) Histamine-1 Receptor Antagonist take 2 tablets by mouth once daily as needed for sleep diphenhydrAMINE-a cetaminophen (TYLENOL PM) 25-500 mg tablet Take 2 tablets by mouth nightly as needed for sleep. Active Alive Men's 50+ Complete Multivitamin (6 sources) Start: 09-08-2024 take 1 tablet by mouth once daily Alive Men's 50+ Complete Multivitamin 1 tab(s), Oral, Daily Start Date: 09/08/24 Status: Ordered amLODIPine 10 mg oral tablet (8 sources) Dihydropyridine Calcium Channel Nagi Start: 05-04-2020 take 1 tablet by mouth in the morning amLODIPine (NORVASC) 10 mg tablet Take 1 tablet (10 mg total) by mouth in the morning. 09/22/2024 Active aspirin 81 mg delayed release oral tablet (7 sources) Platelet Aggregation Inhibitor, Nonsteroidal Anti-inflammatory Drug Start: 09-08-2024 take 1 tablet by mouth once daily aspirin 81 mg Oral EC Tab 81 mg = 1 tab(s), Oral, Daily Start Date: 09/08/24 Status: Ordered aspirin 81 mg ch ewable tablet Chew 1 tablet (81 mg total) and swallow in the morning. Active cholecalciferol 0.05 mg oral capsule (1 source) Vitamin D take 1 capsule by mouth in the morning cholecalciferol, vitamin D3, 2,000 units capsule Take 1 capsule (2,000 Units total) by mouth in the morning. Active cholecalciferol 50 mcg (2000 intl units) oral tablet, disintegrating (6 sources) Start : 09-08 take 1 tablet by mouth once daily cholecalciferol 50 mcg (2000 intl units) oral tablet, disintegrating 50 mcg = 1 tab(s), Oral, Daily Start Date: 09/08/24 Status: Ordered ciprofloxacin 500 mg oral tablet (1 source) Quinolone Antimicrobial Start : 11-18 End: 11-21 Cipro 500 mg Tab 500 mg = 1 tab(s), Oral, BID, start taking 1 day prior to procedure, X 3 day(s), # 6 tab(s), Refills(s) 0, Pharmacy: [facility]/pharmacy #[id number], 178, cm, 11/18/24 8:17:00 EST, Height/Length Dosing, 99, kg, 11/18/24 8:17:00 EST, Weight Dosing Start Date: 11/18/24 Stop Date: 11/21/24 Status: Ordered diazePAM 10 mg oral tablet (4 sources) Benzodiazepine Start : 11-18 Valium 10 mg Tab 10 mg = 1 tab(s), Oral, Once, take 30 minutes prior to procedure, # 1 tab(s), Refills(s) 0, Pharmacy: [facility]/pharmacy #[id number], 178, cm, 11/18/24 8:17:00 EST, Height/Length Dosing, 99, kg, 11/18/24 8:17:00 EST, Weight Dosing Start Date: 11/18/24 Status: Ordered empagliflozin 25 mg oral tablet (7 sources) Sodium-Glucose Cotransporter 2 Inhibitor Start : 09-08 empagliflozin (JARDIANCE) 25 mg tablet tablet Take 1 tablet (25 mg total) by mouth. 09/22/2024 Active ezetimibe 10 mg oral tablet (7 sources) Dietary Cholesterol Absorption Inhibitor Start : 09-08 take 1 tablet by mouth in the morning ezetimibe (ZETIA) 10 mg tablet Take 1 tablet (10 mg total) by mouth in the morning. 09/22/2024 Active ferrous sulfate 325 mg oral tablet (1 source) Start : 05-07 take 1 tablet by mouth in the morning, then take 1 tablet by mouth at mealtime ferrous sulfate 325 (65 FE) mg tablet Take 1 tablet (325 mg total) by mouth in the morning and 1 tablet (325 mg total) in the evening. Take with meals. 05/07/2024 Active finasteride 5 mg oral tablet (7 sources) 5-alpha Reductase Inhibitor Start : 03-18 take 1 tablet by mouth once daily finasteride 5 mg Tab 5 mg = 1 tab(s), Oral, Daily Start Date: 09/08/24 Status: Ordered folic acid 1 mg oral tablet (1 source) Start : 12-11 take 1 tablet by mouth in the morning folic acid (FOLVITE) 1 mg tablet Take 1 tablet (1 mg total) by mouth in the morning. 30 tablet 12/11/2024 Active insulin glargine 100 unt/ml injectable solution (6 sources) Insulin Analog Start : 09-08 inject 16 [IU] by subcutaneous injection once daily insulin glargine 100 units/mL SubQ Sherrie 10 mL 16 unit(s), SubCutaneous, Daily Start Date: 09/08/24 Status: Ordered insulin glargine-yfgn 100 unit/mL (3 mL) insulin pen (1 source) Start : 09-22 insulin glargine-yfgn 100 unit/mL (3 mL) insulin pen Inject 16 Unit under the skin nightly. 09/22/2024 Active losartan potassium 50 mg oral tablet (7 sources) Angiotensin 2 Receptor Nagi Start : 09-08 losartan (COZAAR) 50 mg tablet Take 1 tablet (50 mg total) by mouth. 09/22/2024 Active ravommgh-psya-RX-jan cium &mins (THERAGRAN-M) 9 mg iron-400 mcg tablet (1 source) Start : 12-11 ahnyyxnx-msdc-XJ-calc ium &mins (THERAGRAN-M) 9 mg iron-400 mcg tablet Take 1 tablet by mouth in the morning. 30 tablet 12/11/2024 Active pioglitazone 30 mg oral tablet (7 sources) Peroxisome Proliferator Receptor alpha Agonist, Peroxisome Proliferator Receptor gamma Agonist, Thiazolidinedione Start : 05-04 pioglitazone (ACTOS) 30 mg tablet Take 1 tablet (30 mg total) by mouth. 09/22/2024 Active tadalafil 5 mg oral tablet (7 sources) Phosphodiesterase 5 Inhibitor Start : 09-08 tadalafiL (CIALIS) 5 mg tablet Take 1 tablet (5 mg total) by mouth. 09/17/2024 Active tamsulosin hydrochloride 0.4 mg oral capsule (1 source) alpha-Adrenergic Nagi Start : 09-08 take 1 capsule by mouth once daily tamsulosin 0.4 mg Cap 0.4 mg = 1 cap(s), Oral, Daily Start Date: 09/08/24 Status: Ordered thiamine 100 mg oral tablet (1 source) Start : 12-11 take 1 tablet by mouth in the morning thiamine HCl (VITAMIN B-1) 100 mg tablet Take 1 tablet (100 mg total) by mouth in the morning. 30 tablet 12/11/2024 Active Turmeric extract (1 source) take 1 tablet by mouth in the morning TURMERIC ORAL Take 1 tablet by mouth in the morning. Active Completed/Discontinued Medications Medication Drug Class(es) Dates Sig (Normalized) Sig (Original) oxybutynin chloride 5 mg oral tablet (2 sources) Cholinergic Muscarinic Antagonist Start: 01-27-2025 take 1 tablet by mouth every twelve hours as needed for muscle spasms oxybutynin 5 mg Tab 5 mg = 1 tab(s), Oral, q12hr, PRN for urinary discomfort, Take 1 tab every 12 hours as needed for bladder spasms while catheter in is place, # 8 tab(s), Refills(s) 0, Pharmacy: [facility]/pharmacy #[id number], 178, cm, 01/27/25 12:08:00 EST, Height/Length Dosing, 99, kg, 01/27/25 12:08:00 EST, Weight Dosing Start Date: 01/27/25 Status: Ordered traMADol hydrochloride 50 mg oral tablet (6 sources) Opioid Agonist Start: 11-18-2024 take 1 tablet by mouth every eight hours as needed for pain traMADOL 50 mg Tab 50 mg = 1 tab(s), Oral, q8hr, PRN as needed for pain, Take 1 tablet every 8 hours as needed for severe pain, # 5 tab(s), Refills(s) 0, Pharmacy: [facility]/pharmacy #[id number], 178, cm, 01/27/25 12:08:00 EST, Height/Length Dosing, 99, kg, 01/27/25 12:08:00 EST, Weight Dosing Start Date: 01/27/25 Status: Ordered Problems Active Problems Problem Classification Problem Date Documented Da te Episodic/Chronic Acute myocardial infarction (1 source) Myocardial infarction; Translations: [Non-ST elevation (NSTEMI) myocardial infarction] Onset: 04-28-2016 12-09-2024 Chronic Alcohol-related disorders (7 sources) Alcohol dependence; Translations: [Alcohol dependence, uncomplicated] Onset: 12-09-2024 09-08-2024 Chronic Complication of device; implant or graft (3 sources) Complication associated with genitourinary device; Translations: [Unspecified complication of genitourinary prosthetic device, implant and graft, initial encounter] Onset: 01-27-2025 Episodic Conditions associated with dizziness or vertigo (1 source) Dizziness Onset: 12-09-2024 Episodic Coronary atherosclerosis and other heart disease (8 sources) Coronary arteriosclerosis; Translations: [Atherosclerotic heart disease of [place] coronary artery without angina pectoris] Onset: 04-28-2016 09-08-2024 Chronic Comment on above: Outside Source Comme nt: Jun 08, 2016 Entered By: KEVIN MCDERMOTT Comment: CATH 04/17/16 NSTEMI >non-obst CAD Diabetes mellitus with complications (10 sources) Type 2 diabetes mellitus with hyperglycemia; Translations: [Type 2 diabetes mellitus with diabetic polyneuropathy] Onset: 06-13-2022 09-08-2024 Chronic Diabetes mellitus without complication (6 sources) Diabetes mellitus 05-04-2020 Chronic Disorders of lipid metabolism (6 sources) Hyperlipidemia 09-08-2024 Chronic Essential hypertension (8 sources) Essential (primary) hypertension; Translations: [Hypertensive disorder] Onset: 04-28-2016 05-04-2020 Chronic Genitourinary symptoms and ill-defined conditions (14 sources) Retention of urine; Translations: [Retention of urine, unspecified] Onset: 09-08-2024 Episodic Hyperplasia of prostate (20 sources) Benign prostatic hypertrophy with outflow obstruction; Translations: [Benign prostatic hyperplasia with lower urinary tract symptoms] Onset: 09-08-2024 Chronic Nonspecific chest pain (7 sources) Chest pain, unspecified; Translations: [Chest pain] Onset: 06-11-2022 Episodic Nutritional deficiencies (7 sources) Vitamin D deficiency; Translations: [Vitamin D deficiency, unspecified] Onset: 12-09-2024 09-08-2024 Chronic Osteoarthritis (6 sources) Osteoarthritis 09-08-2024 Chronic Other diseases of bladder and urethra (1 source) Detrusor overactivity; Translations: [Overactive bladder] Onset: 11-18-2024 Chronic Other diseases of bladder and urethra (5 sources) Overactive bladder; Translations: [Overactive bladder] Onset: 12-09-2024 11-18-2024 Chronic Other diseases of kidney and ureters (2 sources) Urinary tract obstruction; Translations: [Other obstructive and reflux uropathy] Onset: 10-26-2024 Episodic Other ear and sense organ disorders (6 sources) Sensorineural hearing loss 09-08-2024 Chronic Other lower respiratory disease (1 source) Multiple nodules of lung; Translations: [Other nonspecific abnormal finding of lung field] Onset: 12-09-2024 12-09-2024 Episodic Other male genital disorders (5 sources) Male erectile dysfunction, unspecified; Translations: [Erectile dysfunction] Onset: 11-18-2024 Chronic Other male genital disorders (7 sources) Pain in testicle; Translations: [Testicular pain, unspecified] Onset: 09-08-2024 Episodic Other nervous system disorders (1 source) Paresthesia; Translations: [Paresthesia of skin] Onset: 12-09-2024 12-09-2024 Episodic Other screening for suspected conditions (not mental disorders or infectious disease) (14 sources) Raised prostate specific antigen; Translations: [Elevated prostate specific antigen [PSA]] Onset: 09-08-2024 Episodic Residual codes; unclassified (1 source) Intermittent confusion; Translations: [Disorientation, unspecified] Onset: 12-09-2024 12-09-2024 Episodic Screening and history of mental health and substance abuse codes (2 sources) Personal history of nicotine dependence; Translations: [Ex-smoker] Onset: 06-13-2022 12-09-2024 Episodic Transient cerebral ischemia (2 sources) Transient cerebral ischemic attack, unspecified; Translations: [Transient cerebral ischemia] Onset: 12-10-2024 12-10-2024 Chronic Unclassified (1 source) CONTACT W/AND (SUSP) EXPOS COVID-19; Translations: [CONTACT W/AND (SUSP) EXPOS COVID-19] Onset: 06-13-2022 Unclassified (4 sources) Finding of sensation of bladder 11-18-2024 Past or Other Problems Problem Classification Problem Date Documented Da te Episodic/Chronic Other aftercare (1 source) care home (current) use of aspirin; Translations: [SENIOR CARE CURRENT USE OF ASPIRIN] Onset: 06-13-2022 Episodic Other aftercare (1 source) care home (current) use of insulin; Translations: [ELECTRIC MOTOR ASSEMBLER AND TESTER CURRENT USE OF INSULIN] Onset: 06-13-2022 Episodic Other aftercare (1 source) Other halfway (current) drug therapy; Translations: [OTH SENIOR CARE CURRENT DRUG THERAPY] Onset: 06-13-2022 Episodic Other connective tissue disease (1 source) Cramp and spasm; Translations: [CRAMP AND SPASM] Onset: 06-13-2022 Episodic Results Test Name Value Interpretation Reference Range Facility Ambulatory Visit Summaryon 0 03-04-2025 Ambulatory Visit Summary Ambulatory Visit Summary MALCOM COTTO :1960 Visit [...] Follow-Up Appointments 2024 11:00 AM EDT With: Magdy WATSON, Mary Guerra Where: [facility] [address], [address] [place] [address]- You Need to Schedule the Following Appointments Follow Up with Magdy WATSON, Mary Guerra, URL, URO When: Where: Medications What How [...] (erectile dysfunction) Elevated PSA Elevated PSA measurement Bautista catheter problem Gross hematuria HTN (hypertension) Hyperglycemia [...] you for choosing us for your care. Normal [facility] Urology Office/Clinic Noteon 03-04-2025 Urology Office/Clinic Note Urology Office/Clinic Note Chief Complaint follow up [...] to UroLift. Hx of uncontrolled DM, A1c 7-8s 1. BPH with urinary obstruction (N40.1: Benign prostatic hyperplasia with lower urinary tract symptoms) Prostate volume 86 g from outside MRI. S/p Cysto 10/26/24 - Obstructed, severe bilobar prostatomegaly, kissing lateral lobes, elevated bladder neck. Mild intravesical protrusion without median lobe sulcus. S/p 10 implant UroLift 01/25/25. 18 Fr Coude bautista catheter was placed due to hematuria, 20 cc in balloon. Saw Antonella 01/27/25 due to catheter issues. Bautista removed 02/01/25. 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 Also shares he has burning [...] 03/04/2025 11:20:00. . Documentation recorded by the scribeArabella, accurately reflects the services(s) I performed and decisions made by me. Authenticated by Dr. Curran on 03/04/2025 12:18:36. Problem List/Past Medical History Ongoing Alcohol dependence Benign prostatic hyperplasia without outflow obstruction BPH with urinary obstruction Coronary arteriosclerosis Diabetes mellitus ED (erectile dysfunction) Elevated PSA Elevated PSA measurement Bautista catheter problem Gross hematuria HTN (hypertension) Hyperglycemia due to type 2 diabetes mellitus Hyperlipidemia Incomplete bladder emptying OAB (overactive bladder) Oste (more content not included)... Normal [facility] Comment on above: Result Comment: Electronically Signed By : Mary Curran MD\.br\Date and Time Signed: 03/04/25 12:18 EDT\.br\Electronically Co-Signed By: Arabella Spain\.br\Date and Time Co-Signed: 03/04/25 11:20 EDT\.br\Electronically Co-Signed By: Arabella Spain\.br\Date and Time Co-Signed: 03/04/25 11:21 EDT Urology Office/Clinic Noteon 01-27-2025 Urology Office/Clinic Note Urology Office/Clinic Note Chief Complaint catheter pain HPI Staff 64yr old pt here for Bautista issues. Had UroLift done Saturday. Noticed urine [...] Bladder: nonpalpable. Penis: normal shaft, normal glans. Abutista present, dried blood noted around catheter near insertion site Prostate: normal prostate, no hard nodule observed. Assessment/Plan Patient presents today with his for bautista catheter issues 1. Bautista catheter problem (T83.9XXA: Unspecified complication of genitourinary prosthetic device, implant and graft, initial encounter) Patient s/p UroLift done 01/25/25 w/ KML. 10 implants attempted, 10 seated. 18 Fr Coude bautista catheter was placed due to hematuria, 20 cc in balloon. Post-op recommendations were to follow up in 2-3 days once urine is clear for bautista removal/voiding trial. Today, patient presents for bautista catheter complaints. States he initially had pain from Bautista that was not bothersome, but today, pain got much more severe. Pain is worse when walking and sitting, better with standing or leaning. He has been taking Tramadol with little to no relief. States he has been leaking both urine and bright red blood around bautista catheter. Also states urine has become more dark in color. Upon PE, dried blood noted around urethral opening and bautista catheter. Urinary catheter not properly secured and significant catheter tension noted. Bautista bag with dark con-colored urine, draining properly. Bag disconnected from catheter, bladder irrigated with ~300 cc saline until urine clear/very light pink. No clots noted. Bautista bag replaced. Cath secured w/ stat lock. Pt tolerated well. Pain improved. Recommend pt keep bautista in place until hematuria resolves. Patient agreeable. All questions answered. -See above -Avoid tension/tugging of cath. Keep bag below bladder level -Will send refill of Tramadol 50 mg q8h PRN for severe pain and oxybutynin 5 mg PRN for bladder spasms -Nurse visit scheduled 2/3 for bautista removal/voiding trial, as long as urine is clear -Follow up in 1 month with PVR w/ KML 2. Gross hematuria (R31.0: Gross hematuria) -See #1 Orders: oxybutynin, 5 mg = 1 tab(s), Oral, q12hr, PRN for urinary discomfort, Take 1 tab every 12 hours as needed for bladder spasms while catheter in is place, # 8 tab(s), Refills(s) 0, Pharmacy: [facility]/pharmacy #[id number], 178, cm, 01/27/25 12:08:00 EST, Height/Length Dosing,... tramadol, 50 mg = 1 tab(s), Oral, q8hr, PRN as needed for pain, Take 1 tablet every 8 hours as needed for severe pain, # 5 tab(s), Refills(s) 0, Pharmacy: [facility]/pharmacy #[id number], 178, cm, 01/27/25 12:08:00 EST, Height/Length Dosing, 99, kg, 01/27/25 12:08:00 EST, W... Follow-up With When Contact Information kml Additional Instructions: Nurse visit for bautista removal on 02/01 F/U as scheduled with KML w/ PVR Patient Education Hematuria, Adult Problem List/Past Medical History Ongoing Alcohol dependence Benign prostatic hyperplasia without outflow obstruction BPH with urinary obstruction Coronary arteriosclerosis Diabetes mellitus ED (erectile dysfunction) Elevated PSA measurement Bautista catheter problem Gross hematuria HTN (hypertension) Hyperglycemia [...] tablet, 25 mg= 1 tab(s), Oral, qAM (more content not included)... Normal [facility] Comment on above: Result Comment: Electronically Signed By : Leona SETH, Antonella\.br\Date and Time Signed: 01/27/25 15:50 EST Inpatient Patient Summaryon 01-25-2025 Inpatient Patient Summary Inpatient Patient Summary [place] [id number] Clinical Summary Person Information Name: MALCOM COTTO Age: 64 Years : 1960 Sex: Male PCP: NASIMA SOTO CNP Marital Status: Race: White Ethnicity: Non- or Language: Niuean Visit Id: Visit Reason: BPH WITH URINARY OBSTRUCTION Speciality: Acuity: Enc Type: Outpatient Med Service: Surgery Arrival: 01/25/2025 08:44:02 Discharge: Dispo Type: Address: [address] [place] [phone] Provider Notes: Diagnosis: BPH with urinary obstruction; [...] [facility] instructions With: Address: When: Mary Curran [facility] [place], [place] [id number] [phone] Business (1) Comments: Office to schedule follow up: nursing visit in 2-3 days once urine is clear for bautista removal voiding trial. Follow up with Dr. Curran in 1 month for PVR Patient Education Information: Lue - Urolift Post-Op Instructions (CUSTOM) [facility] Main OR Intraoperative Recor don 01-25-2025 Main OR Intraoperative Record Main OR Intraoperative Record IntraOp Document Type FTURO Summary Primary Physician: Mary Curran MD Finalized Date/Time: 01/25/25 10:48:08 Pt. Name: MALCOM COTTO Desi KhalilB./Sex: 1960 Male Med Rec #: [id number] Physician: Mary Curran MD Financial #: [id number] Pt. Type: O Room/Bed: / Admit/Disch: 01/25/25 [...] Performed Surgeon - Primary Scrub - Primary Cabinet Finisher - Primary Time In 01/25/25 10:04:00 01/25/25 [...] PENIS Prep Agents Betasept Skin. Condition Intact, [place], Warm, & Description UNCHANGED Dry Additional None [...] Neymar Martinez Ii 01/25/25 10:41:49 Case Comments Finalized By: Neymar Martinez Ii Document Signatures Signed By: Neymar Martinez Ii 01/25/25 10:48 Normal [facility] Main OR Preoperative Recordo n 01-25-2025 Main OR Preoperative Record Main OR Preoperative Record Holding Area Document Type FTURO Summary Primary Physician: Mary Curran MD Finalized Date/Time: 01/25/25 10:09:44 Pt. Name: MALCOM COTTO /Sex: 1960 Male Med Rec #: [id number] Physician: Mary Curran MD Financial #: [id number] Pt. Type: O Room/Bed: / Admit/Disch: 01/25/25 [...] Complaints of Pain: No Skin Integrity Intact, [place], Warm, & Dry Vitals - EU Blood Pressure 155/79 Pulse 76 bpm Respirations 18 br/min SPO2 95 % Additional None RN Reviewed Yes Specimens Collected Last Modified By: Neymar Martinez Ii 01/25/25 10:09:42 Finalized By: Neymar Martinez Ii Document Signatures Signed By: Ameena Graff LPN 01/25/25 09:07 Neymar Martinez Ii 01/25/25 10:09 Normal [facility] Operative Reporton Operative Report Operative Report Patient: MALCOM COTTO Age: 64 [...] All instruments were removed. An 18Fr coude bautista catheter was inserted due to hematuria, 20 cc in balloon. The bladder was irrigated until clear. The patient tolerated the procedure well without complication. 10 implants attempted, 10 seated. . Postoperative Information Discharge: The patient tolerated the procedure well and was subsequently discharged home, Follow up in 2-3 days once urine is clear for bautista removal, voiding trial. Follow up in 1 [...] with PCP regarding neurology and cardiology care.. Normal [facility] Comment on above: Result Comment: Electronically Signed By : Magdy WATSON, Mary Guerra\.mamadou\Date and Time Signed: 01/25/25 10:53 EST Outpatient Surgery Discharge Instructionon 01-25-2025 Outpatient Surgery Discharge Instruction Outpatient Surgery Discharge Instruction [address] [address] Patient Discharge Instructions PERSON INFORMATION Name: MALCOM [...] instructions With: Address: When: Mary Curran [address] [place], [place] [phone] Business (1) Comments: Office to schedule follow up: nursing visit in 2-3 days once urine is clear for bautista removal voiding trial. Follow up with Dr. Curran in 1 month for PVR Comment: PATIENT EDUCATION INFORMATION Instructions: [facility] [place] [place] Post-Operative Instructions for UroLift After your [...] to present to the local emergency department. Bautista catheter If you have a catheter and [...] of water will help with side effects. Bautista Catheter Removal Your healthcare provider has instructed you to remove your Bautista catheter. This is a thin, flexible tube that allows urine to drain out of your bladder and into a bag. It is important to properly remove your catheter to prevent infection and other complications. If you have any questions about removing the Bautista catheter, ask your healthcare provider before trying to remove it. Otherwise, follow the instructions on this sheet. Bautista Catheter The Bautista catheter is held in place by a [...] that was given to you by your healthca (more content not included)... Normal [facility] CBC AND AUTO DIFFon 12-10-19 25 ABSOLUTE BASOPHIL 0.0 X10E9/L Normal 0.0-0.2 [facility] Comment on above: Performed By: #### CBCA, CMP, 19923-0, 8 9579-7, THYR #### [facility] ([id number]) [address] [place] [address] #### HA1C #### [facility] ([id number]) [facility], [address] [place] [address] ABSOLUTE NEUTROPHIL 5.0 X10E9/L Normal 1.5-6.6 [facility] Comment on above: Performed By: #### CBCA, CMP, 52990-0, 8 9579-7, THYR #### [facility] ([id number]) [address] [place], [place] [address] #### HA1C #### [facility] ([id number]) [address] [place] [address], [address] [place] [address] Basophils/100 WBC (Bld) 0.4 % Normal [facility] Comment on above: Performed By: #### CBCA, CMP, 06639-7, 8 9579-7, THYR #### [facility] ([id number]) [address] [place] [address] #### HA1C #### [facility] ([id number]) [address] [place] [address], [address] [place] [address] Eosinophils (Bld) [#/Vol] 0.3 10*3/uL Normal 0.0-0.4 [facility] Comment on above: Performed By: #### CBCA, CMP, 31016-3, 8 9579-7, THYR #### [facility] ([id number]) [address] [place] [address] #### HA1C #### [facility] ([id number]) [address] [facility], [address] [place] [address] Eosinophils/100 WBC (Bld) 4.5 % Normal [facility] Comment on above: Performed By: #### CBCA, CMP, 22793-1, 8 9579-7, THYR #### [facility] ([id number]) [address] [place] [address] #### HA1C #### [facility] ([id number]) [address] [facility], [address] [place] [address] Erythrocyte distribution width (RBC) [Ratio] 14.1 % Normal 11.5-15.0 [facility] Comment on above: Performed By: #### CBCA, CMP, 44135-6, 8 9579-7, THYR #### [facility] ([id number]) [address] [place] [address] #### HA1C #### [facility] ([id number]) [address] [facility], [address] [place] [address] Hematocrit (Bld) [Volume fraction] 43.0 % Normal 39-49 [facility] Comment on above: Performed By: #### CBCA, CMP, 33345-4, 8 9579-7, THYR #### [facility] ([id number]) [address] [place] [address] #### HA1C #### [facility] ([id number]) [address] [facility], [address] [place] [address] Hemoglobin (Bld) [Mass/Vol] 14.6 g/dL Normal 13.0-17.0 [facility] Comment on above: Performed By: #### CBCA, CMP, 68515-3, 8 9579-7, THYR #### [facility] ([id number]) [address] [place] [address] #### HA1C #### [facility] ([id number]) [address], [address] [place] [address] Lymphocytes (Bld) [#/Vol] 1.3 10*3/uL Normal 1.0-3.5 [facility] Comment on above: Performed By: #### CBCA, CMP, 77538-0, 8 9579-7, THYR #### [facility] ([id number]) [address] [place] [address] #### HA1C #### [facility] ([id number]) [address], [address] [place] [address] Lymphocytes/100 WBC (Bld) 16.9 % Normal [facility] Comment on above: Performed By: #### CBCA, CMP, 22825-5, 8 9579-7, THYR #### [facility] ([id number]) [address] [place], [place] [address] #### HA1C #### [facility] ([id number]) [address], [address] [place] [address] MCH (RBC) [Entitic mass] 30.5 pg Normal 27-34 [facility] Comment on above: Performed By: #### CBCA, CMP, 44630-2, 8 9579-7, THYR #### [facility] ([id number]) [address] [place], [place] [address] #### HA1C #### [facility] ([id number]) [address], [address] [place] [address] MCHC (RBC) [Mass/Vol] 33.9 g/dL Normal 32-36 [facility] Comment on above: Performed By: #### CBCA, CMP, 62456-4, 8 9579-7, THYR #### [facility] ([id number]) [address] [place], [place] [address] #### HA1C #### [facility] ([id number]) [address] [facility], [address] [place] [address] MCV (RBC) [Entitic vol] 90 fL Normal 80-100 [facility] Comment on above: Performed By: #### CBCA, CMP, 14855-5, 8 9579-7, THYR #### [facility] ([id number]) [address] [place] [address] #### HA1C #### [facility] ([id number]) [address] [facility], [address] [place] [address] Monocytes (Bld) [#/Vol] 0.8 10*3/uL Normal 0-0.9 [facility] Comment on above: Performed By: #### CBCA, CMP, 42926-7, 8 9579-7, THYR #### [facility] ([id number]) [address] [place], [place] [address] #### HA1C #### [facility] ([id number]) [address] [facility], [address] [place] [address] Monocytes/100 WBC (Bld) 10.8 % Normal [facility] Comment on above: Performed By: #### CBCA, CMP, , 8 9579-7, THYR #### [facility] ([id number]) [address] [place], [place] [address] #### HA1C #### [facility] ([id number]) [address] [facility], [address] [place] [address] Neutrophils/100 WBC (Bld) 67.4 % Normal [facility] Comment on above: Performed By: #### CBCA, CMP, , 8 9579-7, THYR #### [facility] ([id number]) [address] [place] [address] #### HA1C #### [facility] ([id number]) [address] [facility], [address] [place] [address] Platelet mean volume (Bld) [Entitic vol] 8.2 fL Normal 7-12 [facility] Comment on above: Performed By: #### CBCA, CMP, 92845-0, 8 9579-7, THYR #### [facility] ([id number]) [address] [place] [address] #### HA1C #### [facility] ([id number]) [address] [facility], [address] [place] [address] Platelets (Bld) [#/Vol] 243 10*3/uL Normal 150-450 [facility] Comment on above: Performed By: #### CBCA, CMP, 20578-2, 8 9579-7, THYR #### [facility] ([id number]) [address] [place] [address] #### HA1C #### [facility] ([id number]) [facility], [address] [place] [address] RBC COUNT 4.78 X10E12/L Normal 4.10-5.70 [facility] Comment on above: Performed By: #### CBCA, CMP, 19164-5, 8 9579-7, THYR #### [facility] ([id number]) [address] [place] [address] #### HA1C #### [facility] ([id number]) [address] [facility], [address] [place] [address] WBC (Bld) [#/Vol] 7.4 10*3/uL Normal 4.0-11.0 [facility] Comment on above: Performed By: #### CBCA, CMP, 01988-9, 8 9579-7, THYR #### [facility] ([id number]) [address] [place] [address] #### HA1C #### [facility] ([id number]) [address], [address] [place] [address] COMPREHENSIVE METABOLIC PANE [place] 12-10-2024 Albumin [Mass/Vol] 4.1 g/dL Normal 3.2-5.3 [facility] Comment on above: Performed By: #### CBCA, CMP, 16659-0, 8 9579-7, THYR #### [facility] ([id number]) [address] [place], [place] [address] #### HA1C #### [facility] ([id number]) [address], [address] [place] [address] ALP [Catalytic activity/Vol] 50 U/L Normal 39-130 [facility] Comment on above: Performed By: #### CBCSharonda, CMP, 65097-7, 8 9579-7, THYR #### [facility] ([id number]) [address] [place], [place] [address] #### HA1C #### [facility] ([id number]) [address], [address] [place] [address] ALT [Catalytic activity/Vol] 29 U/L Normal 0-40 [facility] Comment on above: Performed By: #### CBCA, CMP, 80257-4, 8 9579-7, THYR #### [facility] ([id number]) [address] [place], [place] [address] #### HA1C #### [facility] ([id number]) [address], [address] [place] [address] Anion gap [Moles/Vol] 7 mmol/L Normal 5-15 [facility] Comment on above: Performed By: #### CBCA, CMP, 03912-6, 8 9579-7, THYR #### [facility] ([id number]) [address] [place] [address] #### HA1C #### [facility] ([id number]) [address] [facility], [address] [place] [address] AST [Catalytic activity/Vol] 20 U/L Normal 0-41 [facility] Comment on above: Performed By: #### CBCA, CMP, 51714-4, 8 9579-7, THYR #### [facility] ([id number]) [address] [place], [place] [address] #### HA1C #### [facility] ([id number]) [address] [facility], [address] [place] [address] Bilirubin [Mass/Vol] 0.8 mg/dL Normal 0.3-1.2 [facility] Comment on above: Performed By: #### CBCA, CMP, 66237-7, 8 9579-7, THYR #### [facility] ([id number]) [address] [place] [address] #### HA1C #### [facility] ([id number]) [address] [facility], [address] [place] [address] Calcium [Mass/Vol] 8.4 mg/dL Low 8.5-10.5 [facility] Comment on above: Performed By: #### CBCA, CMP, 56995-1, 8 9579-7, THYR #### [facility] ([id number]) [address] [place] [address] #### HA1C #### [facility] ([id number]) [address] [facility], [address] [place] [address] Chloride [Moles/Vol] 104 mmol/L Normal 98-109 [facility] Comment on above: Performed By: #### CBCA, CMP, 44306-4, 8 9579-7, THYR #### [facility] ([id number]) [address] [place] [address] #### HA1C #### [facility] ([id number]) [address], [address] [place] [address] CO2 [Moles/Vol] 24 mmol/L Normal 22-32 [facility] Comment on above: Performed By: #### CBCA, CMP, 34602-2, 8 9579-7, THYR #### [facility] ([id number]) [address] [place], [place] [address] #### HA1C #### [facility] ([id number]) [address], [address] [place] [address] Creatinine [Mass/Vol] 0.89 mg/dL Normal 0.70-1.20 [facility] Comment on above: Result Comment: METHOD TRACEABLE TO IDMS STANDARD Performed By: #### C BCA, CMP, 20267-4, 79953-1, THYR #### [facility] ([id number]) [address] [place], [place] [address] #### HA1C #### [facility] ([id number]) [address], [address] [place] [address] eGFR (CKD-EPI) NON-RACE DEPENDENT >90 Normal >59 [facility] Comment on above: Result Comment: Reported eGFR is based on the CKD-EPI 2021 equation that does not use a race coefficient. Performed By: #### C BCA, CMP, 04803-2, 41641-9, THYR #### [facility] ([id number]) [address] [place], [place] [address] #### HA1C #### [facility] ([id number]) [address], [address] [place] [address] Glucose [Mass/Vol] 139 mg/dL High 65-99 [facility] Comment on above: Performed By: #### CBCA, CMP, 34324-8, 8 9579-7, THYR #### [facility] ([id number]) [address] [place] [address] #### HA1C #### [facility] ([id number]) [address], [address] [place] [address] Potassium [Moles/Vol] 3.8 mmol/L Normal 3.5-5.0 [facility] Comment on above: Performed By: #### CBCA, CMP, 17347-9, 8 9579-7, THYR #### [facility] ([id number]) [address] [place] [address] #### HA1C #### [facility] ([id number]) [address] [facility], [address] [place] [address] Protein [Mass/Vol] 6.6 g/dL Normal 6.0-8.0 [facility] Comment on above: Performed By: #### CBCSharonda, CMP, 52034-3, 8 9579-7, THYR #### [facility] ([id number]) [address] [place] [address] #### HA1C #### [facility] ([id number]) [address], [address] [place] [address] Sodium [Moles/Vol] 135 mmol/L Normal 134-146 [facility] Comment on above: Performed By: #### CBCA, CMP, 82810-4, 8 9579-7, THYR #### [facility] ([id number]) [address] [place] [address] #### HA1C #### [facility] ([id number]) [address], [address] [place] [address] Urea nitrogen [Mass/Vol] 20 mg/dL Normal 5-27 [facility] Comment on above: Performed By: #### CIRO FELTON, 46757-6, 8 9579-7, THYR #### [facility] ([id number]) [address] [place] [address] #### HA1C #### [facility] ([id number]) [address] [facility], [address] [place] [address] Glucose Glucometer (BldC) [M ass/Vol]on 12-10-2024 Glucose [Mass/Vol] 136 mg/dL High 65-99 [facility] MAGNESIUMon 12-10-2024 Magnesium [Mass/Vol] 2.1 mg/dL Normal 1.8-2.6 [facility] Comment on above: Performed By: #### [facility], 07473-5, 8 9579-7, THYR #### [facility] ([id number]) [address] [place] [address] #### HA1C #### [facility] ([id number]) [address] [facility], [address] [place] [address] CBC AND AUTO DIFFon 12-09-19 25 ABSOLUTE BASOPHIL 0.0 X10E9/L Normal 0.0-0.2 [facility] Comment on above: Performed By: #### CBCSharonda [facility], 63182-4, 8 9579-7, THYR #### [facility] ([id number]) [address] [place] [address] #### HA1C #### [facility] ([id number]) [address] [facility], [address] [place] [address] ABSOLUTE NEUTROPHIL 4.9 X10E9/L Normal 1.5-6.6 [facility] Comment on above: Performed By: #### CBCSharonda CMP, 42688-2, 8 9579-7, THYR #### [facility] ([id number]) [address] [place] [address] #### HA1C #### [facility] ([id number]) [address] [facility], [address] [place] [address] Basophils/100 WBC (Bld) 0.4 % Normal [facility] Comment on above: Performed By: #### CBCA, CMP, 52758-2, 8 9579-7, THYR #### [facility] ([id number]) [address] [place] [address] #### HA1C #### [facility] ([id number]) [address] [facility], [address] [place] [address] Eosinophils (Bld) [#/Vol] 0.3 10*3/uL Normal 0.0-0.4 [facility] Comment on above: Performed By: #### CBCA, CMP, 51342-6, 8 9579-7, THYR #### [facility] ([id number]) [address] [place], [place] [address] #### HA1C #### [facility] ([id number]) [address] [place] [address], [address] [place] [address] Eosinophils/100 WBC (Bld) 4.5 % Normal [facility] Comment on above: Performed By: #### CBCA, CMP, 90991-7, 8 9579-7, THYR #### [facility] ([id number]) [address] [place] [address] #### HA1C #### [facility] ([id number]) [address] [facility], [address] [place] [address] Erythrocyte distribution width (RBC) [Ratio] 13.8 % Normal 11.5-15.0 [facility] Comment on above: Performed By: #### CBCA, CMP, 41800-9, 8 9579-7, THYR #### [facility] ([id number]) [address] [place] [address] #### HA1C #### [facility] ([id number]) [address] [facility], [address] [place] [address] Hematocrit (Bld) [Volume fraction] 45.2 % Normal 39-49 [facility] Comment on above: Performed By: #### CBCA, CMP, 76389-1, 8 9579-7, THYR #### [facility] ([id number]) [address] [place], [place] [address] #### HA1C #### [facility] ([id number]) [address] [facility], [address] [place] [address] Hemoglobin (Bld) [Mass/Vol] 15.5 g/dL Normal 13.0-17.0 [facility] Comment on above: Performed By: #### CBCA, CMP, 72762-9, 8 9579-7, THYR #### [facility] ([id number]) [address] [place] [address] #### HA1C #### [facility] ([id number]) [address] [facility], [address] [place] [address] Lymphocytes (Bld) [#/Vol] 1.7 10*3/uL Normal 1.0-3.5 [facility] Comment on above: Performed By: #### CBCA, CMP, 99122-5, 8 9579-7, THYR #### [facility] ([id number]) [address] [place], [place] [address] #### HA1C #### [facility] ([id number]) [address] [facility], [address] [place] [address] Lymphocytes/100 WBC (Bld) 21.9 % Normal [facility] Comment on above: Performed By: #### CBCA, CMP, 03349-0, 8 9579-7, THYR #### [facility] ([id number]) [address] [place], [place] [address] #### HA1C #### [facility] ([id number]) [address] [place] [address], [address] [place] [address] MCH (RBC) [Entitic mass] 31.4 pg Normal 27-34 [facility] Comment on above: Performed By: #### CBCA, CMP, 81247-4, 8 9579-7, THYR #### [facility] ([id number]) [address] [place] [address] #### HA1C #### [facility] ([id number]) [address] [facility], [address] [place] [address] MCHC (RBC) [Mass/Vol] 34.3 g/dL Normal 32-36 [facility] Comment on above: Performed By: #### CBCA, CMP, 43437-1, 8 9579-7, THYR #### [facility] ([id number]) [address] [place], [place] [address] #### HA1C #### [facility] ([id number]) [address] [place] [address], [address] [place] [address] MCV (RBC) [Entitic vol] 91 fL Normal 80-100 [facility] Comment on above: Performed By: #### CBCA, CMP, 54578-1, 8 9579-7, THYR #### [facility] ([id number]) [address] [place], [place] [address] #### HA1C #### [facility] ([id number]) [address] [place] [address], [address] [place] [address] Monocytes (Bld) [#/Vol] 0.7 10*3/uL Normal 0-0.9 [facility] Comment on above: Performed By: #### CBCA, CMP, 97241-8, 8 9579-7, THYR #### [facility] ([id number]) [address] [place], [place] [address] #### HA1C #### [facility] ([id number]) [address] [facility], [address] [place] [address] Monocytes/100 WBC (Bld) 9.6 % Normal [facility] Comment on above: Performed By: #### CBCA, CMP, 46133-0, 8 9579-7, THYR #### [facility] ([id number]) [address] [place] [address] #### HA1C #### [facility] ([id number]) [address] [facility], [address] [place] [address] Neutrophils/100 WBC (Bld) 63.6 % Normal [facility] Comment on above: Performed By: #### CBCA, CMP, 34385-9, 8 9579-7, THYR #### [facility] ([id number]) [address] [place], [place] [address] #### HA1C #### [facility] ([id number]) [address] [facility], [address] [place] [address] Platelet mean volume (Bld) [Entitic vol] 7.9 fL Normal 7-12 [facility] Comment on above: Performed By: #### CBCA, CMP, 11078-3, 8 9579-7, THYR #### [facility] ([id number]) [address] [place], [place] [address] #### HA1C #### [facility] ([id number]) [address] [place] [address], [address] [place] [address] Platelets (Bld) [#/Vol] 249 10*3/uL Normal 150-450 [facility] Comment on above: Performed By: #### CBCA, CMP, 98345-8, 8 9579-7, THYR #### [facility] ([id number]) [address] [place] [address] #### HA1C #### [facility] ([id number]) [address] [facility], [address] [place] [address] RBC COUNT 4.94 X10E12/L Normal 4.10-5.70 [facility] Comment on above: Performed By: #### CBCA, CMP, 38845-1, 8 9579-7, THYR #### [facility] ([id number]) [address] [place] [address] #### HA1C #### [facility] ([id number]) [address] [facility], [address] [place] [address] WBC (Bld) [#/Vol] 7.7 10*3/uL Normal 4.0-11.0 [facility] Comment on above: Performed By: #### CBCA, CMP, 99559-5, 8 9579-7, THYR #### [facility] ([id number]) [address] [place], [place] [address] #### HA1C #### [facility] ([id number]) [address], [address] [place] [address] COMPREHENSIVE METABOLIC PANE [place] 12-09-2024 Albumin [Mass/Vol] 4.3 g/dL Normal 3.2-5.3 [facility] Comment on above: Performed By: #### CBCA, CMP, 94184-0, 8 9579-7, THYR #### [facility] ([id number]) [address] [place], [place] [address] #### HA1C #### [facility] ([id number]) [address], [address] [place] [address] ALP [Catalytic activity/Vol] 71 U/L Normal 39-130 [facility] Comment on above: Performed By: #### CBCA, CMP, 98881-1, 8 9579-7, THYR #### [facility] ([id number]) [address] [place], [place] [address] #### HA1C #### [facility] ([id number]) [address] [facility], [address] [place] [address] ALT [Catalytic activity/Vol] 27 U/L Normal 0-40 [facility] Comment on above: Performed By: #### PURNIMA, CMP, 76063-1, 8 9579-7, THYR #### [facility] ([id number]) [address] [place] [address] #### HA1C #### [facility] ([id number]) [address] [facility] [facility], [address] [place] [address] Anion gap [Moles/Vol] 7 mmol/L Normal 5-15 [facility] Comment on above: Performed By: #### CIRO FELTON, 54931-4, 8 9579-7, THYR #### [facility] ([id number]) [address] [place] [address] #### HA1C #### [facility] ([id number]) [address] [facility] [facility], [address] [place] [address] AST [Catalytic activity/Vol] 24 U/L Normal 0-41 [facility] Comment on above: Performed By: #### PURNIMA CMP, 13770-5, 8 9579-7, THYR #### [facility] ([id number]) [address] [place] [address] #### HA1C #### [facility] ([id number]) [address] [facility], [address] [place] [address] Bilirubin [Mass/Vol] 0.5 mg/dL Normal 0.3-1.2 [facility] Comment on above: Performed By: #### CBCA, CMP, 42413-7, 8 9579-7, THYR #### [facility] ([id number]) [address] [place] [address] #### HA1C #### [facility] ([id number]) [address] [place] [address], [address] [place] [address] Calcium [Mass/Vol] 9.0 mg/dL Normal 8.5-10.5 [facility] Comment on above: Performed By: #### CBCA, CMP, 77651-2, 8 9579-7, THYR #### [facility] ([id number]) [address] [place] [address] #### HA1C #### [facility] ([id number]) [address] [place] [address], [address] [place] [address] Chloride [Moles/Vol] 104 mmol/L Normal 98-109 [facility] Comment on above: Performed By: #### CBCA, CMP, 44794-7, 8 9579-7, THYR #### [facility] ([id number]) [address] [place], [place] [address] #### HA1C #### [facility] ([id number]) [address] [place] [address], [address] [place] [address] CO2 [Moles/Vol] 24 mmol/L Normal 22-32 [facility] Comment on above: Performed By: #### CBCA, CMP, 77546-9, 8 9579-7, THYR #### [facility] ([id number]) [address] [place] [address] #### HA1C #### [facility] ([id number]) [address] [place] [address], [address] [place] [address] Creatinine [Mass/Vol] 0.92 mg/dL Normal 0.70-1.20 [facility] Comment on above: Result Comment: METHOD TRACEABLE TO IDMS STANDARD Performed By: #### C BCA, CMP, 52577-5, 27361-3, THYR #### [facility] ([id number]) [address] [place] [address] 118[address] #### HA1C #### [facility] ([id number]) [address] [facility], [address] [place] [address] eGFR (CKD-EPI) NON-RACE DEPENDENT >90 Normal >59 [facility] Comment on above: Result Comment: Reported eGFR is based on the CKD-EPI 2021 equation that does not use a race coefficient. Performed By: #### C BCA, CMP, 63472-2, 11569-9, THYR #### [facility] ([id number]) [address] [place] [address] #### HA1C #### [facility] ([id number]) [address] [place] [address], [address] [place] [address] Glucose [Mass/Vol] 230 mg/dL High 65-99 [facility] Comment on above: Performed By: #### CBCA, CMP, 59268-7, 8 9579-7, THYR #### [facility] ([id number]) [address] [place] [address] 51206 #### HA1C #### [facility] ([id number]) [address] [place] [address], [address] [place] [address] Potassium [Moles/Vol] 4.2 mmol/L Normal 3.5-5.0 [facility] Comment on above: Performed By: #### CBCA, CMP, 09547-7, 8 9579-7, THYR #### [facility] ([id number]) [address] [place] [address] 36595 #### HA1C #### [facility] ([id number]) [address] [place] [address], [address] [place] [address] Protein [Mass/Vol] 7.2 g/dL Normal 6.0-8.0 [facility] Comment on above: Performed By: #### CBCA, CMP, 07937-0, 8 9579-7, THYR #### [facility] ([id number]) [address] [place] [address] 15678 #### HA1C #### [facility] ([id number]) [address] [place] [address], [address] [place] [address] Sodium [Moles/Vol] 135 mmol/L Normal 134-146 [facility] Comment on above: Performed By: #### CBCA, CMP, 56491-9, 8 9579-7, THYR #### [facility] ([id number]) [address] [place] [address]306 #### HA1C #### [facility] ([id number]) [address] [place] [address], [address] [place] [address] Urea nitrogen [Mass/Vol] 23 mg/dL Normal 5-27 [facility] Comment on above: Performed By: #### CBCA, CMP, 89879-5, 8 9579-7, THYR #### [facility] ([id number]) [address] [place] [address] 35702 #### HA1C #### [facility] ([id number]) [address] [place] [address], [address] [place] [address] CT BRAIN WO CONTon CT BRAIN WO CONT CT BRAIN WO CONT Exam: CT brain [...] Miles Toscano MD on 12/09/2024 10:47 AM Normal [facility] CT CTA CAROTIDon 12-09-[address] CTA CAROTID CLINICAL INFORMATION: Syncope/presyncope, cerebrovascular cause suspected TECHNIQUE: CT angiogram performed following intravenous administration of nonionic intravenous contrast. Coronal and sagittal and 3-D volume rendered maximum intensity projection images generated and reviewed under concurrent physician supervision. Automated exposure control utilized. The [place] Symptomatic Carotid Endarterectomy Trial (NASCET) method for [...] Gabrielle Dumont MD on 12/09/2024 10:47 AM Normal [facility] CT CTA HEADon 12-09-[address]A HEAD CT angiogram of the head, 12/09/2024 Clinical History: Syncope Comparison: None Contrast: 100 mL Omnipaque 350 Technique: Multidetector CT angiogram performed through the [place] of [place] using 3D reconstructions and source [...] Jonah Silva MD on 12/09/2024 10:47 AM Normal [facility] Folate [Mass/Vol]on 12-09-19 25 FOLIC ACID >25.0 Normal >5.8 [facility] Comment on above: Result Comment: NEW REFERENCE RANGE Performed By: #### C BCA, [facility], 24407-1, 35091-4, THYR #### [facility] ([id number]) [address] [place] [address] #### HA1C #### [facility] ([id number]) [address] [facility], [address] [place] [address] Glucose Glucometer (BldC) [M ass/Vol]on 12-09-2024 Glucose [Mass/Vol] 130 mg/dL High 65-99 [facility] HGB A1C (GLYCO-HGB)on 2024 Glucose [Mass/Vol] 209 mg/dL Normal [facility] Comment on above: Performed By: #### CBCA, [facility], 77251-4, 8 9579-7, THYR #### [facility] ([id number]) [address] [place], [place] [address] #### HA1C #### [facility] ([id number]) [address] [facility], [address] [place] [address] HbA1c (Bld) [Mass fraction] 8.9 % High 4.4-5.6 [facility] Comment on above: Result Comment: NOTE ADA Guidelines Result HgbA1c Normal : less than 5.7 % Prediabetes : 5.7 % to 6.4 % Diabetes : > 6.4 % Use with caution in patients with abnormal hemoglobin variants as the half-life of red blood cells and in vivo glycation rates are affected. Performed By: #### C BCA, CMP, 44671-6, 97534-0, THYR #### [facility] ([id number]) [address] [place] [address]08 #### HA1C #### [facility] ([id number]) [address] [facility], [address] [place] [address] Lipid 1996 panelon 5 Cholesterol [Mass/Vol] 163 mg/dL Normal 150-200 [facility] Comment on above: Performed By: #### CBCA, CMP, 71088-7, 8 9579-7, THYR #### [facility] ([id number]) [address] [place] [address] #### HA1C #### [facility] ([id number]) [address] [facility], [address] [place] [address] Cholesterol in HDL [Mass/Vol] 52 mg/dL Normal >39 [facility] Comment on above: Result Comment: HDL <40 mg/dL - High Risk HDL > or = 40mg/dL- Desirable HDL >60 mg/dL - Negative Risk Performed By: #### C BCA, CMP, 66509-7, 42213-3, THYR #### [facility] ([id number]) [address] [place] [address] #### HA1C #### [facility] ([id number]) [address], [address] [place] [address] Cholesterol in LDL [Mass/Vol] 82 mg/dL Normal <130 [facility] Comment on above: Result Comment: LDL <100 mg/dL - Desirable LDL >160 mg/dL - High Risk Performed By: #### C BCA, CMP, 53063-6, 65155-3, THYR #### [facility] ([id number]) [address] [place] [address] #### HA1C #### [facility] ([id number]) [address], [address] [place] [address] Cholesterol in VLDL [Mass/Vol] 29 mg/dL Normal 0-30 [facility] Comment on above: Performed By: #### CBCA, CMP, 87910-3, 8 9579-7, THYR #### [facility] ([id number]) [address] [place] [address] #### HA1C #### [facility] ([id number]) [address], [address] [place] [address] CHOLESTEROL:HDL 3.1 Normal 1.0-5.0 [facility] Comment on above: Performed By: #### CBCA, CMP, 95518-9, 8 9579-7, THYR #### [facility] ([id number]) [address] [place], [place] [address] #### HA1C #### [facility] ([id number]) [address], [address] [place] [address] Triglyceride [Mass/Vol] 144 mg/dL Normal 27-150 [facility] Comment on above: Performed By: #### CBCA, CMP, 70462-7, 8 9579-7, THYR #### [facility] ([id number]) [address] [place], [place] [address] #### HA1C #### [facility] ([id number]) [address], [address] [place] [address] MAGNESIUMon 12-09-2024 Magnesium [Mass/Vol] 2.1 mg/dL Normal 1.8-2.6 [facility] Comment on above: Performed By: #### CIRO FELTON, 57265-3, 8 9579-7, THYR #### [facility] ([id number]) [address] [place] [address] 15886 #### HA1C #### [facility] ([id number]) [address], [address] [place] [address] MR BRAIN WO CONTon MR BRAIN WO CONT MR BRAIN WO CONT History: Neuro deficit, [...] Clarita Dye MD on 12/09/2024 3:53 PM Normal [facility] THYROID PROFILEon 12-09-2024 Free T4 [Mass/Vol] 0.86 ng/dL Normal 0.61-1.60 [facility] Comment on above: Performed By: #### CIRO FELTON, 05647-3, 8 9579-7, THYR #### [facility] ([id number]) [address] [place] [address] 02200 #### HA1C #### [facility] ([id number]) [address], [address] [place] [address] TSH 2.44 uIU/mL Normal 0.49-4.67 [facility] Comment on above: Performed By: #### CIRO FELTON, 80219-4, 8 9579-7, THYR #### [facility] ([id number]) [address] [place] [address] 04690 #### HA1C #### [facility] ([id number]) [address] [place] [address], [address] [place] [address] Troponin I.cardiac High sens itivity method [Mass/Vol]on 12-09-2024 1 HOUR TROP I, HIGH SENSITIVITY 4 ng/L Normal <21 [facility] Comment on above: Performed By: #### 19607-5 #### [facility] ([id number]) [address] [place] [address] TROPONIN I, HIGH SENSITIVITY 4 ng/L Normal <21 [facility] Comment on above: Performed By: #### CBCA, CMP, 14037-8, 8 9579-7, THYR #### [facility] ([id number]) [address] [place] [address] 15274 #### HA1C #### [facility] ([id number]) [address] [place] [address], [address] [place] [address] VITAMIN B12on 12-09-2024 Cobalamin (Vitamin B12) [Mass/Vol] 400 pg/mL Normal 180-914 [facility] Comment on above: Performed By: #### CBCA, CMP, 67898-4, 8 9579-7, THYR #### [facility] ([id number]) [address] [place] [address] 70680 #### HA1C #### [facility] ([id number]) [address] [place] [address], [address] [place] [address] XR CHEST 2 VWSon 12-09-2024 XR CHEST 2 VWS XR CHEST 2 VWS Clinical history:Chest pain. PA and lateral chest:12/09/2024 Comparison:None Findings: 2 views of the chest were obtained. There is no focal pulmonary consolidation. No pneumothorax or pleural effusion is present. Mediastinal contours are within normal limits. IMPRESSION: No acute infiltrate. Finalized by Josh Ewing MD on 12/09/2024 8:19 AM Normal [facility] aPTT Coag (PPP) [Time]on aPTT Coag (Bld) [Time] 33 s Normal 26-37 [facility] Comment on above: Performed By: #### CBCA, CMP, 18682-1, 8 9579-7, THYR #### [facility] ([id number]) [address] [place] [address] 71683 #### HA1C #### [facility] ([id number]) [address] [place] [address], [address] [place] [address] Ambulatory Visit Summaryon 1 01-19-2024 Ambulatory Visit Summary Ambulatory Visit Summary MALCOM COTTO :1960 Visit [...] WATSON, STEPHANIE Arevalo, URO When: Where: [address], [place] [phone] Medications What How Much When Why Instructions New ciprofloxacin (Cipro 500 mg Tab) 1 Tablets By Mouth 2 times a day Duration: 3 Days start taking 1 day prior to procedure Pickup at [facility]/pharmacy #[id number] New diazepam (Valium 10 mg Tab) 1 Tablets By Mouth Once take 30 minutes prior to procedure Pickup at [facility]/pharmacy #[id number] New tramadol (traMADOL 50 mg Tab) 1 Tablets By Mouth Every 8 hours Take 1 tablet every 8 hours as needed for severe pain Pickup at [facility]/pharmacy #[id number] Unchanged finasteride (finasteride 5 mg Tab) [...] physician if questions or concerns Pharmacy Information [facility]/pharmacy #[id number]: [address], [place] [phone] Allergies metFORMIN (Upset stomach) Problems Ongoing - [...] for choosing us for your care. Education Mate (more content not included)... Normal [facility] Urology Office/Clinic Noteon 11-18-2024 Urology Office/Clinic Note Urology Office/Clinic Note Chief Complaint 2-3wk f/u HPI Staff 64yr old male pt here for 2-3wk f/u. S/p cysto 10/26/24. IPSS score 26. Pt unable to give urine sample at this time. States he might be able to before leaving office. [facility]. Previous Dx: BPH with [...] obtained. Will order Local anesthesia. -Will need peg driver for Valium, risks/benefits of medications discussed. 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 Also shares he has burning [...] 7.86 04/2024 - 8.3 09/22/24 - 8.02 (more content not included)... Normal [facility] Comment on above: Result Comment: Electronically Signed By : Mary Curran MD\.br\Date and Time Signed: 11/18/24 09:00 EST\.br\Electronically Co-Signed By: Violette Dawkins\.br\Date and Time Co-Signed: 11/18/24 08:48 EST Inpatient Patient Summaryon 10-26-2024 Inpatient Patient Summary Inpatient Patient Summary [place] [address] Clinical Summary Person Information Name: MALCOM COTTO Age: 64 Years : 1960 Sex: Male PCP: NASIMA SOTO CNP Marital Status: Race: White Ethnicity: Non- or Language: Niuean Visit Id: Visit Reason: BPH WITH URINARY OBSTRUCTION Speciality: Acuity: Enc Type: Outpatient Med Service: Surgery Arrival: 10/26/2024 09:41:52 Discharge: Dispo Type: Address: [address] [place] [phone] Provider Notes: Diagnosis: BPH with urinary obstruction; [...] MD Follow up: With: Address: When: Mary Curran [address] [facility], [place] [address], [place] [address] [address] [phone] Business (1) Comments: Office to schedule follow up within 1 month to review treatment plan Patient Education Information: EU - Cystoscopy Discharge Instructions (CUSTOM) [facility] Main OR Intraoperative Recor don 10-26-2024 Main OR Intraoperative Record Main OR Intraoperative Record IntraOp Document Type FTURO Summary Primary Physician: Mary Curran MD Finalized Date/Time: 10/26/24 11:41:00 Pt. Name: YADIEL MALCOMGEORGES Cuevas/Sex: 1960 Male Med Rec #: [id number] Physician: Mary Curran MD Financial #: [id number] Pt. Type: O Room/Bed: / Admit/Disch: 10/26/24 09:41:52 - Institution: Case Times FTURO Entry 1 Patient Times In Room 10/26/24 11:21:00 Out Room 10/26/24 11:40:00 Procedure Times Start 10/26/24 11:33:00 Stop 10/26/24 11:35:00 Anesthesia Times Last Modified By: Laly Jean 10/26/24 11:40:49 Case Attendance FTURO Entry 1 Entry 2 Entry 3 Case Attendee Mary Curran MD [facility], Laly Vazquez Role Performed Surgeon - Primary Scrub - Primary Cabinet Finisher - Primary Time In 10/26/24 11:21:00 10/26/24 11:21:00 10/26/24 11:21:00 Time Out 10/26/24 11:40:00 10/26/24 11:40:00 10/26/24 11:40:00 Procedure CYSTOSCOPY LOCAL(.) CYSTOSCOPY LOCAL(.) CYSTOSCOPY LOCAL(.) Comments Last Modified By: Laly Jean Kelsie E Burgderfer, Kelsie E 10/26/24 11:40:50 10/26/24 11:40:50 10/26/24 11:40:50 Surgical Procedures FTURO Entry 1 Procedure Description Procedure CYSTOSCOPY LOCAL Modifiers . Surgeon Description CYSTO LOCAL Primary Procedure Yes Primary Surgeon Mary Curran MD Start 10/26/24 11:33:00 Stop 10/26/24 11:35:00 Anesthesia [...] Mary Curran MD, Verified (If Participants Tiffanie TUBE CUTTER, Nancy Applicable) Miranda Mcdonough Kelsie E Time [...] By: Laly Jean 10/26/24 11:35:31 Case Comments Finalized By: Laly Jean Document Signatures Signed By: Laly Jean 10/26/24 11:40 Laly Jean 10/26/24 11:40 Laly Jean 10/26/24 11:41 Normal [facility] Main OR Preoperative Recordo n 10-26-2024 Main OR Preoperative Record Main OR Preoperative Record Holding Area Document Type FTURO Summary Primary Physician: Mary Curran MD Finalized Date/Time: 10/26/24 11:22:04 Pt. Name: MALCOM COTTO/Sex: 1960 Male Med Rec #: [id number] Physician: Mary Curran MD Financial #: [id number] Pt. Type: O Room/Bed: / Admit/Disch: 10/26/24 [...] of Pain: No Comment: Skin Integrity Intact, [place], Warm, & Dry Vitals - EU Blood Pressure 156/77 Pulse 68 bpm Respirations 16 br/min SPO2 96 % RN Reviewed Yes Last Modified By: Laly Jean 10/26/24 11:18:01 Finalized By: Laly Jean Document Signatures Signed By: Britta Bianchi RN 10/26/24 09:59 Laly Jean 10/26/24 11:18 Laly Jean 10/26/24 11:22 Laly Jean 10/26/24 11:18 Laly Jean 10/26/24 11:22 Normal [facility] Operative Reporton Operative Report Operative Report Patient: MALCOM COTTO Age: 64 [...] treatment plan. -Cont meds, DM control . Normal [facility] Comment on above: Result Comment: Electronically Signed By : Mary Curran MD\.br\Date and Time Signed: 10/26/24 12:10 EST Outpatient Surgery Discharge Instructionon 10-26-2024 Outpatient Surgery Discharge Instruction Outpatient Surgery Discharge Instruction [address] [address] Patient Discharge Instructions PERSON INFORMATION Name: MALCOM [...] Follow up: With: Address: When: Mary Curran [address] [place], [place] [phone] Business (1) Comments: Office to schedule follow [...] you have a fever over 100 degrees. IYADIEL ARTHUR F, have received the attached patient education materials/instructions and have verbalized understanding: May we do a follow up call? Yes No I was present when discharge instructions were given ____ Patient Signature Date Clinican/Nurse Signature Date You [...] for choosing [facility] Normal [facility] Urology Office/Clinic Noteon 09-08-2024 Urology Office/Clinic Note Urology Office/Clinic Note Chief Complaint New patient difficulty urinating HPI Staff 63 year old male new patient presents today with problems urinating. Never seen in our office before (verified on [employer]). Urinary issues have been going on for three years. MRIs and cat scans from [place], [place] stated pt had 2 lesions on [...] with voice recognition artificial intelligence software, specifically [employer], [employer] and or [employer]. Substitutions may have occurred due to the [...] [facility]. I will trial sending Cialis through [facility]. -Obtain records from [facility], MRI for prostate sizing -Schedule Cysto -Trial Cialis daily Ordered: tadalafil, 5 mg = 1 tab(s), Oral, Daily, for BPH, # 30 tab(s), Refills(s) 3, Pharmacy: [facility], 178, cm, 09/08/24 13:54:00 EDT, Height/Length Dosing, 99, kg, 09/08/24 13:54:00 EDT, Weight Dosing 2. Incomplete bladder emptying (R33.9: Retention of urine, unspecified) PVR today 257 mL Discussed PVR with patient, how this is reflective of his prostate obstruction. He denies any recurrent UTI (more content not included)... Normal [facility] Comment on above: Result Comment: Electronically Signed By : OLINDA Robles APRN, Grace Terrell\.br\Date and Time Signed: 09/08/24 14:57 EDT Registrationon 04-21-2024 Registration [id number] Normal [facility] BNPon 06-11-2022 Natriuretic peptide B (Bld) [Mass/Vol] 33.0 pg/mL Normal <=900.0 [facility] Comment on above: Performed By: #### CBC #### [facility] [address] [place] [address] Dr. Remington Thornton CARDIAC MAURO 3-6on 2 CK [Catalytic activity/Vol] 78 U/L Normal 39-308 [facility] Comment on above: Performed By: #### CMREP #### [facility] [address] [place] [address] Dr. Remington Thornton CK.MB [Mass/Vol] 1.06 ng/mL Normal <=3.60 [facility] Comment on above: Performed By: #### CMREP #### [facility] [address] [place] [address] Dr. Remington Thornton HSTROP 7.2 pg/mL Normal 4.0-76.1 [facility] Comment on above: Result Comment: CUT-OFF POINTS HAVE BEEN ESTABLISHED BASED ON THE FOURTH UNIVERSAL DEFINITIONS OF MYOCARDIAL INFARCTION. THE UPPER REFERENCE LIMIT (URL) OF TROPONIN, DEFINED THE 99TH PERCENTILE OF cTnI DISTRIBUTION IN A REFERENCE POPULATION, HAS BEEN CONFIRMED THE DECISION THRESHOLD FOR SC DIAGNOSIS. Performed By: #### C MREP #### [facility] [address] [place] [address] Dr. Remington Thornton CK [Catalytic activity/Vol] 83 U/L Normal 39-308 [facility] Comment on above: Performed By: #### CMREP #### [facility] [address] [place] [address] Dr. Remington Thornton CK.MB [Mass/Vol] 1.22 ng/mL Normal <=3.60 [facility] Comment on above: Performed By: #### CMREP #### [facility] [address] [place] [address] Dr. Remington Thornton HSTROP 6.7 pg/mL Normal 4.0-76.1 [facility] Comment on above: Result Comment: CUT-OFF POINTS HAVE BEEN ESTABLISHED BASED ON THE FOURTH UNIVERSAL DEFINITIONS OF MYOCARDIAL INFARCTION. THE UPPER REFERENCE LIMIT (URL) OF TROPONIN, DEFINED THE 99TH PERCENTILE OF cTnI DISTRIBUTION IN A REFERENCE POPULATION, HAS BEEN CONFIRMED THE DECISION THRESHOLD FOR SC DIAGNOSIS. Performed By: #### C MREP #### [facility] [address] [place] [address] Dr. Remington Thornton CARDIAC MAURO ADMITon 022 CK [Catalytic activity/Vol] 100 U/L Normal 39-308 [facility] Comment on above: Performed By: #### CMADM, MG, BMP #### [facility] [address] [place] [address] Dr. Remington Thornton CK.MB [Mass/Vol] 1.64 ng/mL Normal <=3.60 [facility] Comment on above: Performed By: #### CMADM, MG, BMP #### [facility] [address] [place] [address] Dr. Remington Thornton HSTROP 6.4 pg/mL Normal 4.0-76.1 [facility] Comment on above: Result Comment: CUT-OFF POINTS HAVE BEEN ESTABLISHED BASED ON THE FOURTH UNIVERSAL DEFINITIONS OF MYOCARDIAL INFARCTION. THE UPPER REFERENCE LIMIT (URL) OF TROPONIN, DEFINED THE 99TH PERCENTILE OF cTnI DISTRIBUTION IN A REFERENCE POPULATION, HAS BEEN CONFIRMED THE DECISION THRESHOLD FOR SC DIAGNOSIS. Performed By: #### C MADM, MG, BMP #### [facility] [address] [place] [address] Dr. Remington Thornton STONEY 43 ng/mL Normal 16-96 [facility] Comment on above: Performed By: #### CMADM, MG, BMP #### [facility] [address] [place] [address] [address] Remington Thornton CBC AUTO DIFFon 06-11-2022 BASO # 0.0 103/ul Normal 0.0-0.1 [facility] Comment on above: Performed By: #### CBC #### [facility] [address] [place] [address] [address] Remington Thornton Basophils/100 WBC (Bld) 0.5 % Normal 0.2-2.0 [facility] Comment on above: Performed By: #### CBC #### [facility] [address] [place] [address] Dr. Remington Thornton EO # 0.3 103/ul Normal 0.0-0.7 [facility] Comment on above: Performed By: #### CBC #### [facility] [address] [place] [address] Dr. Remington Thornton Eosinophils/100 WBC (Bld) 3.7 % Normal 0.9-7.0 [facility] Comment on above: Performed By: #### CBC #### [facility] [address] [place] [address] Dr. Remington Thornton Erythrocyte distribution width (RBC) [Ratio] 14.0 % Normal 11.0-15.0 [facility] Comment on above: Performed By: #### CBC #### [facility] [address] [place] [address] Dr. Remington Thornton Hematocrit (Bld) [Volume fraction] 43.1 % Normal 42.0-54.0 [facility] Comment on above: Performed By: #### CBC #### [facility] [address] [place] [address] Dr. Remington Thornton Hemoglobin (Bld) [Mass/Vol] 14.0 g/dL Normal 14.0-18.0 [facility] Comment on above: Performed By: #### CBC #### [facility] [address] [place] [address] Dr. Remington Thornton IG # 0.03 10e3/ul Normal 0.00-0.03 [facility] Comment on above: Performed By: #### CBC #### [facility] [address] [place] [address] Dr. Remington Thornton IG % 0.4 % Normal 0.0-0.5 [facility] Comment on above: Performed By: #### CBC #### [facility] [address] [place] [address] Dr. Remington Thornton LYMPH # 1.7 103/ul Normal 1.2-3.8 [facility] Comment on above: Performed By: #### CBC #### [facility] [address] [place] [address] Dr. Remington Thornton Lymphocytes/100 WBC (Bld) 23.1 % Normal 20.5-60.0 [facility] Comment on above: Performed By: #### CBC #### [facility] [address] [place] [address] Dr. Remington Thornton MANUAL DIFF REQ NO Normal [facility] Comment on above: Performed By: #### CBC #### [facility] [address] [place] [address] Dr. Remington Thornton MCH (RBC) [Entitic mass] 30.1 pg Normal 25.9-34.0 [facility] Comment on above: Performed By: #### CBC #### [facility] [address] [place] [address] Dr. Remington Thornton MCHC (RBC) [Mass/Vol] 32.5 g/dL Normal 29.9-35.2 [facility] Comment on above: Performed By: #### CBC #### [facility] [address] [place] [address] Dr. Remington Thornton MCV (RBC) [Entitic vol] 92.7 fL Normal 80.0-94.0 [facility] Comment on above: Performed By: #### CBC #### [facility] [address] [place] [address] Dr. Rmeington Thornton MONO # 0.9 103/ul Critically high 0.3-0.8 [facility] Comment on above: Performed By: #### CBC #### [facility] [address] [place] [address] Dr. Remington Thornton Monocytes/100 WBC (Bld) 11.7 % Normal 1.7-12.0 [facility] Comment on above: Performed By: #### CBC #### [facility] [address] [place] [address] Dr. Remington Thornton NEUT # 4.4 103/ul Normal 1.4-6.5 [facility] Comment on above: Performed By: #### CBC #### [facility] [address] [place] [address] Dr. Remington Thornton Neutrophils/100 WBC (Bld) 60.6 % Normal 43.0-75.0 [facility] Comment on above: Performed By: #### CBC #### [facility] [address] [place] [address] Dr. Remington Thornton Platelet mean volume (Bld) [Entitic vol] 10.0 fL Normal 9.5-13.5 [facility] Comment on above: Performed By: #### CBC #### [facility] [address] [place] [address] Dr. Remington Thornton PLT 259 103/ul Normal 150-450 [facility] Comment on above: Performed By: #### CBC #### [facility] [address] [place] [address] Dr. Remington Thornton RBC 4.65 106/ul Critically low 4.70-6.10 [facility] Comment on above: Performed By: #### CBC #### [facility] [address] [place] [address] Dr. Remington Thornton WBC 7.3 103/ul Normal 4.0-11.0 [facility] Comment on above: Performed By: #### CBC #### [facility] [address] [place] [address] Dr. Remington Thornton BASO # 0.0 103/ul Normal 0.0-0.1 [facility] Comment on above: Performed By: #### CBC #### [facility] [address] [place] [address] Dr. Remington Thornton Basophils/100 WBC (Bld) 0.2 % Normal 0.2-2.0 [facility] Comment on above: Performed By: #### CBC #### [facility] [address] [place] [address] Dr. Remington Thornton EO # 0.3 103/ul Normal 0.0-0.7 [facility] Comment on above: Performed By: #### CBC #### [facility] [address] [place] [address] Dr. Remington Thornton Eosinophils/100 WBC (Bld) 2.8 % Normal 0.9-7.0 [facility] Comment on above: Performed By: #### CBC #### [facility] [address] [place] [address] Dr. Remington Thornton Erythrocyte distribution width (RBC) [Ratio] 13.9 % Normal 11.0-15.0 [facility] Comment on above: Performed By: #### CBC #### [facility] [address] [place] [address] Dr. Remington Thornton Hematocrit (Bld) [Volume fraction] 45.1 % Normal 42.0-54.0 [facility] Comment on above: Performed By: #### CBC #### [facility] [address] [place] [address] Dr. Remington Thornton Hemoglobin (Bld) [Mass/Vol] 14.9 g/dL Normal 14.0-18.0 [facility] Comment on above: Performed By: #### CBC #### [facility] [address] [place] [address] Dr. Remington Thornton IG # 0.02 10e3/ul Normal 0.00-0.03 [facility] Comment on above: Performed By: #### CBC #### [facility] [address] [place] [address] Dr. Remington Thornton IG % 0.2 % Normal 0.0-0.5 [facility] Comment on above: Performed By: #### CBC #### [facility] [address] [place] [address] Dr. Remington Thornton LYMPH # 1.7 103/ul Normal 1.2-3.8 [facility] Comment on above: Performed By: #### CBC #### [facility] [address] [place] [address] Dr. Reimngton Thornton Lymphocytes/100 WBC (Bld) 18.9 % Critically low 20.5-60.0 [facility] Comment on above: Performed By: #### CBC #### [facility] [address] [place] [address] Dr. Remington Thornton MANUAL DIFF REQ NO Normal [facility] Comment on above: Performed By: #### CBC #### [facility] [address] [place] [address] Dr. Remington Thornton MCH (RBC) [Entitic mass] 30.3 pg Normal 25.9-34.0 [facility] Comment on above: Performed By: #### CBC #### [facility] [address] [place] [address] Dr. Remington Thornton MCHC (RBC) [Mass/Vol] 33.0 g/dL Normal 29.9-35.2 [facility] Comment on above: Performed By: #### CBC #### [facility] [address] [place] [address] Dr. Remington Thornton MCV (RBC) [Entitic vol] 91.9 fL Normal 80.0-94.0 [facility] Comment on above: Performed By: #### CBC #### [facility] [address] [place] [address] Dr. Remington Thornton MONO # 0.9 103/ul Critically high 0.3-0.8 [facility] Comment on above: Performed By: #### CBC #### [facility] [address] [place] [address] Dr. Remington Thornton Monocytes/100 WBC (Bld) 10.7 % Normal 1.7-12.0 [facility] Comment on above: Performed By: #### CBC #### [facility] [address] [place] [address] Dr. Remington Thornton NEUT # 5.9 103/ul Normal 1.4-6.5 [facility] Comment on above: Performed By: #### CBC #### [facility] [address] [place] [address] Dr. Remington Thornton Neutrophils/100 WBC (Bld) 67.2 % Normal 43.0-75.0 [facility] Comment on above: Performed By: #### CBC #### [facility] [address] [place] [address] Dr. Remington Thornton Platelet mean volume (Bld) [Entitic vol] 9.8 fL Normal 9.5-13.5 [facility] Comment on above: Performed By: #### CBC #### [facility] [address] [place] [address] Dr. Remington Thornton PLT 267 103/ul Normal 150-450 [facility] Comment on above: Performed By: #### CBC #### [facility] [address] [place] [address] Dr. Remington Thornton RBC 4.91 106/ul Normal 4.70-6.10 [facility] Comment on above: Performed By: #### CBC #### [facility] [address] [place] [address] Dr. Remington Thornton WBC 8.8 103/ul Normal 4.0-11.0 [facility] Comment on above: Performed By: #### CBC #### [facility] [address] [place] [address] Dr. Remington Thornton [facility] SARS-CoV-2 (COVID-19) RNA VALENTINE+probe Ql (Unsp spec) Not detected Normal NOT DETECTED [facility] Comment on above: Result Comment: When diagnostic testing is negative, the possibility of a false negative should be considered in the context of a patient's recent exposures and the presence of clinical signs and symptoms consistent with SARS-CoV-2. This test is not yet approved or cleared by the [place] FDA. When there are no FDA-approved or cleared tests available, and other criteria are met, FDA can make tests available under an emergency access mechanism called an Emergency Use Authorization (EUA). The EUA for this test is supported by the [place] of Health and Human Service's declaration that circumstances exist to justify the emergency use of in vitro diagnostics for the detection and/or diagnosis of the virus that causes COVID-19. This EUA will remain in effect for the duration of the COVID-19 declaration justifying emergency of IVDs, unless it is terminated or revoked by the FDA (after which the test may no longer be used). Performed By: #### C VDTBH #### [facility] [address] [place] [address] Dr. Remington Thornton D-DIMERon 06-11-2022 D-DIMER 0.23 mg/L FEU Normal <=0.59 [facility] Comment on above: Performed By: #### CBC #### [facility] [address] [address] [address] Remington Thornton D-DIMER COMMENTS SEE BELOW Normal [facility] Comment on above: Result Comment: Increases in D-Dimer con centration observed with thromboembolic events can be variable due to localization, size, and age of the thrombus. Therefore, a thromboembolic event cannot be diagnosed with certainty on the basis of the reference range. D-Dimers may also be elevated for a variety of disorders including: advanced age, , coronary disease, cancer, liver disease, infection, inflammation, hematoma, DIC, trauma, post-surgery, diabetes, thrombolytic or anticoagulant therapy, stress, and generalized hospitalization. Performed By: #### C BC #### [facility] [address] [place] [address] Dr. Remington Thornton ECHOCARDIO M/2D COMPLETEon 0 06-11-2022 ECHOCARDIO M/2D COMPLETE Patient: MALCOM COTTO Exam Date: 06/11/2022 : 1960 Gender:M Ordering : DR AZ WILEY . Admission #: [id number] Family : DR MIGUEL ANGEL FREED . Order #: [id number] CLICK HERE TO VIEW EXAM ECHOCARDIOGRAM REPORT PROCEDURE: CARDIO PULMONARY ECHOCARDIO M/2D COMP INDICATIONS: Chest pain, HTN COMPARISON: None. DESCRIPTION: COMPLETE ECHOCARDIOGRAM Real-time transthoracic echocardiography with 2D, M-mode, spectral and color flow Doppler performed. QUALITY: Technical quality was good. LEFT VENTRICLE: Normal chamber size. Normal left ventricular wall thickness. Global left ventricular systolic function is normal. LV EF: Estimated left ventricular ejection fraction is 55-60% DIASTOLIC: Normal diastolic function. ATRIAL SEPTUM: LEFT ATRIUM: Normal chamber size. RIGHT ATRIUM: Normal chamber size. RIGHT VENTRICLE: Normal chamber size. Normal right ventricular systolic function. TRICUSPID VALVE: Normal mobility and thickness. No stenosis with no regurgitation. No evidence of pulmonary hypertension. RVSP is 29 mmHg. MITRAL VALVE: Normal mobility and thickness. No mitral valve prolapse. No evidence of mitral valve stenosis. There is no mitral annular calcification. Trivial mitral regurgitation. AORTIC VALVE: Normal trileaflet appearance. No visible sclerosis. Normal leaflet mobility. No evidence of aortic valve stenosis. No aortic regurgitation. AORTIC ROOT: Normal diameter and appearance. PULMONIC VALVE: Normal thickness and mobility. No stenosis. No regurgitation. PERICARDIUM: No evidence of pericardial effusion. IVC: Collapses with inspirations. Normal size. PLEURA: CONCLUSION: 1. Normal ventricular systolic function. LVEF is 55 to 60%. 2. Normal diastolic function. 3. No significant valvular dysfunction. 4. Normal right-sided pressures. 5. No pericardial effusion. Dictated by: Milton Roper M.D. on 06/11/2022 at 16:30 Approved by: Milton Roper M.D. on 06/11/2022 at 16:34 Normal [facility] MAGNESIUMon 06-11-2022 Magnesium [Mass/Vol] 2.1 mg/dL Normal 1.8-2.4 [facility] Comment on above: Performed By: #### CMADM, MG, BMP #### [facility] [address] [address] [address] Remington Thornton POINT OF CARE GLUCOSEon 06-01 Glucose [Mass/Vol] 117 mg/dL Critically high 74-106 [facility] Comment on above: Performed By: #### CBC #### [facility] [address] [address] [address] Remington Thornton Glucose [Mass/Vol] 143 mg/dL Critically high 74-106 [facility] Comment on above: Performed By: #### POCGLUC #### [facility] [address] [address] [address] Remington Thornton PROF 14(COMP METB)on 022 Albumin [Mass/Vol] 3.7 g/dL Normal 3.4-5.0 [facility] Comment on above: Performed By: #### CBC #### [facility] [address] [address] [address] Remington Thornton Albumin/Globuli n [Mass ratio] 1.3 {ratio} Normal [facility] Comment on above: Performed By: #### CBC #### [facility] [address] [address] [address] Remington Thornton ALP [Catalytic activity/Vol] 89 U/L Normal 46-116 [facility] Comment on above: Performed By: #### CBC #### [facility] [address] [place] [address] Dr. Remington Thornton ALT [Catalytic activity/Vol] 26 U/L Normal 16-63 [facility] Comment on above: Performed By: #### CBC #### [facility] [address] [place] [address] Dr. Remington Thornton Anion gap [Moles/Vol] 11.0 mmol/L Normal [facility] Comment on above: Performed By: #### CBC #### [facility] [address] [place] [address] Dr. Remington Thornton AST [Catalytic activity/Vol] 11 U/L Critically low 15-37 [facility] Comment on above: Performed By: #### CBC #### [facility] [address] [place] [address] Dr. Remington Thornton Bilirubin [Mass/Vol] 0.3 mg/dL Normal 0.2-1.0 [facility] Comment on above: Performed By: #### CBC #### [facility] [address] [place] [address] Dr. Remington Thornton Calcium [Mass/Vol] 8.7 mg/dL Normal 8.5-10.1 [facility] Comment on above: Performed By: #### CBC #### [facility] [address] [place] [address] Dr. Remington Thornton Chloride [Moles/Vol] 106 mmol/L Normal 98-107 [facility] Comment on above: Performed By: #### CBC #### [facility] [address] [address] [address] Remington Thornton CO2 [Moles/Vol] 28.6 mmol/L Normal 21.0-32.0 [facility] Comment on above: Performed By: #### CBC #### [facility] [address] [place] [address] Dr. Remington Thornton Creatinine [Mass/Vol] 0.93 mg/dL Normal 0.70-1.30 [facility] Comment on above: Performed By: #### CBC #### [facility] [address] [place] [address] Dr. Remington Thornton EGFR-AF CHILEAN >60 Normal >=60 [facility] Comment on above: Performed By: #### CBC #### [facility] [address] [address] [address] Remington Thornton EGFR-NON AF CHILEAN >60 Normal >=60 [facility] Comment on above: Performed By: #### CBC #### [facility] [address] [place] [address] Dr. Remington Thornton Globulin (S) [Mass/Vol] 2.9 g/dL Normal [facility] Comment on above: Performed By: #### CBC #### [facility] [address] [place] [address] Dr. Remington Thornton Glucose [Mass/Vol] 120 mg/dL Critically high 74-106 [facility] Comment on above: Performed By: #### CBC #### [facility] [address] [place] [address] Dr. Remington Thornton Potassium [Moles/Vol] 4.6 mmol/L Normal 3.5-5.1 [facility] Comment on above: Performed By: #### CBC #### [facility] [address] [place] [address] Dr. Remington Thornton Protein [Mass/Vol] 6.6 g/dL Normal 6.4-8.2 [facility] Comment on above: Performed By: #### CBC #### [facility] [address] [place] [address] Dr. Remington Thornton Sodium [Moles/Vol] 141 mmol/L Normal 136-145 [facility] Comment on above: Performed By: #### CBC #### [facility] [address] [address] [address] Remington Thornton Urea nitrogen [Mass/Vol] 29.0 mg/dL Critically high 7.0-18.0 [facility] Comment on above: Performed By: #### CBC #### [facility] [address] [address] [address] Remington Thornton Urea nitrogen/Creati nine [Mass ratio] 31.2 mg/mg Normal [facility] Comment on above: Performed By: #### CBC #### [facility] [address] [place] [address] Dr. Remington Thornton PROF CHEM 8 (BAS METB)on Anion gap [Moles/Vol] 14.1 mmol/L Normal [facility] Comment on above: Performed By: #### CMADM, MG, BMP #### [facility] [address] [place] [address] Dr. Remington Thornton Calcium [Mass/Vol] 8.9 mg/dL Normal 8.5-10.1 [facility] Comment on above: Performed By: #### CMADM, MG, BMP #### [facility] [address] [place] [address] Dr. Remington Thornton Chloride [Moles/Vol] 103 mmol/L Normal 98-107 [facility] Comment on above: Performed By: #### CMADM, MG, BMP #### [facility] [address] [address] [address] Remington Thornton CO2 [Moles/Vol] 25.7 mmol/L Normal 21.0-32.0 [facility] Comment on above: Performed By: #### CMADM, MG, BMP #### [facility] [address] [place] [address] Dr. Remington Thornton Creatinine [Mass/Vol] 1.10 mg/dL Normal 0.70-1.30 [facility] Comment on above: Performed By: #### CMADM, MG, BMP #### [facility] [address] [place] [address] Dr. Remington Thornton EGFR-AF CHILEAN >60 Normal >=60 [facility] Comment on above: Performed By: #### CMADM, MG, BMP #### [facility] [address] [place] [address] Dr. Remington Thornton EGFR-NON AF CHILEAN >60 Normal >=60 [facility] Comment on above: Performed By: #### CMADM, MG, BMP #### [facility] [address] [place] [address] Dr. Remington Thornton Glucose [Mass/Vol] 179 mg/dL Critically high 74-106 [facility] Comment on above: Performed By: #### CMADM, MG, BMP #### [facility] [address] [place] [address] Dr. Remington Thornton Potassium [Moles/Vol] 3.8 mmol/L Normal 3.5-5.1 [facility] Comment on above: Performed By: #### CMADM, MG, BMP #### [facility] [address] [place] [address] Dr. Remington Thornton Sodium [Moles/Vol] 139 mmol/L Normal 136-145 [facility] Comment on above: Performed By: #### CMADM, MG, BMP #### [facility] [address] [place] [address] Dr. Remington Thornton Urea nitrogen [Mass/Vol] 29.0 mg/dL Critically high 7.0-18.0 [facility] Comment on above: Performed By: #### CMADM, MG, BMP #### [facility] [address] [place] [address] Dr. Remington Thornton Urea nitrogen/Creati nine [Mass ratio] 26.4 mg/mg Normal [facility] Comment on above: Performed By: #### CMADM, MG, BMP #### [facility] [address] [place] [address] Dr. Remington Thornton XR CHEST 1 Von 06-11-2022 XR CHEST 1 V EXAM: XR CHEST 1 V HISTORY: CHEST PAIN, UNSPECIFIED COMPARISON: Chest x-ray 06/15/2021 TECHNIQUE: Single frontal view chest x-ray FINDINGS: Mild bibasilar streaky lung opacities reflect atelectasis with crowding of pulmonary vessels, most likely infiltrates. Borderline prominent heart size. No lobar consolidation, large pleural effusions, pneumothorax, or acute bony abnormality. IMPRESSION: Borderline prominent heart size. Mild bibasilar streaky lung atelectasis with crowding of pulmonary vessels. Electronically authenticated by: MEYSHA CERVANTES Date: 2022-06-11 00:15 Normal [facility] CARDIAC STRESS/REST INJE CTIONon 06-13-2020 [facility] CARDIAC STRESS/REST INJECTION Patient Name: MALCOM COTTO STUDY: MYOCARDIAL PERFUSION STRESS TEST WITH EXERCISE CONVERTED TO LEXISCAN Performing facility: [facility], [address] [place] [address], [address], [address] Provider: ELZA CARRANZA PCP: Dr. Adriana KATZ Supervising provider: WP UP INDICATION: SOB ANGINA HISTORY: Gender: M; Age: 59 y/o ; Height: 177.8 cm; Weight: 84.6166167 kg. DM HTN High Cholesterol; CP SOB CAD S/P SC Quit smoking REMOTE years ago. Cardiac catheterization on 2015. COMPARISON: ACCESSION NUMBER(S): [id number] ORDERING CLINICIAN: RONALD CARRANZA TECHNIQUE: ONE DAY protocol. Stress injection: Date: 06/13/2020, 33.4 mCi of Myoview IV at 20 seconds after rapid injection of Lexiscan. Rest injection: Date: 06/13/2020, 11.4 mCi of Myoview IV at rest. The patient had a rapid injection of 0.4mg of Lexiscan IV over 10 seconds. Imaging was performed by gated tomographic technique. STRESS TEST DATA: Resting heart rate was 62 BPM. Resting blood pressure was 132/80 mmHg. The patient exercised using a Michael exercise protocol. 6:13 minutes exercised. 65% of MPHR achieved for age. 7.3 METS achieved. Maximum heart rate was 104 BPM. Maximum blood pressure was 148/78 mmHg. DTS 6. TREADMILL TEST TERMINATED DUE TO: Dyspnea. Test converted to Lexiscan. TEST TERMINATED DUE TO: Protocol completed. FINDINGS: STRESS TEST RESULTS: Resting electrocardiogram revealed normal sinus rhythm without ST-T changes. The patient had no significant ECG changes with maximal stress. The patient did not have chest pains/symptoms during the procedure. There was a normal recovery phase. There were no significant dysrhythmias. Patient did not achieve 85% MPHR so test was immediately converted to Lexiscan. LEXISCAN INFUSION: The patient had a rapid injection of 0.4 mg of Lexiscan IV over 10 seconds. Resting electrocardiogram revealed normal sinus rhythm without ST-T changes. The patient had no significant ECG changes with maximal stress. The patient did not have chest pains/symptoms during the procedure. There was a normal recovery phase. There were no significant dysrhythmias. IMAGING RESULTS: Image quality was good. Rest and stress tomographic images were reviewed and revealed normal perfusion without evidence of ischemia, myocardial infarction, or left ventricular dilatation with stress. Overall left ventricular systolic function appeared to be normal without regional wall motion abnormalities. LV ejection fraction was 64 %. TID is 0.996 and is normal. There were no evidence of attenuation artifact. IMPRESSION: Normal Lexiscan Myoview cardiac perfusion imaging stress test. No evidence of ischemia or myocardial infarction by perfusion imaging. Normal left ventricular systolic function, ejection fraction 64 %. No exercise provoked significant ischemic ECG changes or chest pain symptoms. No previous study available for comparison. Electronically signed by: JUAN VALDES MD Normal [facility] Coding Summaryon 09-29-2018 Coding Summary CODING DATE: 018 [facility] STATUS: Home PAYOR: Self Pay ADMIT DX: REASON FOR VISIT DX: M54.9 Dorsalgia, unspecified FINAL DX: PRINCIPAL: R20.2 Paresthesia of skin SECONDARY: M54.5 Low back pain PROCEDURES DOCTOR NAME DATE NOTE: The code number assigned matches the documented diagnosis and / or procedure in the patient's chart. However, the narrative phrase printed from the coding software may appear abbreviated, or result in slightly different terminology. Coded By: Dilan Alegria' Date Saved: 09/29/2018 11:39 am [facility] ED Clinical Summaryon 2017 ED Clinical Summary [facility] ? [address]gent [address] [place] [address] clinical SummaryPERSON INFORMATIONName: MALCOM COTTO IV Age: 57 Years Sex: MALEDOB: [birth year] MRN: Acct#:Visit Reason: UC - Back Pain; Back pain; LOWER BACK PAIN Arrival: 08/26/18 09:42:00 Discharge: 08/26/18 10:07:00LOS: 000 00:25 Check In: 08/26/18 09:42:00 Checkout: 08/26/18 10:07:00Address:[address] [place] [address]TVA: Provider, NonePROVIDER INFORMATIONProvider Role Assigned UnassignedSpUreil Daniels ED PA 08/26/18 09:47:46Tess RN, Nasima ED Nurse 08/26/18 09:50:21VITALS INFORMATIONVital Sign Triage LatestTemperature TympanicTemperature Temporal ArteryPulse Rate 86 bpm 86 bpmO2 SatRespiratory Rate 18 br/min 18 br/minBlood Pressure 142 mmHg/80 mmHg 142 mmHg/80 mmHgMEDICAL INFORMATIONMedications Given:Allergy Information:No Known Medication AllergiesPHYSICIAN DOCUMENTATIONDISCHARGE INFORMATION:Discharge Disposition: HomeDischarge Location: HomePATIENT EDUCATION INFORMATIONInstructions: Radicular PainFollow-Up:With: Address: When:Follow up with primary care providerComments:Begin on the Steroid 2 tabs daily for the next 5 days, take with food or milk to help prevent reflux or stpmach upsetFollow-up with primary care provider in 7-10 days sooner if worse.If you do not have a primary care provider can establish with Dr. Crowell who is accepting new patientsContact information for Dr. Josh Hebert [phone] office located at [address] [place], [place] [address]DIAGNOSIS:Low back pain; ParesthesiaPatient Understands: Yes - Patient/family/caregiver verbalizes understanding of instructions givenComment: [facility] Note - Physicianon 2017 ED Note - Physician Patient: MALCOM COTTO IV : 57 years Sex: MALE : 58Associated Diagnoses: Paresthesia; Low back painAuthor: SpasiAbbi Cheung InformationTime seen: Date & time 08/26/18 09:52:00.History source: Patient.Arrival mode: Private vehicle.History limitation: None.History of Present IllnessPatient is a 57-year-old male complaint of right-sided back pain. Patient states pain began when twisting and lifting an object. Patient denies any previous back pain. Denies any loss of bowel or bladder denies any saddle anesthesia. Patient does state numbness and tingling to the right leg. Patient denies any other pain. Patient states this occurred approximately 1 week ago.Review of SystemsConstitutional symptoms: Negative except as documented in HPI.Musculoskeletal symptoms: Negative except as documented in HPI. Additional review of systems information: All other systems reviewed and otherwise negative.Health StatusAllergies:Allergic Reactions (Selected)No Known Medication Allergies.Medications: (Selected)PrescriptionsPrescribedNo rco 5 mg-325 mg oral tablet: 1 tab(s), PO, q6hr, PRN: for pain, 16 tab(s), 0 Refill(s)promethazine 25 mg oral tablet: 25 mg, 1 tab(s), PO, q4hr, PRN: for nausea/vomiting, 16 tab(s), 0 Refill(s)Documented MedicationsDocumentedPlavix 75 mg oral tablet: 75 mg, 1 tab(s), PO, Daily, 0 Refill(s)aspirin 81 mg oral tablet: 81 mg, 1 tab(s), PO, Daily, 0 Refill(s)atorvastatin 40 mg oral tablet: 40 mg, 1 tab(s), PO, Daily, 0 Refill(s)folic acid 1 mg oral tablet: 1 mg, 1 tab(s), PO, Daily, 0 Refill(s)losartan 100 mg oral tablet: 100 mg, 1 tab(s), PO, Daily, 0 Refill(s)metoprolol succinate 25 mg oral tablet, extended release: 25 mg, 1 tab(s), PO, Daily, 0 Refill(s)nitroglycerin 0.4 mg sublingual tablet: 0.4 mg, 1 tab(s), SL, q5min, PRN: for chest pain, 0 Refill(s).Past Medical/ Family/ Social HistoryMedical history:ResolvedSmoker ([id number]): Resolved.Comments: -Added secondary to documentation in Social History.10/04/2016 EDT 11:18 EDT - Aleta Yoder RNstates quit 1 month ago 09/01/2016appendectomy ([id number]): Resolved.left knee surgery ([id number]): Resolved.SC in june: Resolved.syncopal episode 10-02-2011: Resolved.hard of hearing both ears: Resolved.impaired vision without glasses: Resolved.joint stiffness: Resolved.multiple broken bones when younger: Resolved.thumb reattachment: Resolved..Surgical history:Appendectomy ([id number]).Amputation of thumb ([id number]).Comments:10/04/2016 11:21 - Aleta Yoder RNtimes 2 incidents ( per patient sewed my thumb back on leftArthroscopy of knee ([id number]).Comments:10/04/2016 11:21 - Aleta Yoder RNbil knees at different timesPain management service ([id number]).Comments:10/04/2016 11:22 - Aleta Yoder RNpain management injections to right and left shoulder and neck at the [facility].Family history:Heart diseaseFather.Social history:Social & Psychosocial YsvvprBeljgjr53/03/2016 Alcohol Use: Current Type: Beer Frequency: 1-2 times per monthSubstance Abuse10/04/2016 Risk Assessment: Denies Substance KrwzvQehkwtd00/31/2017 Smoking tobacco use: Former Smoker Type: Cigarettes Number used per day: 1 PPD-Quit September, Comment: patient quit 1 month ago 09/01/16 - 10/04/2016 11:32 - Aleta Yoder RN.Problem list:Active Problems (4)CHEST PAINDiabetesDiverticulitisHypertens ion.Physical Examination Vital SignsVital Signs08/26/18 09:44 EDT Temperature Oral 36.8 DegC Peripheral Pulse Rate 86 bpm Respiratory Rate 18 br/min Systolic Blood Pressure 142 mmHg HI Diastolic Blood Pressure 80 mmHg.General: Alert, no acute distress.Skin: Warm, dry.Head: Normocephalic, atraumatic.Eye: Normal conjunctiva.Cardiovascular: Regular rate and rhythm.Respiratory: Lungs are clear to auscultation, respirations are non-labored, breath sounds are equal, Symmetrical chest wall expansion.Back: Nontender, Normal range of motion, Normal alignment, Positive straight leg raise, negative left SLR.Musculoskeletal: Normal ROM.Lymphatics: No lymphadenopathy.Psychiatric: Cooperative, appropriate mood & affect.Medical Decision MakingDifferential Diagnosis: Back pain, lumbar strain, disc herniation.Physical exam findings are concerning with low back pain, paresthesias of the right leg. Explained this is presumed to be a disc issue. Explained to take the prednisone as written until gone take with food. Did explain to get plan rest over the next 10 days explain initially that this can take a few weeks before it resolves. Patient stated understanding of information.Impression and PlanDiagnosisParesthesia (PXR50-HY R20.2, Discharge, Medical)Low back pain (YLC43-QY M54.5, Discharge, Medical)PlanPrescriptions: Launch prescriptionsPharmacy:predniSONE 20 mg oral tablet (Prescribe): 40 mg = 2 tab(s), PO, Daily, for 5 day(s), Take with food to avoid gastric reflux or upset stomach, 10 tab(s), 0 Refill(s).Patient was given the following educational materials: Radicular Pain.Follow up with: ; ; Follow up with primary care provider Begin on the Steroid 2 tabs daily for the next 5 days, take with food or milk to help prevent reflux or stpmach upsetFollow-up with primary care provider in 7-10 days sooner if worse.If you do not have a primary care provider can establish with Dr. Crowell who is accepting new patientsContact information for Dr. Josh Hebert [phone] office located at [address] [place] [address].Counseled: Patient, Regarding diagnosis, Regarding diagnostic results, Regarding treatment plan, Regarding prescription, Patient indicated understanding of instructions.[Electronically Signed on: 08/26/2018 10:51 EDT] Uriel Yancey[Verified on: 08/26/2018 10:51 EDT] Uriel Yancey Normal [facility] ED Patient Summaryon 018 ED Patient Summary [facility] ? [address] [place] [address] pATIENT DISCHARGE INSTRUCTIONSPatient InformationName: MALCOM COTTO IV Age: 57 YearsDate of : [birth year]MRN: [id number] For Visit: UC - Back Pain; Back pain; LOWER BACK PAINArrival Time: 08/26/18 09:42:00Phone: Primary Care Physician: Provider, NoneAttending Physician: Humberto Yanceyomment:Patient EducationWith: Address: When:Follow up with primary care providerComments:Begin on the Steroid 2 tabs daily for the next 5 days, take with food or milk to help prevent reflux or stpmach upsetFollow-up with primary care provider in 7-10 days sooner if worse.If you do not have a primary care provider can establish with Dr. Crowell who is accepting new patientsContact information for Dr. Josh Hebert [phone] office located at [facility] [place] [id number] PainRadicular pain is a type of pain that spreads from your back or neck along a spinal nerve. Spinal nerves are nerves that leave the spinal cord and go to the muscles. Radicular pain occurs when one of these nerves becomes irritated or squeezed (compressed). Radicular pain is sometimes called radiculopathy, radiculitis, or a pinched nerve. When you have this type of pain, you may also have weakness, numbness, or tingling in the area of your body that is supplied by the nerve. The pain may feel sharp and burning. Spinal nerves leave the spinal cord through openings between the 24 bones (vertebrae) that make up the spine. Radicular pain is often caused by something pushing on a spinal nerve. This pushing may be done by a vertebra or by one of the round cushions between vertebrae (intervertebral disks). This can result from an injury, from wear and tear or aging of a disk, or from the growth of a bone spur that pushes on the nerve. Radicular pain can occur in various areas depending on which spinal nerve is affected:? Cervical radicular pain occurs in the neck. You may also feel pain, numbness, weakness, or tingling in the arms.? Thoracic radicular pain occurs in the mid-spine area. You would feel this pain in the back and chest. This type is rare.? Lumbar radicular pain occurs in the lower back area. You would feel this pain as low back pain. You may feel pain, numbness, weakness, or tingling in the buttocks or legs. Sciatica is a type of lumbar radicular pain that shoots down the back of the leg.Radicular pain often goes away when you follow instructions from your health care provider for relieving pain at home.Follow these instructions at home:Managing pain? If directed, apply ice to the affected area:? Put ice in a plastic bag.? Place a towel between your skin and the bag.? Leave the ice on for 20 minutes, 2?3 times a day.? If directed, apply heat to the affected area as often as told by your health care provider. Use the heat source that your health care provider recommends, such as a moist heat pack or a heating pad.? Place a towel between your skin and the heat source.? Leave the heat on for 20?30 minutes.? Remove the heat if your skin turns bright red. This is especially important if you are unable to feel pain, heat, or cold. You may have a greater risk of getting burned.Activity ? Do not sit or rest in bed for long periods of time.? Try to stay as active as possible. Ask your health care provider what type of exercise or activity is best for you.? Avoid activities that make your pain worse, such as bending and lifting.? Do not lift anything that is heavier than 10 lb (4.5 kg). Practice using proper technique when lifting items. Proper lifting technique involves bending your knees and rising up.? Do strength and fmswt-ma-ejyqus exercises only as told by your health care provider.General instructions? Take xswu-lfa-afzkqjf and prescription medicines only as told by your health care provider.? Pay attention to any changes in your symptoms.? Keep all follow-up visits as told by your health care provider. This is important.Contact a health care provider if:? Your pain and other symptoms get worse.? Your pain medicine is not helping.? Your pain has not improved after a few weeks of home care.? You have a fever.Get help right away if:? You have severe pain, weakness, or numbness.? You have difficulty with bladder or bowel control.This information is not intended to replace advice given to you by your health care provider. Make sure you discuss any questions you have with your health care provider.Document Released: 12/26/2005 Document Revised: 04/25/2017 Document Reviewed: 06/13/2016[employer] Interactive Patient Education ? 2018 [employer].Medication Information:The exam and treatment you received today in the [facility] Emergency Department were for an urgent problem and are not intended as complete care. It is important for you to follow up with a doctor, nurse practitioner, or physician?s assistant professor of life sciences for ongoing care. If your symptoms become worse or you do not improve as expected and you are unable to reach your usual health care provider, you should return to the Emergency Department, we are available 24 hours a day.For those patients who have received Radiology results, the interpretation of your X-ray as given to you by our Emergency Department physician is only a preliminary report. The Radiologist will review your films and if there is a change in the diagnosis you will be notified by phone. Please make sure you have provided a working phone number so we can reach you if necessary.In the event that you had a lab culture while you were a patient in the Emergency Department, you will be notified by phone if there is a need to change your antibiotic. Please make sure you have provided a working phone number so we can reach you if necessary.[facility] Emergency Department has provided you with a complete list of medications post discharge. Please inform your golf player assistant/provider of your visit and for further instruction on these medications. Any specific questions regarding your chronic medications and dosages should be discussed with your primary care physician(s) and/or pharmacist. [facility]ations[facility] [address] [place] [address], [phone] (predniSONE 20 mg oral tablet) 2 tab(s) Oral every day for 5 Days. Take with food to avoid gastric reflux or upset stomach. Refills: 0.Medications to Continue That Have Not ChangedOther Medicationsacetaminophen-hydrocodon e ([place] 5 mg-325 mg oral tablet) 1 tab(s) Oral Every 6 hours as needed for pain. Refills: 0.aspirin (aspirin 81 mg oral tablet) 1 tab(s) Oral every day.atorvastatin (atorvastatin 40 mg oral tablet) 1 tab(s) Oral every day.clopidogrel (Plavix 75 mg oral tablet) 1 tab(s) Oral every day.folic acid (folic acid 1 mg oral tablet) 1 tab(s) Oral every day.losartan (losartan 100 mg oral tablet) 1 tab(s) Oral every day.metoprolol (metoprolol succinate 25 mg oral tablet, extended release) 1 tab(s) Oral every day.nitroglycerin (nitroglycerin 0.4 mg sublingual tablet) 1 tab(s) Sublingual every 5 minutes as needed for chest pain.promethazine (promethazine 25 mg oral tablet) 1 tab(s) Oral Every 4 hours as needed for nausea/vomiting. Refills: 0.Visit InformationVisit Diagnosis:Diagnoses This Visit Back pain ([id number]) Low back pain (M54.5) Paresthesia (R20.2) UC - Back Pain ([id number] )If you received any narcotics, sedation, or any other medication that causes drowsiness for the next 24 hours, unless otherwise directed:? Do not drive a car.? Do not operate machinery such as power tools, lawn mowers, drills, sewing machines, or stoves? Avoid alcoholic beverages and drugs for allergies, nerves, or sleep? Do not make important personal or business decisions or sign any legal documentsReason for Visit:Lower Back painAllergies:Substance Reaction Symptoms Type CommentsNo Known Medication Allergies DrugVital Signs: Vitals and Measurements this Visit (last charted value for your 08/26/2018 visit) Vital Signs This Visit Temperature Oral: 36.8 DegC Peripheral Pulse Rate: 86 bpm Respiratory Rate: 18 br/min Systolic Blood Pressure: 142 mmHg Diastolic Blood Pressure: 80 mmHgProblems List:Problem Onset CommentsCHEST PAINDiverticulitisHypertensionMajor Tests and Procedures:The following procedures and tests were performed during your ED visit.LaboratoryRadiologyCardiology Viruses or BacteriaWhat?s got you sick?Antibiotics only treat bacterial infections. Viral illnesses cannot be treated with antibiotics. When an antibiotic is not prescribed, ask your healthcare professional for tips on how to relieve symptoms and feel better. Usual CauseIllnessVirusesBacteria Antibiotic NeededCold/Runny Nose NOBronchitis/Chest Cold (in otherwise healthy children and adults) NOWhooping Cough YesFlu NOStrep Throat YesSore Throat (except strep) NOFluid in the middle ear (otitis media with effusion) NOUrinary Tract Infection YesAntibiotics Aren?t Always the Answerwww.cdc.gov/getsmart GET SMART Know When Antibiotics [place] Department of Health and Human ServicesCenters for Disease Control and Prevention August 2014 Normal [facility] Care [address] Urgent Care Record [facility] ? Urgent [address] [place] [id number] pATIENT DISCHARGE INSTRUCTIONSPatient InformationName: MALCOM COTTO IV Age: 57 YearsDate of : [birth year]MRN: [id number] For Visit: UC - Back Pain; Back pain; LOWER BACK PAINArrival Time: 08/26/18 09:42:00Phone: Primary Care Physician: Provider, NoneAttending Physician: Jurgen YanceyandarComment:Visit Diagnosis:Diagnoses This Visit Back pain ([id number]) Low back pain (M54.5) Paresthesia (R20.2) UC - Back Pain ([id number] )If you received any narcotics, sedation, or any other medication that causes drowsiness for the next 24 hours, unless otherwise directed:? Do not drive a car.? Do not operate machinery such as power tools, lawn mowers, drills, sewing machines, or stoves? Avoid alcoholic beverages and drugs for allergies, nerves, or sleep? Do not make important personal or business decisions or sign any legal documentsWith: Address: When:Follow up with primary care providerComments:Begin on the Steroid 2 tabs daily for the next 5 days, take with food or milk to help prevent reflux or stpmach upsetFollow-up with primary care provider in 7-10 days sooner if worse.If you do not have a primary care provider can establish with Dr. Crowell who is accepting new patientsContact information for Dr. Josh Hebert [phone] office located at [address] [place], [place] [address]Medication Information:The exam and treatment you received today in the [facility] Urgent Care were for an urgent problem and are not intended as complete care. It is important for you to follow up with a doctor, nurse practitioner, or physician?s assistant professor of life sciences for ongoing care. If your symptoms become worse or you do not improve as expected and you are unable to reach your usual health care provider, you should return to the Emergency Department, we are available 24 hours a day.For those patients who have received Radiology results, the interpretation of your X-ray as given to you by our Urgent Care physician is only a preliminary report. The Radiologist will review your films and if there is a change in the diagnosis you will be notified by phone. Please make sure you have provided a working phone number so we can reach you if necessary.In the event that you had a lab culture while you were a patient in the Urgent Care, you will be notified by phone if there is a need to change your antibiotic. Please make sure you have provided a working phone number so we can reach you if necessary.[facility] Urgent Care has provided you with a complete list of medications post discharge. Please inform your golf player assistant/provider of your visit and for further instruction on these medications. Any specific questions regarding your chronic medications and dosages should be discussed with your primary care physician(s) and/or pharmacist. [facility]ations[facility] [address] [place] [address], [phone] (predniSONE 20 mg oral tablet) 2 tab(s) Oral every day for 5 Days. Take with food to avoid gastric reflux or upset stomach. Refills: 0.Medications to Continue That Have Not ChangedOther Medicationsacetaminophen-hydrocodon e ([place] 5 mg-325 mg oral tablet) 1 tab(s) Oral Every 6 hours as needed for pain. Refills: 0.aspirin (aspirin 81 mg oral tablet) 1 tab(s) Oral every day.atorvastatin (atorvastatin 40 mg oral tablet) 1 tab(s) Oral every day.clopidogrel (Plavix 75 mg oral tablet) 1 tab(s) Oral every day.folic acid (folic acid 1 mg oral tablet) 1 tab(s) Oral every day.losartan (losartan 100 mg oral tablet) 1 tab(s) Oral every day.metoprolol (metoprolol succinate 25 mg oral tablet, extended release) 1 tab(s) Oral every day.nitroglycerin (nitroglycerin 0.4 mg sublingual tablet) 1 tab(s) Sublingual every 5 minutes as needed for chest pain.promethazine (promethazine 25 mg oral tablet) 1 tab(s) Oral Every 4 hours as needed for nausea/vomiting. Refills: 0.Visit InformationAllergies:Substance Reaction Symptoms Type CommentsNo Known Medication Allergies DrugVital Signs: Vitals and Measurements this Visit (last charted value for your 08/26/2018 visit) Vital Signs This Visit Temperature Oral: 36.8 DegC Peripheral Pulse Rate: 86 bpm Respiratory Rate: 18 br/min Systolic Blood Pressure: 142 mmHg Diastolic Blood Pressure: 80 mmHgProblems List:Problem Onset CommentsCHEST PAINDiverticulitisHypertension Patient EducationRadicular PainRadicular pain is a type of pain that spreads from your back or neck along a spinal nerve. Spinal nerves are nerves that leave the spinal cord and go to the muscles. Radicular pain occurs when one of these nerves becomes irritated or squeezed (compressed). Radicular pain is sometimes called radiculopathy, radiculitis, or a pinched nerve. When you have this type of pain, you may also have weakness, numbness, or tingling in the area of your body that is supplied by the nerve. The pain may feel sharp and burning. Spinal nerves leave the spinal cord through openings between the 24 bones (vertebrae) that make up the spine. Radicular pain is often caused by something pushing on a spinal nerve. This pushing may be done by a vertebra or by one of the round cushions between vertebrae (intervertebral disks). This can result from an injury, from wear and tear or aging of a disk, or from the growth of a bone spur that pushes on the nerve. Radicular pain can occur in various areas depending on which spinal nerve is affected:? Cervical radicular pain occurs in the neck. You may also feel pain, numbness, weakness, or tingling in the arms.? Thoracic radicular pain occurs in the mid-spine area. You would feel this pain in the back and chest. This type is rare.? Lumbar radicular pain occurs in the lower back area. You would feel this pain as low back pain. You may feel pain, numbness, weakness, or tingling in the buttocks or legs. Sciatica is a type of lumbar radicular pain that shoots down the back of the leg.Radicular pain often goes away when you follow instructions from your health care provider for relieving pain at home.Follow these instructions at home:Managing pain? If directed, apply ice to the affected area:? Put ice in a plastic bag.? Place a towel between your skin and the bag.? Leave the ice on for 20 minutes, 2?3 times a day.? If directed, apply heat to the affected area as often as told by your health care provider. Use the heat source that your health care provider recommends, such as a moist heat pack or a heating pad.? Place a towel between your skin and the heat source.? Leave the heat on for 20?30 minutes.? Remove the heat if your skin turns bright red. This is especially important if you are unable to feel pain, heat, or cold. You may have a greater risk of getting burned.Activity ? Do not sit or rest in bed for long periods of time.? Try to stay as active as possible. Ask your health care provider what type of exercise or activity is best for you.? Avoid activities that make your pain worse, such as bending and lifting.? Do not lift anything that is heavier than 10 lb (4.5 kg). Practice using proper technique when lifting items. Proper lifting technique involves bending your knees and rising up.? Do strength and qwhaf-zx-lgvjdo exercises only as told by your health care provider.General instructions? Take iaom-hma-mbahdex and prescription medicines only as told by your health care provider.? Pay attention to any changes in your symptoms.? Keep all follow-up visits as told by your health care provider. This is important.Contact a health care provider if:? Your pain and other symptoms get worse.? Your pain medicine is not helping.? Your pain has not improved after a few weeks of home care.? You have a fever.Get help right away if:? You have severe pain, weakness, or numbness.? You have difficulty with bladder or bowel control.This information is not intended to replace advice given to you by your health care provider. Make sure you discuss any questions you have with your health care provider.Document Released: 12/26/2005 Document Revised: 04/25/2017 Document Reviewed: 06/13/2016[employer] Patient Education ? 2018 [employer]. Viruses or BacteriaWhat?s got you sick?Antibiotics only treat bacterial infections. Viral illnesses cannot be treated with antibiotics. When an antibiotic is not prescribed, ask your healthcare professional for tips on how to relieve symptoms and feel better. Usual CauseIllnessVirusesBacteria Antibiotic NeededCold/Runny Nose NOBronchitis/Chest Cold (in otherwise healthy children and adults) NOWhooping Cough YesFlu NOStrep Throat YesSore Throat (except strep) NOFluid in the middle ear (otitis media with effusion) NOUrinary Tract Infection YesAntibiotics Aren?t Always the Answerwww.cdc.gov/getsmart GET SMART Know When Antibiotics [place] Department of Health and Human ServicesCenters for Disease Control and Prevention August 2014 Normal [facility] Vital Signs Date Time Vital Sign Value Performing Clinician Anoop whitaker 01-27-2025 12:04-0500 Blood Pressure Location Antonella Delgadillo [facility] 01-27-2025 12:04-0500 Diastolic blood pressure 106 mm[Hg] Antonella Delgadillo [facility] 01-27-2025 12:04-0500 Heart rate 100 /min Antonella Delgadillo [facility] 01-27-2025 12:04-0500 Respiratory rate 18 /min Antonella Delgadillo [facility] 01-27-2025 12:04-0500 Systolic blood pressure 160 mm[Hg] Antonella Carrilloa [facility] 11-18-2024 08:10-0500 Blood Pressure Location Mary Lue [facility] 11-18-2024 08:10-0500 Body temperature 98.6 [degF] Mary Lue [facility] 11-18-2024 08:10-0500 Diastolic blood pressure 86 mm[Hg] Mary Lue [facility] 11-18-2024 08:10-0500 Heart rate 84 /min Mary Lue [facility] 11-18-2024 08:10-0500 Respiratory rate 18 /min Mary Lue [facility] 11-18-2024 08:10-0500 Systolic blood pressure 143 mm[Hg] Mary Lue [facility] 09-08-2024 13:49-0400 Diastolic blood pressure 68 mm[Hg] Grace Orzech [facility] 09-08-2024 13:49-0400 Heart rate 94 /min Grace Orzech [facility] 09-08-2024 13:49-0400 Respiratory rate 16 /min Grace Orzech [facility] 09-08-2024 13:49-0400 Systolic blood pressure 124 mm[Hg] Grace Orzevictoriano [facility] Encounters Encounter Date Encounter Type Care Provider Facility Start: 09-16-2025 ambulatory Mary M. Lue Facility:[facility] Start: 03-09-2025 End: 03-10-2025 Telephone encounter Lenore Boland RN [facility] Start: 03-04-2025 End: 03-06-2025 Emergency department patient visit NASIMA Sharonda SOTO [facility] Start: 03-04-2025 End: 03-04-2025 ambulatory Mary M. Lue Facility:[facility] Start: 02-01-2025 End: 02-01-2025 ambulatory Antonella Leona Facility:[facility] Start: 02-01-2025 End: 02-01-2025 Patient encounter procedure Antonella Leona [facility] Start: 01-27-2025 End: 01-27-2025 ambulatory Mary M. Lue Facility:[facility] Start: 01-27-2025 End: 01-27-2025 Patient encounter procedure Antonella Carrilloa [facility] Start: 01-25-2025 End: 01-25-2025 ambulatory Mary M. Lue Facility:[facility] Start: 01-25-2025 End: 01-25-2025 Patient encounter procedure Mary M. Lue [facility] Start: 12-11-2024 End: 12-11-2024 ambulatory LORENA BRIGGS [facility] Start: 12-09-2024 End: 12-10-2024 ambulatory TANYA SY [facility] Start: 11-18-2024 End: 11-18-2024 ambulatory Mary M. Lue Facility:[facility] Start: 11-18-2024 End: 11-18-2024 Patient encounter procedure [facility] Start: 10-26-2024 End: 10-26-2024 ambulatory Mary Curran Facility:[facility] Start: 10-26-2024 End: 10-26-2024 Patient encounter procedure Mary Curran [facility] Start: 10-19-2024 ambulatory Mary Curran Facility[facility] Start: 09-08-2024 End: 09-08-2024 ambulatory Grace X Orzech Facility:[facility] Start: 09-08-2024 End: 09-08-2024 Patient encounter procedure Grace X Orzech [facility] Start: 04-10-2024 End: 04-10-2024 ambulatory Alan DUFF Facility:[facility] Start: 06-11-2022 End: 06-11-[address] DOCTOR WRIGHT Facility: Start: 08-26-2018 End: 08-26-2018 Patient encounter procedure Uriel Lock Facility:[facility] Procedures Date Procedure Procedure Detail Performing Clinician Start: 07-28-2024 Prostate needle biop sy any approach Grace Orzech Start: 04-30-2020 Cholecystectomy Grace Orzech Appendectomy Grace Orzech Comment on above: 1976 Colonoscopy Grace Orzech Plan of Treatment Date Care Activity Detail Author Start: 12-10-2025 Adult BMI Screening Adult BMI Screening [facility] Start: 12-09-2025 Tobacco Screening Tobacco Screening [facility] Start: 08-02-2025 Influenza vaccination Influenza Vaccine [facility] Start: 2024 Abdominal aortic aneurysm screening Abdominal Aortic Aneurysm (AAA) Screen [facility] Start: 2024 Fall Risk Screening Fall Risk Screening [facility] Start: 08-02-2024 COVID-19 Vaccine ( season) COVID-19 Vaccine ( season) [facility] Start: 1978 DTaP,Tdap and Td Vaccines (1 - Tdap) DTaP,Tdap and Td Vaccines (1 - Tdap) [facility] Start: 1977 Adult BMI Follow Up Plan Adult BMI Follow Up Plan [facility] Start: 1977 Diabetic foot examination Diabetic Foot Exam [facility] Start: 1971 Depression Screening Depression Screening [facility] Start: 1959 Glaucoma screening Diabetic Ophthalmology Exam [facility] Start: 1959 Urine screening for protein Urine Microalbumin [facility] Immunizations Immunization Date Immunization Notes Care Provider Fa bhupinder 12-02-2023 influenza virus vaccine, unspecified formulation Lenore Boland RN [facility] 03-22-2021 SARS-CoV-2 (COVID-19 ) mRNA-1273 vaccine Grace Orzech [facility] 03-02-2021 SARS-CoV-2 (COVID-19 ) mRNA-1273 vaccine Grace Orzech [facility] Comment on above: Result Comment: 2023: [id number] 02-02-2021 SARS-CoV-2 (COVID-19 ) mRNA-1273 vaccine Grace Orzech [facility] Comment on above: Result Comment: 2023: [id number] Payers Date Payer Category Payer Unknown [id number] 2024 [employer] [id number] 2024 Medicare O [employer] MEDICARE [id number] 2024 Medicare [id number] 2020 [employer] ( and others) 2019 Unknown [id number] 2018 Self-pay 1959 Unknown [id number] [id number]. 2.593 1959 Unknown [id number] [id number]. 2.718 1959 Unknown [id number] 2.16.840.1.247764.3.579. 2.1286 1959 Unknown [id number] [id number]. 2.1286 1959 Unknown [id number] 2.16.840.1.620471.3.579. 2.1286 1959 Unknown [id number] 2.16.840.1.005170.3.579. 2.727 1959 Unknown [id number] 2.16.840.1.495367.3.579. 2.727 1959 Unknown [id number] 2.16.840.1.602703.3.579. 2.727 1959 Unknown [id number] 2.16.840.1.048385.3.579. 2.727 1959 Unknown [id number] 2.16.840.1.446814.3.579. 2.727 1959 Unknown [id number] 2.16.840.1.386006.3.579. 2.727 1959 Unknown [id number] 2.16.840.1.285562.3.579. 2.727 1959 Unknown [id number] 2.16.840.1.095843.3.579. 2.727 1959 Unknown [id number] 2.16.840.1.673400.3.579. 2.727 1959 Unknown [id number] [id number]. 2.1286 Social History Date Type Detail Facility Start: 09-08-2024 End: 12-09-2024 Tobacco smoking status Ex-smoker (finding) [facility] Comment on above: quit 2015 Tobacco smoking status Never [facility] Comment on above: quit 2015 Start: 05-13-2019 End: 12-09-2024 Sex Assigned At Male [facility] End: 12-02-2015 History of tobacco use Current smoker [facility] End: 12-02-2015 History of tobacco use Cigarette Smoker [facility] Start: 12-09-2024 Tobacco use and exposure Smokeless tobacco non-user [facility] Start: 12-09-2024 Alcoholic beverage intake Current drinker of alcohol (finding) [facility] Start: 05-13-2019 End: 12-09-2024 History of Social function [facility] Has the [employer], or [employer] threatened to shut off services in your home in past 12Mo No [facility] Start: 12-09-2024 Alcohol Comment 3 beers a night [facility] Start: 1960 Sex assigned at Not on file P [facility] Start: 09-23-2015 Sex Male (finding) [facility] Goals Date Patient Goal Desired Activity /State Personal health goal Comment on above: Formatting of this n ote might be different from the original. Evaluation of progress towards goal: Patient plans to return home with his . Functional Status Date Assessment Result Facility 01-27-2025 Functional Status N/A [facility] 01-25-2025 Functional Status N/A [facility] 11-18-2024 Functional Status N/A [facility] 10-26-2024 Functional Status N/A [facility] 09-08-2024 Functional Status N/A [facility] Clinical Notes 09-08-2024 to 03-09-2025 Telephone Encounter - Lenore Boland RN - 03/09/2025 2:13 PM EDTTelephone Encounter - Niecy Chun CMA - 03/09/2025 2:13 PM EDTTelephone Encounter - Lenore Boland RN - 03/09/2025 2:13 PM EDT Note Date & Type Note Facility 03-09-2025 Miscellaneous Notes ----- Message from RAFAEL Sierra sent at 03/05/2025 11:06 AM EDT ----- Regarding: Recurrent TIA Patient was seen in December via telestroke. Now hospitalized at [facility] with stroke like symptoms. Being DC this am bc MRI is negative so no formal visit done. However, hospitalist would like him to FU with us in clinic. Please schedule Mr. Cotto to FU in stroke clinic with Renate, Harriet, Fellow or ROYCE in the next couple weeks. DX: Recurrent TIA/ Stroke Like Events Called pt to inform what was noted below. Pt states he will see other providers. Vice President Of Customer Service voiced understanding. documented in this encounter [facility] 03-09-2025 Telephone encounter Note ----- Message from RAFAEL Sierra sent at 03/05/2025 11:06 AM EDT ----- Regarding: Recurrent TIA Patient was seen in December via telestroke. Now hospitalized at [facility] with stroke like symptoms. Being DC this am MRI is negative so no formal visit done. However, hospitalist would like him to FU with us in clinic. Please schedule Mr. Cotto to FU in stroke clinic with Renate, Harriet, Fellow or ROYCE in the next couple weeks. DX: Recurrent TIA/ Stroke Like Events [facility] 03-09-2025 Telephone encounter Note Called pt to inform what was noted below. Pt states he will see other providers. Vice President Of Customer Service voiced understanding. [facility] 03-04-2025 Note Patient Education Urology Benign Prostatic Hyperplasia Benign [...] Follow these instructions at home: ??? Take awlh-wkq-hwqlhwj and prescription medicines only as told by [...] pain. ??? Your symptoms do not get (more content not included)... [facility] 01-27-2025 Hospital Discharge instructions Patient Education 01/27/2025 15:46:54 Hematuria, Adult Hematuria, Adult Hematuria is blood in the urine. Blood may be visible in the urine, or it may be identified with a test. This condition can be caused by infections of the bladder, urethra, kidney, or prostate. Other possible causes include: Kidney stones. Cancer of the urinary tract. Too much calcium in the urine. Conditions that are passed from parent to child (inherited conditions). Exercise that requires a lot of energy. [...] cancers. Follow these instructions at home: Medicines Take zxxq-uer-jtkfyhu and prescription medicines only as told by your health care provider. If you were prescribed an antibiotic medicine, take it as told by your health care provider. Do not stop taking the antibiotic even if you start to feel better. Eating and drinking Drink enough fluid to keep your urine pale yellow. It is recommended that you drink 3 4 quarts (2.8 3.8 L) a day. If you have been diagnosed with an infection, drinking cranberry juice in addition to large amounts of water is recommended. Avoid caffeine, tea, and carbonated beverages. These tend to irritate the bladder. Avoid alcohol because it may irritate the prostate (in males). General instructions If you have been diagnosed with a kidney stone, follow your health care provider's instructions about straining your urine to catch the stone. Empty your bladder often. Avoid holding urine for long periods of time. If you are female: ?After a bowel movement, wipe from front to back and use each piece of toilet paper only once. ?Empty your bladder before and after sex. Pay attention to any changes in your symptoms. Tell your health care provider about any changes or any new symptoms. It is up to you to get the results of any tests. Ask your health care provider, or the department that is doing the test, when your results will be ready. Keep all follow-up visits. This is important. Contact a health care provider if: You develop back pain. You have a fever or chills. You have nausea or vomiting. Your symptoms do not improve after 3 days. Your symptoms get worse. Get help right away if: You develop severe vomiting and are unable to take medicine without vomiting. You develop severe pain in your back or abdomen even though you are taking medicine. You pass a large amount of blood in your urine. You pass blood clots in your urine. You feel very weak or like you might faint. You faint. Summary Hematuria is blood in the urine. It has many possible causes. It is very important that you tell your health care provider about any blood in your urine, even if it is painless or the blood stops without treatment. Take pqhq-iun-kqbbftz and prescription medicines only as told by your health care provider. Drink enough fluid to keep your urine pale yellow. This information is not intended to replace advice given to you by your health care provider. Make sure you discuss any questions you have with your health care provider. Document Revised: 07/19/2021 Document Reviewed: 07/19/2021 [employer]apo Patient Education 2023 [employer]. Follow Up Care 01/25/2025 10:54:27 With:ivan Address: When: Unknown Comments:Nurse visit for bautista removal on 02/01F/U as scheduled with IVAN w/ DIANDRA [facility] 01-27-2025 Note Patient Education Urology Hematuria, Adult Hematuria is [...] these instructions at home: Medicines ??? Take fcve-qbf-ocfmhmt and prescription medicines only as told by [...] the blood stops without treatment. ??? Take bszt-agz-ukowadh and prescription medicines only as told by your health care provider. ??? Drink enough fluid to keep your urine pale yellow. This information is not intended to replace advice given to you by your health care provider. Make sure you discuss any questions you have with your health care provider. Document Revised: 07/19/2021 Document Reviewed: 07/19/2021 Elsevier Patient Education ? 2023 [employer] [facility] 01-25-2025 Hospital Discharge instructions Patient Education 01/25/2025 10:46:32 Lue - Urolift Post-Op Instructions (CUSTOM) [facility] [place], [place] Post-Operative Instructions for UroLift After your [...] if you experience a temperature of 100.4 F or higher, excessive urinary bleeding, symptoms of infection, inability to urinate or uncontrolled pain. If the office is closed, you may need to present to the local emergency department. Bautista catheter If you have a catheter and will remove it at home, you may do so the next day if urine is clear and no longer red/pink in color. If urine is red, wait until clear to remove the catheter. See attached instructions for removal. Postop UroLift Instructions Complete your antibiotic as instructed. Remain on all your urinary medication until follow up. Take your pain madications and AZO as needed. Resume any blood thinners 48 hour post procedure. Continue to hydrate! Minimize your activity for 72-96 hours post procedure. If you are prescribed Oxybutynin for bladder spasms, you may take this medication every 8 hours as needed. This medication may cause dry mouth/eyes and constipation. Taking an over the counter stool softener and drinking plenty of water will help with side effects. Bautista Catheter Removal Your healthcare provider has instructed you to remove your Bautista catheter. This is a thin, flexible tube that allows urine to drain out of your bladder and into a bag. It is important to properly remove your catheter to prevent infection and other complications. If you have any questions about removing the Bautista catheter, ask your healthcare provider before trying to remove it. Otherwise, follow the instructions on this sheet. Bautista Catheter The Bautista catheter is held in place by a [...] and call your healthcare provider right away. Empty the bag of urine if needed. Wash your hands with soap and warm water. Dry them well. Gather your supplies. This includes a syringe that was given to you by your healthcare provider, a wastebasket, and a towel. Put the syringe into the balloon port on the catheter. The syringe fits tightly into the port with a firm push and twist motion. Wait as the water from the balloon empties into the syringe. Depending on how large the balloon is, you may need to repeat this process several times until all of the water is out of the balloon. Once the balloon is emptied, gently pull out the catheter. Put the used catheter in the wastebasket. Throw away the syringe. Use the towel to wipe up any spilled water or urine if needed. Wash your hands again. When to Call Your Healthcare Provider Call the healthcare provider right away if: You have a fever of 100.4 F (38 C) or higher, or as directed by your healthcare provider. You have questions about removing the catheter. The catheter does not come out with gentle pulling. You cannot urinate within 8 hours of removing the catheter. Your belly (abdomen) is painful or bloated You have burning pain with urination that lasts for 24 hours. You see a lot of blood in your urine. Light bleeding for 24 hours is normal. It feels like the bladder is not emptying. Follow Up Care 11/18/2024 08:54:06 With:Follow up with PCP regarding referrals for neurology and cardiology per [facility] instructions Address:Unknown When: Unknown With:Mary Curran Address: [facility] [place] [address] [phone] Business (1) When: Unknown Comments:Office to schedule follow up: nursing visit in 2-3 days once urine is clear for bautista removal voiding trial. Follow up with Dr. Curran in 1 month for [facility] 01-25-2025 Note Patient Education [facility] [place], [place] Post-Operative Instructions for UroLift After your [...] to present to the local emergency department. Bautista catheter If you have a catheter and [...] of water will help with side effects. Bautista Catheter Removal Your healthcare provider has instructed you to remove your Bautista catheter. This is a thin, flexible tube that allows urine to drain out of your bladder and into a bag. It is important to properly remove your catheter to prevent infection and other complications. If you have any questions about removing the Bautista catheter, ask your healthcare provider before trying to remove it. Otherwise, follow the instructions on this sheet. Bautista Catheter The Bautista catheter is held in place by a [...] your urine. Light bleeding for 24 hours (more content not included)... [facility] 11-18-2024 Hospital Discharge instructions Patient Education 11/18/2024 08:46:20 Prostatic Urethral Lift, Care After Prostatic Urethral Lift, Care After The following information offers guidance on how to care for yourself after your procedure. Your health care provider may also give you more specific instructions. If you have problems or questions, contact your health care provider. What can I expect after the procedure? After the procedure, it is common to have: Soreness or discomfort in your penis from having the cystoscope inserted during the procedure. Discomfort or burning when urinating. An increased urge to urinate. More frequent urination. Urine that is blood-tinged. These symptoms should go away after a few days. Follow these instructions at home: Activity If you were given a sedative during the procedure, it can affect you for several hours. Do not drive or operate machinery until your health care provider says that it is safe. Avoid sitting for a long time without moving. Get up to take short walks every 1 2 hours. This is important to improve blood flow and breathing. Ask for help if you feel weak or unsteady. You may have to avoid lifting. Ask your health care provider how much you can safely lift. Avoid intense physical activity for as long as told by your health care provider. Return to your normal activities as told by your health care provider. Ask your health care provider what activities are safe for you. Ask when you can return to sexual activity. General instructions Take mqbc-rvm-qxrtihp and prescription medicines only as told by your health care provider. Ask your health care provider if the medicine prescribed to you: ?Requires you to avoid driving or using machinery. ?Can cause constipation. You may need to take these actions to prevent or treat constipation: ?Drink enough fluid to keep your urine pale yellow. ?Take ycud-qly-mplvexg or prescription medicines. ?Eat foods that are high in fiber, such as beans, whole grains, and fresh fruits and vegetables. ?Limit foods that are high in fat and processed sugars, such as fried or sweet foods. Do not use any products that contain nicotine or tobacco. These products include cigarettes, chewing tobacco, and vaping devices, such as e-cigarettes. These can delay healing after the procedure. If you need help quitting, ask your health care provider. Keep all follow-up visits. This is important. Contact a health care provider if: You have chills or a fever. You have pain when passing urine. You have bright red blood or blood clots in your urine. You have difficulty passing urine. You have leaking of urine (incontinence). Get help right away if: You have chest pain or shortness of breath. You have leg pain or swelling. You cannot pass urine. These symptoms may be an emergency. Get help right away. Call 911. Do not wait to see if the symptoms will go away. Do not drive yourself to the hospital. Summary After the procedure, it is common to have discomfort or burning when urinating, an increased urge to urinate, more frequent urination, and urine that is blood-tinged. You may have to avoid lifting. Ask your health care provider how much you can safely lift. Return to your normal activities as told by your health care provider. Ask when you can return to sexual activity. This information is not intended to replace advice given to you by your health care provider. Make sure you discuss any questions you have with your health care provider. Document Revised: 06/15/2022 Document Reviewed: 06/15/2022 [employer] Patient Education 2023 [employer]. 11/18/2024 08:46:20 Prostatic Urethral Lift Prostatic Urethral Lift Prostatic urethral lift is [...] incision. You may have this procedure if: You have symptoms of BPH. Your prostate is not severely enlarged. Medicines to treat BPH are not working or not tolerated. You want to avoid possible sexual side effects from medicines or other procedures that are used to treat BPH. Tell a health care provider about: Any allergies you have. All medicines you are taking, including vitamins, herbs, eye drops, creams, and tnkq-cpv-dokedks medicines. Any problems you or family members have had with anesthetic medicines. Any bleeding problems you have. Any surgeries you have had. Any medical conditions you have. What are the risks? Generally, this is a safe procedure. However, problems may occur, including: Bleeding. Infection. Leaking of urine (incontinence). Allergic reactions to medicines. Return of BPH symptoms after 2 years, requiring more treatment. What happens before the procedure? When to stop eating and drinking Follow instructions from your health care provider about what you may eat and drink before your procedure. These may include: 8 hours before your procedure ?Stop eating most foods. Do not eat meat, fried foods, or fatty foods. ?Eat only light foods, such as toast or crackers. ?All liquids are okay except energy drinks and alcohol. 6 hours before your procedure ?Stop eating. ?Drink only clear liquids, such as water, clear fruit juice, black coffee, plain tea, and sports drinks. ?Do not drink energy drinks or alcohol. 2 hours before your procedure ?Stop drinking all liquids. ?You may be allowed to take medicines with small sips of water. If you do not follow your health care provider's instructions, your procedure may be delayed or canceled. Medicines Ask your health care provider about: Changing or stopping your regular medicines. This is especially important if you are taking diabetes medicines or blood thinners. Taking medicines such as aspirin and ibuprofen. These medicines can thin your blood. Do not take these medicines unless your health care provider tells you to take them. Taking hadt-rjq-sgdmbcv medicines, vitamins, herbs, and supplements. Surgery safety Ask your health care provider what steps will be taken to help prevent infection. These steps may include: Removing hair at the surgery site. Washing skin with a germ-killing soap. Taking antibiotic medicine. General instructions Do not use any products that contain nicotine or tobacco for at least 4 weeks before the procedure. These products include cigarettes, chewing tobacco, and vaping devices, such as e-cigarettes. If you need help quitting, ask your health care provider. If you will be going home right after the procedure, plan to have a responsible adult: ?Take you home from the hospital or clinic. You will not be allowed to drive. ?Care for you for the time you are told. What happens during the procedure? An IV may be inserted into one of your veins. You will be given one or more of the following: ?A medicine to help you relax (sedative). ?A medicine that is injected into your urethra to numb the area (local anesthetic). ?A medicine to make you fall asleep (general anesthetic). A cystoscope will be inserted into your penis and moved through your urethra to your prostate. A device will be inserted through the cystoscope and used to press the lobes of your prostate away from your urethra. Implants will be inserted through the device to hold the lobes of your prostate in the widened position. The device and cystoscope will be removed. The procedure may vary among health care providers and hospitals. What happens after the procedure? Your blood pressure, heart rate, breathing rate, and blood oxygen level be monitored until you leave the hospital or clinic. If you were given a sedative during the procedure, it can affect you for several hours. Do not drive or operate machinery until your health care provider says that it is safe. Summary Prostatic urethral lift is a surgical procedure to relieve symptoms of prostate gland enlargement that occurs with age (benign prostatic hypertrophy, BPH). The procedure is performed with a thin device called a cystoscope. This device is inserted through the tip of the penis and moved up the urethra to reach the prostate. This is less invasive than other procedures that require an incision. If you will be going home right [...] provider. Document Revised: 06/15/2022 Document Reviewed: 06/15/2022 [employer] Patient Education 2023 [employer]. Follow Up Care 10/26/2024 11:52:27 With:Mary Curran MD, URL, URO Address: [address] [place] [address] [phone] When: Unknown [facility] 11-18-2024 Note Patient Education Urology Prostatic Urethral Lift, Care [...] to sexual activity. General instructions ??? Take mkro-sge-vckpnro and prescription medicines only as told by your health care provider. ??? Ask your health care provider if the medicine prescribed to you: ? Requires you to avoid driving or using machinery. ? Can cause constipation. You may need to take these actions to prevent or treat constipation: ? Drink enough fluid to keep your urine pale yellow. ? Take ddhx-fmg-iymyifk or prescription medicines. ? Eat foods that [...] provider. Document Revised: 06/15/2022 Document Reviewed: 06/15/2022 [employer] Patient Education ? 2023 [employer] Prostatic Urethral Lift Prostatic urethral lift is [...] including vitamins, herbs, eye drops, creams, and tuom-uhf-edeooes medicines. ??? An (more content not included)... [facility] 10-26-2024 Note Progress Note-Jose reyes Patient: MALCOM COTTO Age: 64 years Sex: Male : 1960 Associated Diagnoses: None Author: Magdy WATSON, Mary Guerra Health Status Allergies: Allergic Reactions (Selected) Severity Not Documented MetFORMIN- Upset stomach., Allergies (1) Active Severity Reaction metFORMIN Upset stomach Current medications: (Selected) Prescriptions Prescribed Cialis 5 mg oral tablet: 5 mg = 1 tab(s), Oral, Daily, for BPH, # 30 tab(s), Refills(s) 3, Pharmacy: [facility], 178, cm, 09/08/24 13:54:00 EDT, Height/Length [...] history of prostate CA. [facility]: PSA 06/2022???6.5 12/2022???7.7 03/2024???7.9 04/2024 - [...] and procedures in caring for the patient. [facility] Comment on above: Result Comment: Elec tronically Signed By: Mary Curran MD\.br\Date and Time Signed: 10/26/24 14:03 EST 10-26-2024 Evaluation + Plan note Extrac kannan from: Title:EU- Clinic Note HOPD Author:Mary Curran MD Date:10/26/24 Impression and Plan 64-year-old male with a [...] history of prostate CA. [facility]: PSA 06/2022 6.5 12/2022 7.7 03/2024 7.9 04/2024 - 8.3 TRUS Biopsy 03/2023 -negative [...] and procedures in caring for the patient. Future Appointments Appointment Date:11/18/2024 08:15:00 AM Scheduled Provider:Mary Curran MD Location:[facility] Appointment Type:URO Office Visit [facility] 11-25-2024 Hospital Discharge instructions Patient Education 10/26/2024 11:47:47 EU - Cystoscopy Discharge Instructions (CUSTOM) Cystoscopy Voiding after the procedure: there may be some pain, burning, urgency, frequency and blood tinged urine following the procedure. These symptoms usually resolve within 2-5 days. Drink the amount of fluid it takes to keep the urine pink to yellow or clear in color. Drinking enough water and fluids will help to ease any discomfort after your procedure. If you are having problems that seem out of the ordinary, please call. If unable to contact your physician and you feel it is an emergency, go to the nearest emergency room or call 911 Diet you may resume your normal diet. Activity you may resume your normal activities Call if you have a fever over 100 degrees. Follow Up Care 09/11/2024 14:22:09 With:Mary Curran Address: [facility] Akil Benitez[address] [address] [phone] Business (1) When: Unknown Comments:Office to schedule follow up within 1 month to review treatment plan [facility] 11-25-2024 NotePatient Education Cystoscopy ??? Voiding after the procedure: [...] if you have a fever over 100 degrees.[facility] 09-08-2024 Hospital Discharge instructions Patient Education 09/08/2024 14:57:03 Benign Prostatic Hyperplasia Benign Prostatic Hyperplasia Benign prostatic hyperplasia (BPH) is an enlarged prostate gland that is caused by the normal agingprocess. The prostate may get bigger as a man gets older. The condition is not caused by cancer. The prostate is a walnut-sized gland that is involved in the production of semen. It is located in front of the rectum and below the bladder. The bladder stores urine. The urethra carries stored urine ou t of the body. An enlarged prostate can press on the urethra. This can make it harder to pass urine. The buildup of urine in the bladder can cause infection. Back pressure and infection may progress to bladder damage and kidney (renal) failure. What are the causes? This condition is part of the normal aging process. However, not all men develop problems from thiscondition. If the prostate enlarges away from the urethra, urine flow will not be blocked. If it enlarges toward the urethra and compresses it, there will be problems passing urine. What increases the risk? This condition is more likely to develop in men older than 50 years. What are the signs or symptoms? Symptoms of this condition include: Getting up often during the night to urinate. Needing to urinate frequently during the day. Difficulty starting urine flow. Decrease in size and strength of your urine stream. Leaking (dribbling) after urinating. Inability to pass urine. This needs immediate treatment. Inability to completely empty your bladder. Pain when you pass urine. This is more common if there is also an infection. Urinary tract infection (UTI). How is this diagnosed? This condition is diagnosed based on your medical history, a physical exam, and your symptoms. Tests will also be done, such as: A post-void bladder scan. This measures any amount of urine that may remain in your bladder after you finish urinating. A digital rectal exam. In a rectal exam, your health care provider checks your prostate by putting a lubricated, gloved finger into your rectum to feel the back of your prostate gland. This exam detects the size of your gland and any abnormal lumps or growths. An exam of your urine (urinalysis). A prostate specific antigen (PSA) screening. This is a blood test used to screen for prostate cancer. An ultrasound. This test uses sound waves [...] severity of your condition. Treatment may include: Observation and yearly exams. This may be the only treatment needed if your condition and symptoms are mild. Medicines to relieve your symptoms, including: ?Medicines to shrink the prostate. ?Medicines to relax the muscle of the prostate. Surgery in severe cases. Surgery may include: ?Prostatectomy. In this procedure, the prostate tissue is removed completely through an open incision or with a laparoscope or robotics. ?Transurethral resection of the prostate (TURP). In this procedure, a tool is inserted through the opening at the tip of the penis (urethra). It is used to cut away tissue of the inner core of the prostate. The pieces are removed through the same opening of the penis. This removes the blockage. ?Transurethral incision (TUIP). In this procedure, small cuts are made in the prostate. This lessens the prostate's pressure on the urethra. ?Transurethral microwave thermotherapy (TUMT). This procedure uses microwaves to create heat. The heat destroys and removes a small amount of prostate tissue. ?Transurethral needle ablation (TUNA). This procedure uses radio frequencies to destroy and remove a small amount of prostate tissue. ?Interstitial laser coagulation (ILC). This procedure uses a laser to destroy and remove a small amount of prostate tissue. ?Transurethral electrovaporization (TUVP). This procedure uses electrodes to destroy and remove a small amount of prostate tissue. ?Prostatic urethral lift. This procedure inserts an implant to push the lobes of the prostate away from the urethra. Follow these instructions at home: Take bcbq-typ-fpdjqtw and prescription medicines only as told by your health care provider. Monitor your symptoms for any changes. Contact your health care provider with any changes. Avoid drinking large amounts of liquid before going to bed or out in public. Avoid or reduce how much caffeine or alcohol you drink. Give yourself time when you urinate. Keep all follow-up visits. This is important. Contact a health care provider if: You have unexplained back pain. Your symptoms do not get better with treatment. You develop side effects from the medicine you are taking. Your urine becomes very dark or has a bad smell. Your lower abdomen becomes distended and you have trouble passing urine. Get help right away if: You have a fever or chills. You suddenly cannot urinate. You feel light-headed or very dizzy, or you faint. There are large amounts of blood or clots in your urine. Your urinary problems become hard to manage. You develop moderate to severe low back or flank pain. The flank is the side of your body between the ribs and the hip. These symptoms may be an emergency. Get help right away. Call 911. Do not wait to see if the symptoms will go away. Do not drive yourself to the hospital. Summary Benign prostatic hyperplasia (BPH) is an enlarged prostate that is caused by the normal aging process. It is not caused by cancer. An enlarged prostate can press on the urethra. This can make it hard to pass urine. This condition is more likely to develop in men older than 50 years. Get help right away if you suddenly cannot urinate. This information is not intended to replace advice given to you by your health care provider. Make sure you discuss any questions you have with your health care provider. Document Revised: 06/06/2022 Document Reviewed: 06/06/2022 [employer] Patient Education 2023 [employer] Follow Up Care 08/14/2024 08:02:33 With:Magdy WATSON, STEPHANIE Arevalo, URO Address: When: Unknown Comments:cysto [facility] 10-08-2024 NotePatient Education Urology Benign Prostatic Hyperplasia Benign prostatic hyperplasia (BPH) is an enlarged prostate gland that is caused by the normal agingprocess. The prostate may get bigger as a man gets older. The condition is not caused by cancer. The prostate is a walnut-sized gland that is involved in the production of semen. It is located in front of the rectum and below the bladder. The bladder stores urine. The urethra carries stored urine ou t of the body. An enlarged prostate can press on the urethra. This can make it harder to pass urine. The buildup of urine in the bladder can cause infection. Back pressure and infection may progress to bladder damage and kidney (renal) failure. What are the causes? This condition is part of the normal aging process. However, not all men develop problems from thiscondition. If the prostate enlarges away from the [...] urine that may remain in your bladder afteryou finish urinating. ? A digital rectal exam. [...] this procedure, a tool is inserted through theopening at the tip of the penis (urethra). [...] procedure uses radio frequencies to destroy and removea small amount of prostate tissue. ? Interstitial laser coagulation (ILC). This procedure uses a laser to destroy and remove a small amount of prostate tissue. ? Transurethral electrovaporization (TUVP). This procedure uses electrodes to destroy and remove a small amount of prostate tissue. ? Prostatic urethral lift. This procedure inserts an implant to push the lobes of the prostate awayfrom the urethra. Follow these instructions at home: ? Take cvya-bne-vqycapn and prescription medicines only as told by [...] better with treatment. ? You develop side effec (more content not included)...[facility] No data available for this section [facility] evaluation + Plan note Future Appointments Appointment Date:12/18/2024 10:00:00 AM Scheduled Provider: Location:[facility] Appointment Type:Urology CALL PAT FT Appointment Date:12/21/2024 09:00:00 AM Scheduled Provider: Location:[facility] Appointment Type:Urology FT [facility] evaluation + Plan note Future Appointments Appointment Date:01/28/2025 09:30:00 AM Scheduled Provider: Location:[facility] Appointment Type:URO Nurse Visit Appointment Date:03/04/2025 10:15:00 AM Scheduled Provider:Mary Curran MD Location:[facility] Appointment Type:URO Office Visit [facility] Evaluation + Plan note Future Appointments Appointment Date:02/01/2025 08:45:00 AM Scheduled Provider: Location:[facility] Appointment Type:URO Nurse Visit Appointment Date:03/04/2025 10:15:00 AM Scheduled Provider:Mary Curran MD Location:[facility] Appointment Type:URO Office Visit [facility] evaluation + Plan note Future Appointments Appointment Date:03/04/2025 10:15:00 AM Scheduled Provider:Mary Curran MD Location:[facility] Appointment Type:URO Office Visit [facility] Hospital Discharge instructions No data available for this section [facility] InstructionsNot on filedocumented in this encounter [facility] No data available for this section [facility] Summary Purpose Family History No Family History Records FoundNo Family History Records FoundNo Family History Records Found No data available for this section No data available for this section No data available for this section No Family History Records Found No data available for this section No data available for this section No data available for this section No Family History Records FoundNo Family History Records Found Advance Directives Date Activated Date Inactivated Comments 12/09/2024 9:54 AM 12/10/2024 2:50 PM Additional Source Comments (unrecognized sect ion and content) No Status Records FoundNo Status Records FoundNo Status Records FoundNo Status Records FoundNo Status Records FoundNo Status Records Found INFORMATION SOURCE (unrecogn ized section and content) DATE CREATED AUTHOR 11/02/2018 [facility] DATE CREATED AUTHOR AUTHOR'S ORGANIZ ATION 07/28/2020 [facility] DATE CREATED AUTHOR AUTHOR'S ORGANIZ ATION 09/25/2022 [facility] DATE CREATED AUTHOR AUTHOR'S ORGANIZ ATION 12/14/[address] [facility] DATE CREATED AUTHOR AUTHOR'S ORGANIZ ATION 03/07/2025 [facility] DATE CREATED AUTHOR AUTHOR'S ORGANIZ ATION 03/07/2025 [facility] Patient Care team informatio n (unrecognized section and content) Material Stress Tester Relationship Specialty Start Date End Date Nasima Soto, ADJUNCT BUSINESS INSTRUCTOR-PLANT TECHNICIAN/CONTROL ROOM OPERATOR [address] [place] [address] PCP - General Nurse Practitioner 12/09/24 FOR RECORDS PERTAINING TO PATIENTS WHO ARE OR HAVE BEEN ENROLLED IN A CHEMICAL DEPENDENCY/SUBSTANCEABUSE PROGRAM, SOME INFORMATION MAY BE OMITTED. This clinical summary was aggregated from multiple sources. Caution should be exercised in using it in the provision of clinical care. This summary normalizes information from multiple sources, and as a consequence, information in this document may materially change the coding, format and clinical context of patient data. In addition, data may be omitted in some cases. CLINICAL DECISIONS SHOULD BE BASED ON THE PRIMARY CLINICAL RECORDS. [facility]. provides no warranty or guarantee of the accuracy or completeness of information in this document.
--- OUTSIDE RECORDS SUMMARY | 2025-05-08 09:00 | XMS_ITS | Referral Summary ---
Author Organization [facility] Address [address] [place] [address] Care Team Providers Care Predatory Hunter Name Role Phone Unavailable Primary Care Provider Unavailabl e Social History Tobacco Use Types Packs/Day Years Used Date Smoking Tobacco: Never Assessed [place] Safety & Environment Answer Date Rec orded Fear of Current or Ex-Partner Not on file Emotionally Abused Not on file 01/23/2024 Physically Abused Not on file 01/23/2024 Sexually Abused Not on file 01/23/2024 Physically or Sexually Abused Not on file Sex and Gender Information Value Date Recorded Sex Assigned at Not on file Gender Identity Not on file Sexual Orientation Not on file Plan of Treatment Not on file
--- OUTSIDE RECORDS SUMMARY | 2025-05-08 09:00 | XMS_ITS | Clinical Summary ---
Author Organization [facility] Address [address] [place] [address] Care Team Providers Care Glass Bulb Machine Adjuster Name Role Phone Unavailable Primary Care Provider [...] Orientation Not on file Plan of Treatment Health Maintenance Due Date Last Done Comments CT Colonography 1959 Colonoscopy 1959 Colorectal Cancer Screening 1959 FIT-DNA 1959 FIT 1959 FOBT 1959 Medicare Initial Physical (IPPE) 1959 Sigmoidoscopy 1959 Depression Screening 1971 Adult Tetanus 1981 Zoster Vaccines (1 of 2) 2009 COVID-19 Vaccine ( - 2023-2 5 season) 2024 Fall Risk Screening 2024 Pneumococcal Vaccine: 65+ Ye ars (1 of 1 - PCV) 2024 Influenza Vaccine (Season Ended) 2025 HIB Vaccines Aged Out No longer eligi ble based on patient's age to complete this topic HPV Vaccines Aged Out No longer eligi ble based on patient's age to complete this topic IPV Vaccines Aged Out No longer eligi ble based on patient's age to complete this topic Meningococcal B Vaccine Aged Out No l onger eligible based on patient's age to complete this topic Meningococcal Vaccine Aged Out No shital malou eligible based on patient's age to complete this topic Rotavirus Vaccines Aged Out No longer eligible based on patient's age to complete this topic
--- OUTSIDE RECORDS SUMMARY | 2025-05-08 09:00 | XMS_ITS | Clinical Summary ---
Author Organization [facility] Address [address] [place] [address] Phone Care Team Providers Care Machine Crater Name Role Phone Ruben Duke DO Primary Care Provider [phone] Social History Tobacco Use Types Packs/Day Years Used Date Smoking Tobacco: Never Assessed Sex and Gender Information Value Date Recorded Sex Assigned at Not on file Legal Sex Male 11:54 PM EST Gender Identity Not on file Sexual Orientation Not on file Plan of Treatment Not on file Care Teams Machine Crater Relationship Specialty Start Date End Date Ruben Duke DO PCP - General 06/13/20
--- OUTSIDE RECORDS SUMMARY | 2025-05-08 09:00 | XMS_ITS | Clinical Summary ---
Author Organization [facility] Address [address] [place] [address] Care Team Providers Care Egg Gatherer Name Role Phone Ruben Duke DO Primary Care Provider [phone] Allergies No known active allergies Medications losartan (COZAAR) 50 MG tablet Take 50 mg by mouth daily Active aspirin 81 MG chewable tablet Take 1 tablet by mouth daily 30 tablet 3 04/28/2016 Active metFORMIN (GLUCOPHAGE) 500 MG tablet Take 1 tablet by mouth 2 times daily (with meals) 60 tablet 3 04/28/2016 Active atorvastatin (LIPITOR) 40 MG tablet Take 1 tablet by mouth nightly 30 tablet 3 04/28/2016 Active metoprolol (LOPRESSOR) 25 MG tablet Take 1 tablet by mouth 2 times daily 60 tablet 3 04/28/2016 Active vitamin B-1 100 MG tablet Take 1 tablet by mouth daily 30 tablet 3 04/28/2016 Active Multiple Vitamin (MULTIVITAMIN) tablet Take 1 tablet by mouth daily 30 tablet 3 04/28/2016 Active nicotine (NICODERM CQ) 21 MG/24HR Place 1 patch onto the skin daily 30 patch 3 04/28/2016 Active folic acid (FOLVITE) 1 MG tablet Take 1 tablet by mouth daily 30 tablet 3 04/28/2016 Active nitroGLYCERIN (NITROSTAT) 0.[address] 1 tablet under the tongue every 5 minutes as needed for Chest pain 30 tablet 0 05/17/2016 Active Active Problems Problem Noted Date Diagnosed Date Non-STEMI (non-ST elevated myocardial infarction ) 04/28/2016 CAD (coronary artery disease) 04/28/2016 Benign essential HTN 04/28/2016 NSTEMI (non-ST elevated myocardial infarction) Social History Tobacco Use Types Packs/Day Years Used Date Smoking Tobacco: Every Day Cigarettes Tobacco Cessation:Counseling Given: Yes Alcohol Use Standard Drinks/Week Comments Yes 84 (1 standard drink = 0.6 oz pu re alcohol) Sex and Gender Information Value Date Recorded Sex Assigned at Not on file Legal Sex Male 9:17 PM EST Gender Identity Not on file Sexual Orientation Not on file Last Filed Vital Signs Vital Sign Reading Time Taken Comments Blood Pressure 125/71 05/17/2016 11:33 AM EDT Pulse 49 05/17/2016 11:33 AM EDT Temperature 36.6 C (97.9 F) 05/17/2016 8:26 AM EDT Respiratory Rate 13 05/17/2016 11:33 AM EDT Oxygen Saturation 96% 05/17/2016 11:33 AM EDT Inhaled Oxygen Concentration - - Weight 84.4 kg (186 lb) 05/17/2016 8:26 AM EDT Height 172.7 cm (5' 8 ) 05/17/2016 8:26 AM EDT Body Mass Index 28.28 05/17/2016 8:26 AM EDT Plan of Treatment Not on file Insurance [employer] Advance Directives * Full Code (Latest Code Status on File) Date Activated Date Inactivated Comments 04/27/2016 4:04 PM 04/28/2016 7:59 PM Care Teams Egg Gatherer Relationship Specialty Start Date End Date Ruben Duke DO [address] [place] [address] PCP - General 04/28/16
--- OUTSIDE RECORDS SUMMARY | 2025-05-08 09:00 | XMS_ITS | Clinical Summary ---
Author Organization [facility] Address [id number] [address] [place] [address] Care Team Providers Care Armature Repairer Name Role Phone Nasima Chambers FINANCIAL PLANNING ASSISTANT-DRILLING FIELD SPECIALIST Primary Care Provider Allergies Active Allergy Reactions Criticality Noted Date Comments Atorvastatin Itching Medium 04/02/2024 Gabapentin Facial Swelling Medium 06/22/2021 Lisinopril Cough Low 12/28/2020 Metformin Abdominal Pain 05/25/2020 Medications tadalafiL (CIALIS) 5 mg tablet Take 1 tablet (5 mg total) by mouth. 09/17/2024 Active pioglitazone (ACTOS) 30 mg tablet Take 1 tablet (30 mg total) by mouth. 09/22/2024 Active losartan (COZAAR) 50 mg tablet Take 1 tablet (50 mg total) by mouth. 09/22/2024 Active insulin glargine-yfgn 100 unit/mL (3 mL) insulin pen Inject 16 Unit under the skin nightly. 09/22/2024 Active finasteride (PROSCAR) 5 mg tablet Take 1 tablet (5 mg total) by mouth in the morning. 03/18/2024 Active ferrous sulfate 325 (65 FE) mg tablet Take 1 tablet (325 mg total) by mouth in the morning and 1 tablet (325 mg total) in the evening. Take with meals. 05/07/2024 Active ezetimibe (ZETIA) 10 mg tablet Take 1 tablet (10 mg total) by mouth in the morning. 09/22/2024 Active empagliflozin (JARDIANCE) 25 mg tablet tablet Take 1 tablet (25 mg total) by mouth. 09/22/2024 Active amLODIPine (NORVASC) 10 mg tablet Take 1 tablet (10 mg total) by mouth in the morning. 09/22/2024 Active cholecalciferol , vitamin D3, 2,000 units capsule Take 1 capsule (2,000 Units total) by mouth in the morning. Active aspirin 81 mg chewable tablet Chew 1 tablet (81 mg total) and swallow in the morning. Active diphenhydrAMINE -acetaminophen (TYLENOL PM) 25-500 mg tablet Take 2 tablets by mouth nightly as needed for sleep. Active TURMERIC ORAL Take 1 tablet by mouth in the morning. Active folic acid (FOLVITE) 1 mg tablet Take 1 tablet (1 mg total) by mouth in the morning. 30 tablet 12/11/2024 Active thiamine HCl (VITAMIN B-1) 100 mg tablet Take 1 tablet (100 mg total) by mouth in the morning. 30 tablet 12/11/2024 Active guoymucw-zcya-P A-calcium &mins (THERAGRAN-M) 9 mg iron-400 mcg tablet Take 1 tablet by mouth in the morning. 30 tablet 12/11/2024 Active Active Problems Problem Noted Date Diagnosed Date TIA (transient ischemic attack) 12/10/2024 Chest pain 12/09/2024 Incomplete bladder emptying 12/09/2024 Alcohol dependence 12/09/2024 Benign prostatic hyperplasia (BPH) with straining on urination 12/09/2024 Arteriosclerosis of coronary artery 12/09/2024 Overview (12/09/2024): Jun 08, 2016 Entered By: KEVIN MCDERMOTT Comment: CATH 04/17/16 NSTEMI>non- obst CAD Multiple nodules of lung 12/09/2024 Overview (12/09/2024): Feb 25, 2024 Entered By: NASIMA CHAMBERS Comment: 02/22 repeat in 1 year OAB (overactive bladder) 12/09/2024 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 12/09/2024 Vitamin D deficiency 12/09/2024 Former smoker 12/09/2024 Type 2 diabetes mellitus wit h hyperglycemia, with long-term current use of insulin 12/09/2024 Paresthesias 12/09/2024 Episodic confusion 12/09/2024 Benign essential HTN 04/28/2016 CAD (coronary artery disease) 04/28/2016 Non-ST elevation (NSTEMI) myocardial infarction 04/28/2016 Encounters Date Type Department Care Team Description 03/09/2025 Telephone [facility] of [facility] [address] [facility] [address] [place] [id number] Lenore Boland RN 03/04/2025 2:08 PM EDT - 03/06/2025 7:36 AM EDT Emergency [facility] [address] [place] [address] Discharge Disposition: Telemedicine Discharge from Last 3 Months Family History Medical History Relation Name Comments Heart disease Father Cancer Mother Relation Name Status Comments Father Mother Social History Tobacco Use Types Packs/Day Years Used Date Smoking Tobacco: Former Cigarettes Q uit: 2016 Smokeless Tobacco: Never Alcohol Use Standard Drinks/Week Comments Yes 0 (1 standard drink = 0.6 oz pur e alcohol) 3 beers a night [facility] Utilities Answer Date Recorded In the past 12 months has [employer], gas, oil, or water [employer] threatened to shut off services in your home? No 12/09/2024 Overall Financial Resource Strain (CARDIA) Answe r Date Recorded How hard is it for you to pa y for the very basics like food, housing, medical care, and heating? Not hard at all 12/09/2024 PRAPARE - Transportation Answer Date Re corded In the past 12 months, has l ack of transportation kept you from medical appointments or from getting medications? No 07/2025 In the past 12 months, has l ack of transportation kept you from meetings, work, or from getting things needed for daily living? No 12/09/2024 Housing Instability Answer Date Recorde d Are you worried or concerned that in the next two months you may not have stable housing that you own, rent or stay in as a part of a household? No 12/09/2024 Childcare Answer Date Recorded Childcare Unknown 05/13/2019 Employment Answer Date Recorded Employment Unknown 05/13/2019 Hunger Screening Answer Date Recorded Within the past 12 months we worried whether our food would run out before we got money to buy more. Never True 12/09/2024 Within the past 12 months th e food we bought just didn't last and we didn't have money to get more. Never True 12/09/2024 Sex and Gender Information Value Date Recorded Sex Assigned at Not on file Legal Sex Male 4:22 PM EDT Gender Identity Not on file Sexual Orientation Not on file Last Filed Vital Signs Vital Sign Reading Time Taken Comments Blood Pressure 120/73 12/10/2024 7:10 AM EST Pulse 70 12/10/2024 7:10 AM EST Temperature 36.5 C (97.7 F) 12/10/2024 7:10 AM EST Respiratory Rate 16 12/10/2024 7:10 AM EST Oxygen Saturation 96% 12/10/2024 7:10 AM EST Inhaled Oxygen Concentration - - Weight 103.9 kg (229 lb) 12/10/2024 4:00 AM EST Height 177.8 cm (5' 10 ) 12/09/2024 12:30 PM EST Body Mass Index 32.86 12/09/2024 12:30 PM EST Plan of Treatment Health Maintenance Due Date Last Done Comments Diabetic Ophthalmology Exam 1959 Depression Screening 1971 Adult BMI Follow Up Plan 1977 Diabetic Foot Exam 1977 DTaP,Tdap and Td Vaccines (1 - Tdap) 1978 COVID-19 Vaccine (4 - 2023-2 5 season) 2024 03/22/2021, 03/02/2021, 02/02/2021 Abdominal Aortic Aneurysm (A AA) Screen 2024 Fall Risk Screening 2024 Influenza Vaccine 08/02/2025 12/02/2023, , 09/13/2020, Additional history exists Tobacco Screening 12/09/2025 12/09/2024 Adult BMI Screening 12/10/2025 12/10/2024 Zoster (Shingles) Vaccine Completed 03/13/2022, 03/2020 Goals Goal Patient Goal Type Associated Problems Recent Progress Patient-Stated? Author Home with self care General Yes Cherelle Nicholson, RN Note: Evaluation of progress towards goal: Patient plans to return home with his . Medical Devices Not on file Insurance [facility] MEDIC[facility] [employer] Advance Directives * Full Code (Latest Code Status on File) Date Activated Date Inactivated Comments 12/09/2024 9:54 AM 12/10/2024 2:50 PM Care Teams Armature Repairer Relationship Specialty Start Date End Date Nasima Chambers, FINANCIAL PLANNING ASSISTANT-DRILLING FIELD SPECIALIST [address] [place] [id number] PCP - General Nurse Practitioner 12/09/24
[2025-05-08 09:06] LABS: Basophils Percent Auto 0.3 % (0.2-2.0); Eosinophils Absolute Auto 0.3 10^3/uL (0.0-0.7); Eosinophils Percent Auto 3.9 % (0.9-7.0); Hematocrit 45.9 % (42.0-54.0); Hemoglobin 15.6 g/dL (14.0-18.0); Immature Granulocytes Abs Auto 0.01 10^3/uL (0.00-0.03); Immature Granulocytes Pct Auto 0.1 % (0.0-0.5); Lymphocytes Absolute Auto 1.8 10^3/uL (1.2-3.8); Lymphocytes Percent Auto 24.8 % (20.5-60.0); Mean Corpuscular Hemoglobin 30.6 pg (25.9-34.0); Mean Platelet Volume 9.5 fL (9.5-13.5); Monocytes Absolute Auto 0.8 10^3/uL (0.3-0.8); Monocytes Percent Auto 11.3 % (1.7-12.0); Neutrophils Absolute Auto 4.3 10^3/uL (1.4-6.5); Neutrophils Percent Auto 59.6 % (43.0-75.0); Platelet Count 289 10^3/uL (150-450); Red Cell Distribution Width 13.5 % (11.0-15.0); White Blood Count 7.1 10^3/uL (4.0-11.0)
[2025-05-08 09:16] LABS: Anion Gap 15.4; BUN Creatinine Ratio 20.9; Calcium 8.8 mg/dL (8.5-10.1); Carbon Dioxide 26.7 mmol/L (21.0-32.0); Chloride 103 mmol/L (98-107); Estimated GFR (African America >60 (>=60 mL/min/1.73m^2); Estimated GFR (Non-African Ame >60 (>=60 mL/min/1.73m^2); Glucose 245 mg/dL (74-106); Potassium 4.1 mmol/L (3.5-5.1); Sodium 141 mmol/L (136-145)
[2025-05-08 09:22] LABS: INR 1.05; Partial Thromboplastin Time 27.4 sec (22.3-36.2); Prothrombin Time 11.1 sec (9.0-11.6)
== END 2025-05-08 11:46 | disposition home or self-care (01) ==
PROVIDERS: Emergency Provider Emergency Medicine
DX: R20.2 Paresthesia of skin (principal); R42 Dizziness and giddiness; Z90.49 Acquired absence of other specified parts of digestive tract; Z87.891 Personal history of nicotine dependence; M79.602 Pain in left arm; M79.605 Pain in left leg
CPT/HCPCS: 36415; 70450; 70496; 70498; 71045; 80048; 85025; 85610; 85730; 93005; 99285; Q9967